=== PATIENT | male | born 1935 | race Caucasian/White ===

== ENCOUNTER 2017-06-05 06:53 | Emergency (ER) | payer MEDICARE, MEDICAID ==
[2017-06-05] MEDS ORDERED: Carbidopa/Levodopa 50-200 MG Tab.ER PO ONE (07:29)
--- NOTE | 2017-06-05 07:30 | EDM.PDOC ---
ED HPI GENERAL MEDICAL PROBLEM - General Stated Complaint: FALL Time Seen by Provider: 06/05/17 07:02 Source of Information: Reports: [facility] Records History Limitations: Reports: Physical Impairment - History of Present Illness INITIAL COMMENTS - FREE TEXT/NARRATIVE: History of present illness: [] Review of systems: As per history of present illness and below otherwise all systems reviewed and negative. Past medical history: As per history of present illness and as reviewed below otherwise noncontributory. Surgical history: As per history of present illness and as reviewed below otherwise noncontributory. Social history: No reported history of drug or alcohol abuse. Family history: As per history of present illness and as reviewed below otherwise noncontributory. Physical exam: General: Well developed, in NAD HEENT: Atraumatic, normocephalic, pupils reactive, negative for conjunctival pallor or scleral icterus, mucous membranes moist, throat clear, neck supple, nontender, trachea midline. Lungs: Clear to auscultation, breath sounds equal bilaterally, chest nontender. Heart: S1S2, regular, negative for clicks, rubs, or JVD. Abdomen: Soft, nondistended, nontender. Negative for masses or hepatosplenomegaly. Negative for costovertebral tenderness. Pelvis: Stable nontender. Genitourinary: Deferred. Rectal: Deferred. Extremities: Atraumatic, negative for cords or calf pain. Neurovascular unremarkable.Exam nonfocal. Diagnostics: []X-rays pelvis and femurs negative for fracture positive for osteoarthritis Therapeutics: []Tylenol and morning meds given Impression: []Fall with extremity contusion Plan: []Tylenol and/or Motrin for pain continue regular meds with PMD Definitive disposition and diagnosis as appropriate pending reevaluation and review of above. - Related Data Allergies Allergy/AdvReac Type Severity Reaction Status Date / Time amoxicillin trihydrate Allergy Other Verified 06/05/17 07:22 [From Augmentin] potassium clavulanate Allergy Other Verified 06/05/17 07:22 [From Augmentin] Home Meds: Home Meds Carbidopa/Levodopa [Carbidopa-Levo ER 50-200] 1 tab PO ASDIRECTED 07/18/15 [ History] Citalopram [Citalopram HBr] 20 mg PO BEDTIME 07/18/15 [History] Lisinopril 5 mg PO DAILY 07/18/15 [History] OXcarbazepine [Trileptal] 150 mg PO QAM 07/18/15 [History] traZODone 100 mg PO BEDTIME 07/18/15 [History] Acetaminophen [Tylenol] 650 mg PO TID 07/23/15 [History] Levothyroxine 25 mcg PO DAILY 07/23/15 [History] Multivitamin [Multivitamins] 1 tab PO DAILY 07/23/15 [History] OXcarbazepine [Trileptal] 300 mg PO BEDTIME 07/23/15 [History] Aspirin [Low Dose Aspirin EC] 81 mg PO DAILY 05/21/16 [History] Polyethylene Glycol 3350 [MiraLAX] 17 gm PO DAILY 05/21/16 [History] Famotidine [Pepcid] 40 mg PO DAILY 06/05/17 [History] Past Medical History HEENT History: Reports: Other (See Below) Other HEENT History: Early cataracts, blepharitis Cardiovascular History: Reports: High Cholesterol, Hypertension Respiratory History: Reports: None Gastrointestinal History: Reports: Hepatitis Genitourinary History: Reports: BPH, Retention, Urinary, Other (See Below) Other Genitourinary History: urinary obstruction Musculoskeletal History: Reports: Arthritis, Gout, Other (See Below) Other Musculoskeletal History: kyphosis w/minimal scoliosis Neurological History: Reports: Parkinson's Psychiatric History: Reports: Anxiety, Depression, Other (See Below) Other Psychiatric History: moderate intellectual disability Endocrine/Metabolic History: Reports: Diabetes, Type II Hematologic History: Reports: None Immunologic History: Reports: None Oncologic (Cancer) History: Reports: None Dermatologic History: Reports: None - Infectious Disease History Infectious Disease History: Reports: Hepatitis B - Past Surgical History HEENT Surgical History: Reports: Other (See Below) Social & Family History - Family History Family Medical History: Unobtainable - Tobacco Use Smoking Status *Q: Never Smoker Second Hand Smoke Exposure: No - Caffeine Use Caffeine Use: Reports: None - Recreational Drug Use Recreational Drug Use: No ED ROS GENERAL - Review of Systems Review Of Systems: See Below (See history of present illness) ED EXAM, GENERAL - Physical Exam Exam: See Below (See history of present illness) Course - Vital Signs Last Recorded V/S: Last Vital Signs Temp 97.3 F 06/05/17 07:11 Pulse 73 06/05/17 07:11 Resp 18 06/05/17 07:11 BP 119/50 L 06/05/17 07:11 Pulse Ox 97 06/05/17 07:11 - Orders/Labs/Meds Orders: Active Orders 24 hr Category Date Time Status Femur Min 1V Bi [CR] Stat Exams 06/05/17 Taken Pelvis 1V or 2V [CR] Stat Exams 06/05/17 Taken Meds: Medications Discontinued Medications Generic Name Dose Route Start Last Admin Trade Name Yehuda PRN Reason Stop Dose Admin Acetaminophen 650 mg 06/05/17 07:32 06/05/17 08:25 Tylenol PO 06/05/17 07:33 650 mg NOW ONE Administration Carbidopa/Levodopa 1 tab 06/05/17 07:29 06/05/17 08:25 Sinemet Cr 50-200 Mg PO 06/05/17 07:30 1 tab ONETIME ONE Administration Departure - Departure Time of Disposition: 09:08 Disposition: Home, Self-Care 01 Condition: Good, Fair Clinical Impression: Fall Qualifiers: Encounter type: initial encounter Qualified Code(s): W19.XXXA - Unspecified fall, initial encounter Contusion, lower limb, multiple sites Qualifiers: Encounter type: initial encounter Laterality: unspecified laterality Qualified Code(s): S80.10XA - Contusion of unspecified lower leg, initial encounter - Discharge Information Referrals: Jhonny Burroughs MD [Primary Care Provider] - Additional Instructions: The following information is given to patients seen in the emergency department who are being discharged to home. This information is to outline your options for follow-up care. We provide all patients seen in our emergency department with a follow-up referral. The need for follow-up, as well as the timing and circumstances, are variable depending upon the specifics of your emergency department visit. If you don't have a primary care physician on staff, we will provide you with a referral. We always advise you to contact your personal physician following an emergency department visit to inform them of the circumstance of the visit and for follow-up with them and/or the need for any referrals to a consulting specialist. The emergency department will also refer you to a specialist when appropriate. This referral assures that you have the opportunity for follow-up care with a specialist. All of these measure are taken in an effort to provide you with optimal care, which includes your follow-up. Under all circumstances we always encourage you to contact your private physician who remains a resource for coordinating your care. When calling for follow-up care, please make the office aware that this follow-up is from your recent emergency room visit. If for any reason you are refused follow-up, please contact the [facility] Emergency Department at and asked to speak to the emergency department charge nurse. Tylenol Motrin for pain continue regular meds up with PMD as needed [facility] [address] [place] [id number] - My Orders Last 24 Hours: My Active Orders 06/05/17 Femur Min 1V Bi [CR] Stat Pelvis 1V or 2V [CR] Stat - Assessment/Plan Last 24 Hours: My Active Orders 06/05/17 Femur Min 1V Bi [CR] Stat Pelvis 1V or 2V [CR] Stat
[2017-06-05] MEDS ORDERED: Acetaminophen 325 MG Tab PO ONE (07:32)
[2017-06-05] MEDS ORDERED: Sodium Chloride 0.9% 2.5 ML Syringe FLUSH PRN (08:09)
[2017-06-05] MEDS ORDERED: Sodium Chloride 0.9% 10 ML Syringe FLUSH PRN (08:09)
[2017-06-05] MEDS ORDERED: Ondansetron 4 MG/2 ML SDV IVPUSH ONE (08:11)
[2017-06-05] MEDS ORDERED: Morphine 2 MG/ML Syringe IVPUSH ONE (08:11)
[2017-06-05 09:31] VITALS: BP 112/46
--- NOTE | 2017-06-06 15:39 | CR ---
EXAM DATE: 06/05/17 PATIENT'S AGE: 81 Patient: NITZA HANNAH Facility: [place], [place] Site . Site : 1935 Study: XRay Extremity Bilateral femur [id number] 8:42:15 AM Ordering Physician: Wilder Perez Final Report: Indication: Fall and pain Technique: Bilateral femur 4 views Comparison: None Findings: Bones: Alignment is normal. No fractures or bone lesions. Joint spaces: Severe right hip joint osteoarthritis. Mild left hip joint osteoarthritis. Soft tissues: Unremarkable. Impression: No sign of acute injury. Dictated by Alvin Coleman MD @ 06/05/2017 8:57:56 AM Dictated by: Alvin Coleman MD @ 06/05/2017 08:58:31 (Electronic Signature) Report Signed by Proxy. MTDDontrell
--- NOTE | 2017-06-06 15:39 | CR ---
EXAM DATE: 06/05/17 PATIENT'S AGE: 81 Patient: NITZA HANNAH Facility: [place], [place] Site . Site : 1935 Study: XRay Pelvis [id number] 8:41:17 AM Ordering Physician: Wilder Perez Final Report: Indication: Fall and pain Technique: Pelvis 1 view Comparison: January 30, 2015. Findings: Bones: Alignment is normal. No fractures or bone lesions. Joint spaces: Severe right hip joint osteoarthritis. Mild left hip joint osteoarthritis. Soft tissues: Unremarkable. Impression: No sign of acute injury. Dictated by Alvin Coleman MD @ 06/05/2017 8:55:44 AM Dictated by: Alvin Coleman MD @ 06/05/2017 08:55:51 (Electronic Signature) Report Signed by Proxy. [facility]
== END 2017-06-05 09:31 | disposition home or self-care (01) ==
LOC: MW.ED 06:53
DX: S80.10XA Contusion of unspecified lower leg, initial encounter (principal); I10 Essential (primary) hypertension; E11.9 Type 2 diabetes mellitus without complications; Z88.1 Allergy status to other antibiotic agents; Z88.8 Allergy status to other drugs, medicaments and biological substances; Z79.899 Other long term (current) drug therapy; W19.XXXA Unspecified fall, initial encounter
CPT/HCPCS: 72170; 99283; A9270; 73551-50; 735515026

== ENCOUNTER 2017-10-29 16:36 | Inpatient (IN) | payer MEDICARE, MEDICAID ==
[2017-10-29] MEDS ORDERED: Sodium Chloride 0.9% 10 ML Syringe FLUSH PRN (16:48)
[2017-10-29] MEDS ORDERED: Sodium Chloride 0.9% 2.5 ML Syringe FLUSH PRN (16:48)
--- NOTE | 2017-10-29 16:54 | EDM.PDOC ---
<Denise John - Last Filed: 10/29/17 18:31> ED HPI GENERAL MEDICAL PROBLEM - General Stated Complaint: AMBULANCE Time Seen by Provider: 10/29/17 16:49 Source of Information: Reports: EMS Notes Reviewed, Old Records, RN Notes Reviewed History Limitations: Reports: Physical Impairment - History of Present Illness INITIAL COMMENTS - FREE TEXT/NARRATIVE: HISTORY AND PHYSICAL: []81-year-old male from [facility] who is brought by EMS due to increased agitation and fever. Report from [facility] states that his temperature was"107.0" and his heart rate was "255" they had given him 650 mg of Tylenol for this. History of Present Illness: On arrival to the emergency department his heart rate was 94. Temperature was 38.3. 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 Port from staff was that he was tachycardic and running a fever. Review of Systems: As per history of present illness and below otherwise all systems reviewed and negative. Past medical history: As per history of present illness and as reviewed below otherwise noncontributory. Surgical history: As per history of present illness and as reviewed below otherwise noncontributory. Social history: No reported history of drug or alcohol abuse. Family history: As per history of present illness and as reviewed below otherwise noncontributory. Physical exam: HEENT: Atraumatic, normocehpalic, pupils reactive, negative for conjunctival pallor or scleral icterus, mucous membranes moist, throat clear, neck supple, nontender, trachea midline. Lungs: Clear to auscultation, breath sounds equal bilaterally, chest non tender. Heart: S1S2, regular, negative for clicks, rubs, or JVD. Abdomen: Soft, nondistended, nontender. Negative for masses or hepatossplenmegaly. Negative for costovertebral tenderness. Pelvis: Stable nontender. Genitourinary: Deferred. Rectal: Deferred Extremities: Atraumatic, negative for cords or calf pain. Neurovascular unremarkable. Neuro: Awake, alert, oriented. Cranial nerves II through XII unremarkable. Cerebellum unremarkable. Motor and sensory unremarkable throughout. Exam nonfocal. Discussed this case with Dr. Allen who is in agreement to admit as inpatient on [facility]. Discussed this patient's condition with his POA. She verbalizes agreement that this is to be As DNR code level III Diagnostics: []CBC CMP blood cultures chest x-ray lactate u/a urine culture Therapeutics: []Saline lock Impression: []Urosepsis Plan: []Made as inpatient to [facility] Definitive disposition and diagnosis as appropriate pending reevaluation and review of above. Onset: Gradual Duration: Getting Worse Location: Reports: Generalized Severity: Mild Improves with: Reports: None Worsens with: Reports: None - Related Data Allergies Allergy/AdvReac Type Severity Reaction Status Date / Time amoxicillin trihydrate Allergy Other Verified 10/29/17 17:12 [From Augmentin] potassium clavulanate Allergy Other Verified 10/29/17 17:12 [From Augmentin] Home Meds: Home Meds Carbidopa/Levodopa [Carbidopa-Levo ER 50-200] 1 tab PO ASDIRECTED 07/18/15 [ History] Citalopram [Citalopram HBr] 10 mg PO BEDTIME 07/18/15 [History] Lisinopril 5 mg PO DAILY 07/18/15 [History] OXcarbazepine [Trileptal] 150 mg PO QAM 07/18/15 [History] traZODone 100 mg PO BEDTIME 07/18/15 [History] Acetaminophen [Tylenol] 650 mg PO TID 07/23/15 [History] Levothyroxine 25 mcg PO DAILY 07/23/15 [History] Multivitamin [Multivitamins] 1 tab PO DAILY 07/23/15 [History] OXcarbazepine [Trileptal] 300 mg PO BEDTIME 07/23/15 [History] Aspirin [Low Dose Aspirin EC] 81 mg PO DAILY 05/21/16 [History] Polyethylene Glycol 3350 [MiraLAX] 17 gm PO DAILY 05/21/16 [History] Famotidine [Pepcid] 40 mg PO DAILY 06/05/17 [History] Bisacodyl [Biscolax] 10 mg RECTAL ASDIRECTED 10/29/17 [History] Past Medical History HEENT History: Reports: Other (See Below) Other HEENT History: Early cataracts, blepharitis Cardiovascular History: Reports: High Cholesterol, Hypertension Respiratory History: Reports: None Gastrointestinal History: Reports: Hepatitis Genitourinary History: Reports: BPH, Retention, Urinary, Other (See Below) Other Genitourinary History: urinary obstruction Musculoskeletal History: Reports: Arthritis, Gout, Other (See Below) Other Musculoskeletal History: kyphosis w/minimal scoliosis Neurological History: Reports: Parkinson's Psychiatric History: Reports: Anxiety, Depression, Other (See Below) Other Psychiatric History: moderate intellectual disability Endocrine/Metabolic History: Reports: Diabetes, Type II Hematologic History: Reports: None Immunologic History: Reports: None Oncologic (Cancer) History: Reports: None Dermatologic History: Reports: None - Infectious Disease History Infectious Disease History: Reports: Hepatitis B Other Infectious Disease History: pt unable to verbalize - Past Surgical History HEENT Surgical History: Reports: Other (See Below) Social & Family History - Family History Family Medical History: Unobtainable - Tobacco Use Smoking Status *Q: Never Smoker Second Hand Smoke Exposure: No - Caffeine Use Caffeine Use: Reports: None - Recreational Drug Use Recreational Drug Use: No ED ROS GENERAL - Review of Systems Review Of Systems: ROS reveals no pertinent complaints other than HPI. ED EXAM, GENERAL - Physical Exam Exam: See Below (See dictation) Course - Vital Signs Last Recorded V/S: Last Vital Signs Temp 38.3 C H 10/29/17 17:06 Pulse 82 10/29/17 17:54 Resp 22 H 10/29/17 17:54 BP 145/80 H 10/29/17 17:54 Pulse Ox 95 10/29/17 17:54 - Orders/Labs/Meds Orders: Active Orders 24 hr Category Date Time Status EKG Documentation Completion [RC] STAT Care 10/29/17 16:48 Active Chest 1V Frontal [CR] Stat Exams 10/29/17 16:49 Taken CULTURE BLOOD [BC] Stat Lab 10/29/17 17:05 Received CULTURE BLOOD [BC] Stat Lab 10/29/17 17:44 Received CULTURE URINE [RM] Stat Lab 10/29/17 16:51 Received UA W/MICROSCOPIC [URIN] Stat Lab 10/29/17 16:51 Ordered Sodium Chloride 0.9% [Normal Saline] 1,000 ml Med 10/29/17 18:00 Active IV ASDIRECTED Sodium Chloride 0.9% [Normal Saline] 500 ml Med 10/29/17 17:00 Active IV STAT Sodium Chloride 0.9% [Saline Flush] Med 10/29/17 16:48 Active 10 ml FLUSH ASDIRECTED PRN Sodium Chloride 0.9% [Saline Flush] Med 10/29/17 16:48 Active 2.5 ml FLUSH ASDIRECTED PRN Blood Culture x2 Reflex Set [OM.PC] Stat Oth 10/29/17 17:25 Ordered Saline Lock Insert [OM.PC] Stat Ot 10/29/17 16:48 Ordered Medication Orders Sodium Chloride (Normal Saline) 500 mls @ 999 mls/hr IV STAT LOUIS Last Admin: 10/29/17 17:25 Dose: 999 mls/hr Sodium Chloride (Normal Saline) 1,000 mls @ 125 mls/hr IV ASDIRECTED LOUIS Last Admin: 10/29/17 18:25 Dose: 125 mls/hr Sodium Chloride (Saline Flush) 10 ml FLUSH ASDIRECTED PRN PRN Reason: Keep Vein Open Sodium Chloride (Saline Flush) 2.5 ml FLUSH ASDIRECTED PRN PRN Reason: Keep Vein Open Labs: Laboratory Tests 10/29/17 10/29/17 10/29/17 Range/Units 16:51 17:05 17:05 WBC 15.57 H (4.0-11.0) K/uL RBC 4.22 L (4.50-5.90) M/uL Hgb 12.5 L (13.0-17.0) g/dL Hct 37.1 L (38.0-50.0) % MCV 87.9 (80.0-98.0) fL MCH 29.6 (27.0-32.0) pg MCHC 33.7 (31.0-37.0) g/dL RDW Std Deviation 43.6 (28.0-62.0) fl RDW Coeff of Mara 14 (11.0-15.0) % Plt Count 215 (150-400) K/uL MPV 9.60 (7.40-12.00) fL Neut % (Auto) 96.2 H (48.0-80.0) % Lymph % (Auto) 2.0 L (16.0-40.0) % Park % (Auto) 1.5 (0.0-15.0) % Eos % (Auto) 0.2 (0.0-7.0) % Baso % (Auto) 0.1 (0.0-1.5) % Neut # (Auto) 15.0 H (1.4-5.7) K/uL Lymph # (Auto) 0.3 L (0.6-2.4) K/uL Park # (Auto) 0.2 (0.0-0.8) K/uL Eos # (Auto) 0.0 (0.0-0.7) K/uL Baso # (Auto) 0.0 (0.0-0.1) K/uL Nucleated RBC % 0.0 /100WBC Nucleated RBCs # 0 K/uL Lactate (0.20-2.00) mmol/L Sodium 136 (136-148) mmol/L Potassium 4.0 (3.5-5.1) mmol/L Chloride 103 (98-107) mmol/L Carbon Dioxide 23.1 (21.0-32.0) mmol/L BUN 27 H (7.0-18.0) mg/dL Creatinine 1.5 H (0.8-1.3) mg/dL Est Cr Clr Drug Dosing 29.32 mL/min Estimated GFR (MDRD) 44.8 ml/min Glucose 111 H (74-106) mg/dL Calcium 9.3 (8.5-10.1) mg/dL Total Bilirubin 0.3 (0.2-1.0) mg/dL AST 18 (15-37) IU/L ALT 13 L (14-63) IU/L Alkaline Phosphatase 103 (46-116) U/L Troponin I 0.082 H* (0.000-0.056) ng/mL Total Protein 7.0 (6.4-8.2) g/dL Albumin 3.4 (3.4-5.0) g/dL Globulin 3.6 H (2.0-3.5) g/dL Albumin/Globulin Ratio 0.9 L (1.3-2.8) Urine Color YELLOW Urine Appearance SLT CLOUDY Urine pH 5.5 (5.0-8.0) Ur Specific [place] 1.025 (1.001-1.035) Urine Protein 30 (NEGATIVE) mg/dL Urine Glucose (UA) NEGATIVE (NEGATIVE) mg/dL Urine Ketones TRACE H (NEGATIVE) mg/dL Urine Occult Blood TRACE-INTACT (NEGATIVE) Urine Nitrite POSITIVE H (NEGATIVE) Urine Bilirubin NEGATIVE (NEGATIVE) Urine Urobilinogen 0.2 (<2.0) EU/dL Ur Leukocyte Esterase MODERATE (NEGATIVE) Urine RBC 0-2 (0-2/HPF) Urine WBC 12-15 (0-5/HPF) Ur Epithelial Cells OCCASIONAL (NONE-FEW) Amorphous Sediment LIGHT (NEGATIVE) Urine Bacteria 2+ H (NEGATIVE) Urine Mucus LIGHT (NONE-MOD) 10/29/17 Range/Units 17:44 WBC (4.0-11.0) K/uL RBC (4.50-5.90) M/uL Hgb (13.0-17.0) g/dL Hct (38.0-50.0) % MCV (80.0-98.0) fL MCH (27.0-32.0) pg MCHC (31.0-37.0) g/dL RDW Std Deviation (28.0-62.0) fl RDW Coeff of Mara (11.0-15.0) % Plt Count (150-400) K/uL MPV (7.40-12.00) fL Neut % (Auto) (48.0-80.0) % Lymph % (Auto) (16.0-40.0) % Park % (Auto) (0.0-15.0) % Eos % (Auto) (0.0-7.0) % Baso % (Auto) (0.0-1.5) % Neut # (Auto) (1.4-5.7) K/uL Lymph # (Auto) (0.6-2.4) K/uL Park # (Auto) (0.0-0.8) K/uL Eos # (Auto) (0.0-0.7) K/uL Baso # (Auto) (0.0-0.1) K/uL Nucleated RBC % /100WBC Nucleated RBCs # K/uL Lactate 2.0 (0.20-2.00) mmol/L Sodium (136-148) mmol/L Potassium (3.5-5.1) mmol/L Chloride (98-107) mmol/L Carbon Dioxide (21.0-32.0) mmol/L BUN (7.0-18.0) mg/dL Creatinine (0.8-1.3) mg/dL Est Cr Clr Drug Dosing mL/min Estimated GFR (MDRD) ml/min Glucose (74-106) mg/dL Calcium (8.5-10.1) mg/dL Total Bilirubin (0.2-1.0) mg/dL AST (15-37) IU/L ALT (14-63) IU/L Alkaline Phosphatase (46-116) U/L Troponin I (0.000-0.056) ng/mL Total Protein (6.4-8.2) g/dL Albumin (3.4-5.0) g/dL Globulin (2.0-3.5) g/dL Albumin/Globulin Ratio (1.3-2.8) Urine Color Urine Appearance Urine pH (5.0-8.0) Ur Specific [place] (1.001-1.035) Urine Protein (NEGATIVE) mg/dL Urine Glucose (UA) (NEGATIVE) mg/dL Urine Ketones (NEGATIVE) mg/dL Urine Occult Blood (NEGATIVE) Urine Nitrite (NEGATIVE) Urine Bilirubin (NEGATIVE) Urine Urobilinogen (<2.0) EU/dL Ur Leukocyte Esterase (NEGATIVE) Urine RBC (0-2/HPF) Urine WBC (0-5/HPF) Ur Epithelial Cells (NONE-FEW) Amorphous Sediment (NEGATIVE) Urine Bacteria (NEGATIVE) Urine Mucus (NONE-MOD) Meds: Medications Generic Name Dose Route Start Last Admin Trade Name Freq PRN Reason Stop Dose Admin Sodium Chloride 500 mls @ 999 mls/hr 10/29/17 17:00 10/29/17 17:25 Normal Saline IV 999 mls/hr STAT LOUIS Administration Sodium Chloride 1,000 mls @ 125 mls/hr 10/29/17 18:00 10/29/17 18:25 Normal Saline IV 125 mls/hr ASDIRECTED LOUIS Administration Sodium Chloride 10 ml 10/29/17 16:48 Saline Flush FLUSH ASDIRECTED PRN Keep Vein Open Sodium Chloride 2.5 ml 10/29/17 16:48 Saline Flush FLUSH ASDIRECTED PRN Keep Vein Open Discontinued Medications Generic Name Dose Route Start Last Admin Trade Name Freq PRN Reason Stop Dose Admin Ceftriaxone Sodium/Dextrose 1 50 mls @ 100 mls/hr 10/29/17 17:55 gm/ Premix IV 10/29/17 18:24 ONETIME ONE Ceftriaxone Sodium 1 gm/ 50 mls @ 100 mls/hr 10/29/17 18:01 10/29/17 18:25 Sodium Chloride IV 10/29/17 18:30 100 mls/hr ONETIME ONE Administration Departure - Departure Time of Disposition: 18:32 Disposition: Admitted As Inpatient 65 Condition: Good Clinical Impression: UTI (urinary tract infection), bacterial, Recurrent dehydration - Discharge Information <Yola Steele - Last Filed: 10/29/17 18:55> ED HPI GENERAL MEDICAL PROBLEM - History of Present Illness INITIAL COMMENTS - FREE TEXT/NARRATIVE: Please add to therapeutics IV fluids and Rocephin
[2017-10-29] MEDS ORDERED: Sodium Chloride 0.9% 500 ML IV SCH (17:00)
[2017-10-29] MEDS ORDERED: cefTRIAXone 1 GM in Premix Bag 1 BAG IV ONE (17:55)
[2017-10-29] MEDS ORDERED: cefTRIAXone 1 GM in Sodium Chloride 0.9% 50 ML IV ONE (18:01)
[2017-10-29] MEDS: Sodium Chloride 0.9% 1,000 ML IV SCH (18:25)
[2017-10-29] MEDS ORDERED: Albuterol/Ipratropium 3.0-0.5 MG/3 ML Neb Soln NEB PRN (19:24)
[2017-10-29] MEDS ORDERED: Acetaminophen 325 MG Tab PO PRN (19:24)
[2017-10-29] MEDS ORDERED: Ondansetron 4 MG Tab.DIS PO PRN (19:24)
--- NOTE | 2017-10-29 19:42 | PCM.HP ---
H&P History of Present Illness - General Date of Service: 10/29/17 Admit Problem/Dx: Admission Diagnosis/Problem Admission Diagnosis/Problem Urosepsis Source of Information: Patient, Family History Limitations: Reports: Physical Impairment - History of Present Illness Initial Comments - Free Text/Narative: 81-year-old male with a medical history of hypertension, hypothyroidism, stage IV chronic kidney disease, type 2 diabetes and Parkinson's disease that is being admitted with a urinary tract infection. Patient is limited in his mobility secondary to Parkinson's disease but is able to ambulate with assistance. He does have a chronically indwelling Miller catheter that has been in over the last couple of years. Over that time. He has had 3-4 UTIs requiring admission. Prior cultures grew out Escherichia coli sensitive to cephalosporins. He is a resident of [facility] and it was noted by staff there that he had increased agitation and had developed fever over the last few days. He was brought into the ER and his urinalysis was positive for nitrites and showed +2 bacteria and the presence of white blood cells. His white count was elevated at 16,000. His lactate was normal. Kidney function is impaired but better than previous admissions. Lactate was normal. Chest x-ray was unremarkable. Patient was given 1 g of Rocephin and IV fluid bolus and then maintained on normal saline at 125 mL/hour. He also had a fever of 100.9F. In speaking with the patient's daughter who is at bedside with him, he is feeling much improved since presenting to the ER. He is a DNR/DNI. - Related Data Allergies/Adverse Reactions: Allergies Allergy/AdvReac Type Severity Reaction Status Date / Time amoxicillin trihydrate Allergy Other Verified 10/29/17 17:12 [From Augmentin] potassium clavulanate Allergy Other Verified 10/29/17 17:12 [From Augmentin] Home Medications: Home Meds Carbidopa/Levodopa [Carbidopa-Levo ER 50-200] 1 tab PO ASDIRECTED 07/18/15 [ History] Citalopram [Citalopram HBr] 10 mg PO BEDTIME 07/18/15 [History] Lisinopril 5 mg PO DAILY 07/18/15 [History] OXcarbazepine [Trileptal] 150 mg PO QAM 07/18/15 [History] traZODone 100 mg PO BEDTIME 07/18/15 [History] Acetaminophen [Tylenol] 650 mg PO TID 07/23/15 [History] Levothyroxine 25 mcg PO DAILY 07/23/15 [History] Multivitamin [Multivitamins] 1 tab PO DAILY 07/23/15 [History] OXcarbazepine [Trileptal] 300 mg PO BEDTIME 07/23/15 [History] Aspirin [Low Dose Aspirin EC] 81 mg PO DAILY 05/21/16 [History] Polyethylene Glycol 3350 [MiraLAX] 17 gm PO DAILY 05/21/16 [History] Famotidine [Pepcid] 40 mg PO DAILY 06/05/17 [History] Bisacodyl [Biscolax] 10 mg RECTAL ASDIRECTED 10/29/17 [History] Past Medical History HEENT History: Reports: Other (See Below) Other HEENT History: Early cataracts, blepharitis Cardiovascular History: Reports: High Cholesterol, Hypertension Respiratory History: Reports: None Gastrointestinal History: Reports: Hepatitis Genitourinary History: Reports: BPH, Retention, Urinary, Other (See Below) Other Genitourinary History: urinary obstruction Musculoskeletal History: Reports: Arthritis, Gout, Other (See Below) Other Musculoskeletal History: kyphosis w/minimal scoliosis Neurological History: Reports: Parkinson's Psychiatric History: Reports: Anxiety, Depression, Other (See Below) Other Psychiatric History: moderate intellectual disability Endocrine/Metabolic History: Reports: Diabetes, Type II Hematologic History: Reports: None Immunologic History: Reports: None Oncologic (Cancer) History: Reports: None Dermatologic History: Reports: None - Infectious Disease History Infectious Disease History: Reports: Hepatitis B Other Infectious Disease History: pt unable to verbalize - Past Surgical History HEENT Surgical History: Reports: Other (See Below) Social & Family History - Family History Family Medical History: Unobtainable - Tobacco Use Smoking Status *Q: Never Smoker Second Hand Smoke Exposure: No - Caffeine Use Caffeine Use: Reports: None - Recreational Drug Use Recreational Drug Use: No H&P Review of Systems - Review of Systems: Review Of Systems: See Below General: Reports: Fever HEENT: Reports: No Symptoms Pulmonary: Reports: No Symptoms Cardiovascular: Reports: No Symptoms Gastrointestinal: Reports: No Symptoms Genitourinary: Reports: Other (Chronic indwelling Miller catheter.) Musculoskeletal: Reports: No Symptoms Skin: Reports: No Symptoms Psychiatric: Reports: Agitation Neurological: Reports: Other (Parkinson's disease) Hematologic/Lymphatic: Reports: No Symptoms Immunologic: Reports: No Symptoms Exam - Exam Exam: See Below - Vital Signs Vital Signs: Last Vital Signs Temp 100.9 F H 10/29/17 17:06 Pulse 82 10/29/17 17:54 Resp 22 H 10/29/17 17:54 BP 145/80 H 10/29/17 17:54 Pulse Ox 95 10/29/17 17:54 Weight: 146 lb 9.6 oz - Exam General: Alert, Cooperative HEENT: Conjunctiva Clear, Hearing Intact Neck: Supple, Trachea Midline, 2 Lungs: Clear to Auscultation, Normal Respiratory Effort Cardiovascular: Regular Rate, Regular Rhythm GI/Abdominal Exam: Normal Bowel Sounds, Soft, Non-Tender, No Organomegaly, No Distention, No Abnormal Bruit, No Mass, Pelvis Stable (Male) Exam: Other (Chronic indwelling Miller catheter.) Back Exam: No: CVA Tenderness (L), CVA Tenderness (R) Extremities: Normal Inspection, Non-Tender, No Pedal Edema, Normal Capillary Refill Peripheral Pulses: 2+: Radial (L), Radial (R), Posterior Tibial (L), Posterior Tibial (R) Skin: Warm, Dry, Intact Neuro Extensive - Mental Status: Alert, Normal Mood/Affect Psychiatric: Alert, Normal Affect, Normal Mood - Patient Data Lab Results Last 24 hrs: Laboratory Results - last 24 hr 10/29/17 10/29/17 10/29/17 Range/Units 16:51 17:05 17:05 WBC 15.57 H (4.0-11.0) K/uL RBC 4.22 L (4.50-5.90) M/uL Hgb 12.5 L (13.0-17.0) g/dL Hct 37.1 L (38.0-50.0) % MCV 87.9 (80.0-98.0) fL MCH 29.6 (27.0-32.0) pg MCHC 33.7 (31.0-37.0) g/dL RDW Std Deviation 43.6 (28.0-62.0) fl RDW Coeff of Mara 14 (11.0-15.0) % Plt Count 215 (150-400) K/uL MPV 9.60 (7.40-12.00) fL Neut % (Auto) 96.2 H (48.0-80.0) % Lymph % (Auto) 2.0 L (16.0-40.0) % Creek % (Auto) 1.5 (0.0-15.0) % Eos % (Auto) 0.2 (0.0-7.0) % Baso % (Auto) 0.1 (0.0-1.5) % Neut # (Auto) 15.0 H (1.4-5.7) K/uL Lymph # (Auto) 0.3 L (0.6-2.4) K/uL Creek # (Auto) 0.2 (0.0-0.8) K/uL Eos # (Auto) 0.0 (0.0-0.7) K/uL Baso # (Auto) 0.0 (0.0-0.1) K/uL Nucleated RBC % 0.0 /100WBC Nucleated RBCs # 0 K/uL Lactate (0.20-2.00) mmol/L Sodium 136 (136-148) mmol/L Potassium 4.0 (3.5-5.1) mmol/L Chloride 103 (98-107) mmol/L Carbon Dioxide 23.1 (21.0-32.0) mmol/L BUN 27 H (7.0-18.0) mg/dL Creatinine 1.5 H (0.8-1.3) mg/dL Est Cr Clr Drug Dosing 29.32 mL/min Estimated GFR (MDRD) 44.8 ml/min Glucose 111 H (74-106) mg/dL Calcium 9.3 (8.5-10.1) mg/dL Total Bilirubin 0.3 (0.2-1.0) mg/dL AST 18 (15-37) IU/L ALT 13 L (14-63) IU/L Alkaline Phosphatase 103 (46-116) U/L Troponin I 0.082 H* (0.000-0.056) ng/mL Total Protein 7.0 (6.4-8.2) g/dL Albumin 3.4 (3.4-5.0) g/dL Globulin 3.6 H (2.0-3.5) g/dL Albumin/Globulin Ratio 0.9 L (1.3-2.8) Urine Color YELLOW Urine Appearance SLT CLOUDY Urine pH 5.5 (5.0-8.0) Ur Specific [place] 1.025 (1.001-1.035) Urine Protein 30 (NEGATIVE) mg/dL Urine Glucose (UA) NEGATIVE (NEGATIVE) mg/dL Urine Ketones TRACE H (NEGATIVE) mg/dL Urine Occult Blood TRACE-INTACT (NEGATIVE) Urine Nitrite POSITIVE H (NEGATIVE) Urine Bilirubin NEGATIVE (NEGATIVE) Urine Urobilinogen 0.2 (<2.0) EU/dL Ur Leukocyte Esterase MODERATE (NEGATIVE) Urine RBC 0-2 (0-2/HPF) Urine WBC 12-15 (0-5/HPF) Ur Epithelial Cells OCCASIONAL (NONE-FEW) Amorphous Sediment LIGHT (NEGATIVE) Urine Bacteria 2+ H (NEGATIVE) Urine Mucus LIGHT (NONE-MOD) 10/29/17 Range/Units 17:44 WBC (4.0-11.0) K/uL RBC (4.50-5.90) M/uL Hgb (13.0-17.0) g/dL Hct (38.0-50.0) % MCV (80.0-98.0) fL MCH (27.0-32.0) pg MCHC (31.0-37.0) g/dL RDW Std Deviation (28.0-62.0) fl RDW Coeff of Mara (11.0-15.0) % Plt Count (150-400) K/uL MPV (7.40-12.00) fL Neut % (Auto) (48.0-80.0) % Lymph % (Auto) (16.0-40.0) % Creek % (Auto) (0.0-15.0) % Eos % (Auto) (0.0-7.0) % Baso % (Auto) (0.0-1.5) % Neut # (Auto) (1.4-5.7) K/uL Lymph # (Auto) (0.6-2.4) K/uL Creek # (Auto) (0.0-0.8) K/uL Eos # (Auto) (0.0-0.7) K/uL Baso # (Auto) (0.0-0.1) K/uL Nucleated RBC % /100WBC Nucleated RBCs # K/uL Lactate 2.0 (0.20-2.00) mmol/L Sodium (136-148) mmol/L Potassium (3.5-5.1) mmol/L Chloride (98-107) mmol/L Carbon Dioxide (21.0-32.0) mmol/L BUN (7.0-18.0) mg/dL Creatinine (0.8-1.3) mg/dL Est Cr Clr Drug Dosing mL/min Estimated GFR (MDRD) ml/min Glucose (74-106) mg/dL Calcium (8.5-10.1) mg/dL Total Bilirubin (0.2-1.0) mg/dL AST (15-37) IU/L ALT (14-63) IU/L Alkaline Phosphatase (46-116) U/L Troponin I (0.000-0.056) ng/mL Total Protein (6.4-8.2) g/dL Albumin (3.4-5.0) g/dL Globulin (2.0-3.5) g/dL Albumin/Globulin Ratio (1.3-2.8) Urine Color Urine Appearance Urine pH (5.0-8.0) Ur Specific [place] (1.001-1.035) Urine Protein (NEGATIVE) mg/dL Urine Glucose (UA) (NEGATIVE) mg/dL Urine Ketones (NEGATIVE) mg/dL Urine Occult Blood (NEGATIVE) Urine Nitrite (NEGATIVE) Urine Bilirubin (NEGATIVE) Urine Urobilinogen (<2.0) EU/dL Ur Leukocyte Esterase (NEGATIVE) Urine RBC (0-2/HPF) Urine WBC (0-5/HPF) Ur Epithelial Cells (NONE-FEW) Amorphous Sediment (NEGATIVE) Urine Bacteria (NEGATIVE) Urine Mucus (NONE-MOD) Result Diagrams: 10/29/17 17:05 10/29/17 17:05 - Problem List (1) Elevated troponin SNOMED Code(s): 377106243, 126545409, 161576813 ICD Code: R74.8 - ABNORMAL LEVELS OF OTHER SERUM ENZYMES Status: Acute Current Visit: Yes (2) Chronic kidney disease SNOMED Code(s): 606959454 ICD Code: N18.9 - CHRONIC KIDNEY DISEASE, UNSPECIFIED Status: Acute Current Visit: Yes (3) UTI (urinary tract infection), bacterial SNOMED Code(s): 144066294 ICD Code: N39.0 - URINARY TRACT INFECTION, SITE NOT SPECIFIED; A49.9 - BACTERIAL INFECTION, UNSPECIFIED Status: Acute Current Visit: Yes Problem List Initiated/Reviewed/Updated: Yes Orders Last 24hrs: Active Orders 24 hr Category Date Time Status Patient Status [ADT] Stat ADT 10/29/17 18:22 Active Blood Glucose Check, Bedside [RC] TIDAC Care 10/29/17 19:24 Ordered Cardiac Monitoring [RC] CONTINUOUS Care 10/29/17 19:25 Ordered EKG Documentation Completion [RC] STAT Care 10/29/17 16:48 Active Height and Weight [RC] DAILY Care 10/29/17 19:24 Ordered Intake and Output [RC] QSHIFT Care 10/29/17 19:25 Ordered Notify Provider Vital Signs [RC] ASDIRECTED Care 10/29/17 19:25 Ordered Oxygen Therapy [RC] PRN Care 10/29/17 19:24 Ordered Pulse Oximetry [RC] CONTINUOUS Care 10/29/17 19:25 Ordered RT Aerosol Therapy [RC] ASDIRECTED Care 10/29/17 19:34 Ordered Up With Assistance [RC] ASDIRECTED Care 10/29/17 19:24 Ordered Urinary Catheter Assessment [RC] ASDIRECTED Care 10/29/17 19:24 Ordered VTE/DVT Education [RC] PER UNIT ROUTINE Care 10/29/17 19:24 Ordered Vital Signs [RC] Q4H Care 10/29/17 19:24 Ordered Pureed Diet [DIET] Diet 10/29/17 Breakfast Ordered Chest 1V Frontal [CR] Stat Exams 10/29/17 16:49 Taken BASIC METABOLIC PANEL,BMP [CHEM] AM Lab 10/30/17 05:11 Ordered BASIC METABOLIC PANEL,BMP [CHEM] AM Lab 10/31/17 05:11 Ordered BASIC METABOLIC PANEL,BMP [CHEM] AM Lab 11/01/17 05:11 Ordered CBC WITH AUTO DIFF [HEME] AM Lab 10/30/17 05:11 Ordered CBC WITH AUTO DIFF [HEME] AM Lab 10/31/17 05:11 Ordered CBC WITH AUTO DIFF [HEME] AM Lab 11/01/17 05:11 Ordered CULTURE BLOOD [BC] Stat Lab 10/29/17 17:05 Received CULTURE BLOOD [BC] Stat Lab 10/29/17 17:44 Received CULTURE URINE [RM] Stat Lab 10/29/17 16:51 Received MAGNESIUM [CHEM] Routine Lab 10/29/17 19:24 Ordered PHOSPHORUS [CHEM] Routine Lab 10/29/17 19:24 Ordered UA W/MICROSCOPIC [URIN] Stat Lab 10/29/17 16:51 Ordered Acetaminophen [Tylenol] Med 10/29/17 19:24 Ordered 650 mg PO Q4H PRN Albuterol/Ipratropium [DuoNeb 3.0-0.5 MG/3 ML] Med 10/29/17 19:24 Ordered 3 ml NEB Q4HRRT PRN Heparin Sodium Med 10/29/17 19:30 Ordered 5,000 units SUBCUT Q12H Ondansetron [Zofran ODT] Med 10/29/17 19:24 Ordered 4 mg PO Q4H PRN Sodium Chloride 0.9% [Normal Saline] 1,000 ml Med 10/29/17 18:00 Active IV ASDIRECTED Sodium Chloride 0.9% [Normal Saline] 500 ml Med 10/29/17 17:00 Active IV STAT Sodium Chloride 0.9% [Saline Flush] Med 10/29/17 16:48 Active 10 ml FLUSH ASDIRECTED PRN Sodium Chloride 0.9% [Saline Flush] Med 10/29/17 16:48 Active 2.5 ml FLUSH ASDIRECTED PRN cefTRIAXone [Rocephin in Dextrose,Iso-Osm 1 GM/50 ML] 1 Med 10/30/17 08:00 Ordered gm Premix Bag 1 bag IV Q24H Blood Culture x2 Reflex Set [OM.PC] Stat Oth 10/29/17 17:25 Ordered Saline Lock Insert [OM.PC] Stat Oth 10/29/17 16:48 Ordered Sequential Compression Device [OM.PC] Per Unit Routine Oth 10/29/17 19:25 Ordered Resuscitation Status Routine Resus Stat 10/29/17 19:24 Ordered Medication Orders Sodium Chloride (Normal Saline) 500 mls @ 999 mls/hr IV STAT [facility] Last Admin: 10/29/17 17:25 Dose: 999 mls/hr Sodium Chloride (Normal Saline) 1,000 mls @ 125 mls/hr IV ASDIRECTED [facility] Last Admin: 10/29/17 18:25 Dose: 125 mls/hr Sodium Chloride (Saline Flush) 10 ml FLUSH ASDIRECTED PRN PRN Reason: Keep Vein Open Sodium Chloride (Saline Flush) 2.5 ml FLUSH ASDIRECTED PRN PRN Reason: Keep Vein Open Assessment/Plan Comment:: 81-year-old male that is being admitted with a UTI. #1. UTI: -Urinalysis is positive for nitrites and shows +2 bacteria with the presence of white blood cells. Urine cultures are pending. Prior cultures grew out Escherichia coli that were sensitive to cephalosporins. -Patient will continue with daily Rocephin 1 g IV. Received an initial dose of Rocephin in the ER. -Continue normal saline at 125 mL per hour. -CBC and BMP pending in the morning. #2. Elevated troponin: -Troponin was 0.082. He has had prior elevated troponins of 0.3 in 2016. -Trend troponins until they are trending down. -Patient will be placed on telemetry. DVT prophylaxis: SCDs and heparin. Disposition: 2 to 4 days pending improvement.
[2017-10-29] MEDS ORDERED: Carbidopa/Levodopa 50-200 MG Tab.ER PO SCH (20:00)
[2017-10-29] MEDS ORDERED: cefTRIAXone 1,000 MG in Dextrose 5% in Water 50 ML IV SCH ×2 (20:00)
[2017-10-29] MEDS ORDERED: Bisacodyl 10 MG Supp RECTAL SCH (20:00)
[2017-10-29] MEDS: Acetaminophen 325 MG Tab PO SCH (21:49)
[2017-10-29] MEDS: traZODone 50 MG Tab PO SCH (21:50)
[2017-10-29] MEDS: Citalopram 20 MG Tab PO SCH (21:50)
[2017-10-29] MEDS: OXcarbazepine 300 MG Tab PO SCH (22:00)
[2017-10-29] MEDS: Heparin Sodium 5,000 Units/ML Vial SUBCUT SCH (22:09)
[2017-10-29] MEDS ORDERED: Aspirin 325 MG Tab PO ONE (23:49)
[2017-10-29] MEDS: Carbidopa/Levodopa 50-200 MG Tab.ER PO SCH (23:51)
[2017-10-30] MEDS: Carbidopa/Levodopa 50-200 MG Tab.ER PO SCH ×4 (00:22→18:21)
[2017-10-30] MEDS: Sodium Chloride 0.9% 1,000 ML IV SCH ×2 (06:36→20:08)
[2017-10-30] MEDS: Levothyroxine 25 MCG Tab PO SCH (07:30)
[2017-10-30] MEDS: Heparin Sodium 5,000 Units/ML Vial SUBCUT SCH ×2 (07:30→18:29)
[2017-10-30] MEDS: Acetaminophen 325 MG Tab PO SCH ×3 (07:30→21:27)
[2017-10-30] MEDS ORDERED: cefTRIAXone 1 GM in Premix Bag 1 BAG IV SCH (08:00)
[2017-10-30] MEDS: Polyethylene Glycol 3350 Powder 17 GM Packet PO SCH (09:12)
[2017-10-30] MEDS: Famotidine 20 MG Tab PO SCH (09:17)
[2017-10-30] MEDS: Multivitamins with Iron/Calcium/Folic Acid/Minerals Tab PO SCH (09:18)
[2017-10-30] MEDS: Lisinopril 5 MG Tab PO SCH (09:18)
[2017-10-30] MEDS: Aspirin 81 MG Tab.EC PO SCH (09:18)
[2017-10-30] MEDS: OXcarbazepine 300 MG Tab PO SCH ×2 (09:19→21:26)
--- NOTE | 2017-10-30 14:48 | PCM.PN ---
- Review of Systems Systems Review Comment:: more alert today - Patient Data Vitals - Most Recent: Last Vital Signs Temp 36.6 C 10/30/17 11:46 Pulse 61 10/30/17 11:46 Resp 18 10/30/17 11:46 BP 99/60 10/30/17 11:46 Pulse Ox 97 10/30/17 11:46 Weight - Most Recent: 66.497 kg I&O - Last 24 Hours: Intake & Output 10/29/17 10/30/17 10/30/17 22:59 06:59 14:59 Intake Total 200 Output Total 375 Balance -175 Lab Results Last 24 Hours: Laboratory Results - last 24 hr 10/29/17 10/29/17 10/29/17 Range/Units 16:51 17:05 17:05 WBC 15.57 H (4.0-11.0) K/uL RBC 4.22 L (4.50-5.90) M/uL Hgb 12.5 L (13.0-17.0) g/dL Hct 37.1 L (38.0-50.0) % MCV 87.9 (80.0-98.0) fL MCH 29.6 (27.0-32.0) pg MCHC 33.7 (31.0-37.0) g/dL RDW Std Deviation 43.6 (28.0-62.0) fl RDW Coeff of Mara 14 (11.0-15.0) % Plt Count 215 (150-400) K/uL MPV 9.60 (7.40-12.00) fL Neut % (Auto) 96.2 H (48.0-80.0) % Lymph % (Auto) 2.0 L (16.0-40.0) % Reynolds % (Auto) 1.5 (0.0-15.0) % Eos % (Auto) 0.2 (0.0-7.0) % Baso % (Auto) 0.1 (0.0-1.5) % Neut # (Auto) 15.0 H (1.4-5.7) K/uL Lymph # (Auto) 0.3 L (0.6-2.4) K/uL Reynolds # (Auto) 0.2 (0.0-0.8) K/uL Eos # (Auto) 0.0 (0.0-0.7) K/uL Baso # (Auto) 0.0 (0.0-0.1) K/uL Nucleated RBC % 0.0 /100WBC Nucleated RBCs # 0 K/uL Lactate (0.20-2.00) mmol/L Sodium 136 (136-148) mmol/L Potassium 4.0 (3.5-5.1) mmol/L Chloride 103 (98-107) mmol/L Carbon Dioxide 23.1 (21.0-32.0) mmol/L BUN 27 H (7.0-18.0) mg/dL Creatinine 1.5 H (0.8-1.3) mg/dL Est Cr Clr Drug Dosing 29.32 mL/min Estimated GFR (MDRD) 44.8 ml/min Glucose 111 H (74-106) mg/dL Calcium 9.3 (8.5-10.1) mg/dL Phosphorus (2.6-4.7) mg/dL Magnesium (1.5-2.0) mg/dL Total Bilirubin 0.3 (0.2-1.0) mg/dL AST 18 (15-37) IU/L ALT 13 L (14-63) IU/L Alkaline Phosphatase 103 (46-116) U/L Troponin I 0.082 H* (0.000-0.056) ng/mL Total Protein 7.0 (6.4-8.2) g/dL Albumin 3.4 (3.4-5.0) g/dL Globulin 3.6 H (2.0-3.5) g/dL Albumin/Globulin Ratio 0.9 L (1.3-2.8) Urine Color YELLOW Urine Appearance SLT CLOUDY Urine pH 5.5 (5.0-8.0) Ur Specific [place] 1.025 (1.001-1.035) Urine Protein 30 (NEGATIVE) mg/dL Urine Glucose (UA) NEGATIVE (NEGATIVE) mg/dL Urine Ketones TRACE H (NEGATIVE) mg/dL Urine Occult Blood TRACE-INTACT (NEGATIVE) Urine Nitrite POSITIVE H (NEGATIVE) Urine Bilirubin NEGATIVE (NEGATIVE) Urine Urobilinogen 0.2 (<2.0) EU/dL Ur Leukocyte Esterase MODERATE (NEGATIVE) Urine RBC 0-2 (0-2/HPF) Urine WBC 12-15 (0-5/HPF) Ur Epithelial Cells OCCASIONAL (NONE-FEW) Amorphous Sediment LIGHT (NEGATIVE) Urine Bacteria 2+ H (NEGATIVE) Urine Mucus LIGHT (NONE-MOD) 10/29/17 10/29/17 10/29/17 Range/Units 17:05 17:44 23:10 WBC (4.0-11.0) K/uL RBC (4.50-5.90) M/uL Hgb (13.0-17.0) g/dL Hct (38.0-50.0) % MCV (80.0-98.0) fL MCH (27.0-32.0) pg MCHC (31.0-37.0) g/dL RDW Std Deviation (28.0-62.0) fl RDW Coeff of Mara (11.0-15.0) % Plt Count (150-400) K/uL MPV (7.40-12.00) fL Neut % (Auto) (48.0-80.0) % Lymph % (Auto) (16.0-40.0) % [place] % (Auto) (0.0-15.0) % Eos % (Auto) (0.0-7.0) % Baso % (Auto) (0.0-1.5) % Neut # (Auto) (1.4-5.7) K/uL Lymph # (Auto) (0.6-2.4) K/uL [place] # (Auto) (0.0-0.8) K/uL Eos # (Auto) (0.0-0.7) K/uL Baso # (Auto) (0.0-0.1) K/uL Nucleated RBC % /100WBC Nucleated RBCs # K/uL Lactate 2.0 (0.20-2.00) mmol/L Sodium (136-148) mmol/L Potassium (3.5-5.1) mmol/L Chloride (98-107) mmol/L Carbon Dioxide (21.0-32.0) mmol/L BUN (7.0-18.0) mg/dL Creatinine (0.8-1.3) mg/dL Est Cr Clr Drug Dosing mL/min Estimated GFR (MDRD) ml/min Glucose (74-106) mg/dL Calcium (8.5-10.1) mg/dL Phosphorus 1.9 L (2.6-4.7) mg/dL Magnesium 1.7 (1.5-2.0) mg/dL Total Bilirubin (0.2-1.0) mg/dL AST (15-37) IU/L ALT (14-63) IU/L Alkaline Phosphatase (46-116) U/L Troponin I 0.214 H* (0.000-0.056) ng/mL Total Protein (6.4-8.2) g/dL Albumin (3.4-5.0) g/dL Globulin (2.0-3.5) g/dL Albumin/Globulin Ratio (1.3-2.8) Urine Color Urine Appearance Urine pH (5.0-8.0) Ur Specific [place] (1.001-1.035) Urine Protein (NEGATIVE) mg/dL Urine Glucose (UA) (NEGATIVE) mg/dL Urine Ketones (NEGATIVE) mg/dL Urine Occult Blood (NEGATIVE) Urine Nitrite (NEGATIVE) Urine Bilirubin (NEGATIVE) Urine Urobilinogen (<2.0) EU/dL Ur Leukocyte Esterase (NEGATIVE) Urine RBC (0-2/HPF) Urine WBC (0-5/HPF) Ur Epithelial Cells (NONE-FEW) Amorphous Sediment (NEGATIVE) Urine Bacteria (NEGATIVE) Urine Mucus (NONE-MOD) 10/30/17 10/30/17 10/30/17 Range/Units 05:12 05:12 05:12 WBC 17.18 H (4.0-11.0) K/uL RBC 3.59 L (4.50-5.90) M/uL Hgb 10.6 L (13.0-17.0) g/dL Hct 31.8 L (38.0-50.0) % MCV 88.6 (80.0-98.0) fL MCH 29.5 (27.0-32.0) pg MCHC 33.3 (31.0-37.0) g/dL RDW Std Deviation 44.3 (28.0-62.0) fl RDW Coeff of Mara 14 (11.0-15.0) % Plt Count 219 (150-400) K/uL MPV 10.00 (7.40-12.00) fL Neut % (Auto) 83.7 H (48.0-80.0) % Lymph % (Auto) 6.7 L (16.0-40.0) % [place] % (Auto) 9.2 (0.0-15.0) % Eos % (Auto) 0.2 (0.0-7.0) % Baso % (Auto) 0.2 (0.0-1.5) % Neut # (Auto) 14.4 H (1.4-5.7) K/uL Lymph # (Auto) 1.2 (0.6-2.4) K/uL [place] # (Auto) 1.6 H (0.0-0.8) K/uL Eos # (Auto) 0.0 (0.0-0.7) K/uL Baso # (Auto) 0.0 (0.0-0.1) K/uL Nucleated RBC % 0.0 /100WBC Nucleated RBCs # 0 K/uL Lactate (0.20-2.00) mmol/L Sodium 139 (136-148) mmol/L Potassium 3.8 (3.5-5.1) mmol/L Chloride 107 (98-107) mmol/L Carbon Dioxide 25.0 (21.0-32.0) mmol/L BUN 24 H (7.0-18.0) mg/dL Creatinine 1.3 (0.8-1.3) mg/dL Est Cr Clr Drug Dosing 33.83 mL/min Estimated GFR (MDRD) 52.9 ml/min Glucose 99 (74-106) mg/dL Calcium 8.6 (8.5-10.1) mg/dL Phosphorus (2.6-4.7) mg/dL Magnesium (1.5-2.0) mg/dL Total Bilirubin (0.2-1.0) mg/dL AST (15-37) IU/L ALT (14-63) IU/L Alkaline Phosphatase (46-116) U/L Troponin I 0.119 H* (0.000-0.056) ng/mL Total Protein (6.4-8.2) g/dL Albumin (3.4-5.0) g/dL Globulin (2.0-3.5) g/dL Albumin/Globulin Ratio (1.3-2.8) Urine Color Urine Appearance Urine pH (5.0-8.0) Ur Specific [place] (1.001-1.035) Urine Protein (NEGATIVE) mg/dL Urine Glucose (UA) (NEGATIVE) mg/dL Urine Ketones (NEGATIVE) mg/dL Urine Occult Blood (NEGATIVE) Urine Nitrite (NEGATIVE) Urine Bilirubin (NEGATIVE) Urine Urobilinogen (<2.0) EU/dL Ur Leukocyte Esterase (NEGATIVE) Urine RBC (0-2/HPF) Urine WBC (0-5/HPF) Ur Epithelial Cells (NONE-FEW) Amorphous Sediment (NEGATIVE) Urine Bacteria (NEGATIVE) Urine Mucus (NONE-MOD) Med Orders - Current: Current Medications Acetaminophen (Tylenol) 650 mg PO Q4H PRN PRN Reason: Pain (Mild 1-3)/fever Acetaminophen (Tylenol) 650 mg PO TID [facility] Last Admin: 10/30/17 14:14 Dose: 650 mg Albuterol/Ipratropium (Duoneb 3.0-0.5 Mg/3 Ml) 3 ml NEB Q4HRRT PRN PRN Reason: Shortness Of Breath/wheezing Aspirin (Halfprin) 81 mg PO DAILY [facility] Last Admin: 10/30/17 09:18 Dose: 81 mg Bisacodyl (Dulcolax) 10 mg RECTAL ASDIRECTED [facility] Carbidopa/Levodopa (Sinemet Cr 50-200 Mg) 1 tab PO QID [facility] Last Admin: 10/30/17 12:12 Dose: 1 tab Citalopram Hydrobromide (Celexa) 10 mg PO BEDTIME [facility] Last Admin: 10/29/17 21:50 Dose: 10 mg Famotidine (Pepcid) 40 mg PO DAILY [facility] Last Admin: 10/30/17 09:17 Dose: 40 mg Heparin Sodium (Porcine) (Heparin Sodium) 5,000 units SUBCUT Q12H [facility] Last Admin: 10/30/17 07:30 Dose: 5,000 units Sodium Chloride (Normal Saline) 500 mls @ 999 mls/hr IV STAT [facility] Last Admin: 10/29/17 17:25 Dose: 999 mls/hr Sodium Chloride (Normal Saline) 1,000 mls @ 125 mls/hr IV ASDIRECTED [facility] Last Admin: 10/30/17 06:36 Dose: 125 mls/hr Ceftriaxone Sodium 1,000 mg/ (Sodium Chloride) 50 mls @ 200 mls/hr IV Q24H [facility] Levothyroxine Sodium (Levothyroxine) 25 mcg PO DAILY@0700 [facility] Last Admin: 10/30/17 07:30 Dose: 25 mcg Lisinopril (Prinivil) 5 mg PO DAILY [facility] Last Admin: 10/30/17 09:18 Dose: 5 mg Multivitamins/Minerals (Thera M Plus) 1 tab PO DAILY [facility] Last Admin: 10/30/17 09:18 Dose: 1 tab Ondansetron HCl (Zofran Odt) 4 mg PO Q4H PRN PRN Reason: nausea, able to take PO Oxcarbazepine (Trileptal) 150 mg PO QAM [facility] Last Admin: 10/30/17 09:19 Dose: 150 mg Oxcarbazepine (Trileptal) 300 mg PO BEDTIME [facility] Last Admin: 10/29/17 22:00 Dose: 300 mg Polyethylene Glycol (Miralax) 17 gm PO DAILY [facility] Last Admin: 10/30/17 09:12 Dose: 17 gm Sodium Chloride (Saline Flush) 10 ml FLUSH ASDIRECTED PRN PRN Reason: Keep Vein Open Sodium Chloride (Saline Flush) 2.5 ml FLUSH ASDIRECTED PRN PRN Reason: Keep Vein Open Trazodone HCl (Trazodone) 100 mg PO BEDTIME [facility] Last Admin: 10/29/17 21:50 Dose: 100 mg Discontinued Medications Aspirin (Aspirin) 325 mg PO ONETIME ONE Stop: 10/29/17 23:50 Last Admin: 10/30/17 00:21 Dose: 325 mg Carbidopa/Levodopa (Sinemet Cr 50-200 Mg) 1 tab PO ASDIRECTED [facility] Ceftriaxone Sodium/Dextrose 1 (gm/ Premix) 50 mls @ 100 mls/hr IV ONETIME ONE Stop: 10/29/17 18:24 Last Admin: 10/30/17 12:52 Dose: Not Given Ceftriaxone Sodium 1 gm/ (Sodium Chloride) 50 mls @ 100 mls/hr IV ONETIME ONE Stop: 10/29/17 18:30 Last Admin: 10/29/17 18:25 Dose: 100 mls/hr Ceftriaxone Sodium 1,000 mg/ (Dextrose/Water) 50 mls @ 200 mls/hr IV Q24H [facility] - Exam General: Cooperative Lungs: Clear to Auscultation, Normal Respiratory Effort Cardiovascular: Regular Rate, Regular Rhythm GI/Abdominal Exam: Soft, Non-Tender Back Exam: No: CVA Tenderness (L), CVA Tenderness (R) Extremities: Non-Tender, No Pedal Edema Skin: Warm, Dry, Intact Neurological: No New Focal Deficit - Problem List Review Problem List Initiated/Reviewed/Updated: Yes - My Orders Last 24 Hours: My Active Orders 10/30/17 09:24 General Labor Discontinue [Cardiac Monitoring Discontinue] [RC] Click to Edit 10/30/17 19:00 CBC WITH AUTO DIFF [HEME] Routine - Plan Plan:: 81-year-old male that is being admitted with a UTI. #1. UTI: -continue Rocephin, patient appears to be improving despite increase in leukocytosis, will recheck WBC tonight.
[2017-10-30] MEDS: cefTRIAXone 1,000 MG in Sodium Chloride 0.9% 50 ML IV SCH (18:26)
[2017-10-30] MEDS: Citalopram 20 MG Tab PO SCH (21:24)
[2017-10-30] MEDS: traZODone 50 MG Tab PO SCH (21:26)
[2017-10-31] MEDS: Carbidopa/Levodopa 50-200 MG Tab.ER PO SCH ×5 (00:09→23:03)
[2017-10-31] MEDS: Sodium Chloride 0.9% 1,000 ML IV SCH (03:53)
[2017-10-31] MEDS: Levothyroxine 25 MCG Tab PO SCH (06:14)
[2017-10-31] MEDS: Acetaminophen 325 MG Tab PO SCH ×3 (06:15→22:58)
[2017-10-31] MEDS: Heparin Sodium 5,000 Units/ML Vial SUBCUT SCH ×3 (06:20→19:00)
[2017-10-31] MEDS: Multivitamins with Iron/Calcium/Folic Acid/Minerals Tab PO SCH (08:44)
[2017-10-31] MEDS: Famotidine 20 MG Tab PO SCH (08:44)
[2017-10-31] MEDS: Aspirin 81 MG Tab.EC PO SCH (08:44)
[2017-10-31] MEDS: Lisinopril 5 MG Tab PO SCH (08:44)
[2017-10-31] MEDS: Polyethylene Glycol 3350 Powder 17 GM Packet PO SCH (08:45)
[2017-10-31] MEDS: OXcarbazepine 300 MG Tab PO SCH ×2 (08:45→20:47)
--- NOTE | 2017-10-31 09:28 | PCM.PN ---
- General Info Date of Service: 10/31/17 Admission Dx/Problem (Free Text): Admission Diagnosis/Problem Admission Diagnosis/Problem Urosepsis Subjective Update: Patient is sitting in a bedside chair. He has no acute concerns morning. Nursing notes that he ate breakfast without any problems. Continues on IV antibiotics for his UTI. Functional Status: Reports: Pain Controlled, Tolerating Diet, Ambulating, Urinating - Review of Systems General: Reports: Weakness HEENT: Reports: No Symptoms Pulmonary: Reports: No Symptoms Cardiovascular: Reports: No Symptoms Gastrointestinal: Reports: No Symptoms Genitourinary: Reports: No Symptoms Musculoskeletal: Reports: No Symptoms Skin: Reports: No Symptoms Neurological: Reports: No Symptoms Psychiatric: Reports: No Symptoms - Patient Data Vitals - Most Recent: Last Vital Signs Temp 98.3 F 10/31/17 08:00 Pulse 61 10/31/17 08:00 Resp 18 10/31/17 08:00 BP 155/69 H 10/31/17 08:44 Pulse Ox 96 10/31/17 08:00 Weight - Most Recent: 146 lb 9.6 oz I&O - Last 24 Hours: Intake & Output 10/30/17 10/31/17 10/31/17 22:59 06:59 14:59 Intake Total 400 1771 Output Total 300 400 Balance 100 1371 Lab Results Last 24 Hours: Laboratory Results - last 24 hr 10/30/17 10/30/17 10/31/17 Range/Units 06:42 19:28 05:32 WBC 11.23 H 7.78 (4.0-11.0) K/uL RBC 3.55 L 3.41 L (4.50-5.90) M/uL Hgb 10.6 L 10.1 L (13.0-17.0) g/dL Hct 31.3 L 30.3 L (38.0-50.0) % MCV 88.2 88.9 (80.0-98.0) fL MCH 29.9 29.6 (27.0-32.0) pg MCHC 33.9 33.3 (31.0-37.0) g/dL RDW Std Deviation 44.8 45.1 (28.0-62.0) fl RDW Coeff of Mara 14 14 (11.0-15.0) % Plt Count 194 189 (150-400) K/uL MPV 9.50 9.90 (7.40-12.00) fL Neut % (Auto) 82.8 H 73.1 (48.0-80.0) % Lymph % (Auto) 6.7 L 14.0 L (16.0-40.0) % [place] % (Auto) 9.3 10.8 (0.0-15.0) % Eos % (Auto) 0.9 1.7 (0.0-7.0) % Baso % (Auto) 0.3 0.4 (0.0-1.5) % Neut # (Auto) 9.3 H 5.7 (1.4-5.7) K/uL Lymph # (Auto) 0.8 1.1 (0.6-2.4) K/uL [place] # (Auto) 1.0 H 0.8 (0.0-0.8) K/uL Eos # (Auto) 0.1 0.1 (0.0-0.7) K/uL Baso # (Auto) 0.0 0.0 (0.0-0.1) K/uL Nucleated RBC % 0.0 0.0 /100WBC Nucleated RBCs # 0 0 K/uL Sodium (136-148) mmol/L Potassium (3.5-5.1) mmol/L Chloride (98-107) mmol/L Carbon Dioxide (21.0-32.0) mmol/L BUN (7.0-18.0) mg/dL Creatinine (0.8-1.3) mg/dL Est Cr Clr Drug Dosing mL/min Estimated GFR (MDRD) ml/min Glucose (74-106) mg/dL POC Glucose 90 (60-110) mg/dL Calcium (8.5-10.1) mg/dL 10/31/17 10/31/17 Range/Units 05:32 06:38 WBC (4.0-11.0) K/uL RBC (4.50-5.90) M/uL Hgb (13.0-17.0) g/dL Hct (38.0-50.0) % MCV (80.0-98.0) fL MCH (27.0-32.0) pg MCHC (31.0-37.0) g/dL RDW Std Deviation (28.0-62.0) fl RDW Coeff of Mara (11.0-15.0) % Plt Count (150-400) K/uL MPV (7.40-12.00) fL Neut % (Auto) (48.0-80.0) % Lymph % (Auto) (16.0-40.0) % [place] % (Auto) (0.0-15.0) % Eos % (Auto) (0.0-7.0) % Baso % (Auto) (0.0-1.5) % Neut # (Auto) (1.4-5.7) K/uL Lymph # (Auto) (0.6-2.4) K/uL [place] # (Auto) (0.0-0.8) K/uL Eos # (Auto) (0.0-0.7) K/uL Baso # (Auto) (0.0-0.1) K/uL Nucleated RBC % /100WBC Nucleated RBCs # K/uL Sodium 141 (136-148) mmol/L Potassium 3.6 (3.5-5.1) mmol/L Chloride 109 H (98-107) mmol/L Carbon Dioxide 23.5 (21.0-32.0) mmol/L BUN 19 H (7.0-18.0) mg/dL Creatinine 1.3 (0.8-1.3) mg/dL Est Cr Clr Drug Dosing 33.83 mL/min Estimated GFR (MDRD) 52.9 ml/min Glucose 99 (74-106) mg/dL POC Glucose 92 (60-110) mg/dL Calcium 8.4 L (8.5-10.1) mg/dL Kamari Results Last 24 Hours: Microbiology 10/29/17 17:44 Aerobic Blood Culture - Preliminary Blood - Venous - Lab Draw NO GROWTH AFTER 1 DAY Anaerobic Blood Culture - Preliminary NO GROWTH AFTER 1 DAY 10/29/17 17:05 Aerobic Blood Culture - Preliminary Blood - Venous NO GROWTH AFTER 1 DAY Anaerobic Blood Culture - Preliminary NO GROWTH AFTER 1 DAY Med Orders - Current: Current Medications Acetaminophen (Tylenol) 650 mg PO Q4H PRN PRN Reason: Pain (Mild 1-3)/fever Acetaminophen (Tylenol) 650 mg PO TID [facility] Last Admin: 10/31/17 06:15 Dose: 650 mg Albuterol/Ipratropium (Duoneb 3.0-0.5 Mg/3 Ml) 3 ml NEB Q4HRRT PRN PRN Reason: Shortness Of Breath/wheezing Aspirin (Halfprin) 81 mg PO DAILY [facility] Last Admin: 10/31/17 08:44 Dose: 81 mg Bisacodyl (Dulcolax) 10 mg RECTAL ASDIRECTED [facility] Carbidopa/Levodopa (Sinemet Cr 50-200 Mg) 1 tab PO QID [facility] Last Admin: 10/31/17 06:14 Dose: 1 tab Citalopram Hydrobromide (Celexa) 10 mg PO BEDTIME [facility] Last Admin: 10/30/17 21:24 Dose: 10 mg Famotidine (Pepcid) 40 mg PO DAILY [facility] Last Admin: 10/31/17 08:44 Dose: 40 mg Heparin Sodium (Porcine) (Heparin Sodium) 5,000 units SUBCUT Q12H [facility] Last Admin: 10/31/17 06:29 Dose: Not Given Sodium Chloride (Normal Saline) 500 mls @ 999 mls/hr IV STAT [facility] Last Admin: 10/29/17 17:25 Dose: 999 mls/hr Sodium Chloride (Normal Saline) 1,000 mls @ 125 mls/hr IV ASDIRECTED [facility] Last Admin: 10/31/17 03:53 Dose: 125 mls/hr Ceftriaxone Sodium 1,000 mg/ (Sodium Chloride) 50 mls @ 200 mls/hr IV Q24H [facility] Last Admin: 10/30/17 18:26 Dose: 200 mls/hr Levothyroxine Sodium (Levothyroxine) 25 mcg PO DAILY@0700 [facility] Last Admin: 10/31/17 06:14 Dose: 25 mcg Lisinopril (Prinivil) 5 mg PO DAILY [facility] Last Admin: 10/31/17 08:44 Dose: 5 mg Multivitamins/Minerals (Thera M Plus) 1 tab PO DAILY [facility] Last Admin: 10/31/17 08:44 Dose: 1 tab Ondansetron HCl (Zofran Odt) 4 mg PO Q4H PRN PRN Reason: nausea, able to take PO Oxcarbazepine (Trileptal) 150 mg PO QAM [facility] Last Admin: 10/31/17 08:45 Dose: 150 mg Oxcarbazepine (Trileptal) 300 mg PO BEDTIME [facility] Last Admin: 10/30/17 21:26 Dose: 300 mg Polyethylene Glycol (Miralax) 17 gm PO DAILY [facility] Last Admin: 10/31/17 08:45 Dose: 17 gm Sodium Chloride (Saline Flush) 10 ml FLUSH ASDIRECTED PRN PRN Reason: Keep Vein Open Sodium Chloride (Saline Flush) 2.5 ml FLUSH ASDIRECTED PRN PRN Reason: Keep Vein Open Trazodone HCl (Trazodone) 100 mg PO BEDTIME [facility] Last Admin: 10/30/17 21:26 Dose: 100 mg Discontinued Medications Aspirin (Aspirin) 325 mg PO ONETIME ONE Stop: 10/29/17 23:50 Last Admin: 10/30/17 00:21 Dose: 325 mg Carbidopa/Levodopa (Sinemet Cr 50-200 Mg) 1 tab PO ASDIRECTED [facility] Ceftriaxone Sodium/Dextrose 1 (gm/ Premix) 50 mls @ 100 mls/hr IV ONETIME ONE Stop: 10/29/17 18:24 Last Admin: 10/30/17 12:52 Dose: Not Given Ceftriaxone Sodium 1 gm/ (Sodium Chloride) 50 mls @ 100 mls/hr IV ONETIME ONE Stop: 10/29/17 18:30 Last Admin: 10/29/17 18:25 Dose: 100 mls/hr Ceftriaxone Sodium 1,000 mg/ (Dextrose/Water) 50 mls @ 200 mls/hr IV Q24H [facility] - Exam Quality Assessment: Urine Catheter, DVT Prophylaxis General: Alert, Cooperative, No Acute Distress Lungs: Clear to Auscultation, Normal Respiratory Effort Cardiovascular: Regular Rate, Regular Rhythm GI/Abdominal Exam: Normal Bowel Sounds, Soft, Non-Tender, No Organomegaly, No Distention, No Abnormal Bruit, No Mass, Pelvis Stable Extremities: Normal Inspection, Normal Range of Motion, Non-Tender, No Pedal Edema, Normal Capillary Refill Peripheral Pulses: 2+: Radial (L), Radial (R), Posterior Tibial (L), Posterior Tibial (R) Skin: Warm, Dry, Intact Neurological: No New Focal Deficit Psy/Mental Status: Alert, Normal Affect, Normal Mood - Problem List & Annotations (1) Elevated troponin SNOMED Code(s): 537408853, 876936627, 336937215 Code(s): R74.8 - ABNORMAL LEVELS OF OTHER SERUM ENZYMES Status: Acute Current Visit: Yes (2) Chronic kidney disease SNOMED Code(s): 390776472 Code(s): N18.9 - CHRONIC KIDNEY DISEASE, UNSPECIFIED Status: Acute Current Visit: Yes (3) UTI (urinary tract infection), bacterial SNOMED Code(s): 648509826 Code(s): N39.0 - URINARY TRACT INFECTION, SITE NOT SPECIFIED; A49.9 - BACTERIAL INFECTION, UNSPECIFIED Status: Acute Current Visit: Yes - Problem List Review Problem List Initiated/Reviewed/Updated: Yes - My Orders Last 24 Hours: My Active Orders 10/30/17 09:00 Aspirin [Halfprin] 81 mg PO DAILY Famotidine [Pepcid] 40 mg PO DAILY Lisinopril [Prinivil] 5 mg PO DAILY Multivitamins w-Iron/Ca/FA/Min [Thera M Plus] 1 tab PO DAILY OXcarbazepine [Trileptal] 150 mg PO QAM Polyethylene Glycol 3350 [MiraLAX] 17 gm PO DAILY 10/30/17 18:00 cefTRIAXone [Rocephin] 1,000 mg Sodium Chloride 0.9% [Normal Saline] 50 ml IV Q24H 11/01/17 05:11 BASIC METABOLIC PANEL,BMP [CHEM] AM CBC WITH AUTO DIFF [HEME] AM - Plan Plan:: 81-year-old male that is being admitted with a UTI. #1. UTI: -Urinalysis is positive for nitrites and shows +2 bacteria with the presence of white blood cells. Urine cultures are pending. Prior cultures grew out Escherichia coli that were sensitive to cephalosporins. -Continue with IV Rocephin. -d/c IVF -White count is now normal. Initially was 16,000. #2. Elevated troponin: -Troponins are now trending down. Patient does not complain of any chest pain. -Telemetry discontinued. DVT prophylaxis: SCDs and heparin. Disposition: Likely tomorrow back to [facility].
--- NOTE | 2017-10-31 14:19 | CR ---
EXAM DATE: 10/29/17 PATIENT'S AGE: 81 Patient: NITZA HANNAH Facility: [place], [place] Site . Site : [id number] Study: XRay Chest [id number]/28/2018 6:17:49 PM Ordering Physician: Doctor Gentile Final Report: INDICATION: pain/sob FINDINGS: A single portable chest x-ray shows a normal cardiac silhouette. Mildly atherosclerotic aorta. The lungs show no focal pulmonary opacities. Sharp pleural margins. No pneumothorax. Hiatal hernia. IMPRESSION: No evidence of acute pulmonary abnormalities. Dictated by Gerardo Garner MD @ 10/29/2017 6:54:23 PM Dictated by: Gerardo Garner MD @ 10/29/2017 18:54:38 (Electronic Signature) Report Signed by Proxy. [facility] CENTERDontrell
[2017-10-31] MEDS: cefTRIAXone 1,000 MG in Sodium Chloride 0.9% 50 ML IV SCH (17:54)
[2017-10-31] MEDS: Citalopram 20 MG Tab PO SCH (20:46)
[2017-10-31] MEDS: traZODone 50 MG Tab PO SCH (20:47)
[2017-11-01] MEDS: Heparin Sodium 5,000 Units/ML Vial SUBCUT SCH (06:40)
[2017-11-01] MEDS: Carbidopa/Levodopa 50-200 MG Tab.ER PO SCH ×2 (06:40→12:29)
[2017-11-01] MEDS: Acetaminophen 325 MG Tab PO SCH ×2 (06:40→13:40)
[2017-11-01] MEDS: Levothyroxine 25 MCG Tab PO SCH (06:40)
[2017-11-01 10:24] VITALS: BP 159/77
[2017-11-01] MEDS: Famotidine 20 MG Tab PO SCH (10:29)
[2017-11-01] MEDS: Lisinopril 5 MG Tab PO SCH (10:30)
[2017-11-01] MEDS: Multivitamins with Iron/Calcium/Folic Acid/Minerals Tab PO SCH (10:30)
[2017-11-01] MEDS: Aspirin 81 MG Tab.EC PO SCH (10:30)
[2017-11-01] MEDS: Polyethylene Glycol 3350 Powder 17 GM Packet PO SCH (10:31)
[2017-11-01] MEDS: OXcarbazepine 300 MG Tab PO SCH (10:31)
--- NOTE | 2017-11-01 11:56 | PCM.DCSUM1 ---
Discharge Summary - Hospital Course Free Text/Narrative:: Admission diagnosis: #1. Urinary tract infection #2. Elevated troponin Discharge diagnosis: #1. Urinary tract infection, improved #2. Elevated troponin, improved 81-year-old male with a chronic indwelling Miller catheter that was admitted with a urinary tract infection. Urine cultures grew Escherichia coli, Klebsiella pneumonia and Enterococcus faecalis. All of these were sensitive to Levaquin. During admission the patient was on IV Rocephin. His previous urine cultures were reviewed and grew Escherichia coli and were sensitive to Rocephin. His white blood cell count improved from 16,000 down to within normal limits. Blood cultures were negative 2. His initial troponin was elevated and this was trended until it started to decrease. Patient did not have any chest pain. He was placed on telemetry initially which showed no abnormalities and then taken off telemetry once his troponin started to trend down. Vital signs are stable during admission. At the time of discharge, the patient did not have any acute concerns and was doing much better. - Discharge Data Discharge Date: 11/01/17 Discharge Disposition: DC/Tfer to [facility] Condition: Fair - Discharge Diagnosis/Problem(s) (1) Elevated troponin SNOMED Code(s): 638569894, 608110713, 465492572 ICD Code: R74.8 - ABNORMAL LEVELS OF OTHER SERUM ENZYMES Status: Acute Current Visit: Yes (2) Chronic kidney disease SNOMED Code(s): 142700387 ICD Code: N18.9 - CHRONIC KIDNEY DISEASE, UNSPECIFIED Status: Acute Current Visit: Yes (3) UTI (urinary tract infection), bacterial SNOMED Code(s): 525179042 ICD Code: N39.0 - URINARY TRACT INFECTION, SITE NOT SPECIFIED; A49.9 - BACTERIAL INFECTION, UNSPECIFIED Status: Acute Current Visit: Yes - Patient Instructions Diet: Usual Diet as Tolerated Activity: As Tolerated Driving: Do Not Drive Showering/Bathing: November Shower Notify Provider of: Fever, Increased Pain, Nausea and/or Vomiting - Discharge Plan Prescriptions/Med Rec: Levofloxacin [Levaquin] 750 mg PO Q48H #5 tab Home Medications: Home Meds Carbidopa/Levodopa [Carbidopa-Levo ER 50-200] 1 tab PO ASDIRECTED 07/18/15 [ History] Citalopram [Citalopram HBr] 10 mg PO BEDTIME 07/18/15 [History] Lisinopril 5 mg PO DAILY 07/18/15 [History] OXcarbazepine [Trileptal] 150 mg PO QAM 07/18/15 [History] traZODone 100 mg PO BEDTIME 07/18/15 [History] Acetaminophen [Tylenol] 650 mg PO TID 07/23/15 [History] Levothyroxine 25 mcg PO DAILY 07/23/15 [History] Multivitamin [Multivitamins] 1 tab PO DAILY 07/23/15 [History] OXcarbazepine [Trileptal] 300 mg PO BEDTIME 07/23/15 [History] Aspirin [Low Dose Aspirin EC] 81 mg PO DAILY 05/21/16 [History] Polyethylene Glycol 3350 [MiraLAX] 17 gm PO DAILY 05/21/16 [History] Famotidine [Pepcid] 40 mg PO DAILY 06/05/17 [History] Bisacodyl [Biscolax] 10 mg RECTAL ASDIRECTED 10/29/17 [History] Levofloxacin [Levaquin] 750 mg PO Q48H #5 tab 11/01/17 [Rx] Patient Handouts: Levofloxacin tablets, Urosepsis Referrals: Jhonny Burroughs MD [Physician] - 11/03/17 (During [facility] rounds. ) - Discharge Summary/Plan Comment DC Time >30 min.: No Discharge Summary/Plan Comment: Admission diagnosis: #1. Urinary tract infection #2. Elevated troponin Discharge diagnosis: #1. Urinary tract infection, improved #2. Elevated troponin, improved 81-year-old male with a chronic indwelling Miller catheter that was admitted with a urinary tract infection. Urine cultures grew Escherichia coli, Klebsiella pneumonia and Enterococcus faecalis. All of these were sensitive to Levaquin. During admission the patient was on IV Rocephin. His previous urine cultures were reviewed and grew Escherichia coli and were sensitive to Rocephin. His white blood cell count improved from 16,000 down to within normal limits. Blood cultures were negative 2. His initial troponin was elevated and this was trended until it started to decrease. Patient did not have any chest pain. He was placed on telemetry initially which showed no abnormalities and then taken off telemetry once his troponin started to trend down. Vital signs are stable during admission. At the time of discharge, the patient did not have any acute concerns and was doing much better. Discharge plan: -Patient will be discharged back to [facility]. -Prescription given for Levaquin 750 mg every 48 hours, 5 tabs, 0 refills. This renally dosed. -Home medications have been restarted. - Patient Data Vitals - Most Recent: Last Vital Signs Temp 97.5 F 11/01/17 08:00 Pulse 51 L 11/01/17 08:00 Resp 20 11/01/17 08:00 BP 159/77 H 11/01/17 10:30 Pulse Ox 94 L 11/01/17 08:00 Weight - Most Recent: 143 lb 4.807 oz I&O - Last 24 hours: Intake & Output 10/31/17 11/01/17 11/01/17 22:59 06:59 14:59 Intake Total 450 200 Output Total 550 400 Balance -100 -200 Lab Results - Last 24 hrs: Laboratory Results - last 24 hr 10/31/17 10/31/17 11/01/17 Range/Units 19:25 23:03 05:50 WBC 6.57 (4.0-11.0) K/uL RBC 3.56 L (4.50-5.90) M/uL Hgb 10.5 L (13.0-17.0) g/dL Hct 31.9 L (38.0-50.0) % MCV 89.6 (80.0-98.0) fL MCH 29.5 (27.0-32.0) pg MCHC 32.9 (31.0-37.0) g/dL RDW Std Deviation 45.7 (28.0-62.0) fl RDW Coeff of Mara 14 (11.0-15.0) % Plt Count 210 (150-400) K/uL MPV 10.00 (7.40-12.00) fL Neut % (Auto) 58.8 (48.0-80.0) % Lymph % (Auto) 23.0 (16.0-40.0) % [place] % (Auto) 14.5 (0.0-15.0) % Eos % (Auto) 3.2 (0.0-7.0) % Baso % (Auto) 0.5 (0.0-1.5) % Neut # (Auto) 3.9 (1.4-5.7) K/uL Lymph # (Auto) 1.5 (0.6-2.4) K/uL [place] # (Auto) 1.0 H (0.0-0.8) K/uL Eos # (Auto) 0.2 (0.0-0.7) K/uL Baso # (Auto) 0.0 (0.0-0.1) K/uL Nucleated RBC % 0.0 /100WBC Nucleated RBCs # 0 K/uL Sodium (136-148) mmol/L Potassium (3.5-5.1) mmol/L Chloride (98-107) mmol/L Carbon Dioxide (21.0-32.0) mmol/L BUN (7.0-18.0) mg/dL Creatinine (0.8-1.3) mg/dL Est Cr Clr Drug Dosing mL/min Estimated GFR (MDRD) ml/min Glucose (74-106) mg/dL POC Glucose 361 H 99 (60-110) mg/dL Calcium (8.5-10.1) mg/dL 11/01/17 11/01/17 Range/Units 05:50 06:17 WBC (4.0-11.0) K/uL RBC (4.50-5.90) M/uL Hgb (13.0-17.0) g/dL Hct (38.0-50.0) % MCV (80.0-98.0) fL MCH (27.0-32.0) pg MCHC (31.0-37.0) g/dL RDW Std Deviation (28.0-62.0) fl RDW Coeff of Mara (11.0-15.0) % Plt Count (150-400) K/uL MPV (7.40-12.00) fL Neut % (Auto) (48.0-80.0) % Lymph % (Auto) (16.0-40.0) % [place] % (Auto) (0.0-15.0) % Eos % (Auto) (0.0-7.0) % Baso % (Auto) (0.0-1.5) % Neut # (Auto) (1.4-5.7) K/uL Lymph # (Auto) (0.6-2.4) K/uL [place] # (Auto) (0.0-0.8) K/uL Eos # (Auto) (0.0-0.7) K/uL Baso # (Auto) (0.0-0.1) K/uL Nucleated RBC % /100WBC Nucleated RBCs # K/uL Sodium 141 (136-148) mmol/L Potassium 3.9 (3.5-5.1) mmol/L Chloride 108 H (98-107) mmol/L Carbon Dioxide 23.7 (21.0-32.0) mmol/L BUN 15 (7.0-18.0) mg/dL Creatinine 1.2 (0.8-1.3) mg/dL Est Cr Clr Drug Dosing 36.36 mL/min Estimated GFR (MDRD) 58.0 ml/min Glucose 92 (74-106) mg/dL POC Glucose 81 (60-110) mg/dL Calcium 8.5 (8.5-10.1) mg/dL KENISHA Results - Last 24 hrs: Microbiology 10/29/17 16:51 Urine Culture - Final Urine, Clean Catch Escherichia Coli Klebsiella Pneumoniae Enterococcus Faecalis 10/29/17 17:44 Aerobic Blood Culture - Preliminary Blood - Venous - Lab Draw NO GROWTH AFTER 2 DAYS Anaerobic Blood Culture - Preliminary NO GROWTH AFTER 2 DAYS 10/29/17 17:05 Aerobic Blood Culture - Preliminary Blood - Venous NO GROWTH AFTER 2 DAYS Anaerobic Blood Culture - Preliminary NO GROWTH AFTER 2 DAYS Med Orders - Current: Current Medications Acetaminophen (Tylenol) 650 mg PO Q4H PRN PRN Reason: Pain (Mild 1-3)/fever Acetaminophen (Tylenol) 650 mg PO TID [facility] Last Admin: 11/01/17 06:40 Dose: 650 mg Albuterol/Ipratropium (Duoneb 3.0-0.5 Mg/3 Ml) 3 ml NEB Q4HRRT PRN PRN Reason: Shortness Of Breath/wheezing Aspirin (Halfprin) 81 mg PO DAILY [facility] Last Admin: 11/01/17 10:30 Dose: 81 mg Bisacodyl (Dulcolax) 10 mg RECTAL ASDIRECTED [facility] Carbidopa/Levodopa (Sinemet Cr 50-200 Mg) 1 tab PO QID [facility] Last Admin: 11/01/17 06:40 Dose: 1 tab Citalopram Hydrobromide (Celexa) 10 mg PO BEDTIME [facility] Last Admin: 10/31/17 20:46 Dose: 10 mg Famotidine (Pepcid) 40 mg PO DAILY [facility] Last Admin: 11/01/17 10:29 Dose: 40 mg Heparin Sodium (Porcine) (Heparin Sodium) 5,000 units SUBCUT Q12H [facility] Last Admin: 11/01/17 06:40 Dose: 5,000 units Ceftriaxone Sodium 1,000 mg/ (Sodium Chloride) 50 mls @ 200 mls/hr IV Q24H [facility] Last Admin: 10/31/17 17:54 Dose: 200 mls/hr Levothyroxine Sodium (Levothyroxine) 25 mcg PO DAILY@0700 [facility] Last Admin: 11/01/17 06:40 Dose: 25 mcg Lisinopril (Prinivil) 5 mg PO DAILY [facility] Last Admin: 11/01/17 10:30 Dose: 5 mg Multivitamins/Minerals (Thera M Plus) 1 tab PO DAILY [facility] Last Admin: 11/01/17 10:30 Dose: 1 tab Ondansetron HCl (Zofran Odt) 4 mg PO Q4H PRN PRN Reason: nausea, able to take PO Oxcarbazepine (Trileptal) 150 mg PO QAM [facility] Last Admin: 11/01/17 10:31 Dose: 150 mg Oxcarbazepine (Trileptal) 300 mg PO BEDTIME [facility] Last Admin: 10/31/17 20:47 Dose: 300 mg Polyethylene Glycol (Miralax) 17 gm PO DAILY [facility] Last Admin: 11/01/17 10:31 Dose: 17 gm Sodium Chloride (Saline Flush) 10 ml FLUSH ASDIRECTED PRN PRN Reason: Keep Vein Open Sodium Chloride (Saline Flush) 2.5 ml FLUSH ASDIRECTED PRN PRN Reason: Keep Vein Open Trazodone HCl (Trazodone) 100 mg PO BEDTIME [facility] Last Admin: 10/31/17 20:47 Dose: 100 mg Discontinued Medications Aspirin (Aspirin) 325 mg PO ONETIME ONE Stop: 10/29/17 23:50 Last Admin: 10/30/17 00:21 Dose: 325 mg Carbidopa/Levodopa (Sinemet Cr 50-200 Mg) 1 tab PO ASDIRECTED [facility] Sodium Chloride (Normal Saline) 500 mls @ 999 mls/hr IV STAT [facility] Last Admin: 10/29/17 17:25 Dose: 999 mls/hr Ceftriaxone Sodium/Dextrose 1 (gm/ Premix) 50 mls @ 100 mls/hr IV ONETIME ONE Stop: 10/29/17 18:24 Last Admin: 10/30/17 12:52 Dose: Not Given Sodium Chloride (Normal Saline) 1,000 mls @ 125 mls/hr IV ASDIRECTED [facility] Last Admin: 10/31/17 03:53 Dose: 125 mls/hr Ceftriaxone Sodium 1 gm/ (Sodium Chloride) 50 mls @ 100 mls/hr IV ONETIME ONE Stop: 10/29/17 18:30 Last Admin: 10/29/17 18:25 Dose: 100 mls/hr Ceftriaxone Sodium 1,000 mg/ (Dextrose/Water) 50 mls @ 200 mls/hr IV Q24H [facility]
== END 2017-11-01 14:00 | DRG 690 ==
LOC: MW.ED 16:36 → MW.MS 18:22
PROVIDERS: ADMIT Internal Medicine; ATTEND Internal Medicine
DX: N39.0 Urinary tract infection, site not specified (principal); B96.89 Other specified bacterial agents as the cause of diseases classified elsewhere; E86.0 Dehydration; N18.4 Chronic kidney disease, stage 4 (severe); B96.20 Unspecified Escherichia coli [E. coli] as the cause of diseases classified elsewhere; B96.1 Klebsiella pneumoniae [K. pneumoniae] as the cause of diseases classified elsewhere; B95.2 Enterococcus as the cause of diseases classified elsewhere; R74.8 Abnormal levels of other serum enzymes; I12.9 Hypertensive chronic kidney disease with stage 1 through stage 4 chronic kidney disease, or unspecified chronic kidney disease; F71 Moderate intellectual disabilities; R62.7 Adult failure to thrive; R13.12 Dysphagia, oropharyngeal phase; E11.22 Type 2 diabetes mellitus with diabetic chronic kidney disease; H01.004 Unspecified blepharitis left upper eyelid; Z66 Do not resuscitate; E03.9 Hypothyroidism, unspecified; G20 Parkinson's disease; F41.8 Other specified anxiety disorders; Z88.8 Allergy status to other drugs, medicaments and biological substances; Z79.899 Other long term (current) drug therapy; E78.00 Pure hypercholesterolemia, unspecified
CPT/HCPCS: 36415; 71045; 80053; 81001; 83605; 83735; 84100; 84484; 85025; 87040 ×2; 87086; 87088 ×3; 87186 ×3; 93005; 96361; 99285; J7040; 80048; 82962; 96365; A9270-GY; J0696; J1644; J7050

== ENCOUNTER 2017-11-13 07:52 | Observation (INO) | payer MEDICARE, MEDICAID ==
[2017-11-13] MEDS ORDERED: Sodium Chloride 0.9% 2.5 ML Syringe FLUSH PRN (08:07)
[2017-11-13] MEDS ORDERED: Morphine 4 MG/ML Syringe IVPUSH ONE (08:07)
[2017-11-13] MEDS ORDERED: Sodium Chloride 0.9% 10 ML Syringe FLUSH PRN (08:07)
[2017-11-13] MEDS ORDERED: Ondansetron 4 MG/2 ML SDV IVPUSH ONE (08:07)
[2017-11-13] MEDS ORDERED: LORazepam 2 MG/ML SDV IVPUSH ONE (08:07)
[2017-11-13] MEDS ORDERED: Ondansetron 4 MG/2 ML SDV ONE (08:08)
[2017-11-13] MEDS ORDERED: Morphine 4 MG/ML Syringe ONE ×2 (08:08→09:10)
[2017-11-13] MEDS ORDERED: LORazepam 2 MG/ML SDV ONE ×2 (08:09→09:55)
[2017-11-13] MEDS ORDERED: Carbidopa/Levodopa 50-200 MG Tab.ER PO ONE (08:35)
[2017-11-13] MEDS ORDERED: OXcarbazepine 300 MG Tab PO ONE (08:36)
--- NOTE | 2017-11-13 08:41 | EDM.PDOC ---
ED HPI GENERAL MEDICAL PROBLEM - General Stated Complaint: BLEEDING WITH CLOTS IN SALEEM CATHETER Time Seen by Provider: 11/13/17 08:04 Source of Information: Reports: Patient History Limitations: Reports: Altered Mental Status - History of Present Illness INITIAL COMMENTS - FREE TEXT/NARRATIVE: History of present illness: []Patient has a history of dementia and multiple contractures that arrives here from [place] after the staff noted bleeding around his Saleem catheter. The staff removed the catheter and tried to replace it, but were unable. Review of systems: As per history of present illness and below otherwise all systems reviewed and negative. Past medical history: As per history of present illness and as reviewed below otherwise noncontributory. Surgical history: As per history of present illness and as reviewed below otherwise noncontributory. Social history: No reported history of drug or alcohol abuse. Family history: As per history of present illness and as reviewed below otherwise noncontributory. Physical exam: General: Well developed, well nourished in NAD HEENT: Atraumatic, normocephalic, pupils reactive, negative for conjunctival pallor or scleral icterus, mucous membranes moist, throat clear, neck supple, nontender, trachea midline. Lungs: Clear to auscultation, breath sounds equal bilaterally, chest nontender. Heart: S1S2, regular, negative for clicks, rubs, or JVD. Abdomen: Soft, nondistended, nontender. Negative for masses or hepatosplenomegaly. Negative for costovertebral tenderness. Pelvis: Stable nontender. Genitourinary: Circumcised male with large amount of blood around his penis and scrotum, penis anatomy is abnormal in that the under side is completely open to the base of his scrotum. Rectal: Deferred. Extremities: Atraumatic, negative for cords or calf pain. Neurovascular unremarkable. Neuro: Awake, confused, tremors mostly of the right upper extremity, positive contractures of his legs partially flexed hips Diagnostics: []CBC white count 12,000, H&H 13/41, normal differential Therapeutics: []Attempted to place a 16-gauge Saleem with return of dark blood., At this point Dr. Goode was consulted and came to the ER and attempted Saleem catheter placement at the bedside with the same results. Scan showed approximately 300 mL in the bladder and post Saleem placement was unchanged. The catheter was removed at the request of Dr. Goode and patient will be admitted for observation he may take patient to operating room for placement later today if he does not urinate spontaneously. Impression: []Hematuria, difficult Saleem placement secondary to abnormal anatomy. Plan: []Admit for observation Definitive disposition and diagnosis as appropriate pending reevaluation and review of above. - Related Data Allergies Allergy/AdvReac Type Severity Reaction Status Date / Time amoxicillin trihydrate Allergy Other Verified 11/13/17 08:20 [From Augmentin] potassium clavulanate Allergy Other Verified 11/13/17 08:20 [From Augmentin] Home Meds: Home Meds Carbidopa/Levodopa [Carbidopa-Levo ER 50-200] 1 tab PO ASDIRECTED 07/18/15 [ History] Citalopram [Citalopram HBr] 10 mg PO BEDTIME 07/18/15 [History] Lisinopril 5 mg PO DAILY 07/18/15 [History] OXcarbazepine [Trileptal] 150 mg PO QAM 07/18/15 [History] traZODone 100 mg PO BEDTIME 07/18/15 [History] Acetaminophen [Tylenol] 650 mg PO TID 07/23/15 [History] Levothyroxine 25 mcg PO DAILY 07/23/15 [History] Multivitamin [Multivitamins] 1 tab PO DAILY 07/23/15 [History] OXcarbazepine [Trileptal] 300 mg PO BEDTIME 07/23/15 [History] Aspirin [Low Dose Aspirin EC] 81 mg PO DAILY 05/21/16 [History] Polyethylene Glycol 3350 [MiraLAX] 17 gm PO DAILY 05/21/16 [History] Famotidine [Pepcid] 40 mg PO DAILY 06/05/17 [History] Bisacodyl [Biscolax] 10 mg RECTAL ASDIRECTED 10/29/17 [History] Calcium Polycarbophil 3 tab PO DAILY 11/13/17 [History] Polyethylene Glycol 3350 [MiraLAX] 17 gm PO BEDTIME 11/13/17 [History] Past Medical History HEENT History: Reports: Other (See Below) Other HEENT History: Early cataracts, blepharitis Cardiovascular History: Reports: High Cholesterol, Hypertension Respiratory History: Reports: None Gastrointestinal History: Reports: Hepatitis Genitourinary History: Reports: BPH, Retention, Urinary, Other (See Below) Other Genitourinary History: urinary obstruction Musculoskeletal History: Reports: Arthritis, Gout, Other (See Below) Other Musculoskeletal History: kyphosis w/minimal scoliosis Neurological History: Reports: Parkinson's Psychiatric History: Reports: Anxiety, Depression, Other (See Below) Other Psychiatric History: moderate intellectual disability Endocrine/Metabolic History: Reports: Diabetes, Type II Hematologic History: Reports: None Immunologic History: Reports: None Oncologic (Cancer) History: Reports: None Dermatologic History: Reports: None - Infectious Disease History Infectious Disease History: Reports: Hepatitis B Other Infectious Disease History: pt unable to verbalize - Past Surgical History HEENT Surgical History: Reports: Other (See Below) Social & Family History - Family History Family Medical History: Unobtainable - Caffeine Use Caffeine Use: Reports: None ED ROS GENERAL - Review of Systems Review Of Systems: See Below (See history of present illness) ED EXAM, RENAL/ - Physical Exam Exam: See Below (See history of present illness) Course - Vital Signs Last Recorded V/S: Last Vital Signs Temp 96.8 F 11/13/17 08:00 Pulse 92 11/13/17 08:00 Resp 18 11/13/17 08:00 BP 137/84 11/13/17 08:00 Pulse Ox 95 11/13/17 08:00 - Orders/Labs/Meds Orders: Active Orders 24 hr Category Date Time Status Patient Status [ADT] Stat ADT 11/13/17 09:59 Ordered LORazepam [Ativan] Med 11/13/17 10:01 Once 1 mg IM ONETIME ONE Sodium Chloride 0.9% [Saline Flush] Med 11/13/17 08:07 Active 10 ml FLUSH ASDIRECTED PRN Sodium Chloride 0.9% [Saline Flush] Med 11/13/17 08:07 Active 2.5 ml FLUSH ASDIRECTED PRN Saline Lock Insert [OM.PC] Stat Oth 11/13/17 08:06 Ordered Medication Orders Sodium Chloride (Saline Flush) 10 ml FLUSH ASDIRECTED PRN PRN Reason: Keep Vein Open Sodium Chloride (Saline Flush) 2.5 ml FLUSH ASDIRECTED PRN PRN Reason: Keep Vein Open Labs: Laboratory Tests 11/13/17 Range/Units 09:00 WBC 12.64 H (4.0-11.0) K/uL RBC 4.62 (4.50-5.90) M/uL Hgb 13.7 (13.0-17.0) g/dL Hct 41.2 (38.0-50.0) % MCV 89.2 (80.0-98.0) fL MCH 29.7 (27.0-32.0) pg MCHC 33.3 (31.0-37.0) g/dL RDW Std Deviation 45.5 (28.0-62.0) fl RDW Coeff of Mara 14 (11.0-15.0) % Plt Count 340 (150-400) K/uL MPV 10.30 (7.40-12.00) fL Neut % (Auto) 62.4 (48.0-80.0) % Lymph % (Auto) 23.9 (16.0-40.0) % [place] % (Auto) 10.1 (0.0-15.0) % Eos % (Auto) 3.1 (0.0-7.0) % Baso % (Auto) 0.5 (0.0-1.5) % Neut # (Auto) 7.9 H (1.4-5.7) K/uL Lymph # (Auto) 3.0 H (0.6-2.4) K/uL [place] # (Auto) 1.3 H (0.0-0.8) K/uL Eos # (Auto) 0.4 (0.0-0.7) K/uL Baso # (Auto) 0.1 (0.0-0.1) K/uL Nucleated RBC % 0.0 /100WBC Nucleated RBCs # 0 K/uL Meds: Medications Generic Name Dose Route Start Last Admin Trade Name Freq PRN Reason Stop Dose Admin Sodium Chloride 10 ml 11/13/17 08:07 Saline Flush FLUSH ASDIRECTED PRN Keep Vein Open Sodium Chloride 2.5 ml 11/13/17 08:07 Saline Flush FLUSH ASDIRECTED PRN Keep Vein Open Discontinued Medications Generic Name Dose Route Start Last Admin Trade Name Freq PRN Reason Stop Dose Admin Carbidopa/Levodopa 1 tab 11/13/17 08:35 11/13/17 08:46 Sinemet Cr 50-200 Mg PO 11/13/17 08:36 1 tab ONETIME ONE Administration Lorazepam 0.5 mg 11/13/17 08:07 11/13/17 08:20 Ativan IVPUSH 11/13/17 08:08 0.5 mg ONETIME ONE Administration Lorazepam Confirm 11/13/17 08:09 11/13/17 08:41 Ativan Administered 11/13/17 08:10 Not Given Dose 2 mg .ROUTE .STK-MED ONE Lorazepam Confirm 11/13/17 09:55 Ativan Administered 11/13/17 09:56 Dose 2 mg .ROUTE .STK-MED ONE Morphine Sulfate 2 mg 11/13/17 08:07 11/13/17 08:21 Morphine IVPUSH 11/13/17 08:08 2 mg ONETIME ONE Administration Morphine Sulfate Confirm 11/13/17 08:08 11/13/17 08:41 Morphine Administered 11/13/17 08:09 Not Given Dose 4 mg .ROUTE .STK-MED ONE Morphine Sulfate 2 mg 11/13/17 09:11 11/13/17 09:14 Morphine IM 11/13/17 09:12 2 mg ONETIME ONE Administration Morphine Sulfate Confirm 11/13/17 09:10 Morphine Administered 11/13/17 09:11 Dose 4 mg .ROUTE .STK-MED ONE Ondansetron HCl 4 mg 11/13/17 08:07 11/13/17 08:19 Zofran IVPUSH 11/13/17 08:08 4 mg ONETIME ONE Administration Ondansetron HCl Confirm 11/13/17 08:08 11/13/17 08:42 Zofran Administered 11/13/17 08:09 Not Given Dose 4 mg .ROUTE .STK-MED ONE Oxcarbazepine 150 mg 11/13/17 08:36 11/13/17 08:46 Trileptal PO 11/13/17 08:37 150 mg ONETIME ONE Administration Departure - Departure Time of Disposition: 10:06 Disposition: Refer to Observation Condition: Fair Clinical Impression: Hematuria, Encounter for Saleem catheter replacement - Discharge Information Referrals: Jhonny Burroughs MD [Primary Care Provider] - - My Orders Last 24 Hours: My Active Orders 11/13/17 08:06 Saline Lock Insert [OM.PC] Stat 11/13/17 08:07 Sodium Chloride 0.9% [Saline Flush] 10 ml FLUSH ASDIRECTED PRN Sodium Chloride 0.9% [Saline Flush] 2.5 ml FLUSH ASDIRECTED PRN 11/13/17 09:59 Patient Status [ADT] Stat 11/13/17 10:01 LORazepam [Ativan] 1 mg IM ONETIME ONE - Assessment/Plan Last 24 Hours: My Active Orders 11/13/17 08:06 Saline Lock Insert [OM.PC] Stat 11/13/17 08:07 Sodium Chloride 0.9% [Saline Flush] 10 ml FLUSH ASDIRECTED PRN Sodium Chloride 0.9% [Saline Flush] 2.5 ml FLUSH ASDIRECTED PRN 11/13/17 09:59 Patient Status [ADT] Stat 11/13/17 10:01 LORazepam [Ativan] 1 mg IM ONETIME ONE
[2017-11-13] MEDS ORDERED: Morphine 4 MG/ML Syringe IM ONE (09:11)
[2017-11-13] MEDS ORDERED: LORazepam 2 MG/ML SDV IM ONE (10:01)
[2017-11-13] MEDS ORDERED: Bisacodyl 10 MG Supp RECTAL SCH (11:00)
[2017-11-13] MEDS: Ciprofloxacin in D5W 400 MG in Premix Bag 1 BAG IV SCH ×4 (12:21→22:05)
[2017-11-13] MEDS: Carbidopa/Levodopa 50-200 MG Tab.ER PO SCH ×3 (12:45→20:37)
[2017-11-13] MEDS: Acetaminophen 325 MG Tab PO SCH ×2 (14:17→21:07)
[2017-11-13] MEDS: Citalopram 20 MG Tab PO SCH (20:22)
[2017-11-13] MEDS: traZODone 50 MG Tab PO SCH (20:22)
[2017-11-13] MEDS: OXcarbazepine 300 MG Tab PO SCH (20:23)
[2017-11-13] MEDS: Polyethylene Glycol 3350 Powder 17 GM Packet PO SCH (20:29)
[2017-11-14] MEDS: Acetaminophen 325 MG Tab PO SCH ×3 (06:32→21:58)
[2017-11-14] MEDS: Levothyroxine 25 MCG Tab PO SCH (06:32)
[2017-11-14] MEDS: Lactated Ringers 1,000 ML IV SCH ×2 (07:10→23:08)
[2017-11-14] MEDS: Famotidine 20 MG Tab PO SCH (10:04)
[2017-11-14] MEDS: OXcarbazepine 300 MG Tab PO SCH ×2 (10:05→21:58)
[2017-11-14] MEDS: Lisinopril 5 MG Tab PO SCH (10:10)
[2017-11-14] MEDS: Calcium Polycarbophil 625 MG Tab PO SCH (10:34)
[2017-11-14] MEDS: Carbidopa/Levodopa 50-200 MG Tab.ER PO SCH ×4 (10:34→21:57)
[2017-11-14] MEDS: Polyethylene Glycol 3350 Powder 17 GM Packet PO SCH ×2 (10:34→21:58)
[2017-11-14] MEDS: Ciprofloxacin in D5W 400 MG in Premix Bag 1 BAG IV SCH ×4 (12:00→23:12)
[2017-11-14] MEDS ORDERED: Iopamidol 408 MG/ML 50 ML SDV ONE (14:18)
--- NOTE | 2017-11-14 14:43 | PCM.SN ---
- Free Text/Narrative Note: Anesthesia Note: Dr. Goode called earlier this AM requesting sedation for cysto and catheter replacement. However, upon receipt of request for surgery "local only" is listed - will consult with Dr. Goode upon arrival. Pt was assessed by Dr. Kaplan who placed a note on the chart as pt is [facility].
--- NOTE | 2017-11-14 15:28 | PCM.PREANE ---
Preanesthetic Assessment - Procedure Proposed Procedure: Cysto with catheter replacement - Anesthesia/Transfusion/Family Hx Anesthesia History: Unknown Transfusion History: Unknown Intubation History: Unknown - Review of Systems General: Weakness, Fatigue, Malaise Pulmonary: No Symptoms Cardiovascular: No Symptoms Gastrointestinal: No Symptoms Neurological: Confusion, Pre-Existing Deficit, Tremors, Trouble Speaking, Difficulty Walking, Weakness, Other (Parkinsons with flexion contractures) Other: Reports: Diabetes - Physical Assessment NPO Status Date: 11/14/17 NPO Status Time: 16:00 (no meals since 1100, but does get a small amt of applesauce with meds) O2 Sat by Pulse Oximetry: 94 Respiratory Rate: 20 Blood Pressure: 164/84 Vital Signs: Last Vital Signs Temp 96.5 F 11/14/17 12:00 Pulse 83 11/14/17 12:00 Resp 20 11/14/17 12:00 BP 147/64 H 11/14/17 12:00 Pulse Ox 94 L 11/14/17 12:00 Height: 5 ft 4 in Weight: 136 lb 14.4 oz ASA Class: 4E Mental Status: Alert & Oriented x3 Dentition: Reports: Edentulous, Missing Tooth/Teeth Thyro-Mental Finger Breadths: 3 Mouth Opening Finger Breadths: 3 ROM/Head Extension: Limited/Partial Lungs: Clear to Auscultation, Normal Respiratory Effort Cardiovascular: Regular Rate, Regular Rhythm Other: EKG showed SR with R BBB - Lab Values: Laboratory Last Values WBC 12.64 K/uL (4.0-11.0) H 11/13/17 09:00 RBC 4.62 M/uL (4.50-5.90) 11/13/17 09:00 Hgb 13.7 g/dL (13.0-17.0) 11/13/17 09:00 Hct 41.2 % (38.0-50.0) 11/13/17 09:00 MCV 89.2 fL (80.0-98.0) 11/13/17 09:00 MCH 29.7 pg (27.0-32.0) 11/13/17 09:00 MCHC 33.3 g/dL (31.0-37.0) 11/13/17 09:00 RDW Std Deviation 45.5 fl (28.0-62.0) 11/13/17 09:00 RDW Coeff of Mara 14 % (11.0-15.0) 11/13/17 09:00 Plt Count 340 K/uL (150-400) 11/13/17 09:00 MPV 10.30 fL (7.40-12.00) 11/13/17 09:00 Neut % (Auto) 62.4 % (48.0-80.0) 11/13/17 09:00 Lymph % (Auto) 23.9 % (16.0-40.0) 11/13/17 09:00 [place] % (Auto) 10.1 % (0.0-15.0) 11/13/17 09:00 Eos % (Auto) 3.1 % (0.0-7.0) 11/13/17 09:00 Baso % (Auto) 0.5 % (0.0-1.5) 11/13/17 09:00 Neut # (Auto) 7.9 K/uL (1.4-5.7) H 11/13/17 09:00 Lymph # (Auto) 3.0 K/uL (0.6-2.4) H 11/13/17 09:00 [place] # (Auto) 1.3 K/uL (0.0-0.8) H 11/13/17 09:00 Eos # (Auto) 0.4 K/uL (0.0-0.7) 11/13/17 09:00 Baso # (Auto) 0.1 K/uL (0.0-0.1) 11/13/17 09:00 Nucleated RBC % 0.0 /100WBC 11/13/17 09:00 Nucleated RBCs # 0 K/uL 11/13/17 09:00 Sodium 140 mmol/L (136-148) 11/14/17 11:20 Potassium 4.6 mmol/L (3.5-5.1) 11/14/17 11:20 Chloride 105 mmol/L (98-107) 11/14/17 11:20 Carbon Dioxide 25.2 mmol/L (21.0-32.0) 11/14/17 11:20 BUN 29 mg/dL (7.0-18.0) H 11/14/17 11:20 Creatinine 2.0 mg/dL (0.8-1.3) H 11/14/17 11:20 Est Cr Clr Drug Dosing 23.84 mL/min 11/14/17 11:20 Estimated GFR (MDRD) 32.1 ml/min 11/14/17 11:20 Glucose 118 mg/dL (74-106) H 11/14/17 11:20 POC Glucose 118 mg/dL (60-110) H 11/13/17 11:39 Calcium 9.2 mg/dL (8.5-10.1) 11/14/17 11:20 - Allergies Allergies/Adverse Reactions: Allergies Allergy/AdvReac Type Severity Reaction Status Date / Time amoxicillin trihydrate Allergy Other Verified 11/13/17 08:20 [From Augmentin] potassium clavulanate Allergy Other Verified 11/13/17 08:20 [From Augmentin] - Blood Blood Available: No Product(s) Available: None - Anesthesia Plan Free Text/Narrative:: Plan for minimal sedation MAC, but prepared for GA. - Acknowledgements Anesthesia Type Planned: MAC Pt an Appropriate Candidate for the Planned Anesthesia: Yes Alternatives and Risks of Anesthesia Discussed w Pt/Guardian: Yes Pt/Guardian Understands and Agrees with Anesthesia Plan: Yes Additional Comments: Dr. Kaplan talked with POA and received consent. PreAnesthesia Questionnaire HEENT History: Reports: Other (See Below) Other HEENT History: Early cataracts, blepharitis Cardiovascular History: Reports: High Cholesterol, Hypertension Respiratory History: Reports: None Gastrointestinal History: Reports: Hepatitis Genitourinary History: Reports: BPH, Retention, Urinary, Other (See Below) Other Genitourinary History: urinary obstruction Musculoskeletal History: Reports: Arthritis, Gout, Other (See Below) Other Musculoskeletal History: kyphosis w/minimal scoliosis Neurological History: Reports: Parkinson's Psychiatric History: Reports: Anxiety, Depression, Other (See Below) Other Psychiatric History: moderate intellectual disability Endocrine/Metabolic History: Reports: Diabetes, Type II Hematologic History: Reports: None Immunologic History: Reports: None Oncologic (Cancer) History: Reports: None Dermatologic History: Reports: None - Infectious Disease History Infectious Disease History: Reports: Hepatitis B Other Infectious Disease History: pt unable to verbalize - Past Surgical History Head Surgeries/Procedures: Reports: None HEENT Surgical History: Reports: Other (See Below) - SUBSTANCE USE Smoking Status *Q: Unknown Ever Smoked Second Hand Smoke Exposure: No Recreational Drug Use History: No - HOME MEDS Home Medications: Home Meds Carbidopa/Levodopa [Carbidopa-Levo ER 50-200] 1 tab PO QID@08,12,16,20 07/18/15 [History] Citalopram [Citalopram HBr] 10 mg PO BEDTIME 07/18/15 [History] Lisinopril 5 mg PO DAILY 07/18/15 [History] OXcarbazepine [Trileptal] 150 mg PO QAM 07/18/15 [History] traZODone 100 mg PO BEDTIME 07/18/15 [History] Acetaminophen [Tylenol] 650 mg PO TID 07/23/15 [History] Levothyroxine 25 mcg PO DAILY 07/23/15 [History] Multivitamin [Multivitamins] 1 tab PO DAILY 07/23/15 [History] OXcarbazepine [Trileptal] 300 mg PO BEDTIME 07/23/15 [History] Aspirin [Low Dose Aspirin EC] 81 mg PO DAILY 05/21/16 [History] Polyethylene Glycol 3350 [MiraLAX] 17 gm PO DAILY 05/21/16 [History] Famotidine [Pepcid] 40 mg PO DAILY 06/05/17 [History] Bisacodyl [Biscolax] 10 mg RECTAL ASDIRECTED 10/29/17 [History] Calcium Polycarbophil 3 tab PO DAILY 11/13/17 [History] Polyethylene Glycol 3350 [MiraLAX] 17 gm PO BEDTIME 11/13/17 [History] - CURRENT (IN HOUSE) MEDS Current Meds: Current Medications Acetaminophen (Tylenol) 650 mg PO TID [facility] Last Admin: 11/14/17 14:06 Dose: 650 mg Bisacodyl (Dulcolax) 10 mg RECTAL ASDIRECTED [facility] Calcium Polycarbophil (Fibercon) 1,250 mg PO DAILY [facility] Last Admin: 11/14/17 10:34 Dose: 1,250 mg Carbidopa/Levodopa (Sinemet Cr 50-200 Mg) 1 tab PO 0800,1200,1600,2000 [facility] Last Admin: 11/14/17 14:06 Dose: 1 tab Citalopram Hydrobromide (Celexa) 10 mg PO BEDTIME [facility] Last Admin: 11/13/17 20:22 Dose: 10 mg Famotidine (Pepcid) 40 mg PO DAILY [facility] Last Admin: 11/14/17 10:04 Dose: 40 mg Ciprofloxacin/Dextrose 400 mg/ (Premix) 200 mls @ 200 mls/hr IV Q12H [facility] Last Admin: 11/14/17 12:00 Dose: 200 mls/hr Lactated Ringer's (Ringers, Lactated) 1,000 mls @ 100 mls/hr IV ASDIRECTED [facility] Last Admin: 11/14/17 07:10 Dose: 100 mls/hr Levothyroxine Sodium (Levothyroxine) 25 mcg PO ACBREAKFAST [facility] Last Admin: 11/14/17 06:32 Dose: 25 mcg Lisinopril (Prinivil) 5 mg PO DAILY [facility] Last Admin: 11/14/17 10:10 Dose: 5 mg Oxcarbazepine (Trileptal) 150 mg PO QAM [facility] Last Admin: 11/14/17 10:05 Dose: 150 mg Oxcarbazepine (Trileptal) 300 mg PO BEDTIME [facility] Last Admin: 11/13/17 20:23 Dose: 300 mg Polyethylene Glycol (Miralax) 17 gm PO BEDTIME [facility] Last Admin: 11/13/17 20:29 Dose: 17 gm Polyethylene Glycol (Miralax) 17 gm PO DAILY [facility] Last Admin: 11/14/17 10:34 Dose: 17 gm Sodium Chloride (Saline Flush) 10 ml FLUSH ASDIRECTED PRN PRN Reason: Keep Vein Open Sodium Chloride (Saline Flush) 2.5 ml FLUSH ASDIRECTED PRN PRN Reason: Keep Vein Open Trazodone HCl (Trazodone) 100 mg PO BEDTIME [facility] Last Admin: 11/13/17 20:22 Dose: 100 mg Discontinued Medications Carbidopa/Levodopa (Sinemet Cr 50-200 Mg) 1 tab PO ONETIME ONE Stop: 11/13/17 08:36 Last Admin: 11/13/17 08:46 Dose: 1 tab Iopamidol (Isovue-200 (41%)) Confirm Administered Dose 50 ml .ROUTE .STK-MED ONE Stop: 11/14/17 14:19 Lorazepam (Ativan) 0.5 mg IVPUSH ONETIME ONE Stop: 11/13/17 08:08 Last Admin: 11/13/17 08:20 Dose: 0.5 mg Lorazepam (Ativan) Confirm Administered Dose 2 mg .ROUTE .STK-MED ONE Stop: 11/13/17 08:10 Last Admin: 11/13/17 08:41 Dose: Not Given Lorazepam (Ativan) Confirm Administered Dose 2 mg .ROUTE .STK-MED ONE Stop: 11/13/17 09:56 Last Admin: 11/13/17 10:03 Dose: Not Given Lorazepam (Ativan) 1 mg IM ONETIME ONE Stop: 11/13/17 10:02 Last Admin: 11/13/17 10:03 Dose: 1 mg Morphine Sulfate (Morphine) 2 mg IVPUSH ONETIME ONE Stop: 11/13/17 08:08 Last Admin: 11/13/17 08:21 Dose: 2 mg Morphine Sulfate (Morphine) Confirm Administered Dose 4 mg .ROUTE .STK-MED ONE Stop: 11/13/17 08:09 Last Admin: 11/13/17 08:41 Dose: Not Given Morphine Sulfate (Morphine) 2 mg IM ONETIME ONE Stop: 11/13/17 09:12 Last Admin: 11/13/17 09:14 Dose: 2 mg Morphine Sulfate (Morphine) Confirm Administered Dose 4 mg .ROUTE .STK-MED ONE Stop: 11/13/17 09:11 Last Admin: 11/13/17 10:02 Dose: Not Given Ondansetron HCl (Zofran) 4 mg IVPUSH ONETIME ONE Stop: 11/13/17 08:08 Last Admin: 11/13/17 08:19 Dose: 4 mg Ondansetron HCl (Zofran) Confirm Administered Dose 4 mg .ROUTE .STK-MED ONE Stop: 11/13/17 08:09 Last Admin: 11/13/17 08:42 Dose: Not Given Oxcarbazepine (Trileptal) 150 mg PO ONETIME ONE Stop: 11/13/17 08:37 Last Admin: 11/13/17 08:46 Dose: 150 mg
[2017-11-14] MEDS ORDERED: Lidocaine 2% 5 ML SDV ONE (16:01)
[2017-11-14] MEDS ORDERED: fentaNYL 100 MCG/2 ML SDV ONE (16:01)
[2017-11-14] MEDS ORDERED: Propofol 200 MG/20 ML SDV ONE ×2 (16:01→18:01)
[2017-11-14] MEDS ORDERED: Phenylephrine/Normal Saline 100 MCG/ML 10 ML Syringe ONE (18:02)
[2017-11-14] MEDS ORDERED: ePHEDrine 50 MG/ML SDV ONE (18:11)
--- NOTE | 2017-11-14 18:40 | PCM.POSTAN ---
POST ANESTHESIA ASSESSMENT - MENTAL STATUS Mental Status: Alert, Oriented, Other (same mentation as prior to surgery - answers yes/no questions appropriately) - VITAL SIGNS Pulse Rate: 76 SaO2: 95 Resp Rate: 17 Blood Pressure: 139/55 - RESPIRATORY Respiratory Status: Respiratory Rate WNL, Airway Patent, O2 Saturation Stable ( on RA) - CARDIOVASCULAR CV Status: Pulse Rate WNL, Blood Pressure Stable - GASTROINTESTINAL GI Status: No Symptoms - PAIN Pain Score: 0 (denies any pain) - POST OP HYDRATION Hydration Status: Adequate & Stable - OBSERVATIONS Free Text/Narrative:: Pt stable with no apparent anesthesia complications. Resting, but arouses to voice and denies any pain at this time.
--- NOTE | 2017-11-14 18:41 | OR ---
SURGEON: Yusef Goode M.D. DATE OF PROCEDURE: He is 81-year-old, long-term resident. He was brought to the emergency room because the long-term staff were unable to put a catheter in after they removed his catheter. The same thing happened in the emergency room. Nobody was able to put a catheter in. I tried and ran into a bloody urethra I suspect urethral false passage. He was admitted to the hospital for observation, given IV antibiotics and he is brought to the operating room today for cystoscopy under sedation and catheter placement. PROCEDURE IN DETAIL: The patient was given adequate sedation. He was in the supine position. It was not possible to put him up in stirrups because of his contractures. The cystoscope was introduced and could reach barely to the neck of the bladder. Again, because of lack of flexibility, so at that point, I was able to identify false passage in the bulbous urethra and I advanced an 18-Malay coude-tip catheter into the bladder without difficulty. The patient tolerated the procedure well and was moved back to the recovery room in stable condition. THAD / YAN /[id number]
[2017-11-14] MEDS: Citalopram 20 MG Tab PO SCH (21:40)
[2017-11-14] MEDS: traZODone 50 MG Tab PO SCH (21:58)
--- NOTE | 2017-11-15 06:08 | PCM48HPAN ---
Post Anesthesia Note - EVALUATION WITHIN 48HRS OF ANESTHETIC Vital Signs in Normal Range: Yes Patient Participated in Evaluation: Yes Respiratory Function Stable: Yes Airway Patent: Yes Cardiovascular Function Stable: Yes Hydration Status Stable: Yes Pain Control Satisfactory: Yes Nausea and Vomiting Control Satisfactory: Yes Pulse Rate: 76 Resp Rate: 18 Blood Pressure: 139/55 - COMMENTS/OBSERVATIONS Free Text/Narrative:: Pt sleeping in no apparent distress - left undisturbed. No apparent anesthesia complications.
[2017-11-15] MEDS: Acetaminophen 325 MG Tab PO SCH (07:06)
[2017-11-15] MEDS: Levothyroxine 25 MCG Tab PO SCH (07:06)
[2017-11-15 08:57] VITALS: BP 127/61
[2017-11-15] MEDS: Famotidine 20 MG Tab PO SCH (09:13)
[2017-11-15] MEDS: Calcium Polycarbophil 625 MG Tab PO SCH (09:13)
[2017-11-15] MEDS: Lisinopril 5 MG Tab PO SCH (09:14)
[2017-11-15] MEDS: Polyethylene Glycol 3350 Powder 17 GM Packet PO SCH (09:14)
[2017-11-15] MEDS: OXcarbazepine 300 MG Tab PO SCH (09:14)
[2017-11-15] MEDS: Carbidopa/Levodopa 50-200 MG Tab.ER PO SCH (09:17)
--- NOTE | 2017-11-30 09:05 | DISCH ---
DATE OF DISCHARGE: 11/15/2017 PRIMARY CARE PHYSICIAN: Jhonny Burroughs M.D. Mr. Mc is a long-term resident who was brought to the emergency room on 11/15/2017. At the time apparently, the nurses at the long-term had taken his Miller catheter out and tried to put another one in, but that resulted in blood coming out, and they were not able to put the catheter in, so he was in the ER. I saw him in the ER. He does not communicate. He has advanced Parkinson disease. I tried to put a catheter in. I was unable to put a catheter in his bladder, so he was admitted to the hospital, and next morning, he was taken to the operating room, where I was able to look through and find a urethral false passage that was bypassed by using coude-tip catheter. He has what in effect is a significant hypospadias because the urethra is actually below the penoscrotal junction because of the constant pressure from chronic Miller catheter and that was the primary reason for the initial difficulty encountered by the nurses. He was sent back to the long-term in stable condition. THAD HEREDIA /[id number]
== END 2017-11-15 10:00 ==
LOC: MW.ED 07:52 → MW.MS 10:10
PROVIDERS: ADMIT Urology; ATTEND Urology
DX: T83.85XA Stenosis due to genitourinary prosthetic devices, implants and grafts, initial encounter (principal); E78.00 Pure hypercholesterolemia, unspecified; N40.1 Benign prostatic hyperplasia with lower urinary tract symptoms; R33.8 Other retention of urine; M19.90 Unspecified osteoarthritis, unspecified site; M10.9 Gout, unspecified; G20 Parkinson's disease; I12.9 Hypertensive chronic kidney disease with stage 1 through stage 4 chronic kidney disease, or unspecified chronic kidney disease; N18.9 Chronic kidney disease, unspecified; E11.22 Type 2 diabetes mellitus with diabetic chronic kidney disease; F02.80 Dementia in other diseases classified elsewhere, unspecified severity, without behavioral disturbance, psychotic disturbance, mood disturbance, and anxiety; F41.9 Anxiety disorder, unspecified; F32.9 Major depressive disorder, single episode, unspecified; K21.9 Gastro-esophageal reflux disease without esophagitis; Z66 Do not resuscitate; Z88.1 Allergy status to other antibiotic agents; Z88.8 Allergy status to other drugs, medicaments and biological substances; Z79.899 Other long term (current) drug therapy; Z79.82 Long term (current) use of aspirin
CPT/HCPCS: 36415; 52000; 80048; 82962; 85025; 93005; 96361; 96365; 96366; 96372; 96374; 96375; 96376; 99285; A9270; G0378; J0744; J2060; J2270; J2405; J3010; J7120; 00910; 99283; J2704; Q9966

== ENCOUNTER 2018-01-14 06:38 | Emergency (ER) | payer MEDICARE, MEDICAID ==
[2018-01-14] MEDS ORDERED: Sodium Chloride 0.9% 10 ML Syringe FLUSH PRN (07:05)
[2018-01-14] MEDS ORDERED: Sodium Chloride 0.9% 2.5 ML Syringe FLUSH PRN (07:05)
[2018-01-14 07:57] LABS: CHLORIDE,CL 105 mmol/L (98-107); SODIUM,NA 138 mmol/L (136-148)
--- NOTE | 2018-01-14 08:21 | EDM.PDOC ---
ED HPI GENERAL MEDICAL PROBLEM - General Chief Complaint: Lower Extremity Injury/Pain Stated Complaint: FELL Time Seen by Provider: 01/14/18 06:40 Source of Information: Reports: Other History Limitations: Reports: No Limitations, Physical Impairment - History of Present Illness INITIAL COMMENTS - FREE TEXT/NARRATIVE: History of present illness: [Patient was brought in from [facility] after a fall yesterday and inability to ambulate today. He will not bear weight on his right leg. Caregivers bedside states that he is acting normally but moans in pain when the right lower extremity is moved. Review of systems: As per history of present illness and below otherwise all systems reviewed and negative. Past medical history: As per history of present illness and as reviewed below otherwise noncontributory. Surgical history: As per history of present illness and as reviewed below otherwise noncontributory. Social history: No reported history of drug or alcohol abuse. Family history: As per history of present illness and as reviewed below otherwise noncontributory. Physical exam: General: Well developed, well nourished in NAD HEENT: Atraumatic, normocephalic, pupils reactive, negative for conjunctival pallor or scleral icterus, mucous membranes moist, throat clear, neck supple, nontender, trachea midline. Lungs: Clear to auscultation, breath sounds equal bilaterally, chest nontender. Heart: S1S2, regular, negative for clicks, rubs, or JVD. Abdomen: Soft, nondistended, nontender. Negative for masses or hepatosplenomegaly. Negative for costovertebral tenderness. Pelvis: Stable nontender. Genitourinary: Deferred. Rectal: Deferred. Extremities: Contractures, tender over the right hip pulses palpable, negative for cords or calf pain. Neurovascular unremarkable. Neuro: Awake, alert. Exam nonfocal. Diagnostics: []CBC and chemistries are done showing mild dehydration otherwise normal, x- rays and CT of his pelvis and hip show a nondisplaced femoral neck fracture and into the intertrochanter and nondisplaced fracture of the right greater trochanter Therapeutics: []Morphine Impression: []Nondisplaced femoral neck fracture on the right and right greater trochanteric fracture Plan: []Pain medicines F[place] as directed, no weightbearing, follow-up with orthopedics of this month. Definitive disposition and diagnosis as appropriate pending reevaluation and review of above. - Related Data Allergies Allergy/AdvReac Type Severity Reaction Status Date / Time amoxicillin trihydrate Allergy Other Verified 11/13/17 08:20 [From Augmentin] potassium clavulanate Allergy Other Verified 01/14/18 07:13 [From Augmentin] Home Meds: Home Meds Carbidopa/Levodopa [Carbidopa-Levo ER 50-200] 50 - 200 mg PO QID 07/18/15 [ History] Citalopram [Citalopram HBr] 20 mg PO BEDTIME 07/18/15 [History] Lisinopril 5 mg PO DAILY 07/18/15 [History] OXcarbazepine [Trileptal] 150 mg PO QAM 07/18/15 [History] traZODone 100 mg PO BEDTIME 07/18/15 [History] Acetaminophen [Tylenol] 650 mg PO TID PRN 07/23/15 [History] Levothyroxine 25 mcg PO DAILY 07/23/15 [History] Multivitamin [Multivitamins] 1 tab PO DAILY 07/23/15 [History] OXcarbazepine [Trileptal] 300 mg PO BEDTIME 07/23/15 [History] Aspirin [Low Dose Aspirin EC] 81 mg PO DAILY 05/21/16 [History] Polyethylene Glycol 3350 [MiraLAX] 17 gm PO BID 05/21/16 [History] Famotidine [Pepcid] 40 mg PO DAILY 06/05/17 [History] Bisacodyl [Biscolax] 10 mg RECTAL ASDIRECTED PRN 10/29/17 [History] Calcium Polycarbophil 1,875 mg PO DAILY 11/13/17 [History] Past Medical History HEENT History: Reports: Other (See Below) Other HEENT History: Early cataracts, blepharitis Cardiovascular History: Reports: Hypertension Respiratory History: Reports: None Gastrointestinal History: Reports: GERD, Other (See Below) Other Gastrointestinal History: constipation, esophagitis, diagphragmatic hernia w/o obstruction or ganfrene Genitourinary History: Reports: BPH, Retention, Urinary, Other (See Below) Other Genitourinary History: obstructive and reflux uropathy, chronic kidney dse stage 4 with retained urinary catheter Musculoskeletal History: Reports: Arthritis, Gout, Other (See Below) Other Musculoskeletal History: kyphosis w/minimal scoliosis, adult failure to thrive, lack of coordination, muscle weakness Neurological History: Reports: Parkinson's, Other (See Below) Other Neuro History: moderate intellectual disabilities Psychiatric History: Reports: Anxiety, Depression, Other (See Below) Other Psychiatric History: moderate intellectual disability Endocrine/Metabolic History: Reports: Diabetes, Type II, Hypothyroidism Hematologic History: Reports: None Immunologic History: Reports: None Oncologic (Cancer) History: Reports: None Dermatologic History: Reports: None - Infectious Disease History Infectious Disease History: Reports: Hepatitis B Other Infectious Disease History: pt unable to verbalize - Past Surgical History Head Surgeries/Procedures: Reports: None HEENT Surgical History: Reports: None, Other (See Below) Cardiovascular Surgical History: Reports: None GI Surgical History: Reports: None Male Surgical History: Reports: None Musculoskeletal Surgical History: Reports: None Social & Family History - Family History Family Medical History: Noncontributory - Tobacco Use Smoking Status *Q: Unknown Ever Smoked Second Hand Smoke Exposure: No - Caffeine Use Caffeine Use: Reports: None - Recreational Drug Use Recreational Drug Use: No Review of Systems - Review of Systems Review Of Systems: See Below (See history of present illness) ED EXAM, GENERAL - Physical Exam Exam: See Below (See history of present illness) Course - Vital Signs Last Recorded V/S: Last Vital Signs Temp 97.6 F 01/14/18 09:40 Pulse 74 01/14/18 11:00 Resp 15 01/14/18 11:00 BP 132/78 01/14/18 11:00 Pulse Ox 97 01/14/18 11:00 - Orders/Labs/Meds Orders: Active Orders 24 hr Category Date Time Status EKG 12 Lead [EKG Documentation Completion] [RC] STAT Care 01/14/18 07:12 Active Hip Min 2V or 3V Lt [CR] Stat Exams 01/14/18 07:06 Taken Hip Min 2V or 3V Rt [CR] Stat Exams 01/14/18 07:06 Taken Pelvis 1V or 2V [CR] Stat Exams 01/14/18 07:05 Taken Pelvis wo Cont [CT] Stat Exams 01/14/18 07:55 Taken Sodium Chloride 0.9% [Saline Flush] Med 01/14/18 07:05 Active 10 ml FLUSH ASDIRECTED PRN Sodium Chloride 0.9% [Saline Flush] Med 01/14/18 07:05 Active 2.5 ml FLUSH ASDIRECTED PRN Saline Lock Insert [OM.PC] Stat Oth 01/14/18 07:05 Ordered Medication Orders Sodium Chloride (Saline Flush) 10 ml FLUSH ASDIRECTED PRN PRN Reason: Keep Vein Open Last Admin: 01/14/18 10:12 Dose: 10 ml Sodium Chloride (Saline Flush) 2.5 ml FLUSH ASDIRECTED PRN PRN Reason: Keep Vein Open Last Admin: 01/14/18 10:12 Dose: 2.5 ml Labs: Laboratory Tests 01/14/18 01/14/18 Range/Units 07:30 07:30 WBC 10.82 (4.0-11.0) K/uL RBC 4.06 L (4.50-5.90) M/uL Hgb 11.7 L (13.0-17.0) g/dL Hct 34.9 L (38.0-50.0) % MCV 86.0 (80.0-98.0) fL MCH 28.8 (27.0-32.0) pg MCHC 33.5 (31.0-37.0) g/dL RDW Std Deviation 44.2 (28.0-62.0) fl RDW Coeff of Mara 14 (11.0-15.0) % Plt Count 271 (150-400) K/uL MPV 9.40 (7.40-12.00) fL Neut % (Auto) 71.2 (48.0-80.0) % Lymph % (Auto) 14.8 L (16.0-40.0) % Roosevelt % (Auto) 13.1 (0.0-15.0) % Eos % (Auto) 0.6 (0.0-7.0) % Baso % (Auto) 0.3 (0.0-1.5) % Neut # (Auto) 7.7 H (1.4-5.7) K/uL Lymph # (Auto) 1.6 (0.6-2.4) K/uL Roosevelt # (Auto) 1.4 H (0.0-0.8) K/uL Eos # (Auto) 0.1 (0.0-0.7) K/uL Baso # (Auto) 0.0 (0.0-0.1) K/uL Nucleated RBC % 0.0 /100WBC Nucleated RBCs # 0 K/uL Sodium 138 (136-148) mmol/L Potassium 4.4 (3.5-5.1) mmol/L Chloride 105 (98-107) mmol/L Carbon Dioxide 26.6 (21.0-32.0) mmol/L BUN 24 H (7.0-18.0) mg/dL Creatinine 1.4 H (0.8-1.3) mg/dL Est Cr Clr Drug Dosing TNP Estimated GFR (MDRD) 48.4 ml/min Glucose 110 H (74-106) mg/dL Calcium 9.1 (8.5-10.1) mg/dL Total Bilirubin 0.4 (0.2-1.0) mg/dL AST 15 (15-37) IU/L ALT 14 (14-63) IU/L Alkaline Phosphatase 110 (46-116) U/L Total Protein 7.2 (6.4-8.2) g/dL Albumin 3.3 L (3.4-5.0) g/dL Globulin 3.9 H (2.0-3.5) g/dL Albumin/Globulin Ratio 0.9 L (1.3-2.8) Meds: Medications Generic Name Dose Route Start Last Admin Trade Name Freq PRN Reason Stop Dose Admin Sodium Chloride 10 ml 01/14/18 07:05 01/14/18 10:12 Saline Flush FLUSH 10 ml ASDIRECTED PRN Administration Keep Vein Open Sodium Chloride 2.5 ml 01/14/18 07:05 01/14/18 10:12 Saline Flush FLUSH 2.5 ml ASDIRECTED PRN Administration Keep Vein Open - Re-Assessments/Exams Free Text/Narrative Re-Assessment/Exam: Patient is a DNR/code 3 and spoke with power of waste oil pumper at the bedside of her options for transfer to [facility] to be evaluated by orthopedics or to keep him comfortable at [facility] over the weekend and see Dr. Au on Tuesday as we do not have or so coverage here this weekend. They chose to keep him here and not transfer at this time. 01/14/18 11:54 Departure - Departure Time of Disposition: 12:02 Disposition: DC/Tfer to Skilled Nursing Care 63 Condition: Fair Clinical Impression: Closed right hip fracture Qualifiers: Encounter type: initial encounter Qualified Code(s): S72.001A - Fracture of unspecified part of neck of right femur, initial encounter for closed fracture - Discharge Information Referrals: Jhonny Burroughs MD [Primary Care Provider] - Rosamaria Au MD [Physician] - 3 Days Forms: ED Department Discharge Additional Instructions: The following information is given to patients seen in the emergency department who are being discharged to home. This information is to outline your options for follow-up care. We provide all patients seen in our emergency department with a follow-up referral. The need for follow-up, as well as the timing and circumstances, are variable depending upon the specifics of your emergency department visit. If you don't have a primary care physician on staff, we will provide you with a referral. We always advise you to contact your personal physician following an emergency department visit to inform them of the circumstance of the visit and for follow-up with them and/or the need for any referrals to a consulting specialist. The emergency department will also refer you to a specialist when appropriate. This referral assures that you have the opportunity for follow-up care with a specialist. All of these measure are taken in an effort to provide you with optimal care, which includes your follow-up. Under all circumstances we always encourage you to contact your private physician who remains a resource for coordinating your care. When calling for follow-up care, please make the office aware that this follow-up is from your recent emergency room visit. If for any reason you are refused follow-up, please contact the [facility] Emergency Department at and asked to speak to the emergency department charge nurse. [facility] Specialty Care - Orthopedic Clinic Professional [address], [address] [place] [address] - My Orders Last 24 Hours: My Active Orders 01/14/18 07:05 Pelvis 1V or 2V [CR] Stat Sodium Chloride 0.9% [Saline Flush] 10 ml FLUSH ASDIRECTED PRN Sodium Chloride 0.9% [Saline Flush] 2.5 ml FLUSH ASDIRECTED PRN Saline Lock Insert [OM.PC] Stat 01/14/18 07:06 Hip Min 2V or 3V Lt [CR] Stat Hip Min 2V or 3V Rt [CR] Stat 01/14/18 07:12 EKG 12 Lead [EKG Documentation Completion] [RC] STAT 01/14/18 07:55 Pelvis wo Cont [CT] Stat - Assessment/Plan Last 24 Hours: My Active Orders 01/14/18 07:05 Pelvis 1V or 2V [CR] Stat Sodium Chloride 0.9% [Saline Flush] 10 ml FLUSH ASDIRECTED PRN Sodium Chloride 0.9% [Saline Flush] 2.5 ml FLUSH ASDIRECTED PRN Saline Lock Insert [OM.PC] Stat 01/14/18 07:06 Hip Min 2V or 3V Lt [CR] Stat Hip Min 2V or 3V Rt [CR] Stat 01/14/18 07:12 EKG 12 Lead [EKG Documentation Completion] [RC] STAT 01/14/18 07:55 Pelvis wo Cont [CT] Stat
[2018-01-14 11:25] VITALS: BP 132/78
[2018-01-14] MEDS ORDERED: Morphine 2 MG/ML Syringe IVPUSH ONE (11:53)
[2018-01-14] MEDS ORDERED: Morphine 2 MG/ML Syringe IM ONE (12:00)
--- NOTE | 2018-01-16 15:20 | CR ---
EXAM DATE: 01/14/18 PATIENT'S AGE: 82 Patient: NITZA HANNAH Facility: [place], [place] Site . Site : 1935 Study: XRay Pelvis [id number]/14/2018 8:14:33 AM Ordering Physician: Wilder Perez Final Report: INDICATION: Fell yesterday. FINDINGS: An AP view of the pelvis obtained. There are marked degenerative changes in the right hip with near complete loss of joint space and osteophytes. There is sclerosis in the acetabulum. There are mild degenerative in the left hip. There is no acute fracture seen or dislocation. There is a appearance of a faint lucency in the base of the right femoral neck/ greater trochanteric region and a possible slight break in the cortex in the greater trochanter. A nondisplaced fracture cannot be excluded. An AP portable view of the right hips obtained. There are marked degenerative changes in the right hip. There is a possible lucency in the base of the right femoral neck/greater trochanteric region and a possible slight break in the cortex in the greater trochanter. A nondisplaced fracture cannot be excluded. A CT scan of the right hip may be help to further evaluate this. An AP view of the left hip was obtained. There is no fracture seen or dislocation. There are mild degenerative changes. IMPRESSION: No acute bone abnormality. Degenerative changes in the hips bilaterally right greater than left. MTDD
--- NOTE | 2018-01-16 15:36 | CT ---
EXAM DATE: 01/14/18 PATIENT'S AGE: 82 Patient: NITZA HANNAH Facility: [place], [place] Site . Site : 1935 Study: CT Pelvis [id number]/14/2018 10:02:14 AM Ordering Physician: Wilder Perez Final Report: INDICATION: Right hip pain. TECHNIQUE: Multiple axial images were obtained through the pelvis and hips without contrast. Sagittal and coronal re-formatted images were obtained. COMPARISON: Plain film done earlier same day. FINDINGS: There is a nondisplaced fracture involving the base of the right femoral neck/ intertrochanteric region. There is also a nondisplaced fracture in the greater trochanter. There is no other fracture seen or dislocation. There marked degenerative changes in the right hip. There are mild degenerative changes in the left hip. There are degenerative changes in the visualized portion of the lumbar spine. There are atherosclerotic calcifications. IMPRESSION: Nondisplaced fracture base right femoral neck/intertrochanteric region. Nondisplaced fracture right greater trochanter. Dictated by Carlos Gibson MD @ 01/14/2018 10:56:32 AM Please note that all CT scans at this facility use dose modulation, iterative reconstruction, and/or weight-based dosing when appropriate to reduce radiation dose to as low as reasonably achievable. Dictated by: Carlos Gibson MD @ 01/14/2018 10:56:36 (Electronic Signature) Report Signed by Proxy. [facility] HOSPITALDontrell
== END 2018-01-14 12:23 ==
LOC: MW.ED 06:38
DX: S72.114A Nondisplaced fracture of greater trochanter of right femur, initial encounter for closed fracture (principal); S72.001A Fracture of unspecified part of neck of right femur, initial encounter for closed fracture; I10 Essential (primary) hypertension; K21.9 Gastro-esophageal reflux disease without esophagitis; E11.9 Type 2 diabetes mellitus without complications; E03.9 Hypothyroidism, unspecified; Z79.899 Other long term (current) drug therapy; Z79.82 Long term (current) use of aspirin; W19.XXXA Unspecified fall, initial encounter; Y92.129 Unspecified place in nursing home as the place of occurrence of the external cause
CPT/HCPCS: 36415; 72170; 72192; 73502; 80053; 85025; 93005; 96372; 99284; J2270

== ENCOUNTER 2018-01-17 08:36 | Inpatient (IN) | payer MEDICARE, MEDICAID ==
--- NOTE | 2018-01-17 12:30 | PCM.HP ---
H&P History of Present Illness - General Date of Service: 01/17/18 Admit Problem/Dx: R hip Fracture Source of Information: Intermediate Records, Old Records History Limitations: Reports: Physical Impairment (Advanced parkinson) - History of Present Illness Initial Comments - Free Text/Narative: This 82 year old male with pmh of HTN, BPH with chronic stoner placement, DM type 2, hx Hep B, Advanced Parkinson's disease, anxiety and depression presented to Orthopedic clinic for follow up regarding R hip fracture. He was brought to the ED on January 14 after [facility] a [facility] Staff noticed he was unable to bear weight on R leg and would moan out in pain when R leg was moved. Hip CT revealed non displaced R femoral neck fracture. He was discharged back to [facility] with pain management and follow up with Orthopedics. Dr Au, Orthopedics, saw patient today in clinic and felt he should be admitted for pain control. She will also be in contact with POA regarding surgical options available. During assessment and interview of patient, Lalo is lying in bed in the position, on his right side. He will not open his eyes for me. Denies any type of pain, including chest pain or hip pain. No shortness of breath. No other concerns. Will obtain baseline labwork at this time and await to hear from Dr Au. - Related Data Allergies/Adverse Reactions: Allergies Allergy/AdvReac Type Severity Reaction Status Date / Time amoxicillin trihydrate Allergy Other Verified 11/13/17 08:20 [From Augmentin] potassium clavulanate Allergy Other Verified 01/14/18 07:13 [From Augmentin] Home Medications: Home Meds Carbidopa/Levodopa [Carbidopa-Levo ER 50-200] 50 - 200 mg PO QID 07/18/15 [ History] Citalopram [Citalopram HBr] 20 mg PO BEDTIME 07/18/15 [History] Lisinopril 5 mg PO DAILY 07/18/15 [History] OXcarbazepine [Trileptal] 150 mg PO QAM 07/18/15 [History] traZODone 100 mg PO BEDTIME 07/18/15 [History] Acetaminophen [Tylenol] 650 mg PO TID PRN 07/23/15 [History] Levothyroxine 25 mcg PO DAILY 07/23/15 [History] Multivitamin [Multivitamins] 1 tab PO DAILY 07/23/15 [History] OXcarbazepine [Trileptal] 300 mg PO BEDTIME 07/23/15 [History] Aspirin [Low Dose Aspirin EC] 81 mg PO DAILY 05/21/16 [History] Polyethylene Glycol 3350 [MiraLAX] 17 gm PO BID 05/21/16 [History] Famotidine [Pepcid] 40 mg PO DAILY 06/05/17 [History] Bisacodyl [Biscolax] 10 mg RECTAL ASDIRECTED PRN 10/29/17 [History] Calcium Polycarbophil 1,875 mg PO DAILY 11/13/17 [History] Past Medical History HEENT History: Reports: Other (See Below) Other HEENT History: Early cataracts, blepharitis Cardiovascular History: Reports: High Cholesterol, Hypertension. Denies: Afib, Blood Clots/VTE/DVT, CAD Respiratory History: Reports: None Gastrointestinal History: Reports: Chronic Constipation, GERD, Other (See Below) Other Gastrointestinal History: esophagitis, diagphragmatic hernia Genitourinary History: Reports: BPH, Retention, Urinary, Other (See Below) Other Genitourinary History: obstructive and reflux uropathy, chronic kidney disease stage 4 with retained urinary catheter Musculoskeletal History: Reports: Arthritis, Gout, Other (See Below) Other Musculoskeletal History: kyphosis w/minimal scoliosis, adult failure to thrive, lack of coordination, muscle weakness Neurological History: Reports: Parkinson's, Other (See Below) Other Neuro History: moderate intellectual disabilities Psychiatric History: Reports: Anxiety, Depression, Other (See Below) Other Psychiatric History: moderate intellectual disability Endocrine/Metabolic History: Reports: Diabetes, Type II, Hypothyroidism Hematologic History: Reports: None Immunologic History: Reports: None Oncologic (Cancer) History: Reports: None Dermatologic History: Reports: None - Infectious Disease History Infectious Disease History: Reports: Hepatitis B Other Infectious Disease History: pt unable to verbalize - Past Surgical History Head Surgeries/Procedures: Reports: None HEENT Surgical History: Reports: None, Other (See Below) Cardiovascular Surgical History: Reports: None GI Surgical History: Reports: None Male Surgical History: Reports: None Musculoskeletal Surgical History: Reports: None Social & Family History - Family History Family Medical History: Noncontributory - Caffeine Use Caffeine Use: Reports: None - Living Situation & Occupation Living situation: Reports: Extended Care Facility Occupation: Disabled H&P Review of Systems - Review of Systems: Review Of Systems: See Below (Partially unable to obtain due to mental status of patient. Stopped answering questions mid interview.) Pulmonary: Reports: No Symptoms. Denies: Shortness of Breath, Wheezing, Cough, Sputum Cardiovascular: Reports: No Symptoms. Denies: Chest Pain, Palpitations, Edema Gastrointestinal: Reports: No Symptoms. Denies: Abdominal Pain Genitourinary: Denies: Dysuria, Frequency, Burning Skin: Reports: Bruising (L hip, will not allow me to look at R hip). Denies: Wound Neurological: Reports: No Symptoms Hematologic/Lymphatic: Reports: No Symptoms Immunologic: Reports: No Symptoms Exam - Exam Exam: See Below - Vital Signs Vital Signs: Last Vital Signs Temp 98.2 F 01/17/18 12:00 Pulse 54 L 01/17/18 12:00 Resp 16 01/17/18 12:00 BP 111/58 L 01/17/18 12:00 Pulse Ox 94 L 01/17/18 12:00 - Exam Quality Assessment: DVT Prophylaxis (SCDs). No: Supplemental Oxygen General: Alert, Oriented. No: Cooperative (stops answering questions mid interview) HEENT: Conjunctiva Clear, Mucosa Moist & [place] Neck: Supple, Trachea Midline Lungs: Clear to Auscultation, Normal Respiratory Effort Cardiovascular: Regular Rate, Regular Rhythm, Normal S1, Normal S2. No: Systolic Murmur GI/Abdominal Exam: Normal Bowel Sounds, Soft, Non-Tender (Male) Exam: Other (Ventral penile erosion due to terminal operations manager catheter ) Extremities: Non-Tender (over L hip.), No Pedal Edema, Normal Capillary Refill, Other (in position, will not allow me to move him to assess R hip. Small tremor noted, known to be baseline.) Skin: Ecchymosis (bruising over L hip and tenderness to palpation.) Neuro Extensive - Mental Status: Alert, Normal Mood/Affect Neuro Extensive - Motor, Sensory, Reflexes: Tremor (baseline.) Psychiatric: Alert, Normal Affect - Problem List (1) Closed right hip fracture SNOMED Code(s): 830049227 ICD Code: S72.001A - FRACTURE OF UNSP PART OF NECK OF RIGHT FEMUR, INIT Status: Acute Current Visit: No (2) Fall SNOMED Code(s): 0992068, 482235754 ICD Code: W19.XXXA - UNSPECIFIED FALL, INITIAL ENCOUNTER Status: Acute Current Visit: No Qualifiers: Encounter type: initial encounter Qualified Code(s): W19.XXXA - Unspecified fall, initial encounter (3) HTN (hypertension) SNOMED Code(s): 96011736 ICD Code: I10 - ESSENTIAL (PRIMARY) HYPERTENSION Status: Chronic Current Visit: Yes Qualifiers: Hypertension type: essential hypertension Qualified Code(s): I10 - Essential (primary) hypertension (4) Anxiety, generalized SNOMED Code(s): 46262982 ICD Code: F41.1 - GENERALIZED ANXIETY DISORDER Status: Chronic Current Visit: No (5) Chronic kidney disease SNOMED Code(s): 141117074 ICD Code: N18.9 - CHRONIC KIDNEY DISEASE, UNSPECIFIED Status: Chronic Current Visit: No Qualifiers: Chronic kidney disease stage: stage 4 (severe) Qualified Code(s): N18.4 - Chronic kidney disease, stage 4 (severe) (6) Parkinson disease SNOMED Code(s): 21450010 ICD Code: G20 - PARKINSON'S DISEASE Status: Chronic Current Visit: No Problem List Initiated/Reviewed/Updated: Yes Assessment/Plan Comment:: This 82 year old male admitted with R hip fracture for pain control and possible surgical intervention. 1. R hip fracture: Will order [place] and Morphine PRN. Tylenol PRN as well. Dr Au will speak with POA regarding surgical intervention. Will obtain basic labwork now. VS stable. If surgical intervention is request will complete further workup for surgery clearance. 2. HTN: Stable. Will monitor 3. BPH: Chronic Stoner intact, no signs of infection. Will monitor. 4. CKD: Obtain BMP, BUN CR stable on 01/14 BUN 24 and Cr 1.4 5. Parkinson's: Stable. Continue Carbidopa/Levodopa. VTE prophylaxis: SCDs for now pending surgical intervention. Dispo: 1-3 days pending improvement.
[2018-01-17] MEDS ORDERED: Sodium Chloride 0.9% 2.5 ML Syringe FLUSH PRN (12:37)
[2018-01-17] MEDS ORDERED: Acetaminophen 325 MG Tab PO PRN (12:37)
[2018-01-17] MEDS ORDERED: Morphine 2 MG/ML Syringe IVPUSH PRN (12:37)
[2018-01-17] MEDS ORDERED: Ondansetron 4 MG/2 ML SDV IVPUSH PRN (12:43)
[2018-01-17 13:52] LABS: CHLORIDE,CL 104 mmol/L (98-107); SODIUM,NA 139 mmol/L (136-148)
[2018-01-17] MEDS ORDERED: Bisacodyl 10 MG Supp RECTAL PRN (15:45)
[2018-01-17] MEDS: Acetaminophen/HYDROcodone 325-5 MG Tab PO PRN (16:10)
[2018-01-17] MEDS: Carbidopa/Levodopa 50-200 MG Tab.ER PO SCH ×3 (16:10→20:26)
--- NOTE | 2018-01-17 16:20 | CR ---
EXAMINATION: Portable chest radiograph. HISTORY: Hypertension. FINDINGS: The trachea is midline. The cardiomediastinal silhouette is within normal limits. No pulmonary infilt rates, effusions or pneumothorax. Scattered tiny pulmonary calcifications noted, likely chronic granu lomatous changes versus old viral infection. Osseous structures appear unremarkable. IMPRESSION: No acute cardiopulmonary process.
--- NOTE | 2018-01-17 17:32 | PCM.SN ---
- Free Text/Narrative Note: Patient was seen and examined in clinic earlier today. Please refer to my clinic note for complete exam along with recommendations. I did speak with his power of sewer builder and I'm recommending surgical treatment. Laboratory studies along with the admission H&P have been reviewed.
[2018-01-17] MEDS: Levofloxacin/Dextrose 5%-Water 500 MG in Premix Bag 1 BAG IV SCH (18:42)
[2018-01-17] MEDS: traZODone 50 MG Tab PO SCH (20:26)
[2018-01-17] MEDS: Citalopram 20 MG Tab PO SCH (20:27)
[2018-01-17] MEDS: OXcarbazepine 300 MG Tab PO SCH (20:27)
[2018-01-17] MEDS: Polyethylene Glycol 3350 Powder 17 GM Packet PO SCH (20:27)
[2018-01-17] MEDS: Lactated Ringers 1,000 ML IV SCH (21:05)
--- NOTE | 2018-01-18 07:18 | PCM.PN ---
- General Info Date of Service: 01/18/18 Admission Dx/Problem (Free Text): R hip Fracture Subjective Update: Lying in bed this morning. Denies pain. Reports hip pain is ok. No other concerns. Functional Status: Reports: Pain Controlled, Tolerating Diet, Ambulating - Review of Systems General: Reports: No Symptoms HEENT: Reports: No Symptoms. Denies: Headaches, Sore Throat Pulmonary: Reports: No Symptoms. Denies: Shortness of Breath Cardiovascular: Reports: No Symptoms. Denies: Chest Pain, Palpitations Gastrointestinal: Reports: No Symptoms. Denies: Abdominal Pain - Patient Data Vitals - Most Recent: Last Vital Signs Temp 98.6 F 01/18/18 04:00 Pulse 69 01/18/18 04:00 Resp 18 01/18/18 04:00 BP 152/72 H 01/18/18 04:00 Pulse Ox 96 01/18/18 04:00 I&O - Last 24 Hours: Intake & Output 01/17/18 01/18/18 01/18/18 22:59 06:59 14:59 Intake Total 623 Output Total 400 Balance 223 Lab Results Last 24 Hours: Laboratory Results - last 24 hr 01/17/18 01/17/18 01/17/18 Range/Units 13:08 13:08 13:08 WBC 10.43 (4.0-11.0) K/uL RBC 3.77 L (4.50-5.90) M/uL Hgb 11.1 L (13.0-17.0) g/dL Hct 32.9 L (38.0-50.0) % MCV 87.3 (80.0-98.0) fL MCH 29.4 (27.0-32.0) pg MCHC 33.7 (31.0-37.0) g/dL RDW Std Deviation 46.4 (28.0-62.0) fl RDW Coeff of Mara 15 (11.0-15.0) % Plt Count 270 (150-400) K/uL MPV 9.20 (7.40-12.00) fL Neut % (Auto) 73.0 (48.0-80.0) % Lymph % (Auto) 14.5 L (16.0-40.0) % [place] % (Auto) 9.0 (0.0-15.0) % Eos % (Auto) 3.2 (0.0-7.0) % Baso % (Auto) 0.3 (0.0-1.5) % Neut # (Auto) 7.6 H (1.4-5.7) K/uL Lymph # (Auto) 1.5 (0.6-2.4) K/uL [place] # (Auto) 0.9 H (0.0-0.8) K/uL Eos # (Auto) 0.3 (0.0-0.7) K/uL Baso # (Auto) 0.0 (0.0-0.1) K/uL Nucleated RBC % 0.0 /100WBC Nucleated RBCs # 0 K/uL INR 1.00 Sodium 139 (136-148) mmol/L Potassium 4.4 (3.5-5.1) mmol/L Chloride 104 (98-107) mmol/L Carbon Dioxide 26.8 (21.0-32.0) mmol/L BUN 31 H (7.0-18.0) mg/dL Creatinine 1.4 H (0.8-1.3) mg/dL Est Cr Clr Drug Dosing TNP Estimated GFR (MDRD) 48.4 ml/min Glucose 101 (74-106) mg/dL Calcium 8.7 (8.5-10.1) mg/dL Urine Color Urine Appearance Urine pH (5.0-8.0) Ur Specific [place] (1.001-1.035) Urine Protein (NEGATIVE) mg/dL Urine Glucose (UA) (NEGATIVE) mg/dL Urine Ketones (NEGATIVE) mg/dL Urine Occult Blood (NEGATIVE) Urine Nitrite (NEGATIVE) Urine Bilirubin (NEGATIVE) Urine Urobilinogen (<2.0) EU/dL Ur Leukocyte Esterase (NEGATIVE) Urine RBC (0-2/HPF) Urine WBC (0-5/HPF) Ur Epithelial Cells (NONE-FEW) Urine Bacteria (NEGATIVE) Blood Type Antibody Screen 01/17/18 01/17/18 Range/Units 16:50 17:57 WBC (4.0-11.0) K/uL RBC (4.50-5.90) M/uL Hgb (13.0-17.0) g/dL Hct (38.0-50.0) % MCV (80.0-98.0) fL MCH (27.0-32.0) pg MCHC (31.0-37.0) g/dL RDW Std Deviation (28.0-62.0) fl RDW Coeff of Mara (11.0-15.0) % Plt Count (150-400) K/uL MPV (7.40-12.00) fL Neut % (Auto) (48.0-80.0) % Lymph % (Auto) (16.0-40.0) % [place] % (Auto) (0.0-15.0) % Eos % (Auto) (0.0-7.0) % Baso % (Auto) (0.0-1.5) % Neut # (Auto) (1.4-5.7) K/uL Lymph # (Auto) (0.6-2.4) K/uL [place] # (Auto) (0.0-0.8) K/uL Eos # (Auto) (0.0-0.7) K/uL Baso # (Auto) (0.0-0.1) K/uL Nucleated RBC % /100WBC Nucleated RBCs # K/uL INR Sodium (136-148) mmol/L Potassium (3.5-5.1) mmol/L Chloride (98-107) mmol/L Carbon Dioxide (21.0-32.0) mmol/L BUN (7.0-18.0) mg/dL Creatinine (0.8-1.3) mg/dL Est Cr Clr Drug Dosing Estimated GFR (MDRD) ml/min Glucose (74-106) mg/dL Calcium (8.5-10.1) mg/dL Urine Color YELLOW Urine Appearance CLEAR Urine pH 6.0 (5.0-8.0) Ur Specific [place] 1.020 (1.001-1.035) Urine Protein 30 (NEGATIVE) mg/dL Urine Glucose (UA) NEGATIVE (NEGATIVE) mg/dL Urine Ketones TRACE H (NEGATIVE) mg/dL Urine Occult Blood LARGE H (NEGATIVE) Urine Nitrite POSITIVE H (NEGATIVE) Urine Bilirubin NEGATIVE (NEGATIVE) Urine Urobilinogen 1.0 (<2.0) EU/dL Ur Leukocyte Esterase SMALL (NEGATIVE) Urine RBC 10-15 (0-2/HPF) Urine WBC 25-30 (0-5/HPF) Ur Epithelial Cells FEW (NONE-FEW) Urine Bacteria 1+ H (NEGATIVE) Blood Type O NEGATIVE Antibody Screen NEGATIVE Med Orders - Current: Current Medications Acetaminophen (Tylenol) 650 mg PO Q4H PRN PRN Reason: Pain (mild 1-3) Hydrocodone Bitart/Acetaminophen ([place] 325-5 Mg) 1 tab PO Q4H PRN PRN Reason: Pain (moderate 4-6) Last Admin: 01/17/18 16:10 Dose: 1 tab Bisacodyl (Dulcolax) 10 mg RECTAL ASDIRECTED PRN PRN Reason: Constipation Calcium Polycarbophil (Fibercon) 1,875 mg PO DAILY [facility] Carbidopa/Levodopa (Sinemet Cr 50-200 Mg) 1 tab PO 0800,1200,1600,2000 [facility] Last Admin: 01/17/18 20:26 Dose: 1 tab Citalopram Hydrobromide (Celexa) 20 mg PO BEDTIME [facility] Last Admin: 01/17/18 20:27 Dose: 20 mg Famotidine (Pepcid) 40 mg PO QAM [facility] Clindamycin Phosphate 600 mg/ (Premix) 50 mls @ 100 mls/hr IV ONETIME ONE Stop: 01/18/18 11:29 Levofloxacin/Dextrose 500 mg/ (Premix) 100 mls @ 100 mls/hr IV Q24H [facility] Last Admin: 01/17/18 18:42 Dose: 100 mls/hr Lactated Ringer's (Ringers, Lactated) 1,000 mls @ 75 mls/hr IV ASDIRECTED [facility] Last Admin: 01/17/18 21:05 Dose: 75 mls/hr Levothyroxine Sodium (Levothyroxine) 25 mcg PO ACBREAKFAST [facility] Lisinopril (Prinivil) 5 mg PO DAILY [facility] Morphine Sulfate (Morphine) 2 mg IVPUSH Q4H PRN PRN Reason: Pain (severe 7-10) Stop: 01/18/18 12:43 Multivitamins/Minerals (Thera M Plus) 1 tab PO DAILY [facility] Ondansetron HCl (Zofran) 4 mg IVPUSH Q4H PRN PRN Reason: Nausea Oxcarbazepine (Trileptal) 150 mg PO QAM [facility] Oxcarbazepine (Trileptal) 300 mg PO BEDTIME [facility] Last Admin: 01/17/18 20:27 Dose: 300 mg Polyethylene Glycol (Miralax) 17 gm PO BID [facility] Last Admin: 01/17/18 20:27 Dose: 17 gm Sodium Chloride (Saline Flush) 2.5 ml FLUSH ASDIRECTED PRN PRN Reason: Keep Vein Open Trazodone HCl (Trazodone) 100 mg PO BEDTIME [facility] Last Admin: 01/17/18 20:26 Dose: 100 mg Discontinued Medications Carbidopa/Levodopa (Sinemet Cr 50-200 Mg) 1 tab PO QID [facility] Last Admin: 01/17/18 18:35 Dose: Not Given - Exam General: Alert, Cooperative, No Acute Distress. No: Oriented Neck: Supple Lungs: Clear to Auscultation, Normal Respiratory Effort Cardiovascular: Regular Rate, Regular Rhythm, No Murmurs. No: Irregular Rhythm GI/Abdominal Exam: Normal Bowel Sounds, Soft, Non-Tender Extremities: No Pedal Edema, Leg Pain (tenderness to palpation of R hip) Skin: Ecchymosis (L hip) Neurological: No New Focal Deficit Psy/Mental Status: Alert, Normal Affect, Normal Mood - Problem List & Annotations (1) Closed right hip fracture SNOMED Code(s): 044028605 Code(s): S72.001A - FRACTURE OF UNSP PART OF NECK OF RIGHT FEMUR, INIT Status: Acute Current Visit: No (2) Fall SNOMED Code(s): 7652276, 147011684 Code(s): W19.XXXA - UNSPECIFIED FALL, INITIAL ENCOUNTER Status: Acute Current Visit: No Qualifiers: Encounter type: initial encounter Qualified Code(s): W19.XXXA - Unspecified fall, initial encounter (3) HTN (hypertension) SNOMED Code(s): 74025131 Code(s): I10 - ESSENTIAL (PRIMARY) HYPERTENSION Status: Chronic Current Visit: Yes Qualifiers: Hypertension type: essential hypertension Qualified Code(s): I10 - Essential (primary) hypertension (4) Anxiety, generalized SNOMED Code(s): 65362842 Code(s): F41.1 - GENERALIZED ANXIETY DISORDER Status: Chronic Current Visit: No (5) Chronic kidney disease SNOMED Code(s): 705761368 Code(s): N18.9 - CHRONIC KIDNEY DISEASE, UNSPECIFIED Status: Chronic Current Visit: No Qualifiers: Chronic kidney disease stage: stage 4 (severe) Qualified Code(s): N18.4 - Chronic kidney disease, stage 4 (severe) (6) Parkinson disease SNOMED Code(s): 08996295 Code(s): G20 - PARKINSON'S DISEASE Status: Chronic Current Visit: No - Problem List Review Problem List Initiated/Reviewed/Updated: Yes - My Orders Last 24 Hours: My Active Orders 01/17/18 12:37 Patient Status [ADT] Routine VTE/DVT Education [RC] PER UNIT ROUTINE Vital Signs [RC] Q4H Acetaminophen [Tylenol] 650 mg PO Q4H PRN Morphine 2 mg IVPUSH Q4H PRN Sodium Chloride 0.9% [Saline Flush] 2.5 ml FLUSH ASDIRECTED PRN Saline Lock Insert [OM.PC] Routine Resuscitation Status Routine 01/17/18 12:41 Intake and Output [RC] QSHIFT Sequential Compression Device [OM.PC] Per Unit Routine 01/17/18 12:43 Bedrest [RC] ASDIRECTED Consult to Physician [CONS] Routine Acetaminophen/HYDROcodone [[place] 325-5 MG] 1 tab PO Q4H PRN Ondansetron [Zofran] 4 mg IVPUSH Q4H PRN 01/17/18 12:45 Notify Provider Consults [RC] ASDIRECTED 01/17/18 15:44 EKG Documentation Completion [RC] ROUTINE 01/17/18 15:45 Bisacodyl [Dulcolax] 10 mg RECTAL ASDIRECTED PRN 01/17/18 17:47 Telemetry Monitoring [Cardiac Monitoring] [RC] Q8H 01/17/18 20:00 Carbidopa/Levodopa [Sinemet Cr 50-200 mg] 1 tab PO 0800,1200,1600,2000 01/17/18 21:00 Citalopram [Celexa] 20 mg PO BEDTIME OXcarbazepine [Trileptal] 300 mg PO BEDTIME Polyethylene Glycol 3350 [MiraLAX] 17 gm PO BID traZODone 100 mg PO BEDTIME 01/18/18 07:01 BASIC METABOLIC PANEL,BMP [CHEM] Routine CBC WITH AUTO DIFF [HEME] Routine MG [MAGNESIUM] [CHEM] Routine 01/18/18 07:16 CULTURE URINE [RM] Routine 01/18/18 07:30 Levothyroxine 25 mcg PO ACBREAKFAST 01/18/18 09:00 Calcium Polycarbophil [Fibercon] 1,875 mg PO DAILY Famotidine [Pepcid] 40 mg PO QAM Lisinopril [Prinivil] 5 mg PO DAILY Multivitamins w-Iron/Ca/FA/Min [Thera M Plus] 1 tab PO DAILY OXcarbazepine [Trileptal] 150 mg PO QAM - Plan Plan:: This 82 year old male admitted with R hip fracture for pain control and possible surgical intervention. 1. R hip fracture: To [place] today. Will order [place] and Morphine PRN. Tylenol PRN as well. VS stable. Patient is an acceptable risk for surgery. EKG last evening revealed a lot of artifact, likely secondary to tremors. Telemetry was placed and has been reading SR no ST elevation rates in the 60s. Will continue to monitor on telemetry post-operatively. CXR negative. UA revealed UTI, Levaquin started. Miller replaced last evening. 2. HTN: Stable. Will monitor 3. BPH: Chronic Miller intact, no signs of infection. Will monitor. 4. CKD: Obtain BMP, BUN CR stable on 01/14 BUN 24 and Cr 1.4 5. Parkinson's: Stable. Continue Carbidopa/Levodopa. 6. UTI: Miller replaced last night, Continue Levaquin. UC pending. VTE prophylaxis: SCDs for now pending surgical intervention. Dispo: Will change to inpatient status this morning due to the need for surgical intervention to fix R hip fracture.
[2018-01-18 07:51] LABS: CHLORIDE,CL 102 mmol/L (98-107); SODIUM,NA 138 mmol/L (136-148)
[2018-01-18] MEDS ORDERED: Clindamycin Phosphate in D5W 600 MG in Premix Bag 1 BAG IV ONE ×4 (11:00→17:00)
--- NOTE | 2018-01-18 11:02 | PCM.PREANE ---
Preanesthetic Assessment - Procedure Proposed Procedure: hip fracture...gamma nail placement - Anesthesia/Transfusion/Family Hx Anesthesia History: Unknown Family History of Anesthesia Reaction: No Transfusion History: Unknown Intubation History: Unknown Additional History: recurrent urinary infections with indwelling Miller....replaced afew weeks ago in ER by urologist. - Review of Systems General: Other (no verbal response or sign of response to me...however, did verbalize a bit to his POA who was sitting at bedside.) Cardiovascular: Other (A Fib, CAD) Gastrointestinal: Other (reported diaphragmatic hernia) Neurological: Pre-Existing Deficit Other: Reports: Thyroid Problems (hypothyroid) - Physical Assessment NPO Status Date: 01/17/18 NPO Status Time: 23:55 O2 Sat by Pulse Oximetry: 96 Respiratory Rate: 18 Vital Signs: Last Vital Signs Temp 98.7 F 01/18/18 08:00 Pulse 71 01/18/18 08:00 Resp 18 01/18/18 08:00 BP 155/84 H 01/18/18 08:00 Pulse Ox 96 01/18/18 08:00 Weight: 127 lb 6.835 oz ASA Class: 3 Mental Status: Other (eyes open) Dentition: Reports: Dentures (out) Thyro-Mental Finger Breadths: 3 (no active participation) Mouth Opening Finger Breadths: 2 (no active participation) ROM/Head Extension: Other (appears fixed in snifffing position) Lungs: Clear to Auscultation, Normal Respiratory Effort Cardiovascular: Regular Rate, Regular Rhythm, No Murmurs - Lab Values: Laboratory Last Values WBC 10.10 K/uL (4.0-11.0) 01/18/18 07:15 RBC 4.07 M/uL (4.50-5.90) L 01/18/18 07:15 Hgb 11.7 g/dL (13.0-17.0) L 01/18/18 07:15 Hct 35.2 % (38.0-50.0) L 01/18/18 07:15 MCV 86.5 fL (80.0-98.0) 01/18/18 07:15 MCH 28.7 pg (27.0-32.0) 01/18/18 07:15 MCHC 33.2 g/dL (31.0-37.0) 01/18/18 07:15 RDW Std Deviation 44.6 fl (28.0-62.0) 01/18/18 07:15 RDW Coeff of Mara 14 % (11.0-15.0) 01/18/18 07:15 Plt Count 284 K/uL (150-400) 01/18/18 07:15 MPV 9.20 fL (7.40-12.00) 01/18/18 07:15 Neut % (Auto) 76.8 % (48.0-80.0) 01/18/18 07:15 Lymph % (Auto) 12.6 % (16.0-40.0) L 01/18/18 07:15 [place] % (Auto) 8.0 % (0.0-15.0) 01/18/18 07:15 Eos % (Auto) 2.2 % (0.0-7.0) 01/18/18 07:15 Baso % (Auto) 0.4 % (0.0-1.5) 01/18/18 07:15 Neut # (Auto) 7.8 K/uL (1.4-5.7) H 01/18/18 07:15 Lymph # (Auto) 1.3 K/uL (0.6-2.4) 01/18/18 07:15 [place] # (Auto) 0.8 K/uL (0.0-0.8) 01/18/18 07:15 Eos # (Auto) 0.2 K/uL (0.0-0.7) 01/18/18 07:15 Baso # (Auto) 0.0 K/uL (0.0-0.1) 01/18/18 07:15 Nucleated RBC % 0.0 /100WBC 01/18/18 07:15 Nucleated RBCs # 0 K/uL 01/18/18 07:15 INR 1.00 01/17/18 13:08 Sodium 138 mmol/L (136-148) 01/18/18 07:15 Potassium 4.4 mmol/L (3.5-5.1) 01/18/18 07:15 Chloride 102 mmol/L (98-107) 01/18/18 07:15 Carbon Dioxide 26.4 mmol/L (21.0-32.0) 01/18/18 07:15 BUN 26 mg/dL (7.0-18.0) H 01/18/18 07:15 Creatinine 1.2 mg/dL (0.8-1.3) 01/18/18 07:15 Est Cr Clr Drug Dosing TNP 01/18/18 07:15 Estimated GFR (MDRD) 57.8 ml/min 01/18/18 07:15 Glucose 102 mg/dL (74-106) 01/18/18 07:15 Calcium 8.8 mg/dL (8.5-10.1) 01/18/18 07:15 Magnesium 2.0 mg/dL (1.8-2.4) 01/18/18 07:15 Urine Color YELLOW 01/17/18 16:50 Urine Appearance CLEAR 01/17/18 16:50 Urine pH 6.0 (5.0-8.0) 01/17/18 16:50 Ur Specific [place] 1.020 (1.001-1.035) 01/17/18 16:50 Urine Protein 30 mg/dL (NEGATIVE) 01/17/18 16:50 Urine Glucose (UA) NEGATIVE mg/dL (NEGATIVE) 01/17/18 16:50 Urine Ketones TRACE mg/dL (NEGATIVE) H 01/17/18 16:50 Urine Occult Blood LARGE (NEGATIVE) H 01/17/18 16:50 Urine Nitrite POSITIVE (NEGATIVE) H 01/17/18 16:50 Urine Bilirubin NEGATIVE (NEGATIVE) 01/17/18 16:50 Urine Urobilinogen 1.0 EU/dL (<2.0) 01/17/18 16:50 Ur Leukocyte Esterase SMALL (NEGATIVE) 01/17/18 16:50 Urine RBC 10-15 (0-2/HPF) 01/17/18 16:50 Urine WBC 25-30 (0-5/HPF) 01/17/18 16:50 Ur Epithelial Cells FEW (NONE-FEW) 01/17/18 16:50 Urine Bacteria 1+ (NEGATIVE) H 01/17/18 16:50 Blood Type O NEGATIVE 01/17/18 17:57 Antibody Screen NEGATIVE 01/17/18 17:57 - Imaging/EKG Impressions: Impaired mentation and hx Parkinson's disease; body in contractured/ position - stated by surgeon that he had walked prior to his fall/fracture of his right hip bone. - Allergies Allergies/Adverse Reactions: Allergies Allergy/AdvReac Type Severity Reaction Status Date / Time amoxicillin trihydrate Allergy Other Verified 11/13/17 08:20 [From Augmentin] potassium clavulanate Allergy Other Verified 01/14/18 07:13 [From Augmentin] - Blood Blood Available: No Product(s) Available: None - Anesthesia Plan Pre-Op Medication Ordered: None - Acknowledgements Anesthesia Type Planned: General Anesthesia Pt an Appropriate Candidate for the Planned Anesthesia: Yes Alternatives and Risks of Anesthesia Discussed w Pt/Guardian: Yes Pt/Guardian Understands and Agrees with Anesthesia Plan: Yes Additional Comments: Risks of anesthetic discussed with career services officer. HARPREET had worked with patient at [facility] prior to his transfer to [facility]. PreAnesthesia Questionnaire HEENT History: Reports: Other (See Below) Other HEENT History: Early cataracts, blepharitis Cardiovascular History: Reports: High Cholesterol, Hypertension. Denies: Afib, Blood Clots/VTE/DVT, CAD Respiratory History: Reports: None Gastrointestinal History: Reports: Chronic Constipation, GERD, Other (See Below) Other Gastrointestinal History: esophagitis, diagphragmatic hernia Genitourinary History: Reports: BPH, Retention, Urinary, Other (See Below) Other Genitourinary History: obstructive and reflux uropathy, chronic kidney disease stage 4 with retained urinary catheter Musculoskeletal History: Reports: Arthritis, Gout, Other (See Below) Other Musculoskeletal History: kyphosis w/minimal scoliosis, adult failure to thrive, lack of coordination, muscle weakness Neurological History: Reports: Parkinson's, Other (See Below) Other Neuro History: moderate intellectual disabilities Psychiatric History: Reports: Anxiety, Depression, Other (See Below) Other Psychiatric History: moderate intellectual disability Endocrine/Metabolic History: Reports: Diabetes, Type II, Hypothyroidism Hematologic History: Reports: None Immunologic History: Reports: None Oncologic (Cancer) History: Reports: None Dermatologic History: Reports: None - Infectious Disease History Infectious Disease History: Reports: Hepatitis B Other Infectious Disease History: pt unable to verbalize - Past Surgical History Head Surgeries/Procedures: Reports: None HEENT Surgical History: Reports: None, Other (See Below) Cardiovascular Surgical History: Reports: None GI Surgical History: Reports: None Male Surgical History: Reports: None Musculoskeletal Surgical History: Reports: None - SUBSTANCE USE Smoking Status *Q: Unknown Ever Smoked Second Hand Smoke Exposure: No Recreational Drug Use History: No - HOME MEDS Home Medications: Home Meds Carbidopa/Levodopa [Carbidopa-Levo ER 50-200] 1 tab PO QID 07/18/15 [History] Citalopram [Citalopram HBr] 20 mg PO BEDTIME 07/18/15 [History] Lisinopril 5 mg PO DAILY 07/18/15 [History] OXcarbazepine [Trileptal] 150 mg PO QAM 07/18/15 [History] traZODone 100 mg PO BEDTIME 07/18/15 [History] Levothyroxine 25 mcg PO DAILY 07/23/15 [History] Multivitamin [Multivitamins] 1 tab PO DAILY 07/23/15 [History] OXcarbazepine [Trileptal] 300 mg PO BEDTIME 07/23/15 [History] Aspirin [Low Dose Aspirin EC] 81 mg PO DAILY 05/21/16 [History] Polyethylene Glycol 3350 [MiraLAX] 17 gm PO BID 05/21/16 [History] Famotidine [Pepcid] 40 mg PO QAM 06/05/17 [History] Bisacodyl [Biscolax] 10 mg RECTAL ASDIRECTED PRN 10/29/17 [History] Calcium Polycarbophil 1,875 mg PO DAILY 11/13/17 [History] Acetaminophen [Tylenol Arthritis] 650 mg PO TID 01/17/18 [History] Acetaminophen/HYDROcodone [[place] 325-5 MG] 1 tab PO Q6H PRN 01/17/18 [History] - CURRENT (IN HOUSE) MEDS Current Meds: Current Medications Acetaminophen (Tylenol) 650 mg PO Q4H PRN PRN Reason: Pain (mild 1-3) Hydrocodone Bitart/Acetaminophen ([place] 325-5 Mg) 1 tab PO Q4H PRN PRN Reason: Pain (moderate 4-6) Last Admin: 01/17/18 16:10 Dose: 1 tab Bisacodyl (Dulcolax) 10 mg RECTAL ASDIRECTED PRN PRN Reason: Constipation Calcium Polycarbophil (Fibercon) 1,875 mg PO DAILY [facility] Carbidopa/Levodopa (Sinemet Cr 50-200 Mg) 1 tab PO 0800,1200,1600,2000 [facility] Last Admin: 01/17/18 20:26 Dose: 1 tab Citalopram Hydrobromide (Celexa) 20 mg PO BEDTIME [facility] Last Admin: 01/17/18 20:27 Dose: 20 mg Famotidine (Pepcid) 40 mg PO QAM [facility] Clindamycin Phosphate 600 mg/ (Premix) 50 mls @ 100 mls/hr IV ONETIME ONE Stop: 01/18/18 11:29 Levofloxacin/Dextrose 500 mg/ (Premix) 100 mls @ 100 mls/hr IV Q24H [facility] Last Admin: 01/17/18 18:42 Dose: 100 mls/hr Lactated Ringer's (Ringers, Lactated) 1,000 mls @ 75 mls/hr IV ASDIRECTED [facility] Last Admin: 01/17/18 21:05 Dose: 75 mls/hr Levothyroxine Sodium (Levothyroxine) 25 mcg PO ACBREAKFAST [facility] Lisinopril (Prinivil) 5 mg PO DAILY [facility] Morphine Sulfate (Morphine) 2 mg IVPUSH Q4H PRN PRN Reason: Pain (severe 7-10) Stop: 01/18/18 12:43 Multivitamins/Minerals (Thera M Plus) 1 tab PO DAILY [facility] Ondansetron HCl (Zofran) 4 mg IVPUSH Q4H PRN PRN Reason: Nausea Oxcarbazepine (Trileptal) 150 mg PO QAM [facility] Oxcarbazepine (Trileptal) 300 mg PO BEDTIME [facility] Last Admin: 01/17/18 20:27 Dose: 300 mg Polyethylene Glycol (Miralax) 17 gm PO BID [facility] Last Admin: 01/17/18 20:27 Dose: 17 gm Sodium Chloride (Saline Flush) 2.5 ml FLUSH ASDIRECTED PRN PRN Reason: Keep Vein Open Trazodone HCl (Trazodone) 100 mg PO BEDTIME [facility] Last Admin: 01/17/18 20:26 Dose: 100 mg Discontinued Medications Carbidopa/Levodopa (Sinemet Cr 50-200 Mg) 1 tab PO QID [facility] Last Admin: 01/17/18 18:35 Dose: Not Given
[2018-01-18] MEDS: Lactated Ringers 1,000 ML IV SCH (11:27)
[2018-01-18] MEDS: Levothyroxine 25 MCG Tab PO SCH (14:15)
[2018-01-18] MEDS: Calcium Polycarbophil 625 MG Tab PO SCH (14:15)
[2018-01-18] MEDS: Carbidopa/Levodopa 50-200 MG Tab.ER PO SCH ×3 (14:15→20:26)
[2018-01-18] MEDS: Multivitamins with Iron/Calcium/Folic Acid/Minerals Tab PO SCH (14:16)
[2018-01-18] MEDS: Polyethylene Glycol 3350 Powder 17 GM Packet PO SCH ×2 (14:16→20:23)
[2018-01-18] MEDS: Famotidine 20 MG Tab PO SCH (14:17)
[2018-01-18] MEDS ORDERED: Etomidate 2 MG/ML 20 ML SDV IVPUSH ONE (15:11)
[2018-01-18] MEDS ORDERED: Lidocaine 2% 5 ML SDV ONE (15:11)
[2018-01-18] MEDS ORDERED: fentaNYL 250 MCG/5 ML SDV ONE (15:11)
[2018-01-18] MEDS ORDERED: ePHEDrine 50 MG/ML SDV ONE (15:11)
[2018-01-18] MEDS ORDERED: Succinylcholine 200 MG/10 ML MDV ONE (15:11)
[2018-01-18] MEDS ORDERED: Midazolam 1 MG/ML 2 ML SDV ONE (15:11)
[2018-01-18] MEDS ORDERED: Clindamycin Phosphate in D5W 50 ML ONE (16:58)
[2018-01-18] MEDS: Lisinopril 5 MG Tab PO SCH (17:41)
[2018-01-18] MEDS: OXcarbazepine 300 MG Tab PO SCH ×2 (17:42→20:23)
--- NOTE | 2018-01-18 18:36 | PCM.OPNOTE ---
- General Post-Op/Procedure Note Date of Surgery/Procedure: 01/18/18 Operative Procedure(s): CR R hip with insertion of CM nail Post-Op Diagnosis: R IT hip fracture Anesthesia Technique: General ET Tube Primary Surgeon: Rosamaria Au Offline Cutter: Dianne Deluna in mLs: 50 Condition: Good Free Text/Narrative:: #[id number] Intake & Output 01/18/18 01/18/18 01/18/18 06:59 14:59 22:59 Intake Total 623 Output Total 400 375 Balance 223 -375
--- NOTE | 2018-01-18 19:29 | PCM.POSTAN ---
POST ANESTHESIA ASSESSMENT - MENTAL STATUS Mental Status: Somnolent, Other (dementia as before surgery; not responsive to verbal; pain response - moaning) - RESPIRATORY Respiratory Status: Respiratory Rate WNL, Airway Patent, O2 Saturation Stable - CARDIOVASCULAR CV Status: Pulse Rate WNL, Blood Pressure Stable - GASTROINTESTINAL GI Status: No Symptoms - POST OP HYDRATION Hydration Status: Adequate & Stable
[2018-01-18] MEDS: Levofloxacin/Dextrose 5%-Water 500 MG in Premix Bag 1 BAG IV SCH (19:48)
[2018-01-18] MEDS: Acetaminophen/HYDROcodone 325-5 MG Tab PO PRN (19:52)
[2018-01-18] MEDS: Citalopram 20 MG Tab PO SCH (20:23)
[2018-01-18] MEDS: traZODone 50 MG Tab PO SCH (20:23)
[2018-01-18] MEDS ORDERED: Lisinopril/Hydrochlorothiazide 10-12.5 MG Tab PO ONE (20:40)
[2018-01-19] MEDS: Lactated Ringers 1,000 ML IV SCH ×2 (04:02→04:08)
[2018-01-19] MEDS: Acetaminophen/HYDROcodone 325-5 MG Tab PO PRN ×3 (05:33→16:04)
[2018-01-19 06:17] LABS: CHLORIDE,CL 103 mmol/L (98-107); SODIUM,NA 136 mmol/L (136-148)
[2018-01-19] MEDS: Levothyroxine 25 MCG Tab PO SCH (06:44)
--- NOTE | 2018-01-19 07:31 | PCM.PN ---
- General Info Date of Service: 01/19/18 Admission Dx/Problem (Free Text): R hip Fracture Subjective Update: Lalo sitting up in chair. Continues to be in contracture position, knees up to chest. Reports no pain, but needs the bathroom. Nursing reports he is saying he needs to urinate, Miller is draining. No chest pain or shortness of breath. Functional Status: Reports: Pain Controlled, Tolerating Diet. Denies: Ambulating - Review of Systems Systems Review Comment:: As per subjective, otherwise unable to obtain from patient due to dementia. - Patient Data Vitals - Most Recent: Last Vital Signs Temp 96.2 F 01/19/18 04:00 Pulse 79 01/19/18 04:00 Resp 20 01/19/18 04:00 BP 126/66 01/19/18 04:00 Pulse Ox 93 L 01/19/18 04:00 Weight - Most Recent: 57.8 kg I&O - Last 24 Hours: Intake & Output 01/18/18 01/19/18 01/19/18 22:59 06:59 14:59 Intake Total 800 718 Output Total 495 350 Balance 305 368 Lab Results Last 24 Hours: Laboratory Results - last 24 hr 01/18/18 01/18/18 01/19/18 Range/Units 07:15 07:15 05:10 WBC 10.10 11.47 H (4.0-11.0) K/uL RBC 4.07 L 3.62 L (4.50-5.90) M/uL Hgb 11.7 L 10.5 L (13.0-17.0) g/dL Hct 35.2 L 31.2 L (38.0-50.0) % MCV 86.5 86.2 (80.0-98.0) fL MCH 28.7 29.0 (27.0-32.0) pg MCHC 33.2 33.7 (31.0-37.0) g/dL RDW Std Deviation 44.6 43.8 (28.0-62.0) fl RDW Coeff of Mara 14 14 (11.0-15.0) % Plt Count 284 263 (150-400) K/uL MPV 9.20 9.40 (7.40-12.00) fL Neut % (Auto) 76.8 83.1 H (48.0-80.0) % Lymph % (Auto) 12.6 L 8.5 L (16.0-40.0) % Bel[place]ami % (Auto) 8.0 7.8 (0.0-15.0) % Eos % (Auto) 2.2 0.3 (0.0-7.0) % Baso % (Auto) 0.4 0.3 (0.0-1.5) % Neut # (Auto) 7.8 H 9.5 H (1.4-5.7) K/uL Lymph # (Auto) 1.3 1.0 (0.6-2.4) K/uL Beltrami # (Auto) 0.8 0.9 H (0.0-0.8) K/uL Eos # (Auto) 0.2 0.0 (0.0-0.7) K/uL Baso # (Auto) 0.0 0.0 (0.0-0.1) K/uL Nucleated RBC % 0.0 0.0 /100WBC Nucleated RBCs # 0 0 K/uL Sodium 138 (136-148) mmol/L Potassium 4.4 (3.5-5.1) mmol/L Chloride 102 (98-107) mmol/L Carbon Dioxide 26.4 (21.0-32.0) mmol/L BUN 26 H (7.0-18.0) mg/dL Creatinine 1.2 (0.8-1.3) mg/dL Est Cr Clr Drug Dosing TNP Estimated GFR (MDRD) 57.8 ml/min Glucose 102 (74-106) mg/dL Calcium 8.8 (8.5-10.1) mg/dL Magnesium 2.0 (1.8-2.4) mg/dL 01/19/18 Range/Units 05:10 WBC (4.0-11.0) K/uL RBC (4.50-5.90) M/uL Hgb (13.0-17.0) g/dL Hct (38.0-50.0) % MCV (80.0-98.0) fL MCH (27.0-32.0) pg MCHC (31.0-37.0) g/dL RDW Std Deviation (28.0-62.0) fl RDW Coeff of Mara (11.0-15.0) % Plt Count (150-400) K/uL MPV (7.40-12.00) fL Neut % (Auto) (48.0-80.0) % Lymph % (Auto) (16.0-40.0) % Bel[place]ami % (Auto) (0.0-15.0) % Eos % (Auto) (0.0-7.0) % Baso % (Auto) (0.0-1.5) % Neut # (Auto) (1.4-5.7) K/uL Lymph # (Auto) (0.6-2.4) K/uL Bel[place]ami # (Auto) (0.0-0.8) K/uL Eos # (Auto) (0.0-0.7) K/uL Baso # (Auto) (0.0-0.1) K/uL Nucleated RBC % /100WBC Nucleated RBCs # K/uL Sodium 136 (136-148) mmol/L Potassium 4.3 (3.5-5.1) mmol/L Chloride 103 (98-107) mmol/L Carbon Dioxide 23.1 (21.0-32.0) mmol/L BUN 21 H (7.0-18.0) mg/dL Creatinine 1.1 (0.8-1.3) mg/dL Est Cr Clr Drug Dosing 41.60 Estimated GFR (MDRD) > 60.0 ml/min Glucose 110 H (74-106) mg/dL Calcium 8.6 (8.5-10.1) mg/dL Magnesium (1.8-2.4) mg/dL Med Orders - Current: Current Medications Acetaminophen (Tylenol) 650 mg PO Q4H PRN PRN Reason: Pain (mild 1-3) Hydrocodone Bitart/Acetaminophen (Whiteface 325-5 Mg) 1 tab PO Q4H PRN PRN Reason: Pain (moderate 4-6) Last Admin: 01/19/18 05:33 Dose: 1 tab Bisacodyl (Dulcolax) 10 mg RECTAL ASDIRECTED PRN PRN Reason: Constipation Calcium Polycarbophil (Fibercon) 1,875 mg PO DAILY [facility] Last Admin: 01/18/18 14:15 Dose: Not Given Carbidopa/Levodopa (Sinemet Cr 50-200 Mg) 1 tab PO 0800,1200,1600,2000 [facility] Last Admin: 01/18/18 20:26 Dose: 1 tab Citalopram Hydrobromide (Celexa) 20 mg PO BEDTIME [facility] Last Admin: 01/18/18 20:23 Dose: 20 mg Famotidine (Pepcid) 40 mg PO QAM [facility] Last Admin: 01/18/18 14:17 Dose: Not Given Levofloxacin (Levaquin) 500 mg PO Q24H [facility] Levothyroxine Sodium (Levothyroxine) 25 mcg PO ACBREAKFAST [facility] Last Admin: 01/19/18 06:44 Dose: 25 mcg Lisinopril (Prinivil) 5 mg PO DAILY [facility] Last Admin: 01/18/18 17:41 Dose: Not Given Multivitamins/Minerals (Thera M Plus) 1 tab PO DAILY [facility] Last Admin: 01/18/18 14:16 Dose: Not Given Ondansetron HCl (Zofran) 4 mg IVPUSH Q4H PRN PRN Reason: Nausea Oxcarbazepine (Trileptal) 150 mg PO QAM [facility] Last Admin: 01/18/18 17:42 Dose: Not Given Oxcarbazepine (Trileptal) 300 mg PO BEDTIME [facility] Last Admin: 01/18/18 20:23 Dose: 300 mg Polyethylene Glycol (Miralax) 17 gm PO BID [facility] Last Admin: 01/18/18 20:23 Dose: 17 gm Sodium Chloride (Saline Flush) 2.5 ml FLUSH ASDIRECTED PRN PRN Reason: Keep Vein Open Trazodone HCl (Trazodone) 100 mg PO BEDTIME [facility] Last Admin: 01/18/18 20:23 Dose: 100 mg Discontinued Medications Carbidopa/Levodopa (Sinemet Cr 50-200 Mg) 1 tab PO QID [facility] Last Admin: 01/17/18 18:35 Dose: Not Given Ephedrine Sulfate (Ephedrine Sulfate) Confirm Administered Dose 50 mg .ROUTE .STK-MED ONE Stop: 01/18/18 15:12 Etomidate (Amidate) Confirm Administered Dose 40 mg IVPUSH .STK-MED ONE Stop: 01/18/18 15:12 Fentanyl (Sublimaze) Confirm Administered Dose 250 mcg .ROUTE .STK-MED ONE Stop: 01/18/18 15:12 Lisinopril/HCTZ (Lisinopril-Hctz 10-12.5 Mg) 1 tab PO ONETIME ONE Stop: 01/18/18 20:41 Last Admin: 01/18/18 21:06 Dose: 1 tab Clindamycin Phosphate 600 mg/ (Premix) 50 mls @ 100 mls/hr IV ONETIME ONE Stop: 01/18/18 11:29 Last Admin: 01/18/18 17:41 Dose: Not Given Levofloxacin/Dextrose 500 mg/ (Premix) 100 mls @ 100 mls/hr IV Q24H [facility] Last Infusion: 01/18/18 20:50 Dose: Infused Lactated Ringer's (Ringers, Lactated) 1,000 mls @ 75 mls/hr IV ASDIRECTED [facility] Last Admin: 01/19/18 04:08 Dose: 75 mls/hr Clindamycin Phosphate 600 mg/ (Premix) 50 mls @ 100 mls/hr IV ONETIME ONE Stop: 01/18/18 17:29 Last Admin: 01/18/18 18:25 Dose: Not Given Clindamycin Phosphate (Cleocin In D5w) Confirm Administered Dose 50 mls @ as directed .ROUTE .STK-MED ONE Stop: 01/18/18 16:59 Last Admin: 01/18/18 18:25 Dose: Not Given Lidocaine (Xylocaine-Mpf 2%) Confirm Administered Dose 5 ml .ROUTE .STK-MED ONE Stop: 01/18/18 15:12 Midazolam HCl (Versed 1 Mg/Ml) Confirm Administered Dose 2 mg .ROUTE .STK-MED ONE Stop: 01/18/18 15:12 Morphine Sulfate (Morphine) 2 mg IVPUSH Q4H PRN PRN Reason: Pain (severe 7-10) Stop: 01/18/18 12:43 Succinylcholine Chloride (Quelicin) Confirm Administered Dose 200 mg .ROUTE .STK -MED ONE Stop: 01/18/18 15:12 - Exam Quality Assessment: DVT Prophylaxis (SCDs). No: Supplemental Oxygen General: Alert, Cooperative, No Acute Distress. No: Oriented Neck: Supple Lungs: Clear to Auscultation, Normal Respiratory Effort Cardiovascular: Regular Rate, Regular Rhythm, No Murmurs GI/Abdominal Exam: Normal Bowel Sounds, Soft, Non-Tender Extremities: Normal Inspection, Non-Tender Wound/Incisions: Dressing Dry and Intact, No Drainage Neurological: No New Focal Deficit Psy/Mental Status: Alert, Normal Affect - Problem List & Annotations (1) Closed right hip fracture SNOMED Code(s): 306790570 Code(s): S72.001A - FRACTURE OF UNSP PART OF NECK OF RIGHT FEMUR, INIT Status: Acute Current Visit: No (2) Fall SNOMED Code(s): 7459527, 808452267 Code(s): W19.XXXA - UNSPECIFIED FALL, INITIAL ENCOUNTER Status: Acute Current Visit: No Qualifiers: Encounter type: initial encounter Qualified Code(s): W19.XXXA - Unspecified fall, initial encounter (3) HTN (hypertension) SNOMED Code(s): 27156260 Code(s): I10 - ESSENTIAL (PRIMARY) HYPERTENSION Status: Chronic Current Visit: Yes Qualifiers: Hypertension type: essential hypertension Qualified Code(s): I10 - Essential (primary) hypertension (4) Anxiety, generalized SNOMED Code(s): 66197664 Code(s): F41.1 - GENERALIZED ANXIETY DISORDER Status: Chronic Current Visit: No (5) Chronic kidney disease SNOMED Code(s): 360224610 Code(s): N18.9 - CHRONIC KIDNEY DISEASE, UNSPECIFIED Status: Chronic Current Visit: No Qualifiers: Chronic kidney disease stage: stage 4 (severe) Qualified Code(s): N18.4 - Chronic kidney disease, stage 4 (severe) (6) Parkinson disease SNOMED Code(s): 73145995 Code(s): G20 - PARKINSON'S DISEASE Status: Chronic Current Visit: No - Problem List Review Problem List Initiated/Reviewed/Updated: Yes - My Orders Last 24 Hours: My Active Orders 01/18/18 07:16 CULTURE URINE [RM] Routine 01/18/18 07:30 Levothyroxine 25 mcg PO ACBREAKFAST 01/18/18 08:36 Patient Status [ADT] Routine 01/18/18 09:00 Calcium Polycarbophil [Fibercon] 1,875 mg PO DAILY Famotidine [Pepcid] 40 mg PO QAM Lisinopril [Prinivil] 5 mg PO DAILY Multivitamins w-Iron/Ca/FA/Min [Thera M Plus] 1 tab PO DAILY OXcarbazepine [Trileptal] 150 mg PO QAM 01/19/18 19:00 levoFLOXacin [Levaquin] 500 mg PO Q24H 01/20/18 05:11 BMP [BASIC METABOLIC PANEL,BMP] [CHEM] AM CBC WITH AUTO DIFF [HEME] AM 01/21/18 05:11 BMP [BASIC METABOLIC PANEL,BMP] [CHEM] AM CBC WITH AUTO DIFF [HEME] AM - Plan Plan:: This 82 year old male admitted with R hip fracture for pain control and possible surgical intervention. 1. R hip fracture: OR last evening. Doing well this morning. Denies pain currently. VS stable. FULL code until this evening when 24 hours post- operative. 2. HTN: Stable. Was elevated post-operatively last evening. Give extra Lisinopril. Better controlled this morning. Will monitor. 3. BPH: Chronic Miller intact. 4. CKD: BUN CR stable on 01/14 BUN 24 and Cr 1.4 5. Parkinson's: Stable. Continue Carbidopa/Levodopa. 6. UTI: Miller replaced last night, Continue Levaquin, switch to PO since patient removed IV. UC pending. VTE prophylaxis: SCDs ASA daily. Dispo: Likely discharge tomorrow back to [place].
--- NOTE | 2018-01-19 08:33 | OR ---
SURGEON: Rosamaria Au MD DATE OF PROCEDURE: 01/18/2018 PREOPERATIVE DIAGNOSIS: Right basicervical/intertrochanteric hip fracture. POSTOPERATIVE DIAGNOSIS: Right basicervical/intertrochanteric hip fracture. PROCEDURE: Closed reduction of right hip with insertion of cephalomedullary nail. [employer]: Dianne ALBARRAN. ANESTHESIA: General. ESTIMATED BLOOD LOSS: 50 mL. TOURNIQUET TIME: 0 minutes. COMPLICATIONS: None. DVT PROPHYLAXIS: PAS boot to the nonoperative leg. IMPLANTS USED: Massimo short 125-degree gamma nail with 95-mm lag screw and 40-mm 5.0 mm distal interlocking screw. BRIEF HISTORY: Isabella is an 82-year-old male, who sustained a fall in the snf. He refused to bear weight and complained of pain in his right hip. He was initially evaluated in the emergency room on January 14, 2018. He was discharged home from the emergency room and instructed to follow up in Orthopedic clinic. He was seen in Orthopedic clinic yesterday. He was having quite a bit of pain in his hip. His x-rays and CT scan were reviewed. I recommended surgical treatment. He was admitted to the Hospitalist service. He was seen preoperatively by the hospitalist as well as Cardiology and was cleared for surgical treatment. The risks and goals of the procedure were discussed with the patient and [id number] preoperatively. [id number] did sign the consent to proceed. DESCRIPTION OF PROCEDURE: The patient was properly identified and brought to the operating room. He was transferred from the OR cart and placed on the operating table in supine position. General anesthesia was administered. After adequate anesthesia was obtained, the right lower extremity was placed into a traction boot and the leg was held extended. A well-padded perineal post was placed between his legs. The left lower extremity was placed in a well leg fine. He has extensive degenerative changes at the left hip and I was only able to flex the hip to 90 degrees. No rotation or abduction could be done due to the arthritis. The right lower extremity was then prepped in standard fashion using ChloraPrep solution. It was then sterilely draped. A time-out was performed to ensure correct site and procedure. Preoperative antibiotics were given. The surgical site had been marked preoperatively. An incision was made just proximal and posterior to the greater trochanter. Subcutaneous tissues were incised. A guide pin was placed at the tip of the greater trochanter. C-arm imaging confirmed good placement of the guidewire. This was malleted into the proximal femur. An opening reamer was then over drilled. The guide pin and reamer were removed. The short gamma nail was then inserted. It was malleted into correct position. The guide for the lag screw was then inserted into the insertion device. A lateral incision was made and the trocar was introduced down to the level of the bone. A threaded guidewire was then placed into a central position in both AP and lateral planes. This was over drilled with a triple reamer. The guide pin did measure 95 mm and a 95-mm screw was placed without difficulty. Its position was again checked in the AP and lateral planes and found to be acceptable. The trocars were then placed for the distal interlocking screws. A small incision was made and the subcutaneous tissues were dissected to bring the trocar down to the level of the bone. This was then drilled and a 40 mm 5.0 mm screw was placed. Final position of the fracture and hardware was checked using the C-arm image intensifier. Acceptable reduction was confirmed. The wounds were then copiously irrigated with saline solution. The subcutaneous tissues were closed with 2-0 Vicryl. The skin was closed with katja. Aquacel dressing was placed over the wounds. He was awakened from his anesthetic and transferred back to the operating room cart. He was brought to recovery room in stable condition. All needle and sponge counts were correct. For his postoperative course, he will be seen by Physical Therapy with weightbearing as tolerated to the right lower extremity. We will not plan on placing him on any DVT prophylaxis as he does have a history of severe dementia, and his risks of complications from anticoagulation outweighed the risks of blood clot. MICKEY / YAN /[id number]
[2018-01-19] MEDS: Polyethylene Glycol 3350 Powder 17 GM Packet PO SCH ×2 (08:52→20:55)
[2018-01-19] MEDS: Famotidine 20 MG Tab PO SCH (08:52)
[2018-01-19] MEDS: OXcarbazepine 300 MG Tab PO SCH ×2 (08:52→20:55)
[2018-01-19] MEDS: Calcium Polycarbophil 625 MG Tab PO SCH (08:52)
[2018-01-19] MEDS: Multivitamins with Iron/Calcium/Folic Acid/Minerals Tab PO SCH (08:52)
[2018-01-19] MEDS: Lisinopril 5 MG Tab PO SCH (08:53)
[2018-01-19] MEDS: Carbidopa/Levodopa 50-200 MG Tab.ER PO SCH ×4 (08:55→20:54)
--- NOTE | 2018-01-19 09:48 | CR ---
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 Otherwise there is degenerative changes noted within the right hip.
[2018-01-19] MEDS: Aspirin 325 MG Tab PO SCH (10:09)
--- NOTE | 2018-01-19 16:42 | PCM48HPAN ---
Post Anesthesia Note - EVALUATION WITHIN 48HRS OF ANESTHETIC Vital Signs in Normal Range: Yes Patient Participated in Evaluation: Yes Respiratory Function Stable: Yes Airway Patent: Yes Cardiovascular Function Stable: Yes Hydration Status Stable: Yes Pain Control Satisfactory: Yes Nausea and Vomiting Control Satisfactory: Yes Mental Status Recovered: Yes (Altered, but normal for this patient) Resp Rate: 20 Blood Pressure: 113/58
[2018-01-19] MEDS ORDERED: Levofloxacin 500 MG Tab PO SCH (19:00)
[2018-01-19] MEDS: Citalopram 20 MG Tab PO SCH (20:55)
[2018-01-19] MEDS: traZODone 50 MG Tab PO SCH (20:55)
[2018-01-20] MEDS: Levothyroxine 25 MCG Tab PO SCH (06:31)
--- NOTE | 2018-01-20 08:16 | PCM.SURGPN ---
- General Info Date of Service: 01/19/18 Date of Surgery/Procedure: 01/19/18 POD#: 1 Functional Status: Reports: Pain Controlled, Tolerating Diet. Denies: Ambulating, Urinating - Review of Systems General: Reports: No Symptoms Pulmonary: Reports: No Symptoms Cardiovascular: Reports: No Symptoms Gastrointestinal: Reports: No Symptoms Systems Review Comment:: late entry - pt seen and examined on 01/20/18 at 0745 pt resting comfortably in chair when asked if his pain is controlled, he states "I don't have much pain" does not verbalize any other concerns - Patient Data Vitals - Most Recent: Last Vital Signs Temp 97.6 F 01/20/18 04:00 Pulse 63 01/20/18 04:00 Resp 18 01/20/18 04:00 BP 138/54 L 01/20/18 04:00 Pulse Ox 95 01/20/18 04:00 Weight - Most Recent: 57.8 kg I&O - Last 24 Hours: Intake & Output 01/19/18 01/20/18 01/20/18 22:59 06:59 14:59 Intake Total 100 150 Output Total 350 450 Balance -250 -300 Lab Results Last 24 Hrs: Laboratory Results - last 24 hr 01/20/18 01/20/18 Range/Units 04:45 04:45 WBC 11.61 H (4.0-11.0) K/uL RBC 3.44 L (4.50-5.90) M/uL Hgb 9.8 L (13.0-17.0) g/dL Hct 29.3 L (38.0-50.0) % MCV 85.2 (80.0-98.0) fL MCH 28.5 (27.0-32.0) pg MCHC 33.4 (31.0-37.0) g/dL RDW Std Deviation 43.6 (28.0-62.0) fl RDW Coeff of Mara 14 (11.0-15.0) % Plt Count 290 (150-400) K/uL MPV 9.60 (7.40-12.00) fL Neut % (Auto) 77.3 (48.0-80.0) % Lymph % (Auto) 10.7 L (16.0-40.0) % [place] % (Auto) 10.2 (0.0-15.0) % Eos % (Auto) 1.6 (0.0-7.0) % Baso % (Auto) 0.2 (0.0-1.5) % Neut # (Auto) 9.0 H (1.4-5.7) K/uL Lymph # (Auto) 1.2 (0.6-2.4) K/uL [place] # (Auto) 1.2 H (0.0-0.8) K/uL Eos # (Auto) 0.2 (0.0-0.7) K/uL Baso # (Auto) 0.0 (0.0-0.1) K/uL Nucleated RBC % 0.0 /100WBC Nucleated RBCs # 0 K/uL Sodium 136 (136-148) mmol/L Potassium 3.9 (3.5-5.1) mmol/L Chloride 102 (98-107) mmol/L Carbon Dioxide 24.0 (21.0-32.0) mmol/L BUN 22 H (7.0-18.0) mg/dL Creatinine 1.2 (0.8-1.3) mg/dL Est Cr Clr Drug Dosing 38.13 mL/min Estimated GFR (MDRD) 57.8 ml/min Glucose 107 H (74-106) mg/dL Calcium 8.6 (8.5-10.1) mg/dL Med Orders - Current: Current Medications Acetaminophen (Tylenol) 650 mg PO Q4H PRN PRN Reason: Pain (mild 1-3) Hydrocodone Bitart/Acetaminophen ([place] 325-5 Mg) 1 tab PO Q4H PRN PRN Reason: Pain (moderate 4-6) Last Admin: 01/19/18 16:04 Dose: 1 tab Aspirin (Aspirin) 325 mg PO DAILY [facility] Last Admin: 01/19/18 10:09 Dose: 325 mg Bisacodyl (Dulcolax) 10 mg RECTAL ASDIRECTED PRN PRN Reason: Constipation Calcium Polycarbophil (Fibercon) 1,875 mg PO DAILY [facility] Last Admin: 01/19/18 08:52 Dose: 1,875 mg Carbidopa/Levodopa (Sinemet Cr 50-200 Mg) 1 tab PO 0800,1200,1600,2000 [facility] Last Admin: 01/19/18 20:54 Dose: 1 tab Citalopram Hydrobromide (Celexa) 20 mg PO BEDTIME [facility] Last Admin: 01/19/18 20:55 Dose: 20 mg Famotidine (Pepcid) 40 mg PO QAM [facility] Last Admin: 01/19/18 08:52 Dose: 40 mg Levofloxacin (Levaquin) 500 mg PO Q24H [facility] Last Admin: 01/19/18 18:28 Dose: 500 mg Levothyroxine Sodium (Levothyroxine) 25 mcg PO ACBREAKFAST [facility] Last Admin: 01/20/18 06:31 Dose: 25 mcg Lisinopril (Prinivil) 5 mg PO DAILY [facility] Last Admin: 01/19/18 08:53 Dose: 5 mg Multivitamins/Minerals (Thera M Plus) 1 tab PO DAILY [facility] Last Admin: 01/19/18 08:52 Dose: 1 tab Ondansetron HCl (Zofran) 4 mg IVPUSH Q4H PRN PRN Reason: Nausea Oxcarbazepine (Trileptal) 150 mg PO QAM [facility] Last Admin: 01/19/18 08:52 Dose: 150 mg Oxcarbazepine (Trileptal) 300 mg PO BEDTIME [facility] Last Admin: 01/19/18 20:55 Dose: 300 mg Polyethylene Glycol (Miralax) 17 gm PO BID [facility] Last Admin: 01/19/18 20:55 Dose: 17 gm Sodium Chloride (Saline Flush) 2.5 ml FLUSH ASDIRECTED PRN PRN Reason: Keep Vein Open Trazodone HCl (Trazodone) 100 mg PO BEDTIME [facility] Last Admin: 01/19/18 20:55 Dose: 100 mg Discontinued Medications Carbidopa/Levodopa (Sinemet Cr 50-200 Mg) 1 tab PO QID [facility] Last Admin: 01/17/18 18:35 Dose: Not Given Ephedrine Sulfate (Ephedrine Sulfate) Confirm Administered Dose 50 mg .ROUTE .STK-MED ONE Stop: 01/18/18 15:12 Etomidate (Amidate) Confirm Administered Dose 40 mg IVPUSH .STK-MED ONE Stop: 01/18/18 15:12 Fentanyl (Sublimaze) Confirm Administered Dose 250 mcg .ROUTE .STK-MED ONE Stop: 01/18/18 15:12 Lisinopril/HCTZ (Lisinopril-Hctz 10-12.5 Mg) 1 tab PO ONETIME ONE Stop: 01/18/18 20:41 Last Admin: 01/18/18 21:06 Dose: 1 tab Clindamycin Phosphate 600 mg/ (Premix) 50 mls @ 100 mls/hr IV ONETIME ONE Stop: 01/18/18 11:29 Last Admin: 01/18/18 17:41 Dose: Not Given Levofloxacin/Dextrose 500 mg/ (Premix) 100 mls @ 100 mls/hr IV Q24H [facility] Last Infusion: 01/18/18 20:50 Dose: Infused Lactated Ringer's (Ringers, Lactated) 1,000 mls @ 75 mls/hr IV ASDIRECTED [facility] Last Admin: 01/19/18 04:08 Dose: 75 mls/hr Clindamycin Phosphate 600 mg/ (Premix) 50 mls @ 100 mls/hr IV ONETIME ONE Stop: 01/18/18 17:29 Last Admin: 01/18/18 18:25 Dose: Not Given Clindamycin Phosphate (Cleocin In D5w) Confirm Administered Dose 50 mls @ as directed .ROUTE .STK-MED ONE Stop: 01/18/18 16:59 Last Admin: 01/18/18 18:25 Dose: Not Given Lidocaine (Xylocaine-Mpf 2%) Confirm Administered Dose 5 ml .ROUTE .STK-MED ONE Stop: 01/18/18 15:12 Midazolam HCl (Versed 1 Mg/Ml) Confirm Administered Dose 2 mg .ROUTE .STK-MED ONE Stop: 01/18/18 15:12 Morphine Sulfate (Morphine) 2 mg IVPUSH Q4H PRN PRN Reason: Pain (severe 7-10) Stop: 01/18/18 12:43 Succinylcholine Chloride (Quelicin) Confirm Administered Dose 200 mg .ROUTE .STK -MED ONE Stop: 01/18/18 15:12 - Exam Wound/Incisions: Dressing Dry and Intact General: Alert, Oriented Cardiovascular: Regular Rate, Regular Rhythm Extremities: Other (exam RLE minimal drainage to aquacel dressings. no erythema. minimally TTP. Flexion contractures noted. pt/dp pulse 2+. sensation intact distally. ) Physical Findings Comment:: vss, afeb hgb 10.5 - Problem List Review Problem List Initiated/Reviewed/Updated: Yes - My Orders Last 24 Hours: Active Orders 24 hr Category Date Time Status BMP [BASIC METABOLIC PANEL,BMP] [CHEM] AM Lab 01/21/18 05:11 Ordered CBC WITH AUTO DIFF [HEME] AM Lab 01/21/18 05:11 Ordered Aspirin Med 01/19/18 10:00 Active 325 mg PO DAILY levoFLOXacin [Levaquin] Med 01/19/18 19:00 Active 500 mg PO Q24H Medication Orders Acetaminophen (Tylenol) 650 mg PO Q4H PRN PRN Reason: Pain (mild 1-3) Hydrocodone Bitart/Acetaminophen ([place] 325-5 Mg) 1 tab PO Q4H PRN PRN Reason: Pain (moderate 4-6) Last Admin: 01/19/18 16:04 Dose: 1 tab Admin: 01/19/18 11:46 Dose: 1 tab Admin: 01/19/18 05:33 Dose: 1 tab Admin: 01/18/18 19:52 Dose: 1 tab Admin: 01/17/18 16:10 Dose: 1 tab Aspirin (Aspirin) 325 mg PO DAILY [facility] Last Admin: 01/19/18 10:09 Dose: 325 mg Bisacodyl (Dulcolax) 10 mg RECTAL ASDIRECTED PRN PRN Reason: Constipation Calcium Polycarbophil (Fibercon) 1,875 mg PO DAILY [facility] Last Admin: 01/19/18 08:52 Dose: 1,875 mg Admin: 01/18/18 14:15 Dose: Carbidopa/Levodopa (Sinemet Cr 50-200 Mg) 1 tab PO 0800,1200,1600,2000 [facility] Last Admin: 01/19/18 20:54 Dose: 1 tab Admin: 01/19/18 16:00 Dose: 1 tab Admin: 01/19/18 11:10 Dose: 1 tab Admin: 01/19/18 08:55 Dose: 1 tab Admin: 01/18/18 20:26 Dose: 1 tab Admin: 01/18/18 17:41 Dose: Admin: 01/18/18 14:15 Dose: Admin: 01/18/18 14:15 Dose: Admin: 01/17/18 20:26 Dose: 1 tab Citalopram Hydrobromide (Celexa) 20 mg PO BEDTIME [facility] Last Admin: 01/19/18 20:55 Dose: 20 mg Admin: 01/18/18 20:23 Dose: 20 mg Admin: 01/17/18 20:27 Dose: 20 mg Famotidine (Pepcid) 40 mg PO QAM [facility] Last Admin: 01/19/18 08:52 Dose: 40 mg Admin: 01/18/18 14:17 Dose: Levofloxacin (Levaquin) 500 mg PO Q24H [facility] Last Admin: 01/19/18 18:28 Dose: 500 mg Levothyroxine Sodium (Levothyroxine) 25 mcg PO ACBREAKFAST [facility] Last Admin: 01/20/18 06:31 Dose: 25 mcg Admin: 01/19/18 06:44 Dose: 25 mcg Admin: 01/18/18 14:15 Dose: Lisinopril (Prinivil) 5 mg PO DAILY [facility] Last Admin: 01/19/18 08:53 Dose: 5 mg Admin: 01/18/18 17:41 Dose: Multivitamins/Minerals (Thera M Plus) 1 tab PO DAILY [facility] Last Admin: 01/19/18 08:52 Dose: 1 tab Admin: 01/18/18 14:16 Dose: Ondansetron HCl (Zofran) 4 mg IVPUSH Q4H PRN PRN Reason: Nausea Oxcarbazepine (Trileptal) 150 mg PO QAM [facility] Last Admin: 01/19/18 08:52 Dose: 150 mg Admin: 01/18/18 17:42 Dose: Oxcarbazepine (Trileptal) 300 mg PO BEDTIME [facility] Last Admin: 01/19/18 20:55 Dose: 300 mg Admin: 01/18/18 20:23 Dose: 300 mg Admin: 01/17/18 20:27 Dose: 300 mg Polyethylene Glycol (Miralax) 17 gm PO BID [facility] Last Admin: 01/19/18 20:55 Dose: 17 gm Admin: 01/19/18 08:52 Dose: 17 gm Admin: 01/18/18 20:23 Dose: 17 gm Admin: 01/18/18 14:16 Dose: Admin: 01/17/18 20:27 Dose: 17 gm Sodium Chloride (Saline Flush) 2.5 ml FLUSH ASDIRECTED PRN PRN Reason: Keep Vein Open Trazodone HCl (Trazodone) 100 mg PO BEDTIME [facility] Last Admin: 01/19/18 20:55 Dose: 100 mg Admin: 01/18/18 20:23 Dose: 100 mg Admin: 01/17/18 20:26 Dose: 100 mg - Assessment Assessment (Free Text/Narrative):: POD#1 CR with CM nail insertion R hip acute posthemorrhagic anemia - Plan Plan (Free Text/Narrative):: pt may WBAT LLE but historically is nonambulatory no DVT prophylaxis d/t his DNR continue pain management may transfer back to SNF when medically appropriate
[2018-01-20 08:19] VITALS: BP 129/52
--- NOTE | 2018-01-20 08:19 | PCM.SURGPN ---
<Dianne Deluna R - Last Filed: 01/20/18 08:16> - General Info Date of Service: 01/20/18 Date of Surgery/Procedure: 01/18/18 POD#: 2 Functional Status: Reports: Pain Controlled - Review of Systems General: Reports: No Symptoms Pulmonary: Reports: No Symptoms Cardiovascular: Reports: No Symptoms Gastrointestinal: Reports: No Symptoms Systems Review Comment:: pt resting comfortably in chair when asked if his pain is controlled, he says yes does not verbalize any other concerns when asked - Patient Data Vitals - Most Recent: Last Vital Signs Temp 97.6 F 01/20/18 04:00 Pulse 63 01/20/18 04:00 Resp 18 01/20/18 04:00 BP 138/54 L 01/20/18 04:00 Pulse Ox 95 01/20/18 04:00 Weight - Most Recent: 57.8 kg I&O - Last 24 Hours: Intake & Output 01/19/18 01/20/18 01/20/18 22:59 06:59 14:59 Intake Total 100 150 Output Total 350 450 Balance -250 -300 Lab Results Last 24 Hrs: Laboratory Results - last 24 hr 01/20/18 01/20/18 Range/Units 04:45 04:45 WBC 11.61 H (4.0-11.0) K/uL RBC 3.44 L (4.50-5.90) M/uL Hgb 9.8 L (13.0-17.0) g/dL Hct 29.3 L (38.0-50.0) % MCV 85.2 (80.0-98.0) fL MCH 28.5 (27.0-32.0) pg MCHC 33.4 (31.0-37.0) g/dL RDW Std Deviation 43.6 (28.0-62.0) fl RDW Coeff of Mara 14 (11.0-15.0) % Plt Count 290 (150-400) K/uL MPV 9.60 (7.40-12.00) fL Neut % (Auto) 77.3 (48.0-80.0) % Lymph % (Auto) 10.7 L (16.0-40.0) % [place] % (Auto) 10.2 (0.0-15.0) % Eos % (Auto) 1.6 (0.0-7.0) % Baso % (Auto) 0.2 (0.0-1.5) % Neut # (Auto) 9.0 H (1.4-5.7) K/uL Lymph # (Auto) 1.2 (0.6-2.4) K/uL [place] # (Auto) 1.2 H (0.0-0.8) K/uL Eos # (Auto) 0.2 (0.0-0.7) K/uL Baso # (Auto) 0.0 (0.0-0.1) K/uL Nucleated RBC % 0.0 /100WBC Nucleated RBCs # 0 K/uL Sodium 136 (136-148) mmol/L Potassium 3.9 (3.5-5.1) mmol/L Chloride 102 (98-107) mmol/L Carbon Dioxide 24.0 (21.0-32.0) mmol/L BUN 22 H (7.0-18.0) mg/dL Creatinine 1.2 (0.8-1.3) mg/dL Est Cr Clr Drug Dosing 38.13 mL/min Estimated GFR (MDRD) 57.8 ml/min Glucose 107 H (74-106) mg/dL Calcium 8.6 (8.5-10.1) mg/dL Med Orders - Current: Current Medications Acetaminophen (Tylenol) 650 mg PO Q4H PRN PRN Reason: Pain (mild 1-3) Hydrocodone Bitart/Acetaminophen ([place] 325-5 Mg) 1 tab PO Q4H PRN PRN Reason: Pain (moderate 4-6) Last Admin: 01/19/18 16:04 Dose: 1 tab Aspirin (Aspirin) 325 mg PO DAILY [facility] Last Admin: 01/19/18 10:09 Dose: 325 mg Bisacodyl (Dulcolax) 10 mg RECTAL ASDIRECTED PRN PRN Reason: Constipation Calcium Polycarbophil (Fibercon) 1,875 mg PO DAILY [facility] Last Admin: 01/19/18 08:52 Dose: 1,875 mg Carbidopa/Levodopa (Sinemet Cr 50-200 Mg) 1 tab PO 0800,1200,1600,2000 [facility] Last Admin: 01/19/18 20:54 Dose: 1 tab Citalopram Hydrobromide (Celexa) 20 mg PO BEDTIME [facility] Last Admin: 01/19/18 20:55 Dose: 20 mg Famotidine (Pepcid) 40 mg PO QAM [facility] Last Admin: 01/19/18 08:52 Dose: 40 mg Levofloxacin (Levaquin) 500 mg PO Q24H [facility] Last Admin: 01/19/18 18:28 Dose: 500 mg Levothyroxine Sodium (Levothyroxine) 25 mcg PO ACBREAKFAST [facility] Last Admin: 01/20/18 06:31 Dose: 25 mcg Lisinopril (Prinivil) 5 mg PO DAILY [facility] Last Admin: 01/19/18 08:53 Dose: 5 mg Multivitamins/Minerals (Thera M Plus) 1 tab PO DAILY [facility] Last Admin: 01/19/18 08:52 Dose: 1 tab Ondansetron HCl (Zofran) 4 mg IVPUSH Q4H PRN PRN Reason: Nausea Oxcarbazepine (Trileptal) 150 mg PO QAM [facility] Last Admin: 01/19/18 08:52 Dose: 150 mg Oxcarbazepine (Trileptal) 300 mg PO BEDTIME [facility] Last Admin: 01/19/18 20:55 Dose: 300 mg Polyethylene Glycol (Miralax) 17 gm PO BID [facility] Last Admin: 01/19/18 20:55 Dose: 17 gm Sodium Chloride (Saline Flush) 2.5 ml FLUSH ASDIRECTED PRN PRN Reason: Keep Vein Open Trazodone HCl (Trazodone) 100 mg PO BEDTIME [facility] Last Admin: 01/19/18 20:55 Dose: 100 mg Discontinued Medications Carbidopa/Levodopa (Sinemet Cr 50-200 Mg) 1 tab PO QID [facility] Last Admin: 01/17/18 18:35 Dose: Not Given Ephedrine Sulfate (Ephedrine Sulfate) Confirm Administered Dose 50 mg .ROUTE .STK-MED ONE Stop: 01/18/18 15:12 Etomidate (Amidate) Confirm Administered Dose 40 mg IVPUSH .STK-MED ONE Stop: 01/18/18 15:12 Fentanyl (Sublimaze) Confirm Administered Dose 250 mcg .ROUTE .STK-MED ONE Stop: 01/18/18 15:12 Lisinopril/HCTZ (Lisinopril-Hctz 10-12.5 Mg) 1 tab PO ONETIME ONE Stop: 01/18/18 20:41 Last Admin: 01/18/18 21:06 Dose: 1 tab Clindamycin Phosphate 600 mg/ (Premix) 50 mls @ 100 mls/hr IV ONETIME ONE Stop: 01/18/18 11:29 Last Admin: 01/18/18 17:41 Dose: Not Given Levofloxacin/Dextrose 500 mg/ (Premix) 100 mls @ 100 mls/hr IV Q24H [facility] Last Infusion: 01/18/18 20:50 Dose: Infused Lactated Ringer's (Ringers, Lactated) 1,000 mls @ 75 mls/hr IV ASDIRECTED [facility] Last Admin: 01/19/18 04:08 Dose: 75 mls/hr Clindamycin Phosphate 600 mg/ (Premix) 50 mls @ 100 mls/hr IV ONETIME ONE Stop: 01/18/18 17:29 Last Admin: 01/18/18 18:25 Dose: Not Given Clindamycin Phosphate (Cleocin In D5w) Confirm Administered Dose 50 mls @ as directed .ROUTE .STK-MED ONE Stop: 01/18/18 16:59 Last Admin: 01/18/18 18:25 Dose: Not Given Lidocaine (Xylocaine-Mpf 2%) Confirm Administered Dose 5 ml .ROUTE .STK-MED ONE Stop: 01/18/18 15:12 Midazolam HCl (Versed 1 Mg/Ml) Confirm Administered Dose 2 mg .ROUTE .STK-MED ONE Stop: 01/18/18 15:12 Morphine Sulfate (Morphine) 2 mg IVPUSH Q4H PRN PRN Reason: Pain (severe 7-10) Stop: 01/18/18 12:43 Succinylcholine Chloride (Quelicin) Confirm Administered Dose 200 mg .ROUTE .STK -MED ONE Stop: 01/18/18 15:12 - Exam Wound/Incisions: Dressing Dry and Intact General: Alert, Oriented Cardiovascular: Regular Rate, Regular Rhythm Extremities: Other (exam RLE min-mod drainage to aquacel dressings, minimally TTP R hip, thigh/calf soft. flexion contractures to BLE. pt/dp pulse 2+. sensation intact distally) Physical Findings Comment:: vss, afeb hgb 9.8 - Problem List Review Problem List Initiated/Reviewed/Updated: Yes - My Orders Last 24 Hours: Active Orders 24 hr Category Date Time Status BMP [BASIC METABOLIC PANEL,BMP] [CHEM] AM Lab 01/21/18 05:11 Ordered CBC WITH AUTO DIFF [HEME] AM Lab 01/21/18 05:11 Ordered Aspirin Med 01/19/18 10:00 Active 325 mg PO DAILY levoFLOXacin [Levaquin] Med 01/19/18 19:00 Active 500 mg PO Q24H Medication Orders Acetaminophen (Tylenol) 650 mg PO Q4H PRN PRN Reason: Pain (mild 1-3) Hydrocodone Bitart/Acetaminophen ([place] 325-5 Mg) 1 tab PO Q4H PRN PRN Reason: Pain (moderate 4-6) Last Admin: 01/19/18 16:04 Dose: 1 tab Admin: 01/19/18 11:46 Dose: 1 tab Admin: 01/19/18 05:33 Dose: 1 tab Admin: 01/18/18 19:52 Dose: 1 tab Admin: 01/17/18 16:10 Dose: 1 tab Aspirin (Aspirin) 325 mg PO DAILY [facility] Last Admin: 01/19/18 10:09 Dose: 325 mg Bisacodyl (Dulcolax) 10 mg RECTAL ASDIRECTED PRN PRN Reason: Constipation Calcium Polycarbophil (Fibercon) 1,875 mg PO DAILY [facility] Last Admin: 01/19/18 08:52 Dose: 1,875 mg Admin: 01/18/18 14:15 Dose: Carbidopa/Levodopa (Sinemet Cr 50-200 Mg) 1 tab PO 0800,1200,1600,2000 [facility] Last Admin: 01/19/18 20:54 Dose: 1 tab Admin: 01/19/18 16:00 Dose: 1 tab Admin: 01/19/18 11:10 Dose: 1 tab Admin: 01/19/18 08:55 Dose: 1 tab Admin: 01/18/18 20:26 Dose: 1 tab Admin: 01/18/18 17:41 Dose: Admin: 01/18/18 14:15 Dose: Admin: 01/18/18 14:15 Dose: Admin: 01/17/18 20:26 Dose: 1 tab Citalopram Hydrobromide (Celexa) 20 mg PO BEDTIME [facility] Last Admin: 01/19/18 20:55 Dose: 20 mg Admin: 01/18/18 20:23 Dose: 20 mg Admin: 01/17/18 20:27 Dose: 20 mg Famotidine (Pepcid) 40 mg PO QAM [facility] Last Admin: 01/19/18 08:52 Dose: 40 mg Admin: 01/18/18 14:17 Dose: Levofloxacin (Levaquin) 500 mg PO Q24H [facility] Last Admin: 01/19/18 18:28 Dose: 500 mg Levothyroxine Sodium (Levothyroxine) 25 mcg PO ACBREAKFAST [facility] Last Admin: 01/20/18 06:31 Dose: 25 mcg Admin: 01/19/18 06:44 Dose: 25 mcg Admin: 01/18/18 14:15 Dose: Lisinopril (Prinivil) 5 mg PO DAILY [facility] Last Admin: 01/19/18 08:53 Dose: 5 mg Admin: 01/18/18 17:41 Dose: Multivitamins/Minerals (Thera M Plus) 1 tab PO DAILY [facility] Last Admin: 01/19/18 08:52 Dose: 1 tab Admin: 01/18/18 14:16 Dose: Ondansetron HCl (Zofran) 4 mg IVPUSH Q4H PRN PRN Reason: Nausea Oxcarbazepine (Trileptal) 150 mg PO QAM [facility] Last Admin: 01/19/18 08:52 Dose: 150 mg Admin: 01/18/18 17:42 Dose: Oxcarbazepine (Trileptal) 300 mg PO BEDTIME [facility] Last Admin: 01/19/18 20:55 Dose: 300 mg Admin: 01/18/18 20:23 Dose: 300 mg Admin: 01/17/18 20:27 Dose: 300 mg Polyethylene Glycol (Miralax) 17 gm PO BID [facility] Last Admin: 01/19/18 20:55 Dose: 17 gm Admin: 01/19/18 08:52 Dose: 17 gm Admin: 01/18/18 20:23 Dose: 17 gm Admin: 01/18/18 14:16 Dose: Admin: 01/17/18 20:27 Dose: 17 gm Sodium Chloride (Saline Flush) 2.5 ml FLUSH ASDIRECTED PRN PRN Reason: Keep Vein Open Trazodone HCl (Trazodone) 100 mg PO BEDTIME [facility] Last Admin: 01/19/18 20:55 Dose: 100 mg Admin: 01/18/18 20:23 Dose: 100 mg Admin: 01/17/18 20:26 Dose: 100 mg - Assessment Assessment (Free Text/Narrative):: POD#1 R hip CM nail acute posthemorrhagic anemia - Plan Plan (Free Text/Narrative):: continue pain management no DVT prophylaxis transfer to SNF today if medically appropriate follow-up in two weeks for xr and staple removal d/ch rx written <Rosamaria Au R - Last Filed: 01/20/18 08:40> - Patient Data Vitals - Most Recent: Last Vital Signs Temp 98.8 F 01/20/18 08:00 Pulse 74 01/20/18 08:00 Resp 18 01/20/18 08:00 BP 129/52 L 01/20/18 08:00 Pulse Ox 94 L 01/20/18 08:00 I&O - Last 24 Hours: Intake & Output 01/19/18 01/20/18 01/20/18 22:59 06:59 14:59 Intake Total 100 150 Output Total 350 450 Balance -250 -300 Lab Results Last 24 Hrs: Laboratory Results - last 24 hr 01/20/18 01/20/18 Range/Units 04:45 04:45 WBC 11.61 H (4.0-11.0) K/uL RBC 3.44 L (4.50-5.90) M/uL Hgb 9.8 L (13.0-17.0) g/dL Hct 29.3 L (38.0-50.0) % MCV 85.2 (80.0-98.0) fL MCH 28.5 (27.0-32.0) pg MCHC 33.4 (31.0-37.0) g/dL RDW Std Deviation 43.6 (28.0-62.0) fl RDW Coeff of Mara 14 (11.0-15.0) % Plt Count 290 (150-400) K/uL MPV 9.60 (7.40-12.00) fL Neut % (Auto) 77.3 (48.0-80.0) % Lymph % (Auto) 10.7 L (16.0-40.0) % [place] % (Auto) 10.2 (0.0-15.0) % Eos % (Auto) 1.6 (0.0-7.0) % Baso % (Auto) 0.2 (0.0-1.5) % Neut # (Auto) 9.0 H (1.4-5.7) K/uL Lymph # (Auto) 1.2 (0.6-2.4) K/uL [place] # (Auto) 1.2 H (0.0-0.8) K/uL Eos # (Auto) 0.2 (0.0-0.7) K/uL Baso # (Auto) 0.0 (0.0-0.1) K/uL Nucleated RBC % 0.0 /100WBC Nucleated RBCs # 0 K/uL Sodium 136 (136-148) mmol/L Potassium 3.9 (3.5-5.1) mmol/L Chloride 102 (98-107) mmol/L Carbon Dioxide 24.0 (21.0-32.0) mmol/L BUN 22 H (7.0-18.0) mg/dL Creatinine 1.2 (0.8-1.3) mg/dL Est Cr Clr Drug Dosing 38.13 mL/min Estimated GFR (MDRD) 57.8 ml/min Glucose 107 H (74-106) mg/dL Calcium 8.6 (8.5-10.1) mg/dL Med Orders - Current: Current Medications Acetaminophen (Tylenol) 650 mg PO Q4H PRN PRN Reason: Pain (mild 1-3) Hydrocodone Bitart/Acetaminophen ([place] 325-5 Mg) 1 tab PO Q4H PRN PRN Reason: Pain (moderate 4-6) Last Admin: 01/19/18 16:04 Dose: 1 tab Aspirin (Aspirin) 325 mg PO DAILY [facility] Last Admin: 01/19/18 10:09 Dose: 325 mg Bisacodyl (Dulcolax) 10 mg RECTAL ASDIRECTED PRN PRN Reason: Constipation Calcium Polycarbophil (Fibercon) 1,875 mg PO DAILY [facility] Last Admin: 01/19/18 08:52 Dose: 1,875 mg Carbidopa/Levodopa (Sinemet Cr 50-200 Mg) 1 tab PO 0800,1200,1600,2000 [facility] Last Admin: 01/19/18 20:54 Dose: 1 tab Citalopram Hydrobromide (Celexa) 20 mg PO BEDTIME [facility] Last Admin: 01/19/18 20:55 Dose: 20 mg Famotidine (Pepcid) 40 mg PO QAM [facility] Last Admin: 01/19/18 08:52 Dose: 40 mg Levofloxacin (Levaquin) 500 mg PO Q24H [facility] Last Admin: 01/19/18 18:28 Dose: 500 mg Levothyroxine Sodium (Levothyroxine) 25 mcg PO ACBREAKFAST [facility] Last Admin: 01/20/18 06:31 Dose: 25 mcg Lisinopril (Prinivil) 5 mg PO DAILY [facility] Last Admin: 01/19/18 08:53 Dose: 5 mg Multivitamins/Minerals (Thera M Plus) 1 tab PO DAILY [facility] Last Admin: 01/19/18 08:52 Dose: 1 tab Ondansetron HCl (Zofran) 4 mg IVPUSH Q4H PRN PRN Reason: Nausea Oxcarbazepine (Trileptal) 150 mg PO QAM [facility] Last Admin: 01/19/18 08:52 Dose: 150 mg Oxcarbazepine (Trileptal) 300 mg PO BEDTIME [facility] Last Admin: 01/19/18 20:55 Dose: 300 mg Polyethylene Glycol (Miralax) 17 gm PO BID [facility] Last Admin: 01/19/18 20:55 Dose: 17 gm Sodium Chloride (Saline Flush) 2.5 ml FLUSH ASDIRECTED PRN PRN Reason: Keep Vein Open Trazodone HCl (Trazodone) 100 mg PO BEDTIME [facility] Last Admin: 01/19/18 20:55 Dose: 100 mg Discontinued Medications Carbidopa/Levodopa (Sinemet Cr 50-200 Mg) 1 tab PO QID [facility] Last Admin: 01/17/18 18:35 Dose: Not Given Ephedrine Sulfate (Ephedrine Sulfate) Confirm Administered Dose 50 mg .ROUTE .STK-MED ONE Stop: 01/18/18 15:12 Etomidate (Amidate) Confirm Administered Dose 40 mg IVPUSH .STK-MED ONE Stop: 01/18/18 15:12 Fentanyl (Sublimaze) Confirm Administered Dose 250 mcg .ROUTE .STK-MED ONE Stop: 01/18/18 15:12 Lisinopril/HCTZ (Lisinopril-Hctz 10-12.5 Mg) 1 tab PO ONETIME ONE Stop: 01/18/18 20:41 Last Admin: 01/18/18 21:06 Dose: 1 tab Clindamycin Phosphate 600 mg/ (Premix) 50 mls @ 100 mls/hr IV ONETIME ONE Stop: 01/18/18 11:29 Last Admin: 01/18/18 17:41 Dose: Not Given Levofloxacin/Dextrose 500 mg/ (Premix) 100 mls @ 100 mls/hr IV Q24H [facility] Last Infusion: 01/18/18 20:50 Dose: Infused Lactated Ringer's (Ringers, Lactated) 1,000 mls @ 75 mls/hr IV ASDIRECTED [facility] Last Admin: 01/19/18 04:08 Dose: 75 mls/hr Clindamycin Phosphate 600 mg/ (Premix) 50 mls @ 100 mls/hr IV ONETIME ONE Stop: 01/18/18 17:29 Last Admin: 01/18/18 18:25 Dose: Not Given Clindamycin Phosphate (Cleocin In D5w) Confirm Administered Dose 50 mls @ as directed .ROUTE .STK-MED ONE Stop: 01/18/18 16:59 Last Admin: 01/18/18 18:25 Dose: Not Given Lidocaine (Xylocaine-Mpf 2%) Confirm Administered Dose 5 ml .ROUTE .STK-MED ONE Stop: 01/18/18 15:12 Midazolam HCl (Versed 1 Mg/Ml) Confirm Administered Dose 2 mg .ROUTE .STK-MED ONE Stop: 01/18/18 15:12 Morphine Sulfate (Morphine) 2 mg IVPUSH Q4H PRN PRN Reason: Pain (severe 7-10) Stop: 01/18/18 12:43 Succinylcholine Chloride (Quelicin) Confirm Administered Dose 200 mg .ROUTE .STK -MED ONE Stop: 01/18/18 15:12 - My Orders Last 24 Hours: Active Orders 24 hr Category Date Time Status BMP [BASIC METABOLIC PANEL,BMP] [CHEM] AM Lab 01/21/18 05:11 Ordered CBC WITH AUTO DIFF [HEME] AM Lab 01/21/18 05:11 Ordered Aspirin Med 01/19/18 10:00 Active 325 mg PO DAILY levoFLOXacin [Levaquin] Med 01/19/18 19:00 Active 500 mg PO Q24H Medication Orders Acetaminophen (Tylenol) 650 mg PO Q4H PRN PRN Reason: Pain (mild 1-3) Hydrocodone Bitart/Acetaminophen ([place] 325-5 Mg) 1 tab PO Q4H PRN PRN Reason: Pain (moderate 4-6) Last Admin: 01/19/18 16:04 Dose: 1 tab Admin: 01/19/18 11:46 Dose: 1 tab Admin: 01/19/18 05:33 Dose: 1 tab Admin: 01/18/18 19:52 Dose: 1 tab Admin: 01/17/18 16:10 Dose: 1 tab Aspirin (Aspirin) 325 mg PO DAILY [facility] Last Admin: 01/19/18 10:09 Dose: 325 mg Bisacodyl (Dulcolax) 10 mg RECTAL ASDIRECTED PRN PRN Reason: Constipation Calcium Polycarbophil (Fibercon) 1,875 mg PO DAILY [facility] Last Admin: 01/19/18 08:52 Dose: 1,875 mg Admin: 01/18/18 14:15 Dose: Carbidopa/Levodopa (Sinemet Cr 50-200 Mg) 1 tab PO 0800,1200,1600,2000 [facility] Last Admin: 01/19/18 20:54 Dose: 1 tab Admin: 01/19/18 16:00 Dose: 1 tab Admin: 01/19/18 11:10 Dose: 1 tab Admin: 01/19/18 08:55 Dose: 1 tab Admin: 01/18/18 20:26 Dose: 1 tab Admin: 01/18/18 17:41 Dose: Admin: 01/18/18 14:15 Dose: Admin: 01/18/18 14:15 Dose: Admin: 01/17/18 20:26 Dose: 1 tab Citalopram Hydrobromide (Celexa) 20 mg PO BEDTIME [facility] Last Admin: 01/19/18 20:55 Dose: 20 mg Admin: 01/18/18 20:23 Dose: 20 mg Admin: 01/17/18 20:27 Dose: 20 mg Famotidine (Pepcid) 40 mg PO QAM [facility] Last Admin: 01/19/18 08:52 Dose: 40 mg Admin: 01/18/18 14:17 Dose: Levofloxacin (Levaquin) 500 mg PO Q24H [facility] Last Admin: 01/19/18 18:28 Dose: 500 mg Levothyroxine Sodium (Levothyroxine) 25 mcg PO ACBREAKFAST [facility] Last Admin: 01/20/18 06:31 Dose: 25 mcg Admin: 01/19/18 06:44 Dose: 25 mcg Admin: 01/18/18 14:15 Dose: Lisinopril (Prinivil) 5 mg PO DAILY [facility] Last Admin: 01/19/18 08:53 Dose: 5 mg Admin: 01/18/18 17:41 Dose: Multivitamins/Minerals (Thera M Plus) 1 tab PO DAILY [facility] Last Admin: 01/19/18 08:52 Dose: 1 tab Admin: 01/18/18 14:16 Dose: Ondansetron HCl (Zofran) 4 mg IVPUSH Q4H PRN PRN Reason: Nausea Oxcarbazepine (Trileptal) 150 mg PO QAM [facility] Last Admin: 01/19/18 08:52 Dose: 150 mg Admin: 01/18/18 17:42 Dose: Oxcarbazepine (Trileptal) 300 mg PO BEDTIME [facility] Last Admin: 01/19/18 20:55 Dose: 300 mg Admin: 01/18/18 20:23 Dose: 300 mg Admin: 01/17/18 20:27 Dose: 300 mg Polyethylene Glycol (Miralax) 17 gm PO BID [facility] Last Admin: 01/19/18 20:55 Dose: 17 gm Admin: 01/19/18 08:52 Dose: 17 gm Admin: 01/18/18 20:23 Dose: 17 gm Admin: 01/18/18 14:16 Dose: Admin: 01/17/18 20:27 Dose: 17 gm Sodium Chloride (Saline Flush) 2.5 ml FLUSH ASDIRECTED PRN PRN Reason: Keep Vein Open Trazodone HCl (Trazodone) 100 mg PO BEDTIME [facility] Last Admin: 01/19/18 20:55 Dose: 100 mg Admin: 01/18/18 20:23 Dose: 100 mg Admin: 01/17/18 20:26 Dose: 100 mg - Plan Plan (Free Text/Narrative):: 0830 Patient seen and examined. Agree with above note. Patient in chair. Appears comfortable, but unable to respond to questions due to dementia. VSS, afeb Dressing dry/intact. NVI. POD #2 1. mobilize as able--WBAT RLE 2. no dvt prophylaxis due to dementia 3. ok for discharge from ortho standpoint 4. f/u as arranged rrk
--- NOTE | 2018-01-20 08:51 | PCM.DCSUM1 ---
Discharge Summary - Hospital Course Brief History: This 82 year old male with pmh of HTN, BPH with chronic stoner placement, DM type 2, hx Hep B, Advanced Parkinson's disease, anxiety and depression presented to Orthopedic clinic for follow up regarding R hip fracture. He was brought to the ED on January 14 after sustaining a fall January 13 at the [facility] living. Staff noticed he was unable to bear weight on R leg and would moan out in pain when R leg was moved. Hip CT revealed non displaced R femoral neck fracture. He was discharged back to [facility] with pain management and follow up with Orthopedics. Dr Au, Orthopedics, saw patient today in clinic and felt he should be admitted for pain control. She will also be in contact with POA regarding surgical options available. During assessment and interview of patient, Lalo is lying in bed in the position, on his right side. He will not open his eyes for me. Denies any type of pain, including chest pain or hip pain. No shortness of breath. No other concerns. Will obtain baseline labwork at this time and await to hear from Dr Au. Diagnosis: Stroke: No - Discharge Data Discharge Date: 01/20/18 Discharge Disposition: DC/Tfer to SNF 03 Condition: Good - Discharge Diagnosis/Problem(s) (1) Closed right hip fracture SNOMED Code(s): 548046809 ICD Code: S72.001A - FRACTURE OF UNSP PART OF NECK OF RIGHT FEMUR, INIT Status: Acute Current Visit: No (2) Fall SNOMED Code(s): 8034024, 209046388 ICD Code: W19.XXXA - UNSPECIFIED FALL, INITIAL ENCOUNTER Status: Acute Current Visit: No Qualifiers: Encounter type: initial encounter Qualified Code(s): W19.XXXA - Unspecified fall, initial encounter (3) HTN (hypertension) SNOMED Code(s): 67888285 ICD Code: I10 - ESSENTIAL (PRIMARY) HYPERTENSION Status: Chronic Current Visit: Yes Qualifiers: Hypertension type: essential hypertension Qualified Code(s): I10 - Essential (primary) hypertension (4) Anxiety, generalized SNOMED Code(s): 85300084 ICD Code: F41.1 - GENERALIZED ANXIETY DISORDER Status: Chronic Current Visit: No (5) Chronic kidney disease SNOMED Code(s): 680669819 ICD Code: N18.9 - CHRONIC KIDNEY DISEASE, UNSPECIFIED Status: Chronic Current Visit: No Qualifiers: Chronic kidney disease stage: stage 4 (severe) Qualified Code(s): N18.4 - Chronic kidney disease, stage 4 (severe) (6) Parkinson disease SNOMED Code(s): 04767030 ICD Code: G20 - PARKINSON'S DISEASE Status: Chronic Current Visit: No - Patient Summary/Data Operative Procedure(s) Performed: CR R hip with insertion of CM nail Consults: Consultations 01/17/18 12:43 Consult to Physician [CONS] Routine - Patient Instructions Diet: Pureed Activity: Apply Ice, Elevate Extremity, Full Weight Bearing, No Strenuous Activities Activity, Other: WBAT RLE Driving: Do Not Drive Showering/Bathing: May Shower Showering/Bathing, Other: okay to shower over aquacel dressing Wound/Incision Care: Keep Operative Site/Wound Site Clean and Dry, Do NOT Change Dressing Notify Provider of: Fever, Increased Pain, Swelling and Redness, Drainage, Nausea and/or Vomiting Other/Special Instructions: Ice to right hip as needed. Stoner cares - Discharge Plan *PRESCRIPTION DRUG MONITORING PROGRAM REVIEWED*: Not Applicable *COPY OF PRESCRIPTION DRUG MONITORING REPORT IN PATIENT BEHZAD: Not Applicable Prescriptions/Med Rec: Aspirin 325 mg PO DAILY #90 tablet Sulfamethoxazole/Trimethoprim [Bactrim Ds Tablet] 1 each PO BID #14 tablet Home Medications: Home Meds Carbidopa/Levodopa [Carbidopa-Levo ER 50-200] 1 tab PO QID 07/18/15 [History] Citalopram [Citalopram HBr] 20 mg PO BEDTIME 07/18/15 [History] Lisinopril 5 mg PO DAILY 07/18/15 [History] OXcarbazepine [Trileptal] 150 mg PO QAM 07/18/15 [History] traZODone 100 mg PO BEDTIME 07/18/15 [History] Levothyroxine 25 mcg PO DAILY 07/23/15 [History] Multivitamin [Multivitamins] 1 tab PO DAILY 07/23/15 [History] OXcarbazepine [Trileptal] 300 mg PO BEDTIME 07/23/15 [History] Polyethylene Glycol 3350 [MiraLAX] 17 gm PO BID 05/21/16 [History] Famotidine [Pepcid] 40 mg PO QAM 06/05/17 [History] Bisacodyl [Biscolax] 10 mg RECTAL ASDIRECTED PRN 10/29/17 [History] Calcium Polycarbophil 1,875 mg PO DAILY 11/13/17 [History] Acetaminophen [Tylenol Arthritis] 650 mg PO TID 01/17/18 [History] Aspirin 325 mg PO DAILY #90 tablet 01/20/18 [Rx] Sulfamethoxazole/Trimethoprim [Bactrim Ds Tablet] 1 each PO BID #14 tablet 01/20 [Rx] Referrals: Jhonny Burroughs MD [Primary Care Provider] - Dianne Deluna PA [Physician [facility]] - 01/31/18 11:00 am - Discharge Summary/Plan Comment DC Time >30 min.: No Discharge Summary/Plan Comment: Discharge Diagnoses: R hip fracture s/p CM nail placement Fall HTN CKD Parkinson's Dementia Lalo was admitted seoncdary to recent fall at [facility] which resulted in R hip fracture. Dr Au consulted and took Lalo to the OR and palce CM Nail. Lalo has done well post-operative. Labwork WNL as well as VS. He was treated for UTI, stoner was changed out. Today UC returned with kelbsiella pneumoniae, E faecalis and MRSA. He had been treated with Levaquin, but with cultures, discussed with Dr Belcher and switched him to Bactrim DS for 7 days. He will return to [facility] today continue all home medications. pain meds per Orthopedics. ASA daily. He is to return to clinic with Dr Burroughs in 1 week and return to ED or clinic if concerns should arise. Return to Ortho as scheduled. PT/OT/ST to evaluate and treat at [facility]. - General Info Date of Service: 01/20/18 Admission Dx/Problem (Free Text: R hip Fracture Subjective Update: Denies pain, otherwise does not provide ROS. Functional Status: Reports: Pain Controlled - Patient Data Vitals - Most Recent: Last Vital Signs Temp 98.8 F 01/20/18 08:00 Pulse 74 01/20/18 08:00 Resp 18 01/20/18 08:00 BP 129/52 L 01/20/18 08:00 Pulse Ox 94 L 01/20/18 08:00 Weight - Most Recent: 57.8 kg I&O - Last 24 hours: Intake & Output 01/19/18 01/20/18 01/20/18 22:59 06:59 14:59 Intake Total 100 150 Output Total 350 450 Balance -250 -300 Lab Results - Last 24 hrs: Laboratory Results - last 24 hr 01/20/18 01/20/18 Range/Units 04:45 04:45 WBC 11.61 H (4.0-11.0) K/uL RBC 3.44 L (4.50-5.90) M/uL Hgb 9.8 L (13.0-17.0) g/dL Hct 29.3 L (38.0-50.0) % MCV 85.2 (80.0-98.0) fL MCH 28.5 (27.0-32.0) pg MCHC 33.4 (31.0-37.0) g/dL RDW Std Deviation 43.6 (28.0-62.0) fl RDW Coeff of Mara 14 (11.0-15.0) % Plt Count 290 (150-400) K/uL MPV 9.60 (7.40-12.00) fL Neut % (Auto) 77.3 (48.0-80.0) % Lymph % (Auto) 10.7 L (16.0-40.0) % [place] % (Auto) 10.2 (0.0-15.0) % Eos % (Auto) 1.6 (0.0-7.0) % Baso % (Auto) 0.2 (0.0-1.5) % Neut # (Auto) 9.0 H (1.4-5.7) K/uL Lymph # (Auto) 1.2 (0.6-2.4) K/uL [place] # (Auto) 1.2 H (0.0-0.8) K/uL Eos # (Auto) 0.2 (0.0-0.7) K/uL Baso # (Auto) 0.0 (0.0-0.1) K/uL Nucleated RBC % 0.0 /100WBC Nucleated RBCs # 0 K/uL Sodium 136 (136-148) mmol/L Potassium 3.9 (3.5-5.1) mmol/L Chloride 102 (98-107) mmol/L Carbon Dioxide 24.0 (21.0-32.0) mmol/L BUN 22 H (7.0-18.0) mg/dL Creatinine 1.2 (0.8-1.3) mg/dL Est Cr Clr Drug Dosing 38.13 mL/min Estimated GFR (MDRD) 57.8 ml/min Glucose 107 H (74-106) mg/dL Calcium 8.6 (8.5-10.1) mg/dL Med Orders - Current: Current Medications Acetaminophen (Tylenol) 650 mg PO Q4H PRN PRN Reason: Pain (mild 1-3) Hydrocodone Bitart/Acetaminophen (Wells 325-5 Mg) 1 tab PO Q4H PRN PRN Reason: Pain (moderate 4-6) Last Admin: 01/19/18 16:04 Dose: 1 tab Aspirin (Aspirin) 325 mg PO DAILY [facility] Last Admin: 01/19/18 10:09 Dose: 325 mg Bisacodyl (Dulcolax) 10 mg RECTAL ASDIRECTED PRN PRN Reason: Constipation Calcium Polycarbophil (Fibercon) 1,875 mg PO DAILY [facility] Last Admin: 01/19/18 08:52 Dose: 1,875 mg Carbidopa/Levodopa (Sinemet Cr 50-200 Mg) 1 tab PO 0800,1200,1600,2000 [facility] Last Admin: 01/19/18 20:54 Dose: 1 tab Citalopram Hydrobromide (Celexa) 20 mg PO BEDTIME [facility] Last Admin: 01/19/18 20:55 Dose: 20 mg Famotidine (Pepcid) 40 mg PO QAM [facility] Last Admin: 01/19/18 08:52 Dose: 40 mg Levofloxacin (Levaquin) 500 mg PO Q24H [facility] Last Admin: 01/19/18 18:28 Dose: 500 mg Levothyroxine Sodium (Levothyroxine) 25 mcg PO ACBREAKFAST [facility] Last Admin: 01/20/18 06:31 Dose: 25 mcg Lisinopril (Prinivil) 5 mg PO DAILY [facility] Last Admin: 01/19/18 08:53 Dose: 5 mg Multivitamins/Minerals (Thera M Plus) 1 tab PO DAILY [facility] Last Admin: 01/19/18 08:52 Dose: 1 tab Ondansetron HCl (Zofran) 4 mg IVPUSH Q4H PRN PRN Reason: Nausea Oxcarbazepine (Trileptal) 150 mg PO QAM [facility] Last Admin: 01/19/18 08:52 Dose: 150 mg Oxcarbazepine (Trileptal) 300 mg PO BEDTIME [facility] Last Admin: 01/19/18 20:55 Dose: 300 mg Polyethylene Glycol (Miralax) 17 gm PO BID [facility] Last Admin: 01/19/18 20:55 Dose: 17 gm Sodium Chloride (Saline Flush) 2.5 ml FLUSH ASDIRECTED PRN PRN Reason: Keep Vein Open Trazodone HCl (Trazodone) 100 mg PO BEDTIME [facility] Last Admin: 01/19/18 20:55 Dose: 100 mg Discontinued Medications Carbidopa/Levodopa (Sinemet Cr 50-200 Mg) 1 tab PO QID [facility] Last Admin: 01/17/18 18:35 Dose: Not Given Ephedrine Sulfate (Ephedrine Sulfate) Confirm Administered Dose 50 mg .ROUTE .STK-MED ONE Stop: 01/18/18 15:12 Etomidate (Amidate) Confirm Administered Dose 40 mg IVPUSH .STK-MED ONE Stop: 01/18/18 15:12 Fentanyl (Sublimaze) Confirm Administered Dose 250 mcg .ROUTE .STK-MED ONE Stop: 01/18/18 15:12 Lisinopril/HCTZ (Lisinopril-Hctz 10-12.5 Mg) 1 tab PO ONETIME ONE Stop: 01/18/18 20:41 Last Admin: 01/18/18 21:06 Dose: 1 tab Clindamycin Phosphate 600 mg/ (Premix) 50 mls @ 100 mls/hr IV ONETIME ONE Stop: 01/18/18 11:29 Last Admin: 01/18/18 17:41 Dose: Not Given Levofloxacin/Dextrose 500 mg/ (Premix) 100 mls @ 100 mls/hr IV Q24H [facility] Last Infusion: 01/18/18 20:50 Dose: Infused Lactated Ringer's (Ringers, Lactated) 1,000 mls @ 75 mls/hr IV ASDIRECTED [facility] Last Admin: 01/19/18 04:08 Dose: 75 mls/hr Clindamycin Phosphate 600 mg/ (Premix) 50 mls @ 100 mls/hr IV ONETIME ONE Stop: 01/18/18 17:29 Last Admin: 01/18/18 18:25 Dose: Not Given Clindamycin Phosphate (Cleocin In D5w) Confirm Administered Dose 50 mls @ as directed .ROUTE .STK-MED ONE Stop: 01/18/18 16:59 Last Admin: 01/18/18 18:25 Dose: Not Given Lidocaine (Xylocaine-Mpf 2%) Confirm Administered Dose 5 ml .ROUTE .STK-MED ONE Stop: 01/18/18 15:12 Midazolam HCl (Versed 1 Mg/Ml) Confirm Administered Dose 2 mg .ROUTE .STK-MED ONE Stop: 01/18/18 15:12 Morphine Sulfate (Morphine) 2 mg IVPUSH Q4H PRN PRN Reason: Pain (severe 7-10) Stop: 01/18/18 12:43 Succinylcholine Chloride (Quelicin) Confirm Administered Dose 200 mg .ROUTE .STK -MED ONE Stop: 01/18/18 15:12 - Exam Quality Assessment: Reports: Urine Catheter (chronic). Denies: Supplemental Oxygen General: Reports: Alert, Cooperative, No Acute Distress. Denies: Oriented Lungs: Reports: Clear to Auscultation, Normal Respiratory Effort Cardiovascular: Reports: Regular Rate, Regular Rhythm GI/Abdominal Exam: Normal Bowel Sounds, Soft, Non-Tender (Male) Exam: Other (ventral penile erosion from chronic stoner placement.) Skin: Reports: Warm, Dry, Ecchymosis (bruising to L hip as well as upper extremities from lab draws and IV pokes. ) Wound/Incisions: Reports: Dressing Dry and Intact (R hip), No Drainage. Denies : Erythema Neurological: Reports: No New Focal Deficit Psy/Mental Status: Reports: Alert, Normal Affect
[2018-01-20] MEDS: Aspirin 325 MG Tab PO SCH (09:26)
[2018-01-20] MEDS: Multivitamins with Iron/Calcium/Folic Acid/Minerals Tab PO SCH (09:26)
[2018-01-20] MEDS: Calcium Polycarbophil 625 MG Tab PO SCH (09:26)
[2018-01-20] MEDS: Lisinopril 5 MG Tab PO SCH (09:26)
[2018-01-20] MEDS: Famotidine 20 MG Tab PO SCH (09:26)
[2018-01-20] MEDS: Carbidopa/Levodopa 50-200 MG Tab.ER PO SCH ×2 (09:26→11:32)
[2018-01-20] MEDS: Polyethylene Glycol 3350 Powder 17 GM Packet PO SCH (09:27)
[2018-01-20] MEDS: OXcarbazepine 300 MG Tab PO SCH (09:27)
[2018-01-20] MEDS ORDERED: Sulfamethoxazole/Trimethoprim 800-160 MG Tab PO ONE (11:14)
== END 2018-01-20 11:50 | DRG 481 ==
LOC: MW.MS 08:36 → OBSVTOIN 01-18 08:36 → MW.MS 01-18 08:36 → EEVIPCON 01-18 08:36
PROVIDERS: ADMIT Internal Medicine; ATTEND Internal Medicine
PROC: 0QS606Z Reposition Right Upper Femur with Intramedullary Internal Fixation Device, Open Approach (ICD-10-PCS; principal; 2018-01-18)
DX: S72.141A Displaced intertrochanteric fracture of right femur, initial encounter for closed fracture (principal); B19.10 Unspecified viral hepatitis B without hepatic coma; N18.4 Chronic kidney disease, stage 4 (severe); N39.0 Urinary tract infection, site not specified; W18.30XA Fall on same level, unspecified, initial encounter; Y92.129 Unspecified place in nursing home as the place of occurrence of the external cause; F03.90 Unspecified dementia, unspecified severity, without behavioral disturbance, psychotic disturbance, mood disturbance, and anxiety; N40.0 Benign prostatic hyperplasia without lower urinary tract symptoms; G20 Parkinson's disease; F32.9 Major depressive disorder, single episode, unspecified; E78.00 Pure hypercholesterolemia, unspecified; E03.9 Hypothyroidism, unspecified; K21.9 Gastro-esophageal reflux disease without esophagitis; F71 Moderate intellectual disabilities; I12.9 Hypertensive chronic kidney disease with stage 1 through stage 4 chronic kidney disease, or unspecified chronic kidney disease; K59.09 Other constipation; E11.22 Type 2 diabetes mellitus with diabetic chronic kidney disease; M16.11 Unilateral primary osteoarthritis, right hip; F41.1 Generalized anxiety disorder; Z79.82 Long term (current) use of aspirin; Z79.899 Other long term (current) drug therapy; B96.1 Klebsiella pneumoniae [K. pneumoniae] as the cause of diseases classified elsewhere; B95.2 Enterococcus as the cause of diseases classified elsewhere; B95.62 Methicillin resistant Staphylococcus aureus infection as the cause of diseases classified elsewhere
CPT/HCPCS: 36415; 51702; 71045; 71045-26; 76000; 76000-26; 80048; 81001; 83735; 85025; 85610; 86850; 86900; 86901; 87077; 87086; 87088; 87186; 93005; A9270-GY; J0330; J1956; J2250; J3010; J3490; J7120

== ENCOUNTER 2020-12-23 16:42 | Inpatient (IN) | payer MEDICARE, MEDICAID ==
[2020-12-23] MEDS ORDERED: Sodium Chloride 0.9% 1,000 ML IV ONE ×2 (17:00→18:49)
[2020-12-23] MEDS ORDERED: Meropenem 1 GM in Sodium Chloride 0.9% 100 ML IV ONE (17:07)
--- NOTE | 2020-12-23 17:08 | PCM.EKG ---
#1 Interpretation EKG Date: 12/23/20 Time: 16:40 Rhythm: NSR Rate (Beats/Min): 86 [place]: Normal QRS: RBBB ST-T: Normal
[2020-12-23] MEDS ORDERED: Meropenem Premix 1 GM in Premix Bag 1 BAG IV ONE (17:17)
[2020-12-23 17:54] LABS: BLOOD UREA NITROGEN,BUN 148 mg/dL (7.0-18.0); CARBON DIOXIDE,CO2 18.5 mmol/L (21.0-32.0); CHLORIDE,CL 118 mmol/L (98-107); GLUCOSE RANDOM 106 mg/dL (74-106); LIPASE 204 U/L (73-393); POTASSIUM,K 4.4 mmol/L (3.5-5.1); SODIUM,NA 156 mmol/L (136-148)
--- NOTE | 2020-12-23 18:11 | EDM.PDOC ---
ED HPI GENERAL MEDICAL PROBLEM - General Chief Complaint: Fever Stated Complaint: ems Time Seen by Provider: 12/23/20 16:46 Source of Information: Reports: Residential Records History Limitations: Reports: Other (Nearly non verbal at baseline) - History of Present Illness INITIAL COMMENTS - FREE TEXT/NARRATIVE: HISTORY AND PHYSICAL: History of present illness: HPI is limited due to non verbal communication at baseline Patient is an 85-year-old male with history of Parkinson's disease with failure to thrive, mental disability, and non communicative at baseline, who presents to the emergency department from [facility] via EMS for concern of an elevated white count, dark urine with concern of infection. Patient does have a chronic indwelling catheter due to enlarged prostate issues and frequent urinary tract infections. Staff at [facility] reports that the patient has been eating less x 3 days. Staff at [facility] also reported that the patient lost consciousness today and seems more tired than usual. Patient is nonverbal and nonambulatory at baseline per report from nurse at [facility] and contracted body habitus due to Parkinsons disease. Patient arrived to the emergency department with an IV established by the staff at [facility] and a 250 mL bag hung in the IV which was almost complete. Patient has a history of mental disability as noted by his power of united states attorney Justine Urban who was at bedside and unable to speak for himself. She notes patient has lost weight but otherwise at his usual capacity. Nursing staff denies fever, shortness of breath, or cough. Denies vomiting, diarrhea, constipation. Has not noted any blood in urine or stool. Review of systems: As per history of present illness and below otherwise all systems reviewed and negative. Past medical history: As per history of present illness and as reviewed below otherwise noncontributory. Surgical history: As per history of present illness and as reviewed below otherwise noncon tributory. Social history: See social history for further information Family history: As per history of present illness and as reviewed below otherwise noncontributory. Physical exam: General: Patient is awake with eyes open, but is nonverbal/non communicative (baseline per nursing staff and POA at bedside Justine Urban). Patient laying in curled on the left side on exam table. Patient's blood /51, patient is tachypneic at 24 breaths/min, otherwise vitals are stable reviewed by me. Rectal temperature is 100.2. HEENT: Atraumatic, normocephalic, pupils equal and reactive bilaterally, negative for conjunctival pallor or scleral icterus, mucous membranes dry, TMs normal bilaterally, throat clear, neck supple, nontender, trachea midline. No drooling or trismus noted. No meningeal signs. No hot potato voice noted. Lungs: Clear to auscultation, breath sounds equal bilaterally, chest nontender. Heart: S1S2, regular rate and rhythm without overt murmur Abdomen: Thin, Soft, nondistended, nontender. Negative for masses or hepatosplenomegaly. Negative for costovertebral tenderness. Pelvis: Stable nontender. Genitourinary: exam performed by PA student Sami Santiago observed and supervised directly by me. Patient has urinary catheter in place is noted to have hypospadias. Foul odor noted of urine which is cloudy in color and mucus consistency. (catheter changed today by nursing staff) Rectal: Deferred. Skin: Intact, warm, dry. No lesions or rashes noted. Extremities: Contracted extremities (baseline per nursing staff/POA at bedside) Otherwise, atraumatic, negative for cords or calf pain. Neurovascular unremarkable. Neuro: Patient's eyes are open but does not respond to questioning, this is baseline per the nurse at [facility] who provided report. Patient is rigid and extremities are contracted and in flexed positions. (all baseline per nursing staff at [facility] and POA) Notes: Patient is an 85-year-old male with a history of Parkinson's, chronic indwelling catheter due to urinary retention secondary to enlarged prostate, and failure to thrive, who presents to the emergency department from [facility] via EMS with an elevated white count, dark urine. Upon arrival to the ED, patient is noted to have softer blood pressures at 106/51 and is noted to be tachypneic at 24 breaths/min, but otherwise is vitally stable. Rectal temperature is 100.2. Patient is nonverbal and is lying on the bed with his extremities contracted and flexed positions which I am told by both his POA Justine Urban and nursing staff per report at [facility] is baseline for patient. There is an IV line established and 250 mL of NS were started by the staff at [facility], the bag is noted to be mostly empty by the time the patient arrived in the emergency department. There is a urinary catheter in place, and the patient is noted to have hypospadias. There are no signs of skin breakdown or ulcers. Will obtain CBC, CMP, VBG, blood cultures x2, UA, chest x-ray, EKG, abdominal pelvic CT without contrast, head CT without contrast due to syncope concern by nursing staff at [facility]. Will initiate Meropenem/Vancomycin and 20-30mg/kg bolus NS for SEPSIS concern. Miller catheter changed by nursing staff. See Dr. Jimenez's dictation for specific EKG interpretation. Otherwise, normal rate and rhythm with right bundle branch block but otherwise no signs of ST elevation or ischemia. Patient's CBC notable for WBC of 39.09 and lactate WNL, Hgb 12.1, HCT 36.2, neutrophil percent 85, lymphocyte percent 3, absolute segs neuts 33.2, monocytes count 2.7. Patient's VBG pH WNL. Patient CMP notable for sodium elevated 156 (2.2L free water deficit currently receiving NS), chloride 118, carbon dioxide 18.5, BUN elevated 148, creatinine elevated 5.8 with concern for VIMAL, AST mildly elevated 60, ALT 10, alkaline phosphatase elevated 233. Blood cultures pending. Trop negative. Lipase WNL. Urinalysis does show greater than 300 protein, positive leukocyte Estrace with 10-20 red blood cells, 30-40 white blood cells, 4+ bacteria. Impression acute cystitis. Head CT shows no evidence of acute infarction, intracranial hemorrhage, or mass- effect seen. Coarse irregular calcifications are present along the posterior left lobe and small focus of calcification is seen along the posterior right lobe. Correlate with ophthalmic exam may be helpful. Abdominal pelvic CT shows chronic bladder outlet obstruction appearance with prostatomegaly and bilateral mild hydronephrosis. Cystitis or a sending infection for source of sepsis. Urinalysis correlation recommended. Large hiatal hernia with entire stomach in the thoracic cavity, extending above the [id number]. Some organoaxial volvulus is present but no obstruction. Cholelithiasis. I did speak to patient's medical power of united states attorney, Justine Urban, who states that patient is a DNR/DNI. She states that she would not want patient to be transferred under any circumstance and believes that patient would not want this for himself. She is in agreement with receiving IV fluids and IV antibiotics but does not want patient to receive any "above and beyond" treatment. I did call and speak to the hospitalist on-call, Dr. Browning, and thoroughly discussed patient's case. Will admit to inpatient on telemetry. Patient discharged to floor under the care of Dr. Gale in stable condition. Diagnostics: CBC, CMP, VBG, blood cultures x2, UA, chest x-ray, EKG, abdominal pelvic CT without contrast, head CT without contrast Therapeutics: Normal saline, Meropenem, Vancomycin Impression: SEPSIS secondary to urinary tract infection Acute kidney injury Hypernatremia Dehydration Plan: Admit to inpatient to Dr. Gale on telemetry Definitive disposition and diagnosis as appropriate pending reevaluation and review of above. - Related Data Allergies Allergy/AdvReac Type Severity Reaction Status Date / Time amoxicillin trihydrate Allergy Other Verified 12/23/20 16:46 [From Augmentin] potassium clavulanate Allergy Other Verified 12/23/20 16:46 [From Augmentin] Home Meds: Home Meds Carbidopa/Levodopa [Carbidopa-Levo ER 50-200] 1 tab PO QID 07/18/15 [History] OXcarbazepine [Trileptal] 150 mg PO QAM 07/18/15 [History] Levothyroxine 25 mcg PO ACBREAKFAST 07/23/15 [History] Multivitamin [Multivitamins] 1 tab PO DAILY 07/23/15 [History] OXcarbazepine [Trileptal] 300 mg PO BEDTIME 07/23/15 [History] Bisacodyl [Biscolax] 10 mg RECTAL Q24H PRN 10/29/17 [History] Acetaminophen [Tylenol Arthritis] 650 mg PO TID 01/17/18 [History] Carbamide Peroxide [Debrox 6.5% Otic Soln] 3 drop OT BID PRN 12/23/20 [History] Magnesium Hydroxide [Milk of Magnesia] 30 ml PO DAILY PRN 12/23/20 [History] Methyl Salicylate/Menthol [Icy Hot 10-30% Cream] 1 applic TOP Q8H PRN 12/23/20 [History] Omeprazole 20 mg PO ACBREAKFAST 12/23/20 [History] Sodium Chloride 0.9% [Normal Saline] 42 ml IV ASDIRECTED PRN 12/23/20 [History] calcium polycarbophiL [Fiber Tabs] 3 tab PO BEDTIME 12/23/20 [History] polyethylene glycoL 3350 [MiraLAX] 17 gm PO BID 12/23/20 [History] traZODone 25 mg PO BEDTIME 12/23/20 [History] Past Medical History HEENT History: Reports: Other (See Below) Other HEENT History: Early cataracts, blepharitis Cardiovascular History: Reports: High Cholesterol, Hypertension Respiratory History: Reports: None Gastrointestinal History: Reports: Chronic Constipation, GERD, Other (See Below) Other Gastrointestinal History: esophagitis, diagphragmatic hernia Genitourinary History: Reports: BPH, Retention, Urinary, Other (See Below) Other Genitourinary History: obstructive and reflux uropathy, chronic kidney disease stage 4 with retained urinary catheter Musculoskeletal History: Reports: Arthritis, Gout, Other (See Below) Other Musculoskeletal History: kyphosis w/minimal scoliosis, adult failure to thrive, lack of coordination, muscle weakness Neurological History: Reports: Parkinson's, Other (See Below) Other Neuro History: moderate intellectual disabilities Psychiatric History: Reports: Anxiety, Depression, Other (See Below) Other Psychiatric History: moderate intellectual disability Endocrine/Metabolic History: Reports: Diabetes, Type II, Hypothyroidism Hematologic History: Reports: None Immunologic History: Reports: None Oncologic (Cancer) History: Reports: None Dermatologic History: Reports: None - Infectious Disease History Infectious Disease History: Reports: Hepatitis B Other Infectious Disease History: pt unable to verbalize - Past Surgical History Head Surgeries/Procedures: Reports: None HEENT Surgical History: Reports: None, Other (See Below) Other HEENT Surgeries/Procedures: benign lesion removed from right side of nose Cardiovascular Surgical History: Reports: None Respiratory Surgical History: Reports: None GI Surgical History: Reports: None Male Surgical History: Reports: None Endocrine Surgical History: Reports: None Neurological Surgical History: Reports: Scoliosis Musculoskeletal Surgical History: Reports: None Dermatological Surgical History: Reports: None Social & Family History - Family History Family Medical History: No Pertinent Family History - Tobacco Use Tobacco Use Status *Q: Unknown Ever Used Tobacco - Caffeine Use Caffeine Use: Reports: None - Living Situation & Occupation Living situation: Reports: Extended Care Facility Occupation: Disabled ED ROS GENERAL - Review of Systems Review Of Systems: Comprehensive ROS is negative, except as noted in HPI. ED EXAM, GENERAL - Physical Exam Exam: See Below (see dictation) Course - Vital Signs Last Recorded V/S: Last Vital Signs Temp 99.0 F 12/23/20 16:46 Pulse 76 12/23/20 19:56 Resp 19 12/23/20 19:56 BP 115/64 12/23/20 19:56 Pulse Ox 99 12/23/20 19:56 - Orders/Labs/Meds Orders: Active Orders 24 hr Category Date Time Status Admission Status [Patient Status] [ADT] Stat ADT 12/23/20 20:26 Active Ambulate [RC] ASDIRECTED Care 12/23/20 21:26 Active Cardiac Monitoring [RC] . DIRECTED Care 12/23/20 17:01 Active EKG Documentation Completion [RC] STAT Care 12/23/20 17:01 Active Oxygen Therapy [RC] PRN Care 12/23/20 21:26 Active Pulse Oximetry [RC] PRN Care 12/23/20 21:28 Active RT Aerosol Therapy [RC] ASDIRECTED Care 12/23/20 21:32 Active VTE/DVT Education [RC] PER UNIT ROUTINE Care 12/23/20 21:26 Active Vital Signs [RC] Q4H Care 12/23/20 21:26 Active BMP [BASIC METABOLIC PANEL,BMP] [CHEM] Stat Lab 12/23/20 21:42 Received CREATININE,URINE RAND [URCHEM] Stat Lab 12/23/20 21:46 Ordered CULTURE BLOOD [BC] Stat Lab 12/23/20 16:53 Received CULTURE BLOOD [BC] Stat Lab 12/23/20 17:15 Results CULTURE URINE [MREF] Stat Lab 12/23/20 19:00 Received SODIUM,URINE RANDOM [URCHEM] Stat Lab 12/23/20 21:46 Ordered Albuterol/Ipratropium [DuoNeb 3.0-0.5 MG/3 ML] Med 12/23/20 21:26 Active 3 ml NEB Q4HRRT PRN Heparin Sodium Med 12/23/20 21:30 Active 5,000 units SUBCUT Q8H Lactated Ringers [Ringers, Lactated] 1,000 ml Med 12/23/20 21:30 Active IV ASDIRECTED Meropenem Premix [Meropenem in NS 1 GM/50 ML] 50 ml Med 12/24/20 02:00 Active IV Q8H Ondansetron [Zofran] Med 12/23/20 21:26 Active 4 mg IVPUSH Q4H PRN Pharmacy to Dose - Vancomycin Med 12/23/20 22:00 Ordered 1 dose .XX ASDIRECTED Sodium Chloride 0.9% [Normal Saline] 1,000 ml Med 12/23/20 18:49 Active IV STAT Blood Culture x2 Reflex Set [OM.PC] Stat Oth 12/23/20 17:02 Ordered Resuscitation Status Routine Resus Stat 12/23/20 21:26 Ordered Medication Orders Albuterol/Ipratropium (Albuterol/Ipratropium 3.0-0.5 Mg/3 Ml Neb Soln) 3 ml NEB Q4HRRT PRN PRN Reason: Shortness Of Breath/wheezing Heparin Sodium (Porcine) (Heparin Sodium 5,000 Units/Ml Vial) 5,000 units SUBCUT Q8H [facility] Sodium Chloride (Normal Saline) 1,000 mls @ 90 mls/hr IV STAT ONE Stop: 12/24/20 05:55 Last Admin: 12/23/20 19:37 Dose: 90 mls/hr Documented by: SEAGMIC Lactated Ringer's (Ringers, Lactated) 1,000 mls @ 125 mls/hr IV ASDIRECTED [facility] Meropenem/Sodium Chloride (Meropenem In Ns 1 Gm/50 Ml) 50 mls @ 100 mls/hr IV Q8H [facility] Ondansetron HCl (Ondansetron 4 Mg/2 Ml Sdv) 4 mg IVPUSH Q4H PRN PRN Reason: Nausea/Vomiting Vancomycin HCl (Pharmacy To Dose - Vancomycin) 1 dose .XX ASDIRECTED [facility] Labs: Laboratory Tests 12/23/20 12/23/20 12/23/20 Range/Units 16:53 16:53 16:53 WBC 39.09 H (4.0-11.0) K/uL RBC 4.36 L (4.50-5.90) M/uL Hgb 12.1 L (13.0-17.0) g/dL Hct 36.2 L (38.0-50.0) % MCV 83.0 (80.0-98.0) fL MCH 27.8 (27.0-32.0) pg MCHC 33.4 (31.0-37.0) g/dL RDW Std Deviation 49.8 (28.0-62.0) fl RDW Coeff of Mara 17 H (11.0-15.0) % Plt Count 181 (150-400) K/uL MPV 11.90 (7.40-12.00) fL Add Manual Diff YES Neutrophils % (Manual) 85 H (48.0-80.0) % Band Neutrophils % 5 % Lymphocytes % (Manual) 3 L (16.0-40.0) % Monocytes % (Manual) 7 (0.0-15.0) % Nucleated RBC % 0.0 /100WBC Absolute Seg Neuts 33.2 H (1.4-5.7) Band Neutrophils # 2.0 Lymphocytes # (Manual) 1.2 (0.6-2.4) Monocytes # (Manual) 2.7 H (0.0-0.8) Nucleated RBCs # 0 K/uL VBG pH (7.31-7.41) VBG pCO2 (41-51) mmHG VBG pO2 mmHG VBG HCO3 (23-28) mEq/L VBG Total CO2 (24-29) mmol/L VBG Base Excess (-2.0-3.0) Sodium 156 H (136-148) mmol/L Potassium 4.4 (3.5-5.1) mmol/L Chloride 118 H (98-107) mmol/L Carbon Dioxide 18.5 L (21.0-32.0) mmol/L BUN 148 H (7.0-18.0) mg/dL Creatinine 5.8 H (0.8-1.3) mg/dL Est Cr Clr Drug Dosing TNP Estimated GFR (MDRD) 9.3 ml/min Glucose 106 (74-106) mg/dL Lactic Acid 1.7 (0.4-2.0) mmol/L Calcium 8.6 (8.5-10.1) mg/dL Total Bilirubin 0.4 (0.2-1.0) mg/dL AST 60 H (15-37) IU/L ALT 10 L (14-63) IU/L Alkaline Phosphatase 233 H (46-116) U/L Troponin I < 0.050 (0.000-0.056) ng/mL Total Protein 7.5 (6.4-8.2) g/dL Albumin 2.5 L (3.4-5.0) g/dL Globulin 5.0 H (2.6-4.0) g/dL Albumin/Globulin Ratio 0.5 L (0.9-1.6) Lipase 204 (73-393) U/L Urine Color Urine Appearance Urine pH (5.0-8.0) Ur Specific Dagmar (1.001-1.035) Urine Protein (NEGATIVE) mg/dL Urine Glucose (UA) (NEGATIVE) mg/dL Urine Ketones (NEGATIVE) mg/dL Urine Occult Blood (NEGATIVE) Urine Nitrite (NEGATIVE) Urine Bilirubin (NEGATIVE) Urine Ictotest Urine Urobilinogen (<2.0) EU/dL Ur Leukocyte Esterase (NEGATIVE) Urine RBC (0-2/HPF) Urine WBC (0-5/HPF) Ur Epithelial Cells (NONE-FEW) Urine Bacteria (NEGATIVE) Urinalysis Comment 12/23/20 12/23/20 Range/Units 17:27 19:00 WBC (4.0-11.0) K/uL RBC (4.50-5.90) M/uL Hgb (13.0-17.0) g/dL Hct (38.0-50.0) % MCV (80.0-98.0) fL MCH (27.0-32.0) pg MCHC (31.0-37.0) g/dL RDW Std Deviation (28.0-62.0) fl RDW Coeff of Mara (11.0-15.0) % Plt Count (150-400) K/uL MPV (7.40-12.00) fL Add Manual Diff Neutrophils % (Manual) (48.0-80.0) % Band Neutrophils % % Lymphocytes % (Manual) (16.0-40.0) % Monocytes % (Manual) (0.0-15.0) % Nucleated RBC % /100WBC Absolute Seg Neuts (1.4-5.7) Band Neutrophils # Lymphocytes # (Manual) (0.6-2.4) Monocytes # (Manual) (0.0-0.8) Nucleated RBCs # K/uL VBG pH 7.34 (7.31-7.41) VBG pCO2 34 L (41-51) mmHG VBG pO2 31 mmHG VBG HCO3 18 L (23-28) mEq/L VBG Total CO2 17 L (24-29) mmol/L VBG Base Excess -6.6 L (-2.0-3.0) Sodium (136-148) mmol/L Potassium (3.5-5.1) mmol/L Chloride (98-107) mmol/L Carbon Dioxide (21.0-32.0) mmol/L BUN (7.0-18.0) mg/dL Creatinine (0.8-1.3) mg/dL Est Cr Clr Drug Dosing Estimated GFR (MDRD) ml/min Glucose (74-106) mg/dL Lactic Acid (0.4-2.0) mmol/L Calcium (8.5-10.1) mg/dL Total Bilirubin (0.2-1.0) mg/dL AST (15-37) IU/L ALT (14-63) IU/L Alkaline Phosphatase (46-116) U/L Troponin I (0.000-0.056) ng/mL Total Protein (6.4-8.2) g/dL Albumin (3.4-5.0) g/dL Globulin (2.6-4.0) g/dL Albumin/Globulin Ratio (0.9-1.6) Lipase (73-393) U/L Urine Color OTHER Urine Appearance CLOUDY Urine pH 8.5 H (5.0-8.0) Ur Specific Dagmar 1.010 (1.001-1.035) Urine Protein >=300 H (NEGATIVE) mg/dL Urine Glucose (UA) NEGATIVE (NEGATIVE) mg/dL Urine Ketones NEGATIVE (NEGATIVE) mg/dL Urine Occult Blood MODERATE H (NEGATIVE) Urine Nitrite NEGATIVE (NEGATIVE) Urine Bilirubin SMALL H (NEGATIVE) Urine Ictotest NEGATIVE Urine Urobilinogen 0.2 (<2.0) EU/dL Ur Leukocyte Esterase MODERATE H (NEGATIVE) Urine RBC 10-20 (0-2/HPF) Urine WBC 30-40 (0-5/HPF) Ur Epithelial Cells FEW (NONE-FEW) Urine Bacteria 4+ H (NEGATIVE) Urinalysis Comment Meds: Medications Generic Name Dose Route Start Last Admin Trade Name Freq PRN Reason Stop Dose Admin Albuterol/Ipratropium 3 ml 12/23/20 21:26 Albuterol/Ipratropium 3.0-0.5 Mg/3 Ml Neb Soln NEB Q4HRRT PRN Shortness Of Breath/wheezing Heparin Sodium (Porcine) 5,000 units 12/23/20 21:30 Heparin Sodium 5,000 Units/Ml Vial SUBCUT Q8H [facility] Sodium Chloride 1,000 mls @ 90 mls/hr 12/23/20 18:49 12/23/20 19:37 Normal Saline IV 12/24/20 05:55 90 mls/hr STAT ONE Administration Lactated Ringer's 1,000 mls @ 125 mls/hr 12/23/20 21:30 Ringers, Lactated IV ASDIRECTED [facility] Meropenem/Sodium Chloride 50 mls @ 100 mls/hr 12/24/20 02:00 Meropenem In Ns 1 Gm/50 Ml IV Q8H [facility] Ondansetron HCl 4 mg 12/23/20 21:26 Ondansetron 4 Mg/2 Ml Sdv IVPUSH Q4H PRN Nausea/Vomiting Vancomycin HCl 1 dose 12/23/20 22:00 Pharmacy To Dose - Vancomycin .XX ASDIRECTED [facility] Discontinued Medications Generic Name Dose Route Start Last Admin Trade Name Freq PRN Reason Stop Dose Admin Sodium Chloride 1,000 mls @ 800 mls/hr 12/23/20 17:00 12/23/20 17:26 Normal Saline IV 12/23/20 18:14 800 mls/hr BOLUS ONE Administration Meropenem/Sodium Chloride 1 gm 50 mls @ 100 mls/hr 12/23/20 17:17 12/23/20 17:26 / Premix IV 12/23/20 17:36 100 mls/hr ONETIME ONE Administration Vancomycin HCl 1 gm/ Sodium 250 mls @ 166 mls/hr 12/23/20 19:27 12/23/20 19:45 Chloride IV 12/23/20 20:57 166 mls/hr ONETIME ONE Administration Departure - Departure Time of Disposition: 20:22 Disposition: Admitted As Inpatient 65 Clinical Impression: Acute kidney injury, Hypernatremia, Dehydration Sepsis Qualifiers: Sepsis type: sepsis due to unspecified organism Sepsis acute organ dysfunction status: unspecified Qualified Code(s): A41.9 - Sepsis, unspecified organism Urinary tract infection Qualifiers: Urinary tract infection type: acute cystitis Hematuria presence: with hematuria Qualified Code(s): N30.01 - Acute cystitis with hematuria - Discharge Information Referrals: PCP,None [Primary Care Provider] - Forms: ED Department Discharge Sepsis Event Note (ED) - Evaluation Sepsis Screening Result: Possible Sepsis Risk - Focused Exam Vital Signs: Vital Signs Temp Pulse Resp BP Pulse Ox 12/23/20 19:56 76 19 115/64 99 12/23/20 18:44 142/68 H 12/23/20 18:24 146/87 H 12/23/20 18:04 73 140/65 91 L 12/23/20 17:44 129/72 12/23/20 17:24 135/60 12/23/20 16:46 99.0 F 84 24 H 106/51 L 97 - My Orders Last 24 Hours: My Active Orders 12/23/20 16:53 CULTURE BLOOD [BC] Stat 12/23/20 17:01 Cardiac Monitoring [RC] . DIRECTED EKG Documentation Completion [RC] STAT 12/23/20 17:02 Blood Culture x2 Reflex Set [OM.PC] Stat 12/23/20 17:15 CULTURE BLOOD [BC] Stat 12/23/20 18:49 Sodium Chloride 0.9% [Normal Saline] 1,000 ml IV STAT 12/23/20 19:00 CULTURE URINE [MREF] Stat 12/23/20 20:26 Admission Status [Patient Status] [ADT] Stat - Assessment/Plan Last 24 Hours: My Active Orders 12/23/20 16:53 CULTURE BLOOD [BC] Stat 12/23/20 17:01 Cardiac Monitoring [RC] . DIRECTED EKG Documentation Completion [RC] STAT 12/23/20 17:02 Blood Culture x2 Reflex Set [OM.PC] Stat 12/23/20 17:15 CULTURE BLOOD [BC] Stat 12/23/20 18:49 Sodium Chloride 0.9% [Normal Saline] 1,000 ml IV STAT 12/23/20 19:00 CULTURE URINE [MREF] Stat 12/23/20 20:26 Admission Status [Patient Status] [ADT] Stat
--- NOTE | 2020-12-23 18:31 | CR ---
INDICATION: Fever, leukocytosis, non verbal at baseline TECHNIQUE: Chest radiograph 1 view COMPARISON: 01/17/2018 FINDINGS: Mediastinum: There is a stable convex density in the left retrocardiac lung base which may represent a gastric hernia. The heart silhouette is normal in size and morphology. Lung: Multiple calcified granulomas are present in the midlung zones bilaterally without interval change. No sign of pleural effusion seen. No pneumothorax is identified. Bone and Soft tissue: Unremarkable for age. IMPRESSION: 1. There is a stable convex density in the left retrocardiac lung base which may represent a gastric hernia. Dictated by Jose Ramirez MD @ 12/23/2020 6:30:58 PM Dictated by: Jose Ramirez MD @ 12/23/2020 18:31:05 (Electronically Signed)
--- NOTE | 2020-12-23 19:57 | CT ---
INDICATION: Altered mental status TECHNIQUE: CT Head without i.v. contrast. Coronal and sagittal reformats were obtained. COMPARISON: 08/11/2015 FINDINGS: Moderate degradation of image quality noted due to patient motion artifacts. CSF space: Unremarkable for age. Brain: No evidence of mass, acute infarction or hemorrhage is seen. No mass-effect or midline shift is seen. Mild diffuse cortical atrophy is noted. The brain parenchyma is otherwise normal in appearance with preservation of the pires-white matter junction. Calvarium: Chronic opacification of the left frontal sinus is noted. The mastoid air cells are clear. Coarse irregular calcifications are present along the posterior left lobe and a small focus of calcification is seen along the posterior right lobe. The calvarium is unremarkable in appearance with no fractures identified. IMPRESSIONS: 1. No evidence of acute infarction, intracranial hemorrhage, or mass-effect seen. 2. Coarse irregular calcifications are present along the posterior left lobe and a small focus of calcification is seen along the posterior right lobe. Correlation with ophthalmologic examination may be helpful. Dictated by Jose Ramirez MD @ 12/23/2020 7:54:22 PM Please note that all CT scans at this facility use dose modulation, iterative reconstruction, and/or weight-based dosing when appropriate to reduce radiation dose to as low as reasonably achievable. Dictated by: Jose Ramirez MD @ 12/23/2020 19:54:53 (Electronically Signed)
--- NOTE | 2020-12-23 19:59 | CT ---
INDICATION: Assess for source of sepsis. COMPARISON: [address] TECHNIQUE: Noncontrast images. FINDINGS: No significant findings in the visualized lung parenchyma. A few calcified granulomas incidentally noted in the dependent bilateral lower lobes. Large hiatus hernia extends above the field of view. All of the stomach is in the chest and there is some component of organoaxial volvulus without obstruction. Normal liver attenuation. Dependent gallstone. Spleen size is normal. A 2 cm cyst posterior upper pole left kidney. Smaller partially hemorrhagic cyst below this. Bilateral hydronephrosis and mild hydroureter. Thick-walled urinary bladder partially decompressed with Miller catheter. Right posterior superior broad diverticulum. No radiopaque filling defects. Prostatomegaly. Fatty atrophy of the pancreas without inflammation or mass. No pathologic retroperitoneal or mesenteric adenopathy. Dextrorotoscoliosis is mild. Atherosclerosis of the aorta is moderate. Numerous noninflamed diverticula of the sigmoid and to a lesser degree left colon. No small bowel dilatation. No free air or organized fluid in the peritoneal or retroperitoneum. No peritoneal free air. Presumed high-riding testicle in the right inguinal canal. Right hip fixation hardware with chronic sequela healed fracture changes. Moderately severe osteoarthritis in both hips more prominent on the right. No acute bone finding. IMPRESSION: 1. Chronic bladder outlet obstruction appearance with prostatomegaly and bilateral mild hydronephrosis. Query cystitis or ascending infection for source of sepsis. Urinalysis correlation recommended. 2. Large hiatus hernia with the entire stomach in the thoracic cavity, extending above the field of view. Some organoaxial volvulus is present but no obstruction. 3. Cholelithiasis. Please note that all CT scans at this facility use dose modulation, iterative reconstruction, and/or weight-based dosing when appropriate to reduce radiation dose to as low as reasonably achievable. Dictated by Stephane Blandon MD @ 12/23/2020 7:56:[address] Stephane Blandon @ Dec 23 2020 7:56PM
[2020-12-23] MEDS ORDERED: Ondansetron 4 MG/2 ML SDV IVPUSH PRN (21:26)
[2020-12-23] MEDS ORDERED: Albuterol/Ipratropium 3.0-0.5 MG/3 ML Neb Soln NEB PRN (21:26)
[2020-12-23] MEDS ORDERED: Lactated Ringers 1,000 ML IV SCH (21:30)
[2020-12-23] MEDS ORDERED: Lactated Ringers 1,000 ML IV ONE (21:52)
--- NOTE | 2020-12-23 21:52 | PCM.HP.2 ---
H&P History of Present Illness - General Date of Service: 12/23/20 Admit Problem/Dx: Admission Diagnosis/Problem Admission Diagnosis/Problem Sepsis - History of Present Illness Initial Comments - Free Text/Narative: Patient is a 85-year-old male with past medical history of advanced Parkinson's disease, failure to thrive, need/noncommunicative at baseline who presents to the emergency room from [facility] via EMS due to concern of leukocytosis and foul-smelling dark urine. Patient has chronic indwelling catheter due to enlarged prostate and has history of frequent urinary tract infections. Per nursing at bedside patient had not been eating and drinking as much the last 3 days. Today there is a reported loss of consciousness as well as patient seemed to be more tired and lethargic than usual. Patient is nonverbal nonambulatory at baseline due to which the history taken has been limited and most of the history has been taken from ER and previous notes. Patient's power of timber harvester operator is at bedside while in the ER and ER provider was able to talk with him in detail about goals of care. Upon further work-up Patient's CBC notable for WBC of 39.09 and lactate WNL, Hgb 12.1, HCT 36.2, neutrophil percent 85, Patient CMP notable for sodium elevated 156, chloride 118, carbon dioxide 18.5, BUN elevated 148, creatinine elevated 5.8 with concern for VIMAL, AST mildly elevated 60, ALT 10, alkaline phosphatase elevated 233. Blood cultures pending. Trop negative. Lipase WNL. Urinalysis does show greater than 300 protein, positive leukocyte Estrace with 10-20 red blood cells, 30-40 white blood cells, 4+ bacteria. Impression acute cystitis. Head CT shows no evidence of acute infarction, intracranial hemorrhage, or mass- effect seen. Coarse irregular calcifications are present along the posterior left lobe and small focus of calcification is seen along the posterior right lobe. Correlate with ophthalmic exam may be helpful. Abdominal pelvic CT shows chronic bladder outlet obstruction appearance with prostatomegaly and bilateral mild hydronephrosis. Cystitis or a sending infection for source of sepsis. Urinalysis correlation recommended. Large hiatal hernia with entire stomach in the thoracic cavity, extending above the [id number]. Some organoaxial volvulus is present but no obstruction. Cholelithiasis. Patient received aggressive IV hydration in the ER. ER provider spoke to patient's medical power of timber harvester operator, Justine Urban, who states that patient is a DNR/DNI. She states that she would not want patient to be transferred under any circumstance and believes that patient would not want this for himself. She is in agreement with receiving IV fluids and IV antib iotics but does not want patient to receive any "above and beyond" treatment. Patient was admitted for further management - Related Data Allergies/Adverse Reactions: Allergies Allergy/AdvReac Type Severity Reaction Status Date / Time amoxicillin trihydrate Allergy Other Verified 12/23/20 16:46 [From Augmentin] potassium clavulanate Allergy Other Verified 12/23/20 16:46 [From Augmentin] Home Medications: Home Meds Carbidopa/Levodopa [Carbidopa-Levo ER 50-200] 1 tab PO QID 07/18/15 [History] OXcarbazepine [Trileptal] 150 mg PO QAM 07/18/15 [History] Levothyroxine 25 mcg PO ACBREAKFAST 07/23/15 [History] Multivitamin [Multivitamins] 1 tab PO DAILY 07/23/15 [History] OXcarbazepine [Trileptal] 300 mg PO BEDTIME 07/23/15 [History] Bisacodyl [Biscolax] 10 mg RECTAL Q24H PRN 10/29/17 [History] Acetaminophen [Tylenol Arthritis] 650 mg PO TID 01/17/18 [History] Carbamide Peroxide [Debrox 6.5% Otic Soln] 3 drop OT BID PRN 12/23/20 [History] Magnesium Hydroxide [Milk of Magnesia] 30 ml PO DAILY PRN 12/23/20 [History] Methyl Salicylate/Menthol [Icy Hot 10-30% Cream] 1 applic TOP Q8H PRN 12/23/20 [History] Omeprazole 20 mg PO ACBREAKFAST 12/23/20 [History] Sodium Chloride 0.9% [Normal Saline] 42 ml IV ASDIRECTED PRN 12/23/20 [History] calcium polycarbophiL [Fiber Tabs] 3 tab PO BEDTIME 12/23/20 [History] polyethylene glycoL 3350 [MiraLAX] 17 gm PO BID 12/23/20 [History] traZODone 25 mg PO BEDTIME 12/23/20 [History] Past Medical History HEENT History: Reports: Other (See Below) Other HEENT History: Early cataracts, blepharitis Cardiovascular History: Reports: High Cholesterol, Hypertension Respiratory History: Reports: None Gastrointestinal History: Reports: Chronic Constipation, GERD, Other (See Below) Other Gastrointestinal History: esophagitis, diagphragmatic hernia Genitourinary History: Reports: BPH, Retention, Urinary, Other (See Below) Other Genitourinary History: obstructive and reflux uropathy, chronic kidney disease stage 4 with retained urinary catheter Musculoskeletal History: Reports: Arthritis, Gout, Other (See Below) Other Musculoskeletal History: kyphosis w/minimal scoliosis, adult failure to thrive, lack of coordination, muscle weakness Neurological History: Reports: Parkinson's, Other (See Below) Other Neuro History: moderate intellectual disabilities Psychiatric History: Reports: Anxiety, Depression, Other (See Below) Other Psychiatric History: moderate intellectual disability Endocrine/Metabolic History: Reports: Diabetes, Type II, Hypothyroidism Hematologic History: Reports: None Immunologic History: Reports: None Oncologic (Cancer) History: Reports: None Dermatologic History: Reports: None - Infectious Disease History Infectious Disease History: Reports: Hepatitis B Other Infectious Disease History: pt unable to verbalize - Past Surgical History Head Surgeries/Procedures: Reports: None HEENT Surgical History: Reports: None, Other (See Below) Other HEENT Surgeries/Procedures: benign lesion removed from right side of nose Cardiovascular Surgical History: Reports: None Respiratory Surgical History: Reports: None GI Surgical History: Reports: None Male Surgical History: Reports: None Endocrine Surgical History: Reports: None Neurological Surgical History: Reports: Scoliosis Musculoskeletal Surgical History: Reports: None Dermatological Surgical History: Reports: None Social & Family History - Family History Family Medical History: No Pertinent Family History - Tobacco Use Tobacco Use Status *Q: Unknown Ever Used Tobacco - Caffeine Use Caffeine Use: Reports: None - Living Situation & Occupation Living situation: Reports: Extended Care Facility Occupation: Disabled H&P Review of Systems - Review of Systems: Review Of Systems: Unable To Obtain Reason Not Obtained: Noncommunicative at baseline due to advanced dementia Exam - Exam Exam: See Below - Vital Signs Vital Signs: Last Vital Signs Temp 37.2 C 12/23/20 16:46 Pulse 76 12/23/20 19:56 Resp 19 12/23/20 19:56 BP 115/64 12/23/20 19:56 Pulse Ox 99 06/22/21 19:56 Weight: 38.555 kg - Exam General: Mild Distress. No: Alert, Oriented Neck: Supple Lungs: Clear to Auscultation, Normal Respiratory Effort, Decreased Breath Sounds Cardiovascular: Regular Rate, Regular Rhythm GI/Abdominal Exam: Normal Bowel Sounds, Soft Peripheral Pulses: 3+: Dorsalis Pedis (L), Dorsalis Pedis (R) Skin: Dry - Patient Data Lab Results Last 24 hrs: Laboratory Results - last 24 hr 12/23/20 12/23/20 12/23/20 Range/Units 16:53 16:53 16:53 WBC 39.09 H (4.0-11.0) K/uL RBC 4.36 L (4.50-5.90) M/uL Hgb 12.1 L (13.0-17.0) g/dL Hct 36.2 L (38.0-50.0) % MCV 83.0 (80.0-98.0) fL MCH 27.8 (27.0-32.0) pg MCHC 33.4 (31.0-37.0) g/dL RDW Std Deviation 49.8 (28.0-62.0) fl RDW Coeff of Mara 17 H (11.0-15.0) % Plt Count 181 (150-400) K/uL MPV 11.90 (7.40-12.00) fL Add Manual Diff YES Neutrophils % (Manual) 85 H (48.0-80.0) % Band Neutrophils % 5 % Lymphocytes % (Manual) 3 L (16.0-40.0) % Monocytes % (Manual) 7 (0.0-15.0) % Nucleated RBC % 0.0 /100WBC Absolute Seg Neuts 33.2 H (1.4-5.7) Band Neutrophils # 2.0 Lymphocytes # (Manual) 1.2 (0.6-2.4) Monocytes # (Manual) 2.7 H (0.0-0.8) Nucleated RBCs # 0 K/uL VBG pH (7.31-7.41) VBG pCO2 (41-51) mmHG VBG pO2 mmHG VBG HCO3 (23-28) mEq/L VBG Total CO2 (24-29) mmol/L VBG Base Excess (-2.0-3.0) Sodium 156 H (136-148) mmol/L Potassium 4.4 (3.5-5.1) mmol/L Chloride 118 H (98-107) mmol/L Carbon Dioxide 18.5 L (21.0-32.0) mmol/L BUN 148 H (7.0-18.0) mg/dL Creatinine 5.8 H (0.8-1.3) mg/dL Est Cr Clr Drug Dosing TNP Estimated GFR (MDRD) 9.3 ml/min Glucose 106 (74-106) mg/dL Lactic Acid 1.7 (0.4-2.0) mmol/L Calcium 8.6 (8.5-10.1) mg/dL Total Bilirubin 0.4 (0.2-1.0) mg/dL AST 60 H (15-37) IU/L ALT 10 L (14-63) IU/L Alkaline Phosphatase 233 H (46-116) U/L Troponin I < 0.050 (0.000-0.056) ng/mL Total Protein 7.5 (6.4-8.2) g/dL Albumin 2.5 L (3.4-5.0) g/dL Globulin 5.0 H (2.6-4.0) g/dL Albumin/Globulin Ratio 0.5 L (0.9-1.6) Lipase 204 (73-393) U/L Urine Color Urine Appearance Urine pH (5.0-8.0) Ur Specific Walden (1.001-1.035) Urine Protein (NEGATIVE) mg/dL Urine Glucose (UA) (NEGATIVE) mg/dL Urine Ketones (NEGATIVE) mg/dL Urine Occult Blood (NEGATIVE) Urine Nitrite (NEGATIVE) Urine Bilirubin (NEGATIVE) Urine Ictotest Urine Urobilinogen (<2.0) EU/dL Ur Leukocyte Esterase (NEGATIVE) Urine RBC (0-2/HPF) Urine WBC (0-5/HPF) Ur Epithelial Cells (NONE-FEW) Urine Bacteria (NEGATIVE) Urinalysis Comment 12/23/20 12/23/20 Range/Units 17:27 19:00 WBC (4.0-11.0) K/uL RBC (4.50-5.90) M/uL Hgb (13.0-17.0) g/dL Hct (38.0-50.0) % MCV (80.0-98.0) fL MCH (27.0-32.0) pg MCHC (31.0-37.0) g/dL RDW Std Deviation (28.0-62.0) fl RDW Coeff of Mara (11.0-15.0) % Plt Count (150-400) K/uL MPV (7.40-12.00) fL Add Manual Diff Neutrophils % (Manual) (48.0-80.0) % Band Neutrophils % % Lymphocytes % (Manual) (16.0-40.0) % Monocytes % (Manual) (0.0-15.0) % Nucleated RBC % /100WBC Absolute Seg Neuts (1.4-5.7) Band Neutrophils # Lymphocytes # (Manual) (0.6-2.4) Monocytes # (Manual) (0.0-0.8) Nucleated RBCs # K/uL VBG pH 7.34 (7.31-7.41) VBG pCO2 34 L (41-51) mmHG VBG pO2 31 mmHG VBG HCO3 18 L (23-28) mEq/L VBG Total CO2 17 L (24-29) mmol/L VBG Base Excess -6.6 L (-2.0-3.0) Sodium (136-148) mmol/L Potassium (3.5-5.1) mmol/L Chloride (98-107) mmol/L Carbon Dioxide (21.0-32.0) mmol/L BUN (7.0-18.0) mg/dL Creatinine (0.8-1.3) mg/dL Est Cr Clr Drug Dosing Estimated GFR (MDRD) ml/min Glucose (74-106) mg/dL Lactic Acid (0.4-2.0) mmol/L Calcium (8.5-10.1) mg/dL Total Bilirubin (0.2-1.0) mg/dL AST (15-37) IU/L ALT (14-63) IU/L Alkaline Phosphatase (46-116) U/L Troponin I (0.000-0.056) ng/mL Total Protein (6.4-8.2) g/dL Albumin (3.4-5.0) g/dL Globulin (2.6-4.0) g/dL Albumin/Globulin Ratio (0.9-1.6) Lipase (73-393) U/L Urine Color OTHER Urine Appearance CLOUDY Urine pH 8.5 H (5.0-8.0) Ur Specific Walden 1.010 (1.001-1.035) Urine Protein >=300 H (NEGATIVE) mg/dL Urine Glucose (UA) NEGATIVE (NEGATIVE) mg/dL Urine Ketones NEGATIVE (NEGATIVE) mg/dL Urine Occult Blood MODERATE H (NEGATIVE) Urine Nitrite NEGATIVE (NEGATIVE) Urine Bilirubin SMALL H (NEGATIVE) Urine Ictotest NEGATIVE Urine Urobilinogen 0.2 (<2.0) EU/dL Ur Leukocyte Esterase MODERATE H (NEGATIVE) Urine RBC 10-20 (0-2/HPF) Urine WBC 30-40 (0-5/HPF) Ur Epithelial Cells FEW (NONE-FEW) Urine Bacteria 4+ H (NEGATIVE) Urinalysis Comment Result Diagrams: 12/23/20 16:53 12/23/20 21:42 Kamari Results Last 24 hrs: Microbiology 12/23/20 17:15 Anaerobic Blood Culture - Final Blood - Venous - Lab Draw Sepsis Event Note - Evaluation Sepsis Screening Result: Possible Sepsis Risk - Focused Exam Vital Signs: Vital Signs Temp Pulse Resp BP Pulse Ox 12/23/20 19:56 76 19 115/64 99 12/23/20 18:44 142/68 H 12/23/20 18:24 146/87 H 12/23/20 18:04 73 140/65 91 L 12/23/20 17:44 129/72 12/23/20 17:24 135/60 12/23/20 16:46 37.2 C 84 24 H 106/51 L 97 - Problem List (1) Acute kidney injury SNOMED Code(s): 11007230, 41392057 ICD Code: N17.9 - ACUTE KIDNEY FAILURE, UNSPECIFIED Status: Acute Current Visit: Yes (2) Dehydration SNOMED Code(s): 99897955 ICD Code: E86.0 - DEHYDRATION Status: Acute Current Visit: Yes (3) Hypernatremia SNOMED Code(s): 156680595 ICD Code: E87.0 - HYPEROSMOLALITY AND HYPERNATREMIA Status: Acute Current Visit: Yes (4) Sepsis SNOMED Code(s): 60137333 ICD Code: A41.9 - SEPSIS, UNSPECIFIED ORGANISM Status: Acute Current Visit: Yes Qualifiers: Sepsis type: sepsis due to unspecified organism Sepsis acute organ dysfunction status: unspecified Qualified Code(s): A41.9 - Sepsis, unspecified organism (5) UTI (urinary tract infection) SNOMED Code(s): 36914119 ICD Code: N39.0 - URINARY TRACT INFECTION, SITE NOT SPECIFIED Status: Acute Current Visit: Yes Qualifiers: Urinary tract infection type: acute cystitis Hematuria presence: with hematuria Qualified Code(s): N30.01 - Acute cystitis with hematuria (6) ARF (acute renal failure) SNOMED Code(s): 02924130 ICD Code: N17.9 - ACUTE KIDNEY FAILURE, UNSPECIFIED Status: Acute Current Visit: No Qualifiers: Acute renal failure type: unspecified Qualified Code(s): N17.9 - Acute kidney failure, unspecified (7) Bladder outlet obstruction SNOMED Code(s): 254008607 ICD Code: N32.0 - BLADDER-NECK OBSTRUCTION Status: Acute Current Visit: No (8) Chronic kidney disease SNOMED Code(s): 678174718 ICD Code: N18.9 - CHRONIC KIDNEY DISEASE, UNSPECIFIED Status: Chronic Current Visit: No Qualifiers: Chronic kidney disease stage: stage 4 (severe) Qualified Code(s): N18.4 - Chronic kidney disease, stage 4 (severe) (9) HTN (hypertension) SNOMED Code(s): 33490594 ICD Code: I10 - ESSENTIAL (PRIMARY) HYPERTENSION Status: Chronic Current Visit: No Qualifiers: Hypertension type: essential hypertension Qualified Code(s): I10 - Essential (primary) hypertension (10) Parkinson disease SNOMED Code(s): 72509512 ICD Code: G20 - PARKINSON'S DISEASE Status: Chronic Current Visit: No Problem List Initiated/Reviewed/Updated: Yes Orders Last 24hrs: Active Orders 24 hr Category Date Time Status Admission Status [Patient Status] [ADT] Stat ADT 12/23/20 20:26 Active Ambulate [RC] ASDIRECTED Care 12/23/20 21:26 Active Cardiac Monitoring [RC] . DIRECTED Care 12/23/20 17:01 Active EKG Documentation Completion [RC] STAT Care 12/23/20 17:01 Active Oxygen Therapy [RC] PRN Care 12/23/20 21:26 Active Pulse Oximetry [RC] PRN Care 12/23/20 21:28 Active RT Aerosol Therapy [RC] ASDIRECTED Care 12/23/20 21:32 Active VTE/DVT Education [RC] PER UNIT ROUTINE Care 12/23/20 21:26 Active Vital Signs [RC] Q4H Care 12/23/20 21:26 Active BMP [BASIC METABOLIC PANEL,BMP] [CHEM] Stat Lab 12/23/20 21:25 Ordered CBC WITH AUTO DIFF [HEME] AM Lab 12/24/20 05:11 Ordered CMP [COMPREHENSIVE METABOLIC PN,CMP] [CHEM] AM Lab 12/24/20 05:11 Ordered CREATININE,URINE RAND [URCHEM] Stat Lab 12/23/20 21:46 Ordered CULTURE BLOOD [BC] Stat Lab 12/23/20 16:53 Received CULTURE BLOOD [BC] Stat Lab 12/23/20 17:15 Results CULTURE URINE [MREF] Stat Lab 12/23/20 19:00 Received MAGNESIUM [CHEM] AM Lab 12/24/20 05:11 Ordered PHOSPHORUS [CHEM] AM Lab 12/24/20 05:11 Ordered SODIUM,URINE RANDOM [URCHEM] Stat Lab 12/23/20 21:46 Ordered Albuterol/Ipratropium [DuoNeb 3.0-0.5 MG/3 ML] Med 12/23/20 21:26 Active 3 ml NEB Q4HRRT PRN Heparin Sodium Med 12/23/20 21:30 Active 5,000 units SUBCUT Q8H Lactated Ringers [Ringers, Lactated] 1,000 ml Med 12/23/20 21:30 Active IV ASDIRECTED Meropenem 1 GM Premix Q8H @ 100 MLS/HR (50ml) Med 12/24/20 02:00 Ordered Meropenem Premix [Meropenem in NS 1 GM/50 ML] 50 ml IV Q8H Ondansetron [Zofran] Med 12/23/20 21:26 Active 4 mg IVPUSH Q4H PRN Pharmacy to Dose - Vancomycin Med 12/23/20 22:00 Ordered 1 dose .XX ASDIRECTED Sodium Chloride 0.9% [Normal Saline] 1,000 ml Med 12/23/20 18:49 Active IV STAT Blood Culture x2 Reflex Set [OM.PC] Stat Oth 12/23/20 17:02 Ordered Resuscitation Status Routine Resus Stat 12/23/20 21:26 Ordered Medication Orders Albuterol/Ipratropium (Albuterol/Ipratropium 3.0-0.5 Mg/3 Ml Neb Soln) 3 ml NEB Q4HRRT PRN PRN Reason: Shortness Of Breath/wheezing Heparin Sodium (Porcine) (Heparin Sodium 5,000 Units/Ml Vial) 5,000 units SUBCUT Q8H [facility] Sodium Chloride (Normal Saline) 1,000 mls @ 90 mls/hr IV STAT ONE Stop: 12/24/20 05:55 Last Admin: 12/23/20 19:37 Dose: 90 mls/hr Documented by: SEABENJAMIN Lactated Ringer's (Ringers, Lactated) 1,000 mls @ 125 mls/hr IV ASDIRECTED [facility] Meropenem/Sodium Chloride (Meropenem In Ns 1 Gm/50 Ml) 50 mls @ 100 mls/hr IV Q8H [facility] Ondansetron HCl (Ondansetron 4 Mg/2 Ml Sdv) 4 mg IVPUSH Q4H PRN PRN Reason: Nausea/Vomiting Vancomycin HCl (Pharmacy To Dose - Vancomycin) 1 dose .XX ASDIRECTED [facility] Assessment/Plan Comment:: 85-year-old male admitted for acute renal failure likely secondary to chronic obstructive uropathy Patient is also in sepsis due to leukocytosis and tachypnea, received aggressive IV fluid hydration in the ER Miller has been changed in the ER per ER provider Continue aggressive IV fluid hydration patient most likely has acute tubular necrosis Patient's power of timber harvester operator has refused transfer to higher level of care dialysis if indicated, the most they would like to do is give patient IV antibiotics for UTI and IV fluids for hydration and nothing more than that. Recheck BMP in 4 hours Start IV meropenem and IV vancomycin for UTI possibly multidrug-resistant UTI Follow-up on urine culture Continue Miller care If patient's clinical condition deteriorates then POA will be informed and patient will most likely transition to comfort care measures
[2020-12-23 21:59] LABS: BLOOD UREA NITROGEN,BUN 146 mg/dL (7.0-18.0); CARBON DIOXIDE,CO2 16.7 mmol/L (21.0-32.0); CHLORIDE,CL 120 mmol/L (98-107); GLUCOSE RANDOM 113 mg/dL (74-106); POTASSIUM,K 4.2 mmol/L (3.5-5.1); SODIUM,NA 156 mmol/L (136-148)
[2020-12-23] MEDS: Heparin Sodium 5,000 Units/ML Vial SUBCUT SCH (22:51)
[2020-12-24] MEDS ORDERED: Dextrose 5% in Water 1,000 ML IV ONE (00:44)
[2020-12-24] MEDS ORDERED: Dextrose 5% in Water 1,000 ML IV SCH (00:45)
[2020-12-24] MEDS: Meropenem Premix 50 ML IV SCH ×2 (02:39→10:12)
[2020-12-24] MEDS: Heparin Sodium 5,000 Units/ML Vial SUBCUT SCH ×3 (05:50→20:46)
[2020-12-24 06:46] LABS: CARBON DIOXIDE,CO2 18.9 mmol/L (21.0-32.0); POTASSIUM,K 3.7 mmol/L (3.5-5.1)
[2020-12-24] MEDS: Dextrose 5% in Water 1,000 ML IV SCH ×2 (11:32→20:46)
--- NOTE | 2020-12-24 13:39 | PCM.PN ---
- General Info Date of Service: 12/24/20 Admission Dx/Problem (Free Text): Admission Diagnosis/Problem Admission Diagnosis/Problem Sepsis Subjective Update: Patient seen and examined at bedside, patient is nonverbal, resting comfortably, does not seem to tolerate his telemetry on per nursing makes him more agitated. Patient has some ST depression on the telemetry along with right bundle branch block, the right bundle branch block was seen on admission. Patient has no apparent chest pain no shortness of breath but as mentioned earlier he is nonverbal. Functional Status: Reports: Urinating. Denies: Tolerating Diet, Ambulating - Review of Systems Systems Review Comment:: Unable to obtain as patient is nonverbal at baseline - Patient Data Vitals - Most Recent: Last Vital Signs Temp 36.7 C 12/24/20 12:28 Pulse 64 12/24/20 12:28 Resp 16 12/24/20 12:28 BP 161/74 H 12/24/20 12:28 Pulse Ox 98 12/24/20 12:28 Weight - Most Recent: 26.807 kg I&O - Last 24 Hours: Intake & Output 12/23/20 12/24/20 12/24/20 22:59 06:59 14:59 Intake Total 0 Output Total 850 Balance -850 Lab Results Last 24 Hours: Laboratory Results - last 24 hr 12/23/20 12/23/20 12/23/20 Range/Units 16:53 16:53 16:53 WBC 39.09 H (4.0-11.0) K/uL RBC 4.36 L (4.50-5.90) M/uL Hgb 12.1 L (13.0-17.0) g/dL Hct 36.2 L (38.0-50.0) % MCV 83.0 (80.0-98.0) fL MCH 27.8 (27.0-32.0) pg MCHC 33.4 (31.0-37.0) g/dL RDW Std Deviation 49.8 (28.0-62.0) fl RDW Coeff of Mara 17 H (11.0-15.0) % Plt Count 181 (150-400) K/uL MPV 11.90 (7.40-12.00) fL Add Manual Diff YES Neutrophils % (Manual) 85 H (48.0-80.0) % Band Neutrophils % 5 % Lymphocytes % (Manual) 3 L (16.0-40.0) % Monocytes % (Manual) 7 (0.0-15.0) % Nucleated RBC % 0.0 /100WBC Absolute Seg Neuts 33.2 H (1.4-5.7) Band Neutrophils # 2.0 Lymphocytes # (Manual) 1.2 (0.6-2.4) Monocytes # (Manual) 2.7 H (0.0-0.8) Nucleated RBCs # 0 K/uL VBG pH (7.31-7.41) VBG pCO2 (41-51) mmHG VBG pO2 mmHG VBG HCO3 (23-28) mEq/L VBG Total CO2 (24-29) mmol/L VBG Base Excess (-2.0-3.0) Sodium 156 H (136-148) mmol/L Potassium 4.4 (3.5-5.1) mmol/L Chloride 118 H (98-107) mmol/L Carbon Dioxide 18.5 L (21.0-32.0) mmol/L BUN 148 H (7.0-18.0) mg/dL Creatinine 5.8 H (0.8-1.3) mg/dL Est Cr Clr Drug Dosing TNP Estimated GFR (MDRD) 9.3 ml/min Glucose 106 (74-106) mg/dL Lactic Acid 1.7 (0.4-2.0) mmol/L Calcium 8.6 (8.5-10.1) mg/dL Phosphorus (2.6-4.7) mg/dL Magnesium (1.8-2.4) mg/dL Total Bilirubin 0.4 (0.2-1.0) mg/dL AST 60 H (15-37) IU/L ALT 10 L (14-63) IU/L Alkaline Phosphatase 233 H (46-116) U/L Troponin I < 0.050 (0.000-0.056) ng/mL Total Protein 7.5 (6.4-8.2) g/dL Albumin 2.5 L (3.4-5.0) g/dL Globulin 5.0 H (2.6-4.0) g/dL Albumin/Globulin Ratio 0.5 L (0.9-1.6) Lipase 204 (73-393) U/L Urine Color Urine Appearance Urine pH (5.0-8.0) Ur Specific [place] (1.001-1.035) Urine Protein (NEGATIVE) mg/dL Urine Glucose (UA) (NEGATIVE) mg/dL Urine Ketones (NEGATIVE) mg/dL Urine Occult Blood (NEGATIVE) Urine Nitrite (NEGATIVE) Urine Bilirubin (NEGATIVE) Urine Ictotest Urine Urobilinogen (<2.0) EU/dL Ur Leukocyte Esterase (NEGATIVE) Urine RBC (0-2/HPF) Urine WBC (0-5/HPF) Ur Epithelial Cells (NONE-FEW) Urine Bacteria (NEGATIVE) Urinalysis Comment Ur Random Creatinine mg/dL Ur Random Sodium (40.0-220.0) mmol/L 12/23/20 12/23/20 12/23/20 Range/Units 17:27 19:00 21:42 WBC (4.0-11.0) K/uL RBC (4.50-5.90) M/uL Hgb (13.0-17.0) g/dL Hct (38.0-50.0) % MCV (80.0-98.0) fL MCH (27.0-32.0) pg MCHC (31.0-37.0) g/dL RDW Std Deviation (28.0-62.0) fl RDW Coeff of Mara (11.0-15.0) % Plt Count (150-400) K/uL MPV (7.40-12.00) fL Add Manual Diff Neutrophils % (Manual) (48.0-80.0) % Band Neutrophils % % Lymphocytes % (Manual) (16.0-40.0) % Monocytes % (Manual) (0.0-15.0) % Nucleated RBC % /100WBC Absolute Seg Neuts (1.4-5.7) Band Neutrophils # Lymphocytes # (Manual) (0.6-2.4) Monocytes # (Manual) (0.0-0.8) Nucleated RBCs # K/uL VBG pH 7.34 (7.31-7.41) VBG pCO2 34 L (41-51) mmHG VBG pO2 31 mmHG VBG HCO3 18 L (23-28) mEq/L VBG Total CO2 17 L (24-29) mmol/L VBG Base Excess -6.6 L (-2.0-3.0) Sodium 156 H (136-148) mmol/L Potassium 4.2 (3.5-5.1) mmol/L Chloride 120 H (98-107) mmol/L Carbon Dioxide 16.7 L (21.0-32.0) mmol/L BUN 146 H (7.0-18.0) mg/dL Creatinine 5.3 H (0.8-1.3) mg/dL Est Cr Clr Drug Dosing TNP Estimated GFR (MDRD) 10.3 ml/min Glucose 113 H (74-106) mg/dL Lactic Acid (0.4-2.0) mmol/L Calcium 8.2 L (8.5-10.1) mg/dL Phosphorus (2.6-4.7) mg/dL Magnesium (1.8-2.4) mg/dL Total Bilirubin (0.2-1.0) mg/dL AST (15-37) IU/L ALT (14-63) IU/L Alkaline Phosphatase (46-116) U/L Troponin I (0.000-0.056) ng/mL Total Protein (6.4-8.2) g/dL Albumin (3.4-5.0) g/dL Globulin (2.6-4.0) g/dL Albumin/Globulin Ratio (0.9-1.6) Lipase (73-393) U/L Urine Color OTHER Urine Appearance CLOUDY Urine pH 8.5 H (5.0-8.0) Ur Specific [place] 1.010 (1.001-1.035) Urine Protein >=300 H (NEGATIVE) mg/dL Urine Glucose (UA) NEGATIVE (NEGATIVE) mg/dL Urine Ketones NEGATIVE (NEGATIVE) mg/dL Urine Occult Blood MODERATE H (NEGATIVE) Urine Nitrite NEGATIVE (NEGATIVE) Urine Bilirubin SMALL H (NEGATIVE) Urine Ictotest NEGATIVE Urine Urobilinogen 0.2 (<2.0) EU/dL Ur Leukocyte Esterase MODERATE H (NEGATIVE) Urine RBC 10-20 (0-2/HPF) Urine WBC 30-40 (0-5/HPF) Ur Epithelial Cells FEW (NONE-FEW) Urine Bacteria 4+ H (NEGATIVE) Urinalysis Comment Ur Random Creatinine mg/dL Ur Random Sodium (40.0-220.0) mmol/L 12/23/20 12/24/20 12/24/20 Range/Units 21:55 06:17 06:17 WBC 34.67 H (4.0-11.0) K/uL RBC 4.19 L (4.50-5.90) M/uL Hgb 11.6 L (13.0-17.0) g/dL Hct 34.1 L (38.0-50.0) % MCV 81.4 (80.0-98.0) fL MCH 27.7 (27.0-32.0) pg MCHC 34.0 (31.0-37.0) g/dL RDW Std Deviation 48.8 (28.0-62.0) fl RDW Coeff of Mara 16 H (11.0-15.0) % Plt Count 142 L (150-400) K/uL MPV 11.50 (7.40-12.00) fL Add Manual Diff YES Neutrophils % (Manual) 87 H (48.0-80.0) % Band Neutrophils % 5 % Lymphocytes % (Manual) 3 L (16.0-40.0) % Monocytes % (Manual) 5 (0.0-15.0) % Nucleated RBC % 0.0 /100WBC Absolute Seg Neuts 30.2 H (1.4-5.7) Band Neutrophils # 1.7 Lymphocytes # (Manual) 1.0 (0.6-2.4) Monocytes # (Manual) 1.7 H (0.0-0.8) Nucleated RBCs # 0 K/uL VBG pH (7.31-7.41) VBG pCO2 (41-51) mmHG VBG pO2 mmHG VBG HCO3 (23-28) mEq/L VBG Total CO2 (24-29) mmol/L VBG Base Excess (-2.0-3.0) Sodium 155 H (136-148) mmol/L Potassium 3.7 (3.5-5.1) mmol/L Chloride 119 H (98-107) mmol/L Carbon Dioxide 18.9 L (21.0-32.0) mmol/L BUN 138 H (7.0-18.0) mg/dL Creatinine 4.5 H (0.8-1.3) mg/dL Est Cr Clr Drug Dosing 4.47 Estimated GFR (MDRD) 12.5 ml/min Glucose 117 H (74-106) mg/dL Lactic Acid (0.4-2.0) mmol/L Calcium 8.3 L (8.5-10.1) mg/dL Phosphorus 4.9 H (2.6-4.7) mg/dL Magnesium 2.7 H (1.8-2.4) mg/dL Total Bilirubin 0.4 (0.2-1.0) mg/dL AST 43 H (15-37) IU/L ALT 11 L (14-63) IU/L Alkaline Phosphatase 182 H (46-116) U/L Troponin I (0.000-0.056) ng/mL Total Protein 6.5 (6.4-8.2) g/dL Albumin 2.0 L (3.4-5.0) g/dL Globulin 4.5 H (2.6-4.0) g/dL Albumin/Globulin Ratio 0.4 L (0.9-1.6) Lipase (73-393) U/L Urine Color Urine Appearance Urine pH (5.0-8.0) Ur Specific [place] (1.001-1.035) Urine Protein (NEGATIVE) mg/dL Urine Glucose (UA) (NEGATIVE) mg/dL Urine Ketones (NEGATIVE) mg/dL Urine Occult Blood (NEGATIVE) Urine Nitrite (NEGATIVE) Urine Bilirubin (NEGATIVE) Urine Ictotest Urine Urobilinogen (<2.0) EU/dL Ur Leukocyte Esterase (NEGATIVE) Urine RBC (0-2/HPF) Urine WBC (0-5/HPF) Ur Epithelial Cells (NONE-FEW) Urine Bacteria (NEGATIVE) Urinalysis Comment Ur Random Creatinine 56.8 mg/dL Ur Random Sodium 57.0 (40.0-220.0) mmol/L Kamari Results Last 24 Hours: Microbiology 12/23/20 16:53 Aerobic Blood Culture - Preliminary Blood - Venous Anaerobic Blood Culture - Preliminary 12/23/20 17:15 Aerobic Blood Culture - Preliminary Blood - Venous - Lab Draw Anaerobic Blood Culture - Final Med Orders - Current: Current Medications Albuterol/Ipratropium (Albuterol/Ipratropium 3.0-0.5 Mg/3 Ml Neb Soln) 3 ml NEB Q4HRRT PRN PRN Reason: Shortness Of Breath/wheezing Heparin Sodium (Porcine) (Heparin Sodium 5,000 Units/Ml Vial) 5,000 units SUBCUT Q8H [facility] Last Admin: 06/23/21 12:53 Dose: 5,000 units Documented by: Vancomycin HCl 1 gm/ Sodium (Chloride) 250 mls @ 166.667 mls/hr IV Q48H [facility] Dextrose/Water (Dextrose 5% In Water) 1,000 mls @ 125 mls/hr IV Q8H [facility] Last Admin: 12/24/20 11:32 Dose: 125 mls/hr Documented by: Meropenem/Sodium Chloride (Meropenem In Ns 1 Gm/50 Ml) 50 mls @ 100 mls/hr IV Q24H [facility] Ondansetron HCl (Ondansetron 4 Mg/2 Ml Sdv) 4 mg IVPUSH Q4H PRN PRN Reason: Nausea/Vomiting Vancomycin HCl (Pharmacy To Dose - Vancomycin) 1 dose .XX ASDIRECTED [facility] Discontinued Medications Sodium Chloride (Normal Saline) 1,000 mls @ 800 mls/hr IV BOLUS ONE Stop: 12/23/20 18:14 Last Admin: 12/23/20 17:26 Dose: 800 mls/hr Documented by: Meropenem/Sodium Chloride 1 gm (/ Premix) 50 mls @ 100 mls/hr IV ONETIME ONE Stop: 12/23/20 17:36 Last Admin: 12/23/20 17:26 Dose: 100 mls/hr Documented by: Sodium Chloride (Normal Saline) 1,000 mls @ 90 mls/hr IV STAT ONE Stop: 12/24/20 05:55 Last Admin: 12/23/20 19:37 Dose: 90 mls/hr Documented by: Vancomycin HCl 1 gm/ Sodium (Chloride) 250 mls @ 166 mls/hr IV ONETIME ONE Stop: 12/23/20 20:57 Last Admin: 12/23/20 19:45 Dose: 166 mls/hr Documented by: Lactated Ringer's (Ringers, Lactated) 1,000 mls @ 125 mls/hr IV ASDIRECTED [facility] Last Infusion: 12/24/20 02:39 Dose: 0 mls/hr Documented by: Meropenem/Sodium Chloride (Meropenem In Ns 1 Gm/50 Ml) 50 mls @ 100 mls/hr IV Q8H [facility] Last Admin: 12/24/20 10:12 Dose: 100 mls/hr Documented by: Lactated Ringer's (Ringers, Lactated) 1,000 mls @ 999 mls/hr IV .BOLUS ONE Stop: 12/23/20 22:52 Last Admin: 12/23/20 22:50 Dose: 999 mls/hr Documented by: Dextrose/Water (Dextrose 5% In Water) 1,000 mls @ 125 mls/hr IV ASDIRECTED [facility] Dextrose/Water (Dextrose 5% In Water) 1,000 mls @ 125 mls/hr IV ONETIME ONE Stop: 12/24/20 08:42 Last Admin: 12/24/20 02:39 Dose: 125 mls/hr Documented by: - Exam Urinary Catheter Total Time: 0Days 0Hours - Patient Data Lab Results Last 24 hrs: Laboratory Results - last 24 hr 12/23/20 12/23/20 12/23/20 Range/Units 16:53 16:53 16:53 WBC 39.09 H (4.0-11.0) K/uL RBC 4.36 L (4.50-5.90) M/uL Hgb 12.1 L (13.0-17.0) g/dL Hct 36.2 L (38.0-50.0) % MCV 83.0 (80.0-98.0) fL MCH 27.8 (27.0-32.0) pg MCHC 33.4 (31.0-37.0) g/dL RDW Std Deviation 49.8 (28.0-62.0) fl RDW Coeff of Mara 17 H (11.0-15.0) % Plt Count 181 (150-400) K/uL MPV 11.90 (7.40-12.00) fL Add Manual Diff YES Neutrophils % (Manual) 85 H (48.0-80.0) % Band Neutrophils % 5 % Lymphocytes % (Manual) 3 L (16.0-40.0) % Monocytes % (Manual) 7 (0.0-15.0) % Nucleated RBC % 0.0 /100WBC Absolute Seg Neuts 33.2 H (1.4-5.7) Band Neutrophils # 2.0 Lymphocytes # (Manual) 1.2 (0.6-2.4) Monocytes # (Manual) 2.7 H (0.0-0.8) Nucleated RBCs # 0 K/uL VBG pH (7.31-7.41) VBG pCO2 (41-51) mmHG VBG pO2 mmHG VBG HCO3 (23-28) mEq/L VBG Total CO2 (24-29) mmol/L VBG Base Excess (-2.0-3.0) Sodium 156 H (136-148) mmol/L Potassium 4.4 (3.5-5.1) mmol/L Chloride 118 H (98-107) mmol/L Carbon Dioxide 18.5 L (21.0-32.0) mmol/L BUN 148 H (7.0-18.0) mg/dL Creatinine 5.8 H (0.8-1.3) mg/dL Est Cr Clr Drug Dosing TNP Estimated GFR (MDRD) 9.3 ml/min Glucose 106 (74-106) mg/dL Lactic Acid 1.7 (0.4-2.0) mmol/L Calcium 8.6 (8.5-10.1) mg/dL Phosphorus (2.6-4.7) mg/dL Magnesium (1.8-2.4) mg/dL Total Bilirubin 0.4 (0.2-1.0) mg/dL AST 60 H (15-37) IU/L ALT 10 L (14-63) IU/L Alkaline Phosphatase 233 H (46-116) U/L Troponin I < 0.050 (0.000-0.056) ng/mL Total Protein 7.5 (6.4-8.2) g/dL Albumin 2.5 L (3.4-5.0) g/dL Globulin 5.0 H (2.6-4.0) g/dL Albumin/Globulin Ratio 0.5 L (0.9-1.6) Lipase 204 (73-393) U/L Urine Color Urine Appearance Urine pH (5.0-8.0) Ur Specific [place] (1.001-1.035) Urine Protein (NEGATIVE) mg/dL Urine Glucose (UA) (NEGATIVE) mg/dL Urine Ketones (NEGATIVE) mg/dL Urine Occult Blood (NEGATIVE) Urine Nitrite (NEGATIVE) Urine Bilirubin (NEGATIVE) Urine Ictotest Urine Urobilinogen (<2.0) EU/dL Ur Leukocyte Esterase (NEGATIVE) Urine RBC (0-2/HPF) Urine WBC (0-5/HPF) Ur Epithelial Cells (NONE-FEW) Urine Bacteria (NEGATIVE) Urinalysis Comment Ur Random Creatinine mg/dL Ur Random Sodium (40.0-220.0) mmol/L 12/23/20 12/23/20 12/23/20 Range/Units 17:27 19:00 21:42 WBC (4.0-11.0) K/uL RBC (4.50-5.90) M/uL Hgb (13.0-17.0) g/dL Hct (38.0-50.0) % MCV (80.0-98.0) fL MCH (27.0-32.0) pg MCHC (31.0-37.0) g/dL RDW Std Deviation (28.0-62.0) fl RDW Coeff of Mara (11.0-15.0) % Plt Count (150-400) K/uL MPV (7.40-12.00) fL Add Manual Diff Neutrophils % (Manual) (48.0-80.0) % Band Neutrophils % % Lymphocytes % (Manual) (16.0-40.0) % Monocytes % (Manual) (0.0-15.0) % Nucleated RBC % /100WBC Absolute Seg Neuts (1.4-5.7) Band Neutrophils # Lymphocytes # (Manual) (0.6-2.4) Monocytes # (Manual) (0.0-0.8) Nucleated RBCs # K/uL VBG pH 7.34 (7.31-7.41) VBG pCO2 34 L (41-51) mmHG VBG pO2 31 mmHG VBG HCO3 18 L (23-28) mEq/L VBG Total CO2 17 L (24-29) mmol/L VBG Base Excess -6.6 L (-2.0-3.0) Sodium 156 H (136-148) mmol/L Potassium 4.2 (3.5-5.1) mmol/L Chloride 120 H (98-107) mmol/L Carbon Dioxide 16.7 L (21.0-32.0) mmol/L BUN 146 H (7.0-18.0) mg/dL Creatinine 5.3 H (0.8-1.3) mg/dL Est Cr Clr Drug Dosing TNP Estimated GFR (MDRD) 10.3 ml/min Glucose 113 H (74-106) mg/dL Lactic Acid (0.4-2.0) mmol/L Calcium 8.2 L (8.5-10.1) mg/dL Phosphorus (2.6-4.7) mg/dL Magnesium (1.8-2.4) mg/dL Total Bilirubin (0.2-1.0) mg/dL AST (15-37) IU/L ALT (14-63) IU/L Alkaline Phosphatase (46-116) U/L Troponin I (0.000-0.056) ng/mL Total Protein (6.4-8.2) g/dL Albumin (3.4-5.0) g/dL Globulin (2.6-4.0) g/dL Albumin/Globulin Ratio (0.9-1.6) Lipase (73-393) U/L Urine Color OTHER Urine Appearance CLOUDY Urine pH 8.5 H (5.0-8.0) Ur Specific [place] 1.010 (1.001-1.035) Urine Protein >=300 H (NEGATIVE) mg/dL Urine Glucose (UA) NEGATIVE (NEGATIVE) mg/dL Urine Ketones NEGATIVE (NEGATIVE) mg/dL Urine Occult Blood MODERATE H (NEGATIVE) Urine Nitrite NEGATIVE (NEGATIVE) Urine Bilirubin SMALL H (NEGATIVE) Urine Ictotest NEGATIVE Urine Urobilinogen 0.2 (<2.0) EU/dL Ur Leukocyte Esterase MODERATE H (NEGATIVE) Urine RBC 10-20 (0-2/HPF) Urine WBC 30-40 (0-5/HPF) Ur Epithelial Cells FEW (NONE-FEW) Urine Bacteria 4+ H (NEGATIVE) Urinalysis Comment Ur Random Creatinine mg/dL Ur Random Sodium (40.0-220.0) mmol/L 12/23/20 12/24/20 12/24/20 Range/Units 21:55 06:17 06:17 WBC 34.67 H (4.0-11.0) K/uL RBC 4.19 L (4.50-5.90) M/uL Hgb 11.6 L (13.0-17.0) g/dL Hct 34.1 L (38.0-50.0) % MCV 81.4 (80.0-98.0) fL MCH 27.7 (27.0-32.0) pg MCHC 34.0 (31.0-37.0) g/dL RDW Std Deviation 48.8 (28.0-62.0) fl RDW Coeff of Mara 16 H (11.0-15.0) % Plt Count 142 L (150-400) K/uL MPV 11.50 (7.40-12.00) fL Add Manual Diff YES Neutrophils % (Manual) 87 H (48.0-80.0) % Band Neutrophils % 5 % Lymphocytes % (Manual) 3 L (16.0-40.0) % Monocytes % (Manual) 5 (0.0-15.0) % Nucleated RBC % 0.0 /100WBC Absolute Seg Neuts 30.2 H (1.4-5.7) Band Neutrophils # 1.7 Lymphocytes # (Manual) 1.0 (0.6-2.4) Monocytes # (Manual) 1.7 H (0.0-0.8) Nucleated RBCs # 0 K/uL VBG pH (7.31-7.41) VBG pCO2 (41-51) mmHG VBG pO2 mmHG VBG HCO3 (23-28) mEq/L VBG Total CO2 (24-29) mmol/L VBG Base Excess (-2.0-3.0) Sodium 155 H (136-148) mmol/L Potassium 3.7 (3.5-5.1) mmol/L Chloride 119 H (98-107) mmol/L Carbon Dioxide 18.9 L (21.0-32.0) mmol/L BUN 138 H (7.0-18.0) mg/dL Creatinine 4.5 H (0.8-1.3) mg/dL Est Cr Clr Drug Dosing 4.47 Estimated GFR (MDRD) 12.5 ml/min Glucose 117 H (74-106) mg/dL Lactic Acid (0.4-2.0) mmol/L Calcium 8.3 L (8.5-10.1) mg/dL Phosphorus 4.9 H (2.6-4.7) mg/dL Magnesium 2.7 H (1.8-2.4) mg/dL Total Bilirubin 0.4 (0.2-1.0) mg/dL AST 43 H (15-37) IU/L ALT 11 L (14-63) IU/L Alkaline Phosphatase 182 H (46-116) U/L Troponin I (0.000-0.056) ng/mL Total Protein 6.5 (6.4-8.2) g/dL Albumin 2.0 L (3.4-5.0) g/dL Globulin 4.5 H (2.6-4.0) g/dL Albumin/Globulin Ratio 0.4 L (0.9-1.6) Lipase (73-393) U/L Urine Color Urine Appearance Urine pH (5.0-8.0) Ur Specific [place] (1.001-1.035) Urine Protein (NEGATIVE) mg/dL Urine Glucose (UA) (NEGATIVE) mg/dL Urine Ketones (NEGATIVE) mg/dL Urine Occult Blood (NEGATIVE) Urine Nitrite (NEGATIVE) Urine Bilirubin (NEGATIVE) Urine Ictotest Urine Urobilinogen (<2.0) EU/dL Ur Leukocyte Esterase (NEGATIVE) Urine RBC (0-2/HPF) Urine WBC (0-5/HPF) Ur Epithelial Cells (NONE-FEW) Urine Bacteria (NEGATIVE) Urinalysis Comment Ur Random Creatinine 56.8 mg/dL Ur Random Sodium 57.0 (40.0-220.0) mmol/L Result Diagrams: 12/24/20 06:17 12/24/20 06:17 Kamari Results Last 24 hrs: Microbiology 12/23/20 16:53 Aerobic Blood Culture - Preliminary Blood - Venous Anaerobic Blood Culture - Preliminary 12/23/20 17:15 Aerobic Blood Culture - Preliminary Blood - Venous - Lab Draw Anaerobic Blood Culture - Final Sepsis Event Note - Evaluation Sepsis Screening Result: No Definite Risk - Focused Exam Vital Signs: Vital Signs Temp Pulse Resp BP Pulse Ox 12/24/20 12:28 36.7 C 64 16 161/74 H 98 12/24/20 11:38 37.0 C 69 18 175/81 H 100 12/24/20 08:37 36.8 C 71 16 175/82 H 95 12/24/20 07:10 36.8 C 62 16 163/70 H 100 12/24/20 06:30 36.6 C 68 16 153/74 H 98 - Problem List & Annotations (1) Acute kidney injury SNOMED Code(s): 07855293, 83756619 Code(s): N17.9 - ACUTE KIDNEY FAILURE, UNSPECIFIED Status: Acute Current Visit: Yes (2) Dehydration SNOMED Code(s): 84798391 Code(s): E86.0 - DEHYDRATION Status: Acute Current Visit: Yes (3) Hypernatremia SNOMED Code(s): 541863568 Code(s): E87.0 - HYPEROSMOLALITY AND HYPERNATREMIA Status: Acute Current Visit: Yes (4) Sepsis SNOMED Code(s): 45494804 Code(s): A41.9 - SEPSIS, UNSPECIFIED ORGANISM Status: Acute Current Visit: Yes Qualifiers: Sepsis type: sepsis due to unspecified organism Sepsis acute organ dysfunction status: unspecified Qualified Code(s): A41.9 - Sepsis, unspecified organism (5) UTI (urinary tract infection) SNOMED Code(s): 18191784 Code(s): N39.0 - URINARY TRACT INFECTION, SITE NOT SPECIFIED Status: Acute Current Visit: Yes Qualifiers: Urinary tract infection type: acute cystitis Hematuria presence: with hematuria Qualified Code(s): N30.01 - Acute cystitis with hematuria (6) ARF (acute renal failure) SNOMED Code(s): 13156639 Code(s): N17.9 - ACUTE KIDNEY FAILURE, UNSPECIFIED Status: Acute Current Visit: No Qualifiers: Acute renal failure type: unspecified Qualified Code(s): N17.9 - Acute kidney failure, unspecified (7) Bladder outlet obstruction SNOMED Code(s): 805188164 Code(s): N32.0 - BLADDER-NECK OBSTRUCTION Status: Acute Current Visit: No (8) Chronic kidney disease SNOMED Code(s): 748788004 Code(s): N18.9 - CHRONIC KIDNEY DISEASE, UNSPECIFIED Status: Chronic Current Visit: No Qualifiers: Chronic kidney disease stage: stage 4 (severe) Qualified Code(s): N18.4 - Chronic kidney disease, stage 4 (severe) (9) HTN (hypertension) SNOMED Code(s): 03863757 Code(s): I10 - ESSENTIAL (PRIMARY) HYPERTENSION Status: Chronic Current Visit: No Qualifiers: Hypertension type: essential hypertension Qualified Code(s): I10 - Essential (primary) hypertension (10) Parkinson disease SNOMED Code(s): 37267487 Code(s): G20 - PARKINSON'S DISEASE Status: Chronic Current Visit: No - Problem List Review Problem List Initiated/Reviewed/Updated: Yes - My Orders Last 24 Hours: My Active Orders 12/23/20 21:26 Ambulate [RC] ASDIRECTED Oxygen Therapy [RC] PRN VTE/DVT Education [RC] PER UNIT ROUTINE Vital Signs [RC] Q4H Albuterol/Ipratropium [DuoNeb 3.0-0.5 MG/3 ML] 3 ml NEB Q4HRRT PRN Ondansetron [Zofran] 4 mg IVPUSH Q4H PRN Resuscitation Status Routine 12/23/20 21:28 Pulse Oximetry [RC] PRN 12/23/20 21:30 Heparin Sodium 5,000 units SUBCUT Q8H 12/23/20 21:32 RT Aerosol Therapy [RC] ASDIRECTED 12/23/20 22:00 Pharmacy to Dose - Vancomycin 1 dose .XX ASDIRECTED 12/23/20 22:23 Telemetry Monitoring [Cardiac Monitoring] [RC] Q8H 12/24/20 05:26 Blood Culture x2 Reflex Set [OM.PC] Stat 12/24/20 06:07 CULTURE BLOOD [BC] Stat 12/24/20 06:17 CULTURE BLOOD [BC] Stat 12/24/20 06:42 Consult to Case Management/Financial Planning Consultant [CONS] Routine 12/24/20 13:33 TROPONIN I [CHEM] Routine 12/25/20 22:00 Vancomycin [Vancocin] 1 gm Sodium Chloride 0.9% [Normal Saline (AdvBag)] 250 ml IV Q48H - Plan Plan:: 85-year-old male admitted for acute renal failure likely secondary to chronic obstructive uropathy Kidney function is slowly improving with aggressive IV hydration Miller has been changed in the ER per ER provider Continue aggressive IV fluid hydration patient most likely has acute tubular necrosis, will switch fluids to D5 water given hypernatremia Patient's power of assistant district attorney has refused transfer to higher level of care if indicated, the most they would like to do is give patient IV antibiotics for UTI and IV fluids for hydration and nothing more than that. Recheck BMP in evening Leukocytosis has mildly improved, will continue IV meropenem and IV vancomycin for UTI possibly multidrug-resistant UTI Blood cultures noted, will obtain repeat blood cultures Follow-up on urine culture Continue Miller care ST segment depression noted on telemetry, will obtain a troponin patient has no evident chest pain, Given discussion with patient's POA will not aggressively pursue this telemetry change as the POA does not want any aggressive intervention that would require patient to be transferred. If patient's clinical condition deteriorates then POA will be informed and patient will most likely transition to comfort care measures
[2020-12-24 16:49] LABS: CARBON DIOXIDE,CO2 23.6 mmol/L (21.0-32.0); POTASSIUM,K 3.7 mmol/L (3.5-5.1)
[2020-12-25] MEDS: Heparin Sodium 5,000 Units/ML Vial SUBCUT SCH ×3 (04:38→21:05)
[2020-12-25] MEDS: Dextrose 5% in Water 1,000 ML IV SCH ×3 (05:34→23:49)
[2020-12-25 06:42] LABS: CARBON DIOXIDE,CO2 20.1 mmol/L (21.0-32.0); POTASSIUM,K 3.8 mmol/L (3.5-5.1)
--- NOTE | 2020-12-25 08:08 | PCM.PN ---
- General Info Date of Service: 12/25/20 Admission Dx/Problem (Free Text): Admission Diagnosis/Problem Admission Diagnosis/Problem Sepsis Subjective Update: Lalo doing better this morning. Patient Justine MULLINS, in room with patient. She reports mental status is closer to baseline. Patient continues to be nonverbal with staff. But HARPREET reports that he is motion as he wants water frequently. - Patient Data Vitals - Most Recent: Last Vital Signs Temp 98.6 F 12/25/20 07:00 Pulse 70 12/25/20 07:00 Resp 20 12/25/20 07:00 BP 141/69 H 12/25/20 07:00 Pulse Ox 98 12/25/20 07:00 Weight - Most Recent: 26.807 kg I&O - Last 24 Hours: Intake & Output 12/24/20 12/25/20 12/25/20 22:59 06:59 14:59 Intake Total 3037 1296 Output Total 950 850 Balance 2087 446 Lab Results Last 24 Hours: Laboratory Results - last 24 hr 12/24/20 12/24/20 12/25/20 Range/Units 06:17 16:15 06:00 WBC 14.59 H (4.0-11.0) K/uL RBC 4.74 (4.50-5.90) M/uL Hgb 12.9 L (13.0-17.0) g/dL Hct 38.6 (38.0-50.0) % MCV 81.4 (80.0-98.0) fL MCH 27.2 (27.0-32.0) pg MCHC 33.4 (31.0-37.0) g/dL RDW Std Deviation 48.9 (28.0-62.0) fl RDW Coeff of Mara 16 H (11.0-15.0) % Plt Count 113 L (150-400) K/uL MPV 12.00 (7.40-12.00) fL Neut % (Auto) 85.6 H (48.0-80.0) % Lymph % (Auto) 5.8 L (16.0-40.0) % [place] % (Auto) 8.0 (0.0-15.0) % Eos % (Auto) 0.5 (0.0-7.0) % Baso % (Auto) 0.1 (0.0-1.5) % Neut # (Auto) 12.5 H (1.4-5.7) K/uL Lymph # (Auto) 0.9 (0.6-2.4) K/uL [place] # (Auto) 1.2 H (0.0-0.8) K/uL Eos # (Auto) 0.1 (0.0-0.7) K/uL Baso # (Auto) 0.0 (0.0-0.1) K/uL Nucleated RBC % 0.0 /100WBC Nucleated RBCs # 0 K/uL Sodium 154 H (136-148) mmol/L Potassium 3.7 (3.5-5.1) mmol/L Chloride 117 H (98-107) mmol/L Carbon Dioxide 23.6 (21.0-32.0) mmol/L BUN 128 H (7.0-18.0) mg/dL Creatinine 4.0 H (0.8-1.3) mg/dL Est Cr Clr Drug Dosing 5.03 mL/min Estimated GFR (MDRD) 14.3 ml/min Glucose 126 H (74-106) mg/dL Calcium 8.5 (8.5-10.1) mg/dL Phosphorus (2.6-4.7) mg/dL Magnesium (1.8-2.4) mg/dL Total Bilirubin (0.2-1.0) mg/dL AST (15-37) IU/L ALT (14-63) IU/L Alkaline Phosphatase (46-116) U/L Troponin I < 0.050 (0.000-0.056) ng/mL Total Protein (6.4-8.2) g/dL Albumin (3.4-5.0) g/dL Globulin (2.6-4.0) g/dL Albumin/Globulin Ratio (0.9-1.6) 12/25/20 Range/Units 06:00 WBC (4.0-11.0) K/uL RBC (4.50-5.90) M/uL Hgb (13.0-17.0) g/dL Hct (38.0-50.0) % MCV (80.0-98.0) fL MCH (27.0-32.0) pg MCHC (31.0-37.0) g/dL RDW Std Deviation (28.0-62.0) fl RDW Coeff of Mara (11.0-15.0) % Plt Count (150-400) K/uL MPV (7.40-12.00) fL Neut % (Auto) (48.0-80.0) % Lymph % (Auto) (16.0-40.0) % [place] % (Auto) (0.0-15.0) % Eos % (Auto) (0.0-7.0) % Baso % (Auto) (0.0-1.5) % Neut # (Auto) (1.4-5.7) K/uL Lymph # (Auto) (0.6-2.4) K/uL [place] # (Auto) (0.0-0.8) K/uL Eos # (Auto) (0.0-0.7) K/uL Baso # (Auto) (0.0-0.1) K/uL Nucleated RBC % /100WBC Nucleated RBCs # K/uL Sodium 152 H (136-148) mmol/L Potassium 3.8 (3.5-5.1) mmol/L Chloride 117 H (98-107) mmol/L Carbon Dioxide 20.1 L (21.0-32.0) mmol/L BUN 122 H (7.0-18.0) mg/dL Creatinine 3.1 H (0.8-1.3) mg/dL Est Cr Clr Drug Dosing 6.49 mL/min Estimated GFR (MDRD) 19.2 ml/min Glucose 104 (74-106) mg/dL Calcium 7.9 L (8.5-10.1) mg/dL Phosphorus 3.2 (2.6-4.7) mg/dL Magnesium 2.4 (1.8-2.4) mg/dL Total Bilirubin 0.5 (0.2-1.0) mg/dL AST 48 H (15-37) IU/L ALT 21 (14-63) IU/L Alkaline Phosphatase 154 H (46-116) U/L Troponin I (0.000-0.056) ng/mL Total Protein 5.7 L (6.4-8.2) g/dL Albumin 2.0 L (3.4-5.0) g/dL Globulin 3.7 (2.6-4.0) g/dL Albumin/Globulin Ratio 0.5 L (0.9-1.6) Kamari Results Last 24 Hours: Microbiology 12/24/20 06:17 Aerobic Blood Culture - Preliminary Blood - Venous - Lab Draw NO GROWTH AFTER 1 DAY Anaerobic Blood Culture - Preliminary NO GROWTH AFTER 1 DAY 12/24/20 06:07 Aerobic Blood Culture - Preliminary Blood - Venous NO GROWTH AFTER 1 DAY Anaerobic Blood Culture - Preliminary NO GROWTH AFTER 1 DAY 12/23/20 16:53 Aerobic Blood Culture - Preliminary Blood - Venous Anaerobic Blood Culture - Preliminary 12/23/20 17:15 Aerobic Blood Culture - Preliminary Blood - Venous - Lab Draw Anaerobic Blood Culture - Final Med Orders - Current: Current Medications Albuterol/Ipratropium (Albuterol/Ipratropium 3.0-0.5 Mg/3 Ml Neb Soln) 3 ml NEB Q4HRRT PRN PRN Reason: Shortness Of Breath/wheezing Heparin Sodium (Porcine) (Heparin Sodium 5,000 Units/Ml Vial) 5,000 units PURCELL BCUT Q8H [facility] Last Admin: 12/25/20 04:38 Dose: 5,000 units Documented by: Vancomycin HCl 1 gm/ Sodium (Chloride) 250 mls @ 166.667 mls/hr IV Q48H [facility] Dextrose/Water (Dextrose 5% In Water) 1,000 mls @ 125 mls/hr IV Q8H [facility] Last Admin: 12/25/20 05:34 Dose: 125 mls/hr Documented by: Meropenem/Sodium Chloride 1 gm (/ Premix) 50 mls @ 100 mls/hr IV Q12H [facility] Ondansetron HCl (Ondansetron 4 Mg/2 Ml Sdv) 4 mg IVPUSH Q4H PRN PRN Reason: Nausea/Vomiting Vancomycin HCl (Pharmacy To Dose - Vancomycin) 1 dose .XX ASDIRECTED [facility] Discontinued Medications Sodium Chloride (Normal Saline) 1,000 mls @ 800 mls/hr IV BOLUS ONE Stop: 12/23/20 18:14 Last Admin: 12/23/20 17:26 Dose: 800 mls/hr Documented by: Meropenem/Sodium Chloride 1 gm (/ Premix) 50 mls @ 100 mls/hr IV ONETIME ONE Stop: 12/23/20 17:36 Last Admin: 12/23/20 17:26 Dose: 100 mls/hr Documented by: Sodium Chloride (Normal Saline) 1,000 mls @ 90 mls/hr IV STAT ONE Stop: 12/24/20 05:55 Last Admin: 12/23/20 19:37 Dose: 90 mls/hr Documented by: Vancomycin HCl 1 gm/ Sodium (Chloride) 250 mls @ 166 mls/hr IV ONETIME ONE Stop: 12/23/20 20:57 Last Admin: 12/23/20 19:45 Dose: 166 mls/hr Documented by: Lactated Ringer's (Ringers, Lactated) 1,000 mls @ 125 mls/hr IV ASDIRECTED [facility] Last Infusion: 12/24/20 02:39 Dose: 0 mls/hr Documented by: Meropenem/Sodium Chloride (Meropenem In Ns 1 Gm/50 Ml) 50 mls @ 100 mls/hr IV Q8H [facility] Last Admin: 12/24/20 10:12 Dose: 100 mls/hr Documented by: Lactated Ringer's (Ringers, Lactated) 1,000 mls @ 999 mls/hr IV .BOLUS ONE Stop: 12/23/20 22:52 Last Admin: 12/23/20 22:50 Dose: 999 mls/hr Documented by: Dextrose/Water (Dextrose 5% In Water) 1,000 mls @ 125 mls/hr IV ASDIRECTED [facility] Dextrose/Water (Dextrose 5% In Water) 1,000 mls @ 125 mls/hr IV ONETIME ONE Stop: 12/24/20 08:42 Last Admin: 12/24/20 02:39 Dose: 125 mls/hr Documented by: Meropenem/Sodium Chloride (Meropenem In Ns 1 Gm/50 Ml) 50 mls @ 100 mls/hr IV Q24H [facility] - Exam Urinary Catheter Total Time: 0Days 0Hours General: Cooperative, No Acute Distress Neck: Supple Lungs: Clear to Auscultation, Other (Bronchial breath sounds due to secretions in throat. Suctioned heavily by nursing staff.) Cardiovascular: Regular Rate, Regular Rhythm GI/Abdominal Exam: Normal Bowel Sounds, Soft, Non-Tender Extremities: Normal Inspection, Normal Range of Motion, Non-Tender, No Pedal Edema Neurological: No New Focal Deficit Psy/Mental Status: Alert, Normal Affect, Normal Mood - Patient Data Lab Results Last 24 hrs: Laboratory Results - last 24 hr 12/24/20 12/24/20 12/25/20 Range/Units 06:17 16:15 06:00 WBC 14.59 H (4.0-11.0) K/uL RBC 4.74 (4.50-5.90) M/uL Hgb 12.9 L (13.0-17.0) g/dL Hct 38.6 (38.0-50.0) % MCV 81.4 (80.0-98.0) fL MCH 27.2 (27.0-32.0) pg MCHC 33.4 (31.0-37.0) g/dL RDW Std Deviation 48.9 (28.0-62.0) fl RDW Coeff of Mara 16 H (11.0-15.0) % Plt Count 113 L (150-400) K/uL MPV 12.00 (7.40-12.00) fL Neut % (Auto) 85.6 H (48.0-80.0) % Lymph % (Auto) 5.8 L (16.0-40.0) % [place] % (Auto) 8.0 (0.0-15.0) % Eos % (Auto) 0.5 (0.0-7.0) % Baso % (Auto) 0.1 (0.0-1.5) % Neut # (Auto) 12.5 H (1.4-5.7) K/uL Lymph # (Auto) 0.9 (0.6-2.4) K/uL [place] # (Auto) 1.2 H (0.0-0.8) K/uL Eos # (Auto) 0.1 (0.0-0.7) K/uL Baso # (Auto) 0.0 (0.0-0.1) K/uL Nucleated RBC % 0.0 /100WBC Nucleated RBCs # 0 K/uL Sodium 154 H (136-148) mmol/L Potassium 3.7 (3.5-5.1) mmol/L Chloride 117 H (98-107) mmol/L Carbon Dioxide 23.6 (21.0-32.0) mmol/L BUN 128 H (7.0-18.0) mg/dL Creatinine 4.0 H (0.8-1.3) mg/dL Est Cr Clr Drug Dosing 5.03 mL/min Estimated GFR (MDRD) 14.3 ml/min Glucose 126 H (74-106) mg/dL Calcium 8.5 (8.5-10.1) mg/dL Phosphorus (2.6-4.7) mg/dL Magnesium (1.8-2.4) mg/dL Total Bilirubin (0.2-1.0) mg/dL AST (15-37) IU/L ALT (14-63) IU/L Alkaline Phosphatase (46-116) U/L Troponin I < 0.050 (0.000-0.056) ng/mL Total Protein (6.4-8.2) g/dL Albumin (3.4-5.0) g/dL Globulin (2.6-4.0) g/dL Albumin/Globulin Ratio (0.9-1.6) 12/25/20 Range/Units 06:00 WBC (4.0-11.0) K/uL RBC (4.50-5.90) M/uL Hgb (13.0-17.0) g/dL Hct (38.0-50.0) % MCV (80.0-98.0) fL MCH (27.0-32.0) pg MCHC (31.0-37.0) g/dL RDW Std Deviation (28.0-62.0) fl RDW Coeff of Mara (11.0-15.0) % Plt Count (150-400) K/uL MPV (7.40-12.00) fL Neut % (Auto) (48.0-80.0) % Lymph % (Auto) (16.0-40.0) % [place] % (Auto) (0.0-15.0) % Eos % (Auto) (0.0-7.0) % Baso % (Auto) (0.0-1.5) % Neut # (Auto) (1.4-5.7) K/uL Lymph # (Auto) (0.6-2.4) K/uL [place] # (Auto) (0.0-0.8) K/uL Eos # (Auto) (0.0-0.7) K/uL Baso # (Auto) (0.0-0.1) K/uL Nucleated RBC % /100WBC Nucleated RBCs # K/uL Sodium 152 H (136-148) mmol/L Potassium 3.8 (3.5-5.1) mmol/L Chloride 117 H (98-107) mmol/L Carbon Dioxide 20.1 L (21.0-32.0) mmol/L BUN 122 H (7.0-18.0) mg/dL Creatinine 3.1 H (0.8-1.3) mg/dL Est Cr Clr Drug Dosing 6.49 mL/min Estimated GFR (MDRD) 19.2 ml/min Glucose 104 (74-106) mg/dL Calcium 7.9 L (8.5-10.1) mg/dL Phosphorus 3.2 (2.6-4.7) mg/dL Magnesium 2.4 (1.8-2.4) mg/dL Total Bilirubin 0.5 (0.2-1.0) mg/dL AST 48 H (15-37) IU/L ALT 21 (14-63) IU/L Alkaline Phosphatase 154 H (46-116) U/L Troponin I (0.000-0.056) ng/mL Total Protein 5.7 L (6.4-8.2) g/dL Albumin 2.0 L (3.4-5.0) g/dL Globulin 3.7 (2.6-4.0) g/dL Albumin/Globulin Ratio 0.5 L (0.9-1.6) Result Diagrams: 12/25/20 06:00 12/25/20 06:00 Kamari Results Last 24 hrs: Microbiology 12/24/20 06:17 Aerobic Blood Culture - Preliminary Blood - Venous - Lab Draw NO GROWTH AFTER 1 DAY Anaerobic Blood Culture - Preliminary NO GROWTH AFTER 1 DAY 12/24/20 06:07 Aerobic Blood Culture - Preliminary Blood - Venous NO GROWTH AFTER 1 DAY Anaerobic Blood Culture - Preliminary NO GROWTH AFTER 1 DAY 12/23/20 16:53 Aerobic Blood Culture - Preliminary Blood - Venous Anaerobic Blood Culture - Preliminary 12/23/20 17:15 Aerobic Blood Culture - Preliminary Blood - Venous - Lab Draw Anaerobic Blood Culture - Final Sepsis Event Note - Evaluation Sepsis Screening Result: No Definite Risk - Focused Exam Vital Signs: Vital Signs Temp Pulse Resp BP BP Pulse Ox 06/24/21 07:00 98.6 F 70 20 141/69 H 98 12/25/20 05:40 97.9 F 68 16 153/74 H 98 12/25/20 01:15 97.9 F 71 16 167/74 H 98 12/24/20 20:50 98.7 F 77 16 159/75 H 98 - Problem List & Annotations (1) Bacteremia due to Klebsiella pneumoniae SNOMED Code(s): 613218797551 Code(s): R78.81 - BACTEREMIA; B96.1 - KLEBSIELLA PNEUMONIAE THE CAUSE OF DISEASES CLASSD [id number] Status: Acute Current Visit: Yes (2) Sepsis SNOMED Code(s): 50174902 Code(s): A41.9 - SEPSIS, UNSPECIFIED ORGANISM Status: Resolved Current Visit: Yes Qualifiers: Sepsis type: sepsis due to unspecified organism Sepsis acute organ dysfunction status: unspecified Qualified Code(s): A41.9 - Sepsis, unspecified organism (3) Acute kidney injury SNOMED Code(s): 84874298, 77484623 Code(s): N17.9 - ACUTE KIDNEY FAILURE, UNSPECIFIED Status: Acute Current Visit: Yes (4) Dehydration SNOMED Code(s): 13567498 Code(s): E86.0 - DEHYDRATION Status: Acute Current Visit: Yes (5) Hypernatremia SNOMED Code(s): 436824533 Code(s): E87.0 - HYPEROSMOLALITY AND HYPERNATREMIA Status: Acute Current Visit: Yes (6) Palliative care patient SNOMED Code(s): 483601724, 494742401 Code(s): Z51.5 - ENCOUNTER FOR PALLIATIVE CARE Status: Acute Current Visit: Yes (7) UTI (urinary tract infection) SNOMED Code(s): 64455163 Code(s): N39.0 - URINARY TRACT INFECTION, SITE NOT SPECIFIED Status: Acute Current Visit: Yes Qualifiers: Urinary tract infection type: acute cystitis Hematuria presence: with hematuria Qualified Code(s): N30.01 - Acute cystitis with hematuria (8) Chronic kidney disease SNOMED Code(s): 344733310 Code(s): N18.9 - CHRONIC KIDNEY DISEASE, UNSPECIFIED Status: Chronic Current Visit: No Qualifiers: Chronic kidney disease stage: stage 4 (severe) Qualified Code(s): N18.4 - Chronic kidney disease, stage 4 (severe) (9) HTN (hypertension) SNOMED Code(s): 82030581 Code(s): I10 - ESSENTIAL (PRIMARY) HYPERTENSION Status: Chronic Current Visit: No Qualifiers: Hypertension type: essential hypertension Qualified Code(s): I10 - Essential (primary) hypertension (10) Parkinson disease SNOMED Code(s): 32668299 Code(s): G20 - PARKINSON'S DISEASE Status: Chronic Current Visit: No - Problem List Review Problem List Initiated/Reviewed/Updated: Yes - My Orders Last 24 Hours: My Active Orders 12/24/20 10:[address] Researcher Discontinue [Cardiac Monitoring Discontinue] [RC] Click to Edit 12/24/20 11:00 Dextrose 5% in Water 1,000 ml IV Q8H 12/25/20 09:00 Meropenem Premix [Meropenem in NS 1 GM/50 ML] 1 gm Premix Bag 1 bag IV Q12H - Plan Plan:: 85-year-old male admitted for acute renal failure likely secondary to chronic obstructive uropathy 1. Sepsis/UTI/Klebsiella pneumoniae bacteremia -Sepsis has resolved -First set of blood cultures 4 to 4 g negative rods noted. Returned with Klebsiella pneumoniae today, KAMARI pending. Repeat blood cultures so far negative -Discontinue vancomycin continue meropenem every 12 -Continue IV fluid resuscitation -Significant reduction in leukocytosis this morning down to 14,000 -Urine culture pending -Palliative care as POA does not want transfer to higher level of care or aggressive medical management. She is okay with IV fluids and antibiotics at this time. 2. VIMAL on CKD secondary to chronic obstructive uropathy -VIMAL steadily improving -ATN noted we will continue aggressive IV fluid resuscitation -Recheck BMP in a.m. -Urine much more clear and improved urine output noted. -Continue Miller cares 3. Hypernatremia/hyperchloremia -Improving steadily -Continue D5W 125 mL/h -Recheck BMP in a.m. -As hypernatremia is improving mental status is also improving VTE prophylaxis: Heparin CODE STATUS: DNR/DNI Dispo: Continues to steadily improve we will monitor daily. POA informed patient is slowly but steadily improving but continue to monitor for decomp ensation at any point. POA verbalized understanding, and continues to request if patient does decompensate she would want only comfort measures.
[2020-12-25] MEDS: Meropenem Premix 1 GM in Premix Bag 1 BAG IV SCH ×2 (08:40→21:05)
[2020-12-25] MEDS ORDERED: Meropenem Premix 50 ML IV SCH (10:00)
[2020-12-26] MEDS: Heparin Sodium 5,000 Units/ML Vial SUBCUT SCH ×4 (04:56→21:12)
[2020-12-26 07:01] LABS: CARBON DIOXIDE,CO2 19.2 mmol/L (21.0-32.0); POTASSIUM,K 3.3 mmol/L (3.5-5.1)
[2020-12-26] MEDS ORDERED: Potassium Phosphates 20 MMOLE in Sodium Chloride 0.9% 500 ML IV ONE (08:07)
--- NOTE | 2020-12-26 08:08 | PCM.PN ---
- General Info Date of Service: 12/26/20 Admission Dx/Problem (Free Text): Admission Diagnosis/Problem Admission Diagnosis/Problem Sepsis Subjective Update: Resting this morning. Otherwise has been nonverbal. Spoke with HARPREET she reports he is little bit more sleepy this morning but was awake quite a bit yesterday. - Patient Data Vitals - Most Recent: Last Vital Signs Temp 96.9 F 12/26/20 03:48 Pulse 54 L 12/26/20 03:48 Resp 18 12/26/20 03:48 BP 115/53 L 12/26/20 03:48 Pulse Ox 95 12/26/20 03:48 Weight - Most Recent: 26.807 kg I&O - Last 24 Hours: Intake & Output 12/25/20 12/26/20 12/26/20 22:59 06:59 14:59 Intake Total 1030 0 Output Total 750 800 Balance 280 -800 Lab Results Last 24 Hours: Laboratory Results - last 24 hr 12/26/20 12/26/20 Range/Units 05:25 05:25 WBC 10.88 (4.0-11.0) K/uL RBC 4.44 L (4.50-5.90) M/uL Hgb 12.0 L (13.0-17.0) g/dL Hct 35.9 L (38.0-50.0) % MCV 80.9 (80.0-98.0) fL MCH 27.0 (27.0-32.0) pg MCHC 33.4 (31.0-37.0) g/dL RDW Std Deviation 46.1 (28.0-62.0) fl RDW Coeff of Mara 16 H (11.0-15.0) % Plt Count 107 L (150-400) K/uL MPV 12.10 H (7.40-12.00) fL Add Manual Diff YES Neutrophils % (Manual) 76 (48.0-80.0) % Band Neutrophils % 4 % Lymphocytes % (Manual) 13 L (16.0-40.0) % Monocytes % (Manual) 7 (0.0-15.0) % Absolute Seg Neuts 8.3 H (1.4-5.7) Band Neutrophils # 0.4 Lymphocytes # (Manual) 1.4 (0.6-2.4) Monocytes # (Manual) 0.8 (0.0-0.8) Sodium 143 (136-148) mmol/L Potassium 3.3 L (3.5-5.1) mmol/L Chloride 111 H (98-107) mmol/L Carbon Dioxide 19.2 L (21.0-32.0) mmol/L BUN 94 H (7.0-18.0) mg/dL Creatinine 2.4 H (0.8-1.3) mg/dL Est Cr Clr Drug Dosing 8.38 mL/min Estimated GFR (MDRD) 25.8 ml/min Glucose 103 (74-106) mg/dL Calcium 7.9 L (8.5-10.1) mg/dL Phosphorus 2.3 L (2.6-4.7) mg/dL Magnesium 2.0 (1.8-2.4) mg/dL Total Bilirubin 0.5 (0.2-1.0) mg/dL AST 47 H (15-37) IU/L ALT 29 (14-63) IU/L Alkaline Phosphatase 136 H (46-116) U/L Total Protein 5.6 L (6.4-8.2) g/dL Albumin 1.7 L (3.4-5.0) g/dL Globulin 3.9 (2.6-4.0) g/dL Albumin/Globulin Ratio 0.4 L (0.9-1.6) Kamari Results Last 24 Hours: Microbiology 12/24/20 06:17 Aerobic Blood Culture - Preliminary Blood - Venous - Lab Draw NO GROWTH AFTER 2 DAYS Anaerobic Blood Culture - Preliminary NO GROWTH AFTER 2 DAYS 12/24/20 06:07 Aerobic Blood Culture - Preliminary Blood - Venous NO GROWTH AFTER 2 DAYS Anaerobic Blood Culture - Preliminary NO GROWTH AFTER 2 DAYS 12/23/20 17:15 Aerobic Blood Culture - Final Blood - Venous - Lab Draw Anaerobic Blood Culture - Final 12/23/20 16:53 Aerobic Blood Culture - Final Blood - Venous Klebsiella Pneumoniae Anaerobic Blood Culture - Final Med Orders - Current: Current Medications Albuterol/Ipratropium (Albuterol/Ipratropium 3.0-0.5 Mg/3 Ml Neb Soln) 3 ml NEB Q4HRRT PRN PRN Reason: Shortness Of Breath/wheezing Heparin Sodium (Porcine) (Heparin Sodium 5,000 Units/Ml Vial) 5,000 units SUBCUT Q8H [facility] Last Admin: 12/26/20 04:56 Dose: 5,000 units Documented by: Meropenem/Sodium Chloride 1 gm (/ Premix) 50 mls @ 100 mls/hr IV Q12H [facility] Last Admin: 12/25/20 21:05 Dose: 100 mls/hr Documented by: Lactated Ringer's (Ringers, Lactated) 1,000 mls @ 125 mls/hr IV Q8H [facility] Potassium Phosphate 20 mmole/ (Sodium Chloride) 506.6667 mls @ 67.5 mls/hr IV ONETIME ONE Stop: 12/26/20 15:37 Ondansetron HCl (Ondansetron 4 Mg/2 Ml Sdv) 4 mg IVPUSH Q4H PRN PRN Reason: Nausea/Vomiting Discontinued Medications Sodium Chloride (Normal Saline) 1,000 mls @ 800 mls/hr IV BOLUS ONE Stop: 12/23/20 18:14 Last Admin: 12/23/20 17:26 Dose: 800 mls/hr Documented by: Meropenem/Sodium Chloride 1 gm (/ Premix) 50 mls @ 100 mls/hr IV ONETIME ONE Stop: 12/23/20 17:36 Last Admin: 12/23/20 17:26 Dose: 100 mls/hr Documented by: Sodium Chloride (Normal Saline) 1,000 mls @ 90 mls/hr IV STAT ONE Stop: 12/24/20 05:55 Last Admin: 12/23/20 19:37 Dose: 90 mls/hr Documented by: Vancomycin HCl 1 gm/ Sodium (Chloride) 250 mls @ 166 mls/hr IV ONETIME ONE Stop: 12/23/20 20:57 Last Admin: 12/23/20 19:45 Dose: 166 mls/hr Documented by: Lactated Ringer's (Ringers, Lactated) 1,000 mls @ 125 mls/hr IV ASDIRECTED [facility] Last Infusion: 12/24/20 02:39 Dose: 0 mls/hr Documented by: Meropenem/Sodium Chloride (Meropenem In Ns 1 Gm/50 Ml) 50 mls @ 100 mls/hr IV Q8H [facility] Last Admin: 12/24/20 10:12 Dose: 100 mls/hr Documented by: Lactated Ringer's (Ringers, Lactated) 1,000 mls @ 999 mls/hr IV .BOLUS ONE Stop: 12/23/20 22:52 Last Admin: 12/23/20 22:50 Dose: 999 mls/hr Documented by: Dextrose/Water (Dextrose 5% In Water) 1,000 mls @ 125 mls/hr IV ASDIRECTED [facility] Dextrose/Water (Dextrose 5% In Water) 1,000 mls @ 125 mls/hr IV ONETIME ONE Stop: 12/24/20 08:42 Last Admin: 12/24/20 02:39 Dose: 125 mls/hr Documented by: Vancomycin HCl 1 gm/ Sodium (Chloride) 250 mls @ 166.667 mls/hr IV Q48H [facility] Dextrose/Water (Dextrose 5% In Water) 1,000 mls @ 125 mls/hr IV Q8H [facility] Last Admin: 12/25/20 23:49 Dose: 125 mls/hr Documented by: Meropenem/Sodium Chloride (Meropenem In Ns 1 Gm/50 Ml) 50 mls @ 100 mls/hr IV Q24H [facility] Vancomycin HCl (Pharmacy To Dose - Vancomycin) 1 dose .XX ASDIRECTED [facility] - Exam Urinary Catheter Total Time: 1Days 16Hours General: Alert, No Acute Distress Lungs: Clear to Auscultation, Normal Respiratory Effort, Other (Less bronchial noises today) Cardiovascular: Regular Rate, Regular Rhythm GI/Abdominal Exam: Normal Bowel Sounds, Soft, Non-Tender Back Exam: Normal Inspection, Full Range of Motion Extremities: Normal Inspection, Normal Range of Motion, Non-Tender, No Pedal Edema Neurological: No New Focal Deficit Psy/Mental Status: Alert, Normal Affect, Normal Mood - Patient Data Lab Results Last 24 hrs: Laboratory Results - last 24 hr 12/26/20 12/26/20 Range/Units 05:25 05:25 WBC 10.88 (4.0-11.0) K/uL RBC 4.44 L (4.50-5.90) M/uL Hgb 12.0 L (13.0-17.0) g/dL Hct 35.9 L (38.0-50.0) % MCV 80.9 (80.0-98.0) fL MCH 27.0 (27.0-32.0) pg MCHC 33.4 (31.0-37.0) g/dL RDW Std Deviation 46.1 (28.0-62.0) fl RDW Coeff of Mara 16 H (11.0-15.0) % Plt Count 107 L (150-400) K/uL MPV 12.10 H (7.40-12.00) fL Add Manual Diff YES Neutrophils % (Manual) 76 (48.0-80.0) % Band Neutrophils % 4 % Lymphocytes % (Manual) 13 L (16.0-40.0) % Monocytes % (Manual) 7 (0.0-15.0) % Absolute Seg Neuts 8.3 H (1.4-5.7) Band Neutrophils # 0.4 Lymphocytes # (Manual) 1.4 (0.6-2.4) Monocytes # (Manual) 0.8 (0.0-0.8) Sodium 143 (136-148) mmol/L Potassium 3.3 L (3.5-5.1) mmol/L Chloride 111 H (98-107) mmol/L Carbon Dioxide 19.2 L (21.0-32.0) mmol/L BUN 94 H (7.0-18.0) mg/dL Creatinine 2.4 H (0.8-1.3) mg/dL Est Cr Clr Drug Dosing 8.38 mL/min Estimated GFR (MDRD) 25.8 ml/min Glucose 103 (74-106) mg/dL Calcium 7.9 L (8.5-10.1) mg/dL Phosphorus 2.3 L (2.6-4.7) mg/dL Magnesium 2.0 (1.8-2.4) mg/dL Total Bilirubin 0.5 (0.2-1.0) mg/dL AST 47 H (15-37) IU/L ALT 29 (14-63) IU/L Alkaline Phosphatase 136 H (46-116) U/L Total Protein 5.6 L (6.4-8.2) g/dL Albumin 1.7 L (3.4-5.0) g/dL Globulin 3.9 (2.6-4.0) g/dL Albumin/Globulin Ratio 0.4 L (0.9-1.6) Result Diagrams: 12/26/20 05:25 12/26/20 05:25 Kamari Results Last 24 hrs: Microbiology 12/24/20 06:17 Aerobic Blood Culture - Preliminary Blood - Venous - Lab Draw NO GROWTH AFTER 2 DAYS Anaerobic Blood Culture - Preliminary NO GROWTH AFTER 2 DAYS 12/24/20 06:07 Aerobic Blood Culture - Preliminary Blood - Venous NO GROWTH AFTER 2 DAYS Anaerobic Blood Culture - Preliminary NO GROWTH AFTER 2 DAYS 12/23/20 17:15 Aerobic Blood Culture - Final Blood - Venous - Lab Draw Anaerobic Blood Culture - Final 12/23/20 16:53 Aerobic Blood Culture - Final Blood - Venous Klebsiella Pneumoniae Anaerobic Blood Culture - Final Sepsis Event Note - Evaluation Sepsis Screening Result: No Definite Risk - Focused Exam Vital Signs: Vital Signs Temp Pulse Resp BP Pulse Ox 12/26/20 03:48 96.9 F 54 L 18 115/53 L 95 12/25/20 23:47 97.1 F 63 18 123/57 L 97 - Problem List & Annotations (1) Bacteremia due to Klebsiella pneumoniae SNOMED Code(s): 331953600965 Code(s): R78.81 - BACTEREMIA; B96.1 - KLEBSIELLA PNEUMONIAE THE CAUSE OF DISEASES CLASSD [id number] Status: Acute Current Visit: Yes (2) Sepsis SNOMED Code(s): 06889714 Code(s): A41.9 - SEPSIS, UNSPECIFIED ORGANISM Status: Resolved Current Visit: Yes Qualifiers: Sepsis type: sepsis due to unspecified organism Sepsis acute organ dysfunction status: unspecified Qualified Code(s): A41.9 - Sepsis, unspecified organism (3) Acute kidney injury SNOMED Code(s): 40775950, 35532546 Code(s): N17.9 - ACUTE KIDNEY FAILURE, UNSPECIFIED Status: Acute Current Visit: Yes (4) Dehydration SNOMED Code(s): 52438082 Code(s): E86.0 - DEHYDRATION Status: Acute Current Visit: Yes (5) Hypernatremia SNOMED Code(s): 032687934 Code(s): E87.0 - HYPEROSMOLALITY AND HYPERNATREMIA Status: Acute Current Visit: Yes (6) Palliative care patient SNOMED Code(s): 746480014, 802750795 Code(s): Z51.5 - ENCOUNTER FOR PALLIATIVE CARE Status: Acute Current Visit: Yes (7) UTI (urinary tract infection) SNOMED Code(s): 73306042 Code(s): N39.0 - URINARY TRACT INFECTION, SITE NOT SPECIFIED Status: Acute Current Visit: Yes Qualifiers: Urinary tract infection type: acute cystitis Hematuria presence: with hematuria Qualified Code(s): N30.01 - Acute cystitis with hematuria (8) Chronic kidney disease SNOMED Code(s): 080992441 Code(s): N18.9 - CHRONIC KIDNEY DISEASE, UNSPECIFIED Status: Chronic Current Visit: No Qualifiers: Chronic kidney disease stage: stage 4 (severe) Qualified Code(s): N18.4 - Chronic kidney disease, stage 4 (severe) (9) HTN (hypertension) SNOMED Code(s): 18732205 Code(s): I10 - ESSENTIAL (PRIMARY) HYPERTENSION Status: Chronic Current Visit: No Qualifiers: Hypertension type: essential hypertension Qualified Code(s): I10 - Essential (primary) hypertension (10) Parkinson disease SNOMED Code(s): 97676629 Code(s): G20 - PARKINSON'S DISEASE Status: Chronic Current Visit: No - Problem List Review Problem List Initiated/Reviewed/Updated: Yes - My Orders Last 24 Hours: My Active Orders 12/25/20 09:00 Meropenem Premix [Meropenem in NS 1 GM/50 ML] 1 gm Premix Bag 1 bag IV Q12H 12/25/20 14:22 RT Suction Oropharyngeal [RESPCARE] Routine 12/25/20 14:47 Turn and Reposition [RC] .As Directed Oral Care [OM.PC] Routine 12/26/20 08:07 Potassium Phosphates 20 mmole Sodium Chloride 0.9% [Normal Saline] 500 ml IV ONETIME 12/26/20 08:15 Lactated Ringers [Ringers, Lactated] 1,000 ml IV Q8H 12/27/20 05:11 CBC WITH AUTO DIFF [HEME] AM COMPREHENSIVE METABOLIC PN,CMP [CHEM] AM MAGNESIUM [CHEM] AM PHOSPHORUS [CHEM] AM - Plan Plan:: 85-year-old male admitted for acute renal failure likely secondary to chronic obstructive uropathy 1. Sepsis/UTI/Klebsiella pneumoniae bacteremia -Sepsis has resolved -First set of blood cultures 4 to 4 g negative rods noted. Returned with Klebsiella pneumoniae today, KAMARI pending. Repeat blood cultures so far negative x2 days -Continue Meropenem every 12hrs IV, pharmacy helping with dosing due to renal function -Continue IV fluid resuscitation, stop D5W today, Continue LR -Leukocytosis continues to improve, today 10.88 -Urine culture pending -Palliative care as POA does not want transfer to higher level of care or aggressive medical management. She is okay with IV fluids and antibiotics at this time. 2. VIMAL on CKD secondary to chronic obstructive uropathy -VIMAL steadily improving, BUN 94 creatinine 2.4 today. -ATN noted we will continue aggressive IV fluid resuscitation -Recheck BMP in a.m. -Urine much more clear and improved urine output noted. -Continue Miller cares 3. Hypernatremia/hyperchloremia -Hypernatremia resolved, sodium 143 this morning -Discontinue D5W 125 mL/h -Recheck BMP in a.m. 4. Hypokalemia/hypophosphatemia -Replace with IV potassium phosphate 20 mmol today -Recheck in a.m. VTE prophylaxis: Heparin CODE STATUS: DNR/DNI Dispo: Continues to steadily improve we will monitor daily. POA informed p atient is slowly but steadily improving but continue to monitor for decompensation at any point. POA verbalized understanding, and continues to request if patient does decompensate she would want only comfort measures.
[2020-12-26] MEDS: Meropenem Premix 1 GM in Premix Bag 1 BAG IV SCH ×2 (10:22→20:54)
[2020-12-26] MEDS: Lactated Ringers 1,000 ML IV SCH ×2 (11:58→17:24)
[2020-12-26] MEDS: Dextrose 5% in Water 1,000 ML IV SCH (11:59)
[2020-12-27] MEDS: Heparin Sodium 5,000 Units/ML Vial SUBCUT SCH ×3 (05:11→21:13)
[2020-12-27] MEDS: Lactated Ringers 1,000 ML IV SCH ×3 (05:11→13:43)
[2020-12-27 07:45] LABS: CARBON DIOXIDE,CO2 22.8 mmol/L (21.0-32.0); POTASSIUM,K 3.7 mmol/L (3.5-5.1)
[2020-12-27] MEDS ORDERED: Dextrose 5% in Water 1,000 ML IV SCH (09:00)
[2020-12-27] MEDS: Meropenem Premix 1 GM in Premix Bag 1 BAG IV SCH ×2 (09:32→21:12)
--- NOTE | 2020-12-27 12:40 | PCM.PN ---
- General Info Date of Service: 12/27/20 Admission Dx/Problem (Free Text): Admission Diagnosis/Problem Admission Diagnosis/Problem Sepsis Subjective Update: Resting this morning. Otherwise has been nonverbal. Functional Status: Reports: Pain Controlled, Urinating. Denies: Tolerating Diet, Ambulating - Review of Systems Systems Review Comment:: Unable to obtain due to patient being nonverbal at baseline - Patient Data Vitals - Most Recent: Last Vital Signs Temp 37.0 C 12/27/20 08:00 Pulse 65 12/27/20 08:00 Resp 18 12/27/20 08:00 BP 151/92 H 12/27/20 08:00 Pulse Ox 99 12/27/20 08:00 Weight - Most Recent: 26.807 kg I&O - Last 24 Hours: Intake & Output 12/26/20 12/27/20 12/27/20 22:59 06:59 14:59 Intake Total 294 1040 Output Total 1000 750 Balance -706 290 Lab Results Last 24 Hours: Laboratory Results - last 24 hr 12/27/20 12/27/20 Range/Units 07:20 07:20 WBC 13.04 H (4.0-11.0) K/uL RBC 4.08 L (4.50-5.90) M/uL Hgb 11.1 L (13.0-17.0) g/dL Hct 33.6 L (38.0-50.0) % MCV 82.4 (80.0-98.0) fL MCH 27.2 (27.0-32.0) pg MCHC 33.0 (31.0-37.0) g/dL RDW Std Deviation 47.0 (28.0-62.0) fl RDW Coeff of Mara 16 H (11.0-15.0) % Plt Count 149 L (150-400) K/uL MPV 11.20 (7.40-12.00) fL Neut % (Auto) 83.2 H (48.0-80.0) % Lymph % (Auto) 7.1 L (16.0-40.0) % [place] % (Auto) 8.1 (0.0-15.0) % Eos % (Auto) 1.4 (0.0-7.0) % Baso % (Auto) 0.2 (0.0-1.5) % Neut # (Auto) 10.9 H (1.4-5.7) K/uL Lymph # (Auto) 0.9 (0.6-2.4) K/uL [place] # (Auto) 1.1 H (0.0-0.8) K/uL Eos # (Auto) 0.2 (0.0-0.7) K/uL Baso # (Auto) 0.0 (0.0-0.1) K/uL Sodium 149 H (136-148) mmol/L Potassium 3.7 (3.5-5.1) mmol/L Chloride 116 H (98-107) mmol/L Carbon Dioxide 22.8 (21.0-32.0) mmol/L BUN 73 H (7.0-18.0) mg/dL Creatinine 1.8 H (0.8-1.3) mg/dL Est Cr Clr Drug Dosing 11.17 mL/min Estimated GFR (MDRD) 36.0 ml/min Glucose 94 (74-106) mg/dL Calcium 7.9 L (8.5-10.1) mg/dL Phosphorus 3.1 (2.6-4.7) mg/dL Magnesium 2.0 (1.8-2.4) mg/dL Total Bilirubin 0.5 (0.2-1.0) mg/dL AST 50 H (15-37) IU/L ALT 40 (14-63) IU/L Alkaline Phosphatase 136 H (46-116) U/L Total Protein 5.7 L (6.4-8.2) g/dL Albumin 1.7 L (3.4-5.0) g/dL Globulin 4.0 (2.6-4.0) g/dL Albumin/Globulin Ratio 0.4 L (0.9-1.6) Kamari Results Last 24 Hours: Microbiology 12/23/20 19:00 Urine Culture - Preliminary Urine Klebsiella Pneumonia Ss Pneumo Gram Positive Cocci 12/24/20 06:17 Aerobic Blood Culture - Preliminary Blood - Venous - Lab Draw NO GROWTH AFTER 3 DAYS Anaerobic Blood Culture - Preliminary NO GROWTH AFTER 3 DAYS 12/24/20 06:07 Aerobic Blood Culture - Preliminary Blood - Venous NO GROWTH AFTER 3 DAYS Anaerobic Blood Culture - Preliminary NO GROWTH AFTER 3 DAYS Med Orders - Current: Current Medications Albuterol/Ipratropium (Albuterol/Ipratropium 3.0-0.5 Mg/3 Ml Neb Soln) 3 ml NEB Q4HRRT PRN PRN Reason: Shortness Of Breath/wheezing Heparin Sodium (Porcine) (Heparin Sodium 5,000 Units/Ml Vial) 5,000 units SUBCUT Q8H [facility] Last Admin: 12/27/20 05:11 Dose: Not Given Documented by: Meropenem/Sodium Chloride 1 gm (/ Premix) 50 mls @ 100 mls/hr IV Q12H [facility] Last Admin: 12/27/20 09:32 Dose: 100 mls/hr Documented by: Dextrose/Water (Dextrose 5% In Water) 1,000 mls @ 125 mls/hr IV ASDIRECTED [facility] Stop: 12/27/20 21:00 Lactated Ringer's (Ringers, Lactated) 1,000 mls @ 125 mls/hr IV Q8H [facility] Ondansetron HCl (Ondansetron 4 Mg/2 Ml Sdv) 4 mg IVPUSH Q4H PRN PRN Reason: Nausea/Vomiting Discontinued Medications Sodium Chloride (Normal Saline) 1,000 mls @ 800 mls/hr IV BOLUS ONE Stop: 12/23/20 18:14 Last Admin: 12/23/20 17:26 Dose: 800 mls/hr Documented by: Meropenem/Sodium Chloride 1 gm (/ Premix) 50 mls @ 100 mls/hr IV ONETIME ONE Stop: 12/23/20 17:36 Last Admin: 12/23/20 17:26 Dose: 100 mls/hr Documented by: Sodium Chloride (Normal Saline) 1,000 mls @ 90 mls/hr IV STAT ONE Stop: 12/24/20 05:55 Last Admin: 12/23/20 19:37 Dose: 90 mls/hr Documented by: Vancomycin HCl 1 gm/ Sodium (Chloride) 250 mls @ 166 mls/hr IV ONETIME ONE Stop: 12/23/20 20:57 Last Admin: 12/23/20 19:45 Dose: 166 mls/hr Documented by: Lactated Ringer's (Ringers, Lactated) 1,000 mls @ 125 mls/hr IV ASDIRECTED [facility] Last Infusion: 12/24/20 02:39 Dose: 0 mls/hr Documented by: Meropenem/Sodium Chloride (Meropenem In Ns 1 Gm/50 Ml) 50 mls @ 100 mls/hr IV Q8H [facility] Last Admin: 12/24/20 10:12 Dose: 100 mls/hr Documented by: Lactated Ringer's (Ringers, Lactated) 1,000 mls @ 999 mls/hr IV .BOLUS ONE Stop: 12/23/20 22:52 Last Admin: 12/23/20 22:50 Dose: 999 mls/hr Documented by: Dextrose/Water (Dextrose 5% In Water) 1,000 mls @ 125 mls/hr IV ASDIRECTED [facility] Dextrose/Water (Dextrose 5% In Water) 1,000 mls @ 125 mls/hr IV ONETIME ONE Stop: 12/24/20 08:42 Last Admin: 12/24/20 02:39 Dose: 125 mls/hr Documented by: Vancomycin HCl 1 gm/ Sodium (Chloride) 250 mls @ 166.667 mls/hr IV Q48H [facility] Dextrose/Water (Dextrose 5% In Water) 1,000 mls @ 125 mls/hr IV Q8H [facility] Last Admin: 12/26/20 11:59 Dose: Not Given Documented by: Meropenem/Sodium Chloride (Meropenem In Ns 1 Gm/50 Ml) 50 mls @ 100 mls/hr IV Q24H [facility] Lactated Ringer's (Ringers, Lactated) 1,000 mls @ 125 mls/hr IV Q8H [facility] Last Admin: 12/27/20 09:12 Dose: Not Given Documented by: Potassium Phosphate 20 mmole/ (Sodium Chloride) 506.6667 mls @ 67.5 mls/hr IV ONETIME ONE Stop: 12/26/20 15:37 Last Admin: 12/26/20 11:58 Dose: 67.5 mls/hr Documented by: Vancomycin HCl (Pharmacy To Dose - Vancomycin) 1 dose .XX ASDIRECTED [facility] - Exam Urinary Catheter Total Time: 1Days 16Hours General: No Acute Distress. No: Alert, Oriented Neck: Supple Lungs: Clear to Auscultation, Normal Respiratory Effort Cardiovascular: Regular Rate, Regular Rhythm GI/Abdominal Exam: Normal Bowel Sounds, Soft, Non-Tender Extremities: Normal Inspection, Other (Contracture noted in all 4 extremities) - Patient Data Lab Results Last 24 hrs: Laboratory Results - last 24 hr 12/27/20 12/27/20 Range/Units 07:20 07:20 WBC 13.04 H (4.0-11.0) K/uL RBC 4.08 L (4.50-5.90) M/uL Hgb 11.1 L (13.0-17.0) g/dL Hct 33.6 L (38.0-50.0) % MCV 82.4 (80.0-98.0) fL MCH 27.2 (27.0-32.0) pg MCHC 33.0 (31.0-37.0) g/dL RDW Std Deviation 47.0 (28.0-62.0) fl RDW Coeff of Mara 16 H (11.0-15.0) % Plt Count 149 L (150-400) K/uL MPV 11.20 (7.40-12.00) fL Neut % (Auto) 83.2 H (48.0-80.0) % Lymph % (Auto) 7.1 L (16.0-40.0) % [place] % (Auto) 8.1 (0.0-15.0) % Eos % (Auto) 1.4 (0.0-7.0) % Baso % (Auto) 0.2 (0.0-1.5) % Neut # (Auto) 10.9 H (1.4-5.7) K/uL Lymph # (Auto) 0.9 (0.6-2.4) K/uL [place] # (Auto) 1.1 H (0.0-0.8) K/uL Eos # (Auto) 0.2 (0.0-0.7) K/uL Baso # (Auto) 0.0 (0.0-0.1) K/uL Sodium 149 H (136-148) mmol/L Potassium 3.7 (3.5-5.1) mmol/L Chloride 116 H (98-107) mmol/L Carbon Dioxide 22.8 (21.0-32.0) mmol/L BUN 73 H (7.0-18.0) mg/dL Creatinine 1.8 H (0.8-1.3) mg/dL Est Cr Clr Drug Dosing 11.17 mL/min Estimated GFR (MDRD) 36.0 ml/min Glucose 94 (74-106) mg/dL Calcium 7.9 L (8.5-10.1) mg/dL Phosphorus 3.1 (2.6-4.7) mg/dL Magnesium 2.0 (1.8-2.4) mg/dL Total Bilirubin 0.5 (0.2-1.0) mg/dL AST 50 H (15-37) IU/L ALT 40 (14-63) IU/L Alkaline Phosphatase 136 H (46-116) U/L Total Protein 5.7 L (6.4-8.2) g/dL Albumin 1.7 L (3.4-5.0) g/dL Globulin 4.0 (2.6-4.0) g/dL Albumin/Globulin Ratio 0.4 L (0.9-1.6) Result Diagrams: 12/27/20 07:20 12/27/20 07:20 Kamari Results Last 24 hrs: Microbiology 12/23/20 19:00 Urine Culture - Preliminary Urine Klebsiella Pneumonia Ss Pneumo Gram Positive Cocci 12/24/20 06:17 Aerobic Blood Culture - Preliminary Blood - Venous - Lab Draw NO GROWTH AFTER 3 DAYS Anaerobic Blood Culture - Preliminary NO GROWTH AFTER 3 DAYS 12/24/20 06:07 Aerobic Blood Culture - Preliminary Blood - Venous NO GROWTH AFTER 3 DAYS Anaerobic Blood Culture - Preliminary NO GROWTH AFTER 3 DAYS Sepsis Event Note - Evaluation Sepsis Screening Result: No Definite Risk - Focused Exam Vital Signs: Vital Signs Temp Pulse Resp BP Pulse Ox 12/27/20 08:00 37.0 C 65 18 151/92 H 99 12/27/20 04:16 36.3 C 59 L 18 155/71 H 98 - Problem List & Annotations (1) Acute kidney injury SNOMED Code(s): 17119408, 33645524 Code(s): N17.9 - ACUTE KIDNEY FAILURE, UNSPECIFIED Status: Acute Current Visit: Yes (2) Dehydration SNOMED Code(s): 72700499 Code(s): E86.0 - DEHYDRATION Status: Acute Current Visit: Yes (3) Hypernatremia SNOMED Code(s): 409891493 Code(s): E87.0 - HYPEROSMOLALITY AND HYPERNATREMIA Status: Acute Current Visit: Yes (4) Sepsis SNOMED Code(s): 04011761 Code(s): A41.9 - SEPSIS, UNSPECIFIED ORGANISM Status: Resolved Current Visit: Yes Qualifiers: Sepsis type: sepsis due to unspecified organism Sepsis acute organ dysfunction status: unspecified Qualified Code(s): A41.9 - Sepsis, unspecified organism (5) UTI (urinary tract infection) SNOMED Code(s): 71297965 Code(s): N39.0 - URINARY TRACT INFECTION, SITE NOT SPECIFIED Status: Acute Current Visit: Yes Qualifiers: Urinary tract infection type: acute cystitis Hematuria presence: with hematuria Qualified Code(s): N30.01 - Acute cystitis with hematuria (6) ARF (acute renal failure) SNOMED Code(s): 66912411 Code(s): N17.9 - ACUTE KIDNEY FAILURE, UNSPECIFIED Status: Acute Current Visit: No Qualifiers: Acute renal failure type: unspecified Qualified Code(s): N17.9 - Acute kidney failure, unspecified (7) Bladder outlet obstruction SNOMED Code(s): 500115204 Code(s): N32.0 - BLADDER-NECK OBSTRUCTION Status: Acute Current Visit: No (8) Chronic kidney disease SNOMED Code(s): 209829082 Code(s): N18.9 - CHRONIC KIDNEY DISEASE, UNSPECIFIED Status: Chronic Current Visit: No Qualifiers: Chronic kidney disease stage: stage 4 (severe) Qualified Code(s): N18.4 - Chronic kidney disease, stage 4 (severe) (9) HTN (hypertension) SNOMED Code(s): 98959585 Code(s): I10 - ESSENTIAL (PRIMARY) HYPERTENSION Status: Chronic Current Visit: No Qualifiers: Hypertension type: essential hypertension Qualified Code(s): I10 - Essential (primary) hypertension (10) Parkinson disease SNOMED Code(s): 78084030 Code(s): G20 - PARKINSON'S DISEASE Status: Chronic Current Visit: No - Problem List Review Problem List Initiated/Reviewed/Updated: Yes - My Orders Last 24 Hours: My Active Orders 12/27/20 09:00 Dextrose 5% in Water 1,000 ml IV ASDIRECTED 12/27/20 21:00 Lactated Ringers [Ringers, Lactated] 1,000 ml IV Q8H - Plan Plan:: 85-year-old male admitted for acute renal failure likely secondary to chronic obstructive uropathy 1. Sepsis/UTI/Klebsiella pneumoniae bacteremia -Sepsis has resolved -First set of blood cultures 4 to 4 g negative rods noted. Returned with Klebsiella pneumoniae today, KAMARI pending. Repeat blood cultures so far negative x2 days -Continue Meropenem every 12hrs IV, pharmacy helping with dosing due to renal function -Continue IV fluid resuscitation, stop D5W today, Continue LR -Leukocytosis noted today, no fever no other signs of sepsis, second organism , gram-positive cocci noted in the urine is still pending culture and sensitivity -Urine culture pending -Palliative care as POA does not want transfer to higher level of care or aggressive medical management. She is okay with IV fluids and antibiotics at this time. 2. VIMAL on CKD secondary to chronic obstructive uropathy -VIMAL steadily improving, BUN 94 creatinine 2.4 today. -ATN noted we will continue aggressive IV fluid resuscitation -Recheck BMP in a.m. -Urine much more clear and improved urine output noted. -Continue Miller cares 3. Hypernatremia/hyperchloremia -Hypernatremia mild hyponatremia noted this morning, will resume D5 water up until this evening and resume LR at night recheck BMP in morning -Patient likely has low oral intake of free water, encourage free water intake VTE prophylaxis: Heparin CODE STATUS: DNR/DNI Dispo: Continues to steadily improve we will monitor daily. POA informed patient is slowly but steadily improving but continue to monitor for decompensation at any point. POA verbalized understanding, and continues to request if patient does decompensate she would want only comfort measures.
[2020-12-28] MEDS: Lactated Ringers 1,000 ML IV SCH ×4 (03:35→21:51)
[2020-12-28] MEDS: Heparin Sodium 5,000 Units/ML Vial SUBCUT SCH ×3 (07:03→21:51)
[2020-12-28 07:15] LABS: CARBON DIOXIDE,CO2 24.3 mmol/L (21.0-32.0); POTASSIUM,K 3.8 mmol/L (3.5-5.1)
[2020-12-28] MEDS: Meropenem Premix 1 GM in Premix Bag 1 BAG IV SCH (09:56)
--- NOTE | 2020-12-28 13:34 | PCM.PN ---
- General Info Date of Service: 12/28/20 Admission Dx/Problem (Free Text): Admission Diagnosis/Problem Admission Diagnosis/Problem Sepsis Subjective Update: Resting this morning. asking for water which was offered by me. no acute distress - Review of Systems Systems Review Comment:: unable to obtain, patient non verbal - Patient Data Vitals - Most Recent: Last Vital Signs Temp 37.2 C 12/28/20 13:00 Pulse 54 L 12/28/20 13:00 Resp 18 12/28/20 13:00 BP 146/65 H 12/28/20 13:00 Pulse Ox 97 12/28/20 13:00 Weight - Most Recent: 26.807 kg I&O - Last 24 Hours: Intake & Output 12/27/20 12/28/20 12/28/20 22:59 06:59 14:59 Intake Total 1050 1235 Output Total 975 850 Balance 75 385 Lab Results Last 24 Hours: Laboratory Results - last 24 hr 12/28/20 12/28/20 Range/Units 06:35 06:35 WBC 12.10 H (4.0-11.0) K/uL RBC 4.32 L (4.50-5.90) M/uL Hgb 11.7 L (13.0-17.0) g/dL Hct 35.8 L (38.0-50.0) % MCV 82.9 (80.0-98.0) fL MCH 27.1 (27.0-32.0) pg MCHC 32.7 (31.0-37.0) g/dL RDW Std Deviation 46.7 (28.0-62.0) fl RDW Coeff of Mara 16 H (11.0-15.0) % Plt Count 152 (150-400) K/uL MPV 12.10 H (7.40-12.00) fL Neut % (Auto) 78.9 (48.0-80.0) % Lymph % (Auto) 9.2 L (16.0-40.0) % [place] % (Auto) 9.3 (0.0-15.0) % Eos % (Auto) 2.4 (0.0-7.0) % Baso % (Auto) 0.2 (0.0-1.5) % Neut # (Auto) 9.6 H (1.4-5.7) K/uL Lymph # (Auto) 1.1 (0.6-2.4) K/uL [place] # (Auto) 1.1 H (0.0-0.8) K/uL Eos # (Auto) 0.3 (0.0-0.7) K/uL Baso # (Auto) 0.0 (0.0-0.1) K/uL Sodium 149 H (136-148) mmol/L Potassium 3.8 (3.5-5.1) mmol/L Chloride 116 H (98-107) mmol/L Carbon Dioxide 24.3 (21.0-32.0) mmol/L BUN 51 H (7.0-18.0) mg/dL Creatinine 1.5 H (0.8-1.3) mg/dL Est Cr Clr Drug Dosing 13.40 mL/min Estimated GFR (MDRD) 44.4 ml/min Glucose 85 (74-106) mg/dL Calcium 7.9 L (8.5-10.1) mg/dL Phosphorus 2.6 (2.6-4.7) mg/dL Magnesium 1.8 (1.8-2.4) mg/dL Kamari Results Last 24 Hours: Microbiology 12/23/20 19:00 Urine Culture - Final Urine Klebsiella Pneumonia Ss Pneumo Aerococcus Viridans 12/24/20 06:17 Aerobic Blood Culture - Preliminary Blood - Venous - Lab Draw NO GROWTH AFTER 4 DAYS Anaerobic Blood Culture - Preliminary NO GROWTH AFTER 4 DAYS 12/24/20 06:07 Aerobic Blood Culture - Preliminary Blood - Venous NO GROWTH AFTER 4 DAYS Anaerobic Blood Culture - Preliminary NO GROWTH AFTER 4 DAYS Med Orders - Current: Current Medications Albuterol/Ipratropium (Albuterol/Ipratropium 3.0-0.5 Mg/3 Ml Neb Soln) 3 ml NEB Q4HRRT PRN PRN Reason: Shortness Of Breath/wheezing Heparin Sodium (Porcine) (Heparin Sodium 5,000 Units/Ml Vial) 5,000 units SUBCUT Q8H [facility] Last Admin: 12/28/20 13:11 Dose: 5,000 units Documented by: Meropenem/Sodium Chloride 1 gm (/ Premix) 50 mls @ 100 mls/hr IV Q12H [facility] Last Admin: 12/28/20 09:56 Dose: 100 mls/hr Documented by: Lactated Ringer's (Ringers, Lactated) 1,000 mls @ 125 mls/hr IV Q8H [facility] Last Admin: 12/28/20 13:10 Dose: 125 mls/hr Documented by: Ondansetron HCl (Ondansetron 4 Mg/2 Ml Sdv) 4 mg IVPUSH Q4H PRN PRN Reason: Nausea/Vomiting Discontinued Medications Sodium Chloride (Normal Saline) 1,000 mls @ 800 mls/hr IV BOLUS ONE Stop: 12/23/20 18:14 Last Admin: 12/23/20 17:26 Dose: 800 mls/hr Documented by: Meropenem/Sodium Chloride 1 gm (/ Premix) 50 mls @ 100 mls/hr IV ONETIME ONE Stop: 12/23/20 17:36 Last Admin: 12/23/20 17:26 Dose: 100 mls/hr Documented by: Sodium Chloride (Normal Saline) 1,000 mls @ 90 mls/hr IV STAT ONE Stop: 12/24/20 05:55 Last Admin: 12/23/20 19:37 Dose: 90 mls/hr Documented by: Vancomycin HCl 1 gm/ Sodium (Chloride) 250 mls @ 166 mls/hr IV ONETIME ONE Stop: 12/23/20 20:57 Last Admin: 12/23/20 19:45 Dose: 166 mls/hr Documented by: Lactated Ringer's (Ringers, Lactated) 1,000 mls @ 125 mls/hr IV ASDIRECTED [facility] Last Infusion: 12/24/20 02:39 Dose: 0 mls/hr Documented by: Meropenem/Sodium Chloride (Meropenem In Ns 1 Gm/50 Ml) 50 mls @ 100 mls/hr IV Q8H [facility] Last Admin: 12/24/20 10:12 Dose: 100 mls/hr Documented by: Lactated Ringer's (Ringers, Lactated) 1,000 mls @ 999 mls/hr IV .BOLUS ONE Stop: 12/23/20 22:52 Last Admin: 12/23/20 22:50 Dose: 999 mls/hr Documented by: Dextrose/Water (Dextrose 5% In Water) 1,000 mls @ 125 mls/hr IV ASDIRECTED [facility] Dextrose/Water (Dextrose 5% In Water) 1,000 mls @ 125 mls/hr IV ONETIME ONE Stop: 12/24/20 08:42 Last Admin: 12/24/20 02:39 Dose: 125 mls/hr Documented by: Vancomycin HCl 1 gm/ Sodium (Chloride) 250 mls @ 166.667 mls/hr IV Q48H [facility] Dextrose/Water (Dextrose 5% In Water) 1,000 mls @ 125 mls/hr IV Q8H [facility] Last Admin: 12/26/20 11:59 Dose: Not Given Documented by: Meropenem/Sodium Chloride (Meropenem In Ns 1 Gm/50 Ml) 50 mls @ 100 mls/hr IV Q24H [facility] Lactated Ringer's (Ringers, Lactated) 1,000 mls @ 125 mls/hr IV Q8H [facility] Last Admin: 12/27/20 09:12 Dose: Not Given Documented by: Potassium Phosphate 20 mmole/ (Sodium Chloride) 506.6667 mls @ 67.5 mls/hr IV ONETIME ONE Stop: 12/26/20 15:37 Last Admin: 12/26/20 11:58 Dose: 67.5 mls/hr Documented by: Dextrose/Water (Dextrose 5% In Water) 1,000 mls @ 125 mls/hr IV ASDIRECTED [facility] Stop: 12/27/20 21:00 Last Admin: 12/27/20 14:05 Dose: 125 mls/hr Documented by: Vancomycin HCl (Pharmacy To Dose - Vancomycin) 1 dose .XX ASDIRECT[facility] - Exam Urinary Catheter Total Time: 1Days 16Hours General: No Acute Distress Lungs: Clear to Auscultation, Normal Respiratory Effort Cardiovascular: Regular Rate, Regular Rhythm GI/Abdominal Exam: Normal Bowel Sounds, Soft, Non-Tender (Male) Exam: Other (stoner in place) - Patient Data Lab Results Last 24 hrs: Laboratory Results - last 24 hr 12/28/20 12/28/20 Range/Units 06:35 06:35 WBC 12.10 H (4.0-11.0) K/uL RBC 4.32 L (4.50-5.90) M/uL Hgb 11.7 L (13.0-17.0) g/dL Hct 35.8 L (38.0-50.0) % MCV 82.9 (80.0-98.0) fL MCH 27.1 (27.0-32.0) pg MCHC 32.7 (31.0-37.0) g/dL RDW Std Deviation 46.7 (28.0-62.0) fl RDW Coeff of Mara 16 H (11.0-15.0) % Plt Count 152 (150-400) K/uL MPV 12.10 H (7.40-12.00) fL Neut % (Auto) 78.9 (48.0-80.0) % Lymph % (Auto) 9.2 L (16.0-40.0) % [place] % (Auto) 9.3 (0.0-15.0) % Eos % (Auto) 2.4 (0.0-7.0) % Baso % (Auto) 0.2 (0.0-1.5) % Neut # (Auto) 9.6 H (1.4-5.7) K/uL Lymph # (Auto) 1.1 (0.6-2.4) K/uL [place] # (Auto) 1.1 H (0.0-0.8) K/uL Eos # (Auto) 0.3 (0.0-0.7) K/uL Baso # (Auto) 0.0 (0.0-0.1) K/uL Sodium 149 H (136-148) mmol/L Potassium 3.8 (3.5-5.1) mmol/L Chloride 116 H (98-107) mmol/L Carbon Dioxide 24.3 (21.0-32.0) mmol/L BUN 51 H (7.0-18.0) mg/dL Creatinine 1.5 H (0.8-1.3) mg/dL Est Cr Clr Drug Dosing 13.40 mL/min Estimated GFR (MDRD) 44.4 ml/min Glucose 85 (74-106) mg/dL Calcium 7.9 L (8.5-10.1) mg/dL Phosphorus 2.6 (2.6-4.7) mg/dL Magnesium 1.8 (1.8-2.4) mg/dL Result Diagrams: 12/28/20 06:35 12/28/20 06:35 Kamari Results Last 24 hrs: Microbiology 12/23/20 19:00 Urine Culture - Final Urine Klebsiella Pneumonia Ss Pneumo Aerococcus Viridans 12/24/20 06:17 Aerobic Blood Culture - Preliminary Blood - Venous - Lab Draw NO GROWTH AFTER 4 DAYS Anaerobic Blood Culture - Preliminary NO GROWTH AFTER 4 DAYS 12/24/20 06:07 Aerobic Blood Culture - Preliminary Blood - Venous NO GROWTH AFTER 4 DAYS Anaerobic Blood Culture - Preliminary NO GROWTH AFTER 4 DAYS Sepsis Event Note - Evaluation Sepsis Screening Result: No Definite Risk - Focused Exam Vital Signs: Vital Signs Temp Pulse Resp BP BP Pulse Ox 12/28/20 13:00 37.2 C 54 L 18 146/65 H 97 12/28/20 09:00 37.6 C 61 20 143/64 H 98 12/28/20 03:41 36.8 C 61 20 146/72 H 98 - Problem List & Annotations (1) Acute kidney injury SNOMED Code(s): 79880845, 77213443 Code(s): N17.9 - ACUTE KIDNEY FAILURE, UNSPECIFIED Status: Acute Current Visit: Yes (2) Dehydration SNOMED Code(s): 19403963 Code(s): E86.0 - DEHYDRATION Status: Acute Current Visit: Yes (3) Hypernatremia SNOMED Code(s): 122850391 Code(s): E87.0 - HYPEROSMOLALITY AND HYPERNATREMIA Status: Acute Current Visit: Yes (4) Sepsis SNOMED Code(s): 35189041 Code(s): A41.9 - SEPSIS, UNSPECIFIED ORGANISM Status: Resolved Current Visit: Yes Qualifiers: Sepsis type: sepsis due to unspecified organism Sepsis acute organ dysfunction status: unspecified Qualified Code(s): A41.9 - Sepsis, unspecified organism (5) UTI (urinary tract infection) SNOMED Code(s): 68086574 Code(s): N39.0 - URINARY TRACT INFECTION, SITE NOT SPECIFIED Status: Acute Current Visit: Yes Qualifiers: Urinary tract infection type: acute cystitis Hematuria presence: with hematuria Qualified Code(s): N30.01 - Acute cystitis with hematuria (6) ARF (acute renal failure) SNOMED Code(s): 33027619 Code(s): N17.9 - ACUTE KIDNEY FAILURE, UNSPECIFIED Status: Acute Current Visit: No Qualifiers: Acute renal failure type: unspecified Qualified Code(s): N17.9 - Acute kidney failure, unspecified (7) Bladder outlet obstruction SNOMED Code(s): 698644690 Code(s): N32.0 - BLADDER-NECK OBSTRUCTION Status: Acute Current Visit: No (8) Chronic kidney disease SNOMED Code(s): 414474012 Code(s): N18.9 - CHRONIC KIDNEY DISEASE, UNSPECIFIED Status: Chronic Current Visit: No Qualifiers: Chronic kidney disease stage: stage 4 (severe) Qualified Code(s): N18.4 - Chronic kidney disease, stage 4 (severe) (9) HTN (hypertension) SNOMED Code(s): 65660150 Code(s): I10 - ESSENTIAL (PRIMARY) HYPERTENSION Status: Chronic Current Visit: No Qualifiers: Hypertension type: essential hypertension Qualified Code(s): I10 - Essential (primary) hypertension (10) Parkinson disease SNOMED Code(s): 95227388 Code(s): G20 - PARKINSON'S DISEASE Status: Chronic Current Visit: No - Problem List Review Problem List Initiated/Reviewed/Updated: Yes - My Orders Last 24 Hours: My Active Orders 12/27/20 21:00 Lactated Ringers [Ringers, Lactated] 1,000 ml IV Q8H - Plan Plan:: 85-year-old male admitted for acute renal failure likely secondary to chronic obstructive uropathy 1. Sepsis/UTI/Klebsiella pneumoniae bacteremia -Sepsis has resolved -blood cultures noted, Repeat blood cultures so far negative x2 days -will switch to Levaquin based on cultures -Continue IV fluid resuscitation, stop D5W today, Continue LR -Leukocytosis noted , imposing, no fever no other signs of sepsis, -Urine culture noted -Palliative care as POA does not want transfer to higher level of care or aggressive medical management. She is okay with IV fluids and antibiotics at this time. 2. VIMAL on CKD secondary to chronic obstructive uropathy -VIMAL steadily improving, B -ATN noted we will continue aggressive IV fluid resuscitation -Recheck BMP in a.m. -Urine much more clear and improved urine output noted. -Continue Stoner cares 3. Hypernatremia/hyperchloremia -Hypernatremia mild hypernatremia , cont LR -Patient likely has low oral intake of free water, encourage free water intake VTE prophylaxis: Heparin CODE STATUS: DNR/DNI Dispo: Continues to steadily improve we will monitor daily. POA informed patient is slowly but steadily improving but continue to monitor for decomp ensation at any point. POA verbalized understanding, and continues to request if patient does decompensate she would want only comfort measures.
[2020-12-28] MEDS ORDERED: Magnesium Hydroxide 400 MG/5 ML Susp 30 ML Cup PO PRN (14:38)
[2020-12-28] MEDS ORDERED: Bisacodyl 10 MG Supp RECTAL PRN (14:38)
[2020-12-28] MEDS ORDERED: Carbamide Peroxide 6.5% Otic Soln 15 ML Bottle EARBOTH PRN (14:38)
[2020-12-28] MEDS ORDERED: Levofloxacin/Dextrose 5%-Water 750 MG in Premix Bag 1 BAG IV ONE (14:45)
[2020-12-28] MEDS ORDERED: Menthol/Methyl Salicylate 29 GM Tube TOP PRN (15:43)
[2020-12-28] MEDS: Carbidopa/Levodopa 50-200 MG Tab.ER PO SCH ×2 (17:42→23:45)
[2020-12-28] MEDS: OXcarbazepine 300 MG Tab PO SCH (21:51)
[2020-12-29] MEDS: Carbidopa/Levodopa 50-200 MG Tab.ER PO SCH ×3 (05:15→18:49)
[2020-12-29] MEDS: Heparin Sodium 5,000 Units/ML Vial SUBCUT SCH ×3 (05:15→22:00)
[2020-12-29 06:09] LABS: CARBON DIOXIDE,CO2 22.8 mmol/L (21.0-32.0); POTASSIUM,K 3.6 mmol/L (3.5-5.1)
[2020-12-29] MEDS: Omeprazole 20 MG Cap.CR PO SCH (06:30)
[2020-12-29] MEDS: Levothyroxine 25 MCG Tab PO SCH (06:30)
[2020-12-29] MEDS: Lactated Ringers 1,000 ML IV SCH (07:36)
[2020-12-29] MEDS ORDERED: Magnesium Sulfate/Water 2 GM in Premix Bag 1 BAG IV ONE (08:30)
--- NOTE | 2020-12-29 11:27 | PCM.PN ---
- General Info Date of Service: 12/29/20 Admission Dx/Problem (Free Text): Admission Diagnosis/Problem Admission Diagnosis/Problem Sepsis Subjective Update: Patient more verbal this morning. Denies any pain denies any chest pain denies any abdominal pain. Reporting he is thirsty. No other complaints at this time Functional Status: Reports: Pain Controlled, Tolerating Diet - Review of Systems General: Reports: Weakness, Fatigue HEENT: Reports: Other (Thirsty). Denies: Headaches, Sore Throat, Visual Changes Pulmonary: Reports: No Symptoms. Denies: Shortness of Breath Cardiovascular: Reports: No Symptoms. Denies: Chest Pain Gastrointestinal: Reports: No Symptoms. Denies: Abdominal Pain, Nausea, Vomiting Genitourinary: Reports: No Symptoms. Denies: Dysuria, Frequency Musculoskeletal: Reports: No Symptoms Skin: Reports: No Symptoms Neurological: Reports: No Symptoms Psychiatric: Reports: No Symptoms - Patient Data Vitals - Most Recent: Last Vital Signs Temp 98.8 F 12/29/20 09:36 Pulse 71 12/29/20 09:36 Resp 18 12/29/20 09:36 BP 156/72 H 12/29/20 09:36 Pulse Ox 97 12/29/20 09:36 Weight - Most Recent: 26.807 kg I&O - Last 24 Hours: Intake & Output 12/28/20 12/29/20 12/29/20 22:59 06:59 14:59 Intake Total 1421 1283 Output Total 650 800 Balance 771 483 Lab Results Last 24 Hours: Laboratory Results - last 24 hr 12/29/20 12/29/20 Range/Units 05:10 05:10 WBC 10.71 (4.0-11.0) K/uL RBC 3.51 L (4.50-5.90) M/uL Hgb 9.6 L (13.0-17.0) g/dL Hct 29.4 L (38.0-50.0) % MCV 83.8 (80.0-98.0) fL MCH 27.4 (27.0-32.0) pg MCHC 32.7 (31.0-37.0) g/dL RDW Std Deviation 45.5 (28.0-62.0) fl RDW Coeff of Mara 15 (11.0-15.0) % Plt Count 266 (150-400) K/uL MPV 11.30 (7.40-12.00) fL Neut % (Auto) 77.3 (48.0-80.0) % Lymph % (Auto) 11.3 L (16.0-40.0) % [place] % (Auto) 8.1 (0.0-15.0) % Eos % (Auto) 2.9 (0.0-7.0) % Baso % (Auto) 0.4 (0.0-1.5) % Neut # (Auto) 8.3 H (1.4-5.7) K/uL Lymph # (Auto) 1.2 (0.6-2.4) K/uL [place] # (Auto) 0.9 H (0.0-0.8) K/uL Eos # (Auto) 0.3 (0.0-0.7) K/uL Baso # (Auto) 0.0 (0.0-0.1) K/uL Sodium 148 (136-148) mmol/L Potassium 3.6 (3.5-5.1) mmol/L Chloride 116 H (98-107) mmol/L Carbon Dioxide 22.8 (21.0-32.0) mmol/L BUN 36 H (7.0-18.0) mg/dL Creatinine 1.3 (0.8-1.3) mg/dL Est Cr Clr Drug Dosing 15.47 mL/min Estimated GFR (MDRD) 52.3 ml/min Glucose 82 (74-106) mg/dL Calcium 7.9 L (8.5-10.1) mg/dL Phosphorus 2.5 L (2.6-4.7) mg/dL Magnesium 1.7 L (1.8-2.4) mg/dL Kamari Results Last 24 Hours: Microbiology 12/24/20 06:17 Aerobic Blood Culture - Final Blood - Venous - Lab Draw NO GROWTH AFTER 5 DAYS Anaerobic Blood Culture - Final NO GROWTH AFTER 5 DAYS 12/24/20 06:07 Aerobic Blood Culture - Final Blood - Venous NO GROWTH AFTER 5 DAYS Anaerobic Blood Culture - Final NO GROWTH AFTER 5 DAYS 12/23/20 19:00 Urine Culture - Final Urine Klebsiella Pneumonia Ss Pneumo Aerococcus Viridans Med Orders - Current: Current Medications Albuterol/Ipratropium (Albuterol/Ipratropium 3.0-0.5 Mg/3 Ml Neb Soln) 3 ml NEB Q4HRRT PRN PRN Reason: Shortness Of Breath/wheezing Bisacodyl (Bisacodyl 10 Mg Supp) 10 mg RECTAL Q24H PRN PRN Reason: Constipation Carbamide Perox/Anhydrous Glycerin (Carbamide Peroxide 6.5% Otic Soln 15 Ml Bottle) 0 ml EARBOTH BID PRN PRN Reason: Other Carbidopa/Levodopa (Carbidopa/Levodopa 50-200 Mg Tab.Er) 1 tab PO QID [facility] Last Admin: 12/29/20 05:15 Dose: 1 tab Documented by: Heparin Sodium (Porcine) (Heparin Sodium 5,000 Units/Ml Vial) 5,000 units SUBC UT Q8H [facility] Last Admin: 12/29/20 05:15 Dose: 5,000 units Documented by: Levofloxacin/Dextrose (Levaquin In D5w 500 Mg/100 Ml) 100 mls @ 100 mls/hr IV Q48H [facility] Magnesium Sulfate 2 gm/ Premix 50 mls @ 12.5 mls/hr IV ONETIME ONE Stop: 12/29/20 12:29 Last Admin: 12/29/20 09:27 Dose: 12.5 mls/hr Documented by: Levothyroxine Sodium (Levothyroxine 25 Mcg Tab) 25 mcg PO ACBREAKFAST [facility] Last Admin: 12/29/20 06:30 Dose: 25 mcg Documented by: Magnesium Hydroxide (Magnesium Hydroxide 400 Mg/5 Ml Susp 30 Ml Cup) 30 ml PO DAILY PRN PRN Reason: Constipation Methyl Salicylate (Menthol/Methyl Salicylate 29 Gm Tube) 0 gm TOP Q8H PRN PRN Reason: Pain Omeprazole (Omeprazole 20 Mg Cap.Cr) 20 mg PO ACBREAKFAST [facility] Last Admin: 12/29/20 06:30 Dose: 20 mg Documented by: Ondansetron HCl (Ondansetron 4 Mg/2 Ml Sdv) 4 mg IVPUSH Q4H PRN PRN Reason: Nausea/Vomiting Oxcarbazepine (Oxcarbazepine 300 Mg Tab) 150 mg PO QAM [facility] Oxcarbazepine (Oxcarbazepine 300 Mg Tab) 300 mg PO BEDTIME [facility] Last Admin: 12/28/20 21:51 Dose: 300 mg Documented by: Discontinued Medications Sodium Chloride (Normal Saline) 1,000 mls @ 800 mls/hr IV BOLUS ONE Stop: 12/23/20 18:14 Last Admin: 12/23/20 17:26 Dose: 800 mls/hr Documented by: Meropenem/Sodium Chloride 1 gm (/ Premix) 50 mls @ 100 mls/hr IV ONETIME ONE Stop: 12/23/20 17:36 Last Admin: 12/23/20 17:26 Dose: 100 mls/hr Documented by: Sodium Chloride (Normal Saline) 1,000 mls @ 90 mls/hr IV STAT ONE Stop: 12/24/20 05:55 Last Admin: 12/23/20 19:37 Dose: 90 mls/hr Documented by: Vancomycin HCl 1 gm/ Sodium (Chloride) 250 mls @ 166 mls/hr IV ONETIME ONE Stop: 12/23/20 20:57 Last Admin: 12/23/20 19:45 Dose: 166 mls/hr Documented by: Lactated Ringer's (Ringers, Lactated) 1,000 mls @ 125 mls/hr IV ASDIRECTED [facility] Last Infusion: 12/24/20 02:39 Dose: 0 mls/hr Documented by: Meropenem/Sodium Chloride (Meropenem In Ns 1 Gm/50 Ml) 50 mls @ 100 mls/hr IV Q8H [facility] Last Admin: 12/24/20 10:12 Dose: 100 mls/hr Documented by: Lactated Ringer's (Ringers, Lactated) 1,000 mls @ 999 mls/hr IV .BOLUS ONE Stop: 12/23/20 22:52 Last Admin: 12/23/20 22:50 Dose: 999 mls/hr Documented by: Dextrose/Water (Dextrose 5% In Water) 1,000 mls @ 125 mls/hr IV ASDIRECTED [facility] Dextrose/Water (Dextrose 5% In Water) 1,000 mls @ 125 mls/hr IV ONETIME ONE Stop: 12/24/20 08:42 Last Admin: 12/24/20 02:39 Dose: 125 mls/hr Documented by: Vancomycin HCl 1 gm/ Sodium (Chloride) 250 mls @ 166.667 mls/hr IV Q48H [facility] Dextrose/Water (Dextrose 5% In Water) 1,000 mls @ 125 mls/hr IV Q8H [facility] Last Admin: 12/26/20 11:59 Dose: Not Given Documented by: Meropenem/Sodium Chloride (Meropenem In Ns 1 Gm/50 Ml) 50 mls @ 100 mls/hr IV Q24H [facility] Meropenem/Sodium Chloride 1 gm (/ Premix) 50 mls @ 100 mls/hr IV Q12H [facility] Last Admin: 12/28/20 09:56 Dose: 100 mls/hr Documented by: Lactated Ringer's (Ringers, Lactated) 1,000 mls @ 125 mls/hr IV Q8H [facility] Last Admin: 12/27/20 09:12 Dose: Not Given Documented by: Potassium Phosphate 20 mmole/ (Sodium Chloride) 506.6667 mls @ 67.5 mls/hr IV ONETIME ONE Stop: 12/26/20 15:37 Last Admin: 12/26/20 11:58 Dose: 67.5 mls/hr Documented by: Dextrose/Water (Dextrose 5% In Water) 1,000 mls @ 125 mls/hr IV ASDIRECTED [facility] Stop: 12/27/20 21:00 Last Admin: 12/27/20 14:05 Dose: 125 mls/hr Documented by: Lactated Ringer's (Ringers, Lactated) 1,000 mls @ 125 mls/hr IV Q8H [facility] Last Admin: 12/29/20 07:36 Dose: 125 mls/hr Documented by: Levofloxacin/Dextrose 750 mg/ (Premix) 150 mls @ 100 mls/hr IV ONETIME ONE Stop: 12/28/20 16:14 Last Admin: 12/28/20 16:01 Dose: 100 mls/hr Documented by: Vancomycin HCl (Pharmacy To Dose - Vancomycin) 1 dose .XX ASDIRECTED [facility] - Exam Quality Assessment: No: Supplemental Oxygen Urinary Catheter Total Time: 1Days 16Hours General: Alert, Oriented, Cooperative, No Acute Distress HEENT: Mucous Membr. Moist/[place] Lungs: Clear to Auscultation, Normal Respiratory Effort Cardiovascular: Regular Rate, Regular Rhythm GI/Abdominal Exam: Normal Bowel Sounds, Soft, Non-Tender Extremities: Normal Inspection, Normal Range of Motion, Non-Tender, No Pedal Edema Neurological: No New Focal Deficit Psy/Mental Status: Alert, Normal Affect, Normal Mood - Patient Data Lab Results Last 24 hrs: Laboratory Results - last 24 hr 12/29/20 12/29/20 Range/Units 05:10 05:10 WBC 10.71 (4.0-11.0) K/uL RBC 3.51 L (4.50-5.90) M/uL Hgb 9.6 L (13.0-17.0) g/dL Hct 29.4 L (38.0-50.0) % MCV 83.8 (80.0-98.0) fL MCH 27.4 (27.0-32.0) pg MCHC 32.7 (31.0-37.0) g/dL RDW Std Deviation 45.5 (28.0-62.0) fl RDW Coeff of Mara 15 (11.0-15.0) % Plt Count 266 (150-400) K/uL MPV 11.30 (7.40-12.00) fL Neut % (Auto) 77.3 (48.0-80.0) % Lymph % (Auto) 11.3 L (16.0-40.0) % [place] % (Auto) 8.1 (0.0-15.0) % Eos % (Auto) 2.9 (0.0-7.0) % Baso % (Auto) 0.4 (0.0-1.5) % Neut # (Auto) 8.3 H (1.4-5.7) K/uL Lymph # (Auto) 1.2 (0.6-2.4) K/uL [place] # (Auto) 0.9 H (0.0-0.8) K/uL Eos # (Auto) 0.3 (0.0-0.7) K/uL Baso # (Auto) 0.0 (0.0-0.1) K/uL Sodium 148 (136-148) mmol/L Potassium 3.6 (3.5-5.1) mmol/L Chloride 116 H (98-107) mmol/L Carbon Dioxide 22.8 (21.0-32.0) mmol/L BUN 36 H (7.0-18.0) mg/dL Creatinine 1.3 (0.8-1.3) mg/dL Est Cr Clr Drug Dosing 15.47 mL/min Estimated GFR (MDRD) 52.3 ml/min Glucose 82 (74-106) mg/dL Calcium 7.9 L (8.5-10.1) mg/dL Phosphorus 2.5 L (2.6-4.7) mg/dL Magnesium 1.7 L (1.8-2.4) mg/dL Result Diagrams: 12/29/20 05:10 12/29/20 05:10 Kamari Results Last 24 hrs: Microbiology 12/24/20 06:17 Aerobic Blood Culture - Final Blood - Venous - Lab Draw NO GROWTH AFTER 5 DAYS Anaerobic Blood Culture - Final NO GROWTH AFTER 5 DAYS 12/24/20 06:07 Aerobic Blood Culture - Final Blood - Venous NO GROWTH AFTER 5 DAYS Anaerobic Blood Culture - Final NO GROWTH AFTER 5 DAYS 12/23/20 19:00 Urine Culture - Final Urine Klebsiella Pneumonia Ss Pneumo Aerococcus Viridans Sepsis Event Note - Evaluation Sepsis Screening Result: No Definite Risk - Focused Exam Vital Signs: Vital Signs Temp Pulse Resp BP Pulse Ox 12/29/20 09:36 98.8 F 71 18 156/72 H 97 12/29/20 03:31 97.5 F 67 20 161/73 H 98 12/28/20 23:42 98.5 F 65 20 158/68 H 98 - Problem List & Annotations (1) Bacteremia due to Klebsiella pneumoniae SNOMED Code(s): 922860048313 Code(s): R78.81 - BACTEREMIA; B96.1 - KLEBSIELLA PNEUMONIAE THE CAUSE OF DISEASES CLASSD [id number] Status: Acute Current Visit: Yes (2) Sepsis SNOMED Code(s): 80907065 Code(s): A41.9 - SEPSIS, UNSPECIFIED ORGANISM Status: Resolved Current Visit: Yes Qualifiers: Sepsis type: sepsis due to unspecified organism Sepsis acute organ dysfunction status: unspecified Qualified Code(s): A41.9 - Sepsis, unspecified organism (3) Acute kidney injury SNOMED Code(s): 85831010, 67481707 Code(s): N17.9 - ACUTE KIDNEY FAILURE, UNSPECIFIED Status: Acute Current Visit: Yes (4) Dehydration SNOMED Code(s): 25726180 Code(s): E86.0 - DEHYDRATION Status: Acute Current Visit: Yes (5) Hypernatremia SNOMED Code(s): 406220492 Code(s): E87.0 - HYPEROSMOLALITY AND HYPERNATREMIA Status: Acute Current Visit: Yes (6) Palliative care patient SNOMED Code(s): 567046601, 413387441 Code(s): Z51.5 - ENCOUNTER FOR PALLIATIVE CARE Status: Acute Current Visit: Yes (7) UTI (urinary tract infection) SNOMED Code(s): 07358711 Code(s): N39.0 - URINARY TRACT INFECTION, SITE NOT SPECIFIED Status: Acute Current Visit: Yes Qualifiers: Urinary tract infection type: acute cystitis Hematuria presence: with hematuria Qualified Code(s): N30.01 - Acute cystitis with hematuria (8) Chronic kidney disease SNOMED Code(s): 701635144 Code(s): N18.9 - CHRONIC KIDNEY DISEASE, UNSPECIFIED Status: Chronic Current Visit: No Qualifiers: Chronic kidney disease stage: stage 4 (severe) Qualified Code(s): N18.4 - Chronic kidney disease, stage 4 (severe) (9) HTN (hypertension) SNOMED Code(s): 11922640 Code(s): I10 - ESSENTIAL (PRIMARY) HYPERTENSION Status: Chronic Current Visit: No Qualifiers: Hypertension type: essential hypertension Qualified Code(s): I10 - Essential (primary) hypertension (10) Parkinson disease SNOMED Code(s): 01348923 Code(s): G20 - PARKINSON'S DISEASE Status: Chronic Current Visit: No - Problem List Review Problem List Initiated/Reviewed/Updated: Yes - My Orders Last 24 Hours: My Active Orders 12/29/20 08:30 Magnesium Sulfate/Water [Magnesium Sulfate in Water 2 GM/50 ML] 2 gm Premix Bag 1 bag IV ONETIME 12/29/20 11:10 Consult to Speech Language Pathology [FRONT END MANAGER Evaluation and Treatment] [CONS] Routine - Plan Plan:: 85-year-old male admitted for acute renal failure likely secondary to chronic obstructive uropathy 1. Klebsiella pneumonia UTI/Klebsiella pneumoniae bacteremia -Sepsis has resolved -blood cultures noted, Repeat blood cultures so far negative x2 days -Continue Levaquin based on cultures -We will discontinue LR today encourage p.o. intake -Urine culture noted -Palliative care as POA does not want transfer to higher level of care or aggressive medical management. She is okay with IV fluids and antibiotics at this time. 2. VIMAL on CKD secondary to chronic obstructive uropathy -VIMAL steadily improving -Recheck BMP in a.m. -Continue [place] cares 3. Hypernatremia/hyperchloremia -Improved -Continue to pus oral water intake may need to consider intermittent IV fluids at [facility] to keep patient hydrated. -Patient likely has low oral intake of free water, encourage free water intake 4. Dysphagia -Unable to suck from straw -Consult speech therapy for evaluation of swallowing VTE prophylaxis: Heparin CODE STATUS: DNR/DNI Dispo: Possible discharge in a.m. we will continue to monitor and recheck labs in the morning
[2020-12-29] MEDS ORDERED: Levofloxacin/Dextrose 5%-Water 100 ML IV SCH (12:00)
[2020-12-29] MEDS: OXcarbazepine 300 MG Tab PO SCH ×2 (12:58→22:01)
[2020-12-30] MEDS: Carbidopa/Levodopa 50-200 MG Tab.ER PO SCH ×3 (00:29→11:41)
[2020-12-30 06:29] LABS: CARBON DIOXIDE,CO2 22.8 mmol/L (21.0-32.0); POTASSIUM,K 3.9 mmol/L (3.5-5.1)
[2020-12-30] MEDS: Omeprazole 20 MG Cap.CR PO SCH (06:42)
[2020-12-30] MEDS: Levothyroxine 25 MCG Tab PO SCH (06:42)
[2020-12-30] MEDS: Heparin Sodium 5,000 Units/ML Vial SUBCUT SCH (06:42)
[2020-12-30] MEDS: Lactated Ringers 1,000 ML IV SCH (07:52)
--- NOTE | 2020-12-30 09:31 | PCM.DCSUM1 ---
Discharge Summary - Hospital Course Brief History: Patient is a 85-year-old male with past medical history of advanced Parkinson's disease, failure to thrive, need/noncommunicative at baseline who presents to the emergency room from [facility] via EMS due to concern of leukocytosis and foul-smelling dark urine. Patient has chronic indwelling catheter due to enlarged prostate and has history of frequent urinary tract infections. Per nursing at bedside patient had not been eating and drinking as much the last 3 days. Today there is a reported loss of consciousness as well as patient seemed to be more tired and lethargic than usual. Patient is nonverbal nonambulatory at baseline due to which the history taken has been limited and most of the history has been taken from ER and previous notes. Patient's power of district attorney is at bedside while in the ER and ER provider was able to talk with him in detail about goals of care. Upon further work-up Patient's CBC notable for WBC of 39.09 and lactate WNL, Hgb 12.1, HCT 36.2, neutrophil percent 85, Patient CMP notable for sodium elevated 156, chloride 118, carbon dioxide 18.5, BUN elevated 148, creatinine elevated 5.8 with concern for VIMAL, AST mildly elevated 60, ALT 10, alkaline phosphatase elevated 233. Blood cultures pending. Trop negative. Lipase WNL. Urinalysis does show greater than 300 protein, positive leukocyte Estrace with 10-20 red blood cells, 30-40 white blood cells, 4+ bacteria. Impression acute cystitis. Head CT shows no evidence of acute infarction, intracranial hemorrhage, or mass- effect seen. Coarse irregular calcifications are present along the posterior left lobe and small focus of calcification is seen along the posterior right lobe. Correlate with ophthalmic exam may be helpful. Abdominal pelvic CT shows chronic bladder outlet obstruction appearance with prostatomegaly and bilateral mild hydronephrosis. Cystitis or a sending infection for source of sepsis. Urinalysis correlation recommended. Large hiatal hernia with entire stomach in the thoracic cavity, extending above the [id number]. Some organoaxial volvulus is present but no obstruction. Cholelithiasis. Patient received aggressive IV hydration in the ER. . ER provider spoke to patient's medical power of district attorney, Justine Urban, who states that patient is a DNR/DNI. She states that she would not want patient to be transferred under any circumstance and believes that patient would not want this for himself. She is in agreement with receiving IV fluids and IV antibiotics but does not want patient to receive any "above and beyond" treatment. Patient was admitted for further management - Discharge Data Discharge Date: 12/30/20 Discharge Disposition: DC/Tfer to SNF 03 Condition: Fair - Referral to Home Health Primary Care Physician: PCP None - Discharge Diagnosis/Problem(s) (1) Bacteremia due to Klebsiella pneumoniae SNOMED Code(s): 380964011345 ICD Code: R78.81 - BACTEREMIA; B96.1 - KLEBSIELLA PNEUMONIAE THE CAUSE OF DISEASES CLASSD ELSWHR Status: Acute Current Visit: Yes (2) Sepsis SNOMED Code(s): 49522109 ICD Code: A41.9 - SEPSIS, UNSPECIFIED ORGANISM Status: Resolved Current Visit: Yes Qualifiers: Sepsis type: sepsis due to unspecified organism Sepsis acute organ dysfunction status: unspecified Qualified Code(s): A41.9 - Sepsis, unspecified organism (3) Acute kidney injury SNOMED Code(s): 43063805, 45204598 ICD Code: N17.9 - ACUTE KIDNEY FAILURE, UNSPECIFIED Status: Acute Current Visit: Yes (4) Dehydration SNOMED Code(s): 70298966 ICD Code: E86.0 - DEHYDRATION Status: Acute Current Visit: Yes (5) Hypernatremia SNOMED Code(s): 731296469 ICD Code: E87.0 - HYPEROSMOLALITY AND HYPERNATREMIA Status: Acute Current Visit: Yes (6) Palliative care patient SNOMED Code(s): 636248087, 780271910 ICD Code: Z51.5 - ENCOUNTER FOR PALLIATIVE CARE Status: Acute Current Visit: Yes (7) UTI (urinary tract infection) SNOMED Code(s): 81418040 ICD Code: N39.0 - URINARY TRACT INFECTION, SITE NOT SPECIFIED Status: Acute Current Visit: Yes Qualifiers: Urinary tract infection type: acute cystitis Hematuria presence: with hematuria Qualified Code(s): N30.01 - Acute cystitis with hematuria (8) Chronic kidney disease SNOMED Code(s): 777219032 ICD Code: N18.9 - CHRONIC KIDNEY DISEASE, UNSPECIFIED Status: Chronic Current Visit: No Qualifiers: Chronic kidney disease stage: stage 4 (severe) Qualified Code(s): N18.4 - Chronic kidney disease, stage 4 (severe) (9) HTN (hypertension) SNOMED Code(s): 53475997 ICD Code: I10 - ESSENTIAL (PRIMARY) HYPERTENSION Status: Chronic Current Visit: No Qualifiers: Hypertension type: essential hypertension Qualified Code(s): I10 - Essential (primary) hypertension (10) Parkinson disease SNOMED Code(s): 65836165 ICD Code: G20 - PARKINSON'S DISEASE Status: Chronic Current Visit: No - Patient Summary/Data Consults: Consultations 12/24/20 06:42 Consult to Case Management/Schedule Supervisor [CONS] Routine 12/29/20 11:10 Consult to Speech Language Pathology [CASTING ASSOCIATE Evaluation and Treatment] [CONS] Routine Hospital Course: Admission diagnoses Sepsis Complicated UTI Hypernatremia Dehydration VIMAL Discharge diagnoses Sepsisresolved Klebsiella pneumonia bacteremia Klebsiella pneumoniae UTI Hypernatremia resolved Dehydration resolved VIMAL resolved Other PMH CKD HTN Parkinson's Lalo was admitted secondary to sepsis from complicated UTI. He was started on broad-spectrum antibiotics which included meropenem and vancomycin for possible multidrug-resistant UTI. Blood cultures returned positive within the first 24 hours. Repeat blood cultures were obtained. Patient treated with aggressive IV fluid resuscitation. Patient's power of district attorney, Justine, was upd ated on patient condition and at that time she had requested no transfer to higher level of care or aggressive management, such as central line and the pressors. She was okay with IV antibiotics and IV fluids for hydration. Over the next week patient slowly and steadily improved with hydration. Due to hypernatremia he was treated with D5 water which slowly and steadily improved hypernatremia. Patient was eventually switched to L,R sodium remained stable and patient started taking more oral hydration in as mental status improved. Patient BUN and creatinine steadily improved and today BUN is 28 and creatinine 1.4. Patient much more alert today and conversational. He is able to tell you when he is thirsty as well as refusing cares intermittently. Blood cultures and urine culture did return with Klebsiella pneumoniae which is sensitive to Levaquin. Repeat cultures on antibiotics remained negative. Patient was switched from meropenem and vancomycin to Levaquin and has remained stable. He will be discharged home with a total course of 14-day antibiotic treatment for bacteremia and UTI. Patient will have total 5-day course of Levaquin 500 mg every 48 hours to complete this. Patient Justine MULLINS, was updated today at bedside and she feels confident regarding patient going back to [place]. She was encouraged to keep a close eye on him and to continue to encourage oral free wa ter intake. Miller catheter was changed on admission due to significant UTI. This needs to be changed every 30 days or sooner if infection is noted. Patient will be continued on home medications along with half-normal saline 500 mL daily at 42 mils an hour. I did update Dr. Burroughs regarding his stay here and treatment course along with recommendations and lab work to be completed as outpatient. Plan to be discharged home today to [facility]. PT OT and speech therapy will evaluate and treat as necessary. He is to return to the ER clinic sooner if concerns should arise. - Patient Instructions Diet: Pureed (Regular, thin consistency, 2 handle cup with lid. regular texture donut and toast with peanut butter/jelly) Activity: As Tolerated Driving: Do Not Drive Showering/Bathing: May Shower Notify Provider of: Fever, Increased Pain, Swelling and Redness, Drainage, Nausea and/or Vomiting Other/Special Instructions: PT/OT/ST to evaluate and treat. Push free water intake often to decrease risk of dehydration. Miller catheter cares per instituation policy - Discharge Plan *PRESCRIPTION DRUG MONITORING PROGRAM REVIEWED*: Not Applicable *COPY OF PRESCRIPTION DRUG MONITORING REPORT IN PATIENT BEHZAD: Not Applicable Prescriptions/Med Rec: levoFLOXacin [Levaquin] 500 mg PO Q48H #3 tab traZODone 25 mg PO BEDTIME #7 tab Home Medications: Home Meds Carbidopa/Levodopa [Carbidopa-Levo ER 50-200] 1 tab PO QID 07/18/15 [History] OXcarbazepine [Trileptal] 150 mg PO QAM 07/18/15 [History] Levothyroxine 25 mcg PO ACBREAKFAST 07/23/15 [History] Multivitamin [Multivitamins] 1 tab PO DAILY 07/23/15 [History] OXcarbazepine [Trileptal] 300 mg PO BEDTIME 07/23/15 [History] Bisacodyl [Biscolax] 10 mg RECTAL Q24H PRN 10/29/17 [History] Acetaminophen [Tylenol Arthritis] 650 mg PO TID 01/17/18 [History] Carbamide Peroxide [Debrox 6.5% Otic Soln] 3 drop OT BID PRN 12/23/20 [History] Magnesium Hydroxide [Milk of Magnesia] 30 ml PO DAILY PRN 12/23/20 [History] Methyl Salicylate/Menthol [Icy Hot 10-30% Cream] 1 applic TOP Q8H PRN 12/23/20 [History] Omeprazole 20 mg PO ACBREAKFAST 12/23/20 [History] Sodium Chloride 0.9% [Normal Saline] 42 ml IV ASDIRECTED PRN 12/23/20 [History] calcium polycarbophiL [Fiber Tabs] 3 tab PO BEDTIME 12/23/20 [History] polyethylene glycoL 3350 [MiraLAX] 17 gm PO BID 12/23/20 [History] Aspirin 325 mg PO 12/24/20 [History] levoFLOXacin [Levaquin] 500 mg PO Q48H #3 tab 12/30/20 [Rx] traZODone 25 mg PO BEDTIME #7 tab 12/30/20 [Rx] Oxygen Therapy Mode: Room Air Patient Handouts: Trazodone tablets, Urinary Tract Infection, Adult, Levofloxacin tablets Referrals: Jhonny Burroughs MD [Ordering Only Provider] - - Discharge Summary/Plan Comment DC Time >30 min.: No - Patient Data Vitals - Most Recent: Last Vital Signs Temp 97.8 F 12/30/20 05:00 Pulse 67 12/30/20 05:00 Resp 16 12/30/20 05:00 BP 128/92 H 12/30/20 05:00 Pulse Ox 92 L 12/30/20 05:00 Weight - Most Recent: 26.807 kg I&O - Last 24 hours: Intake & Output 12/29/20 12/30/20 12/30/20 22:59 06:59 14:59 Intake Total 1147 10 Output Total 850 600 Balance 297 -590 Lab Results - Last 24 hrs: Laboratory Results - last 24 hr 12/30/20 12/30/20 Range/Units 05:30 05:30 WBC 11.40 H (4.0-11.0) K/uL RBC 3.59 L (4.50-5.90) M/uL Hgb 9.7 L (13.0-17.0) g/dL Hct 30.0 L (38.0-50.0) % MCV 83.6 (80.0-98.0) fL MCH 27.0 (27.0-32.0) pg MCHC 32.3 (31.0-37.0) g/dL RDW Std Deviation 47.7 (28.0-62.0) fl RDW Coeff of Mara 16 H (11.0-15.0) % Plt Count 308 (150-400) K/uL MPV 11.30 (7.40-12.00) fL Neut % (Auto) 76.8 (48.0-80.0) % Lymph % (Auto) 13.2 L (16.0-40.0) % [place] % (Auto) 7.3 (0.0-15.0) % Eos % (Auto) 2.5 (0.0-7.0) % Baso % (Auto) 0.2 (0.0-1.5) % Neut # (Auto) 8.8 H (1.4-5.7) K/uL Lymph # (Auto) 1.5 (0.6-2.4) K/uL [place] # (Auto) 0.8 (0.0-0.8) K/uL Eos # (Auto) 0.3 (0.0-0.7) K/uL Baso # (Auto) 0.0 (0.0-0.1) K/uL Nucleated RBC % 0.0 /100WBC Nucleated RBCs # 0 K/uL Sodium 148 (136-148) mmol/L Potassium 3.9 (3.5-5.1) mmol/L Chloride 116 H (98-107) mmol/L Carbon Dioxide 22.8 (21.0-32.0) mmol/L BUN 28 H (7.0-18.0) mg/dL Creatinine 1.4 H (0.8-1.3) mg/dL Est Cr Clr Drug Dosing 14.36 mL/min Estimated GFR (MDRD) 48.1 ml/min Glucose 79 (74-106) mg/dL Calcium 7.8 L (8.5-10.1) mg/dL Magnesium 2.0 (1.8-2.4) mg/dL KENISHA Results - Last 24 hrs: Microbiology 12/24/20 06:17 Aerobic Blood Culture - Final Blood - Venous - Lab Draw NO GROWTH AFTER 5 DAYS Anaerobic Blood Culture - Final NO GROWTH AFTER 5 DAYS 12/24/20 06:07 Aerobic Blood Culture - Final Blood - Venous NO GROWTH AFTER 5 DAYS Anaerobic Blood Culture - Final NO GROWTH AFTER 5 DAYS Med Orders - Current: Current Medications Albuterol/Ipratropium (Albuterol/Ipratropium 3.0-0.5 Mg/3 Ml Neb Soln) 3 ml NEB Q4HRRT PRN PRN Reason: Shortness Of Breath/wheezing Bisacodyl (Bisacodyl 10 Mg Supp) 10 mg RECTAL Q24H PRN PRN Reason: Constipation Carbamide Perox/Anhydrous Glycerin (Carbamide Peroxide 6.5% Otic Soln 15 Ml Bottle) 0 ml EARBOTH BID PRN PRN Reason: Other Carbidopa/Levodopa (Carbidopa/Levodopa 50-200 Mg Tab.Er) 1 tab PO QID [facility] Last Admin: 12/30/20 06:42 Dose: 1 tab Documented by: Heparin Sodium (Porcine) (Heparin Sodium 5,000 Units/Ml Vial) 5,000 units SUBCUT Q8H [facility] Last Admin: 12/30/20 06:42 Dose: 5,000 units Documented by: Levofloxacin/Dextrose (Levaquin In D5w 500 Mg/100 Ml) 100 mls @ 100 mls/hr IV Q48H [facility] Last Admin: 12/29/20 13:36 Dose: 100 mls/hr Documented by: Levothyroxine Sodium (Levothyroxine 25 Mcg Tab) 25 mcg PO ACBREAKFAST [facility] Last Admin: 12/30/20 06:42 Dose: 25 mcg Documented by: Magnesium Hydroxide (Magnesium Hydroxide 400 Mg/5 Ml Susp 30 Ml Cup) 30 ml PO DAILY PRN PRN Reason: Constipation Methyl Salicylate (Menthol/Methyl Salicylate 29 Gm Tube) 0 gm TOP Q8H PRN PRN Reason: Pain Omeprazole (Omeprazole 20 Mg Cap.Cr) 20 mg PO ACBREAKFAST [facility] Last Admin: 12/30/20 06:42 Dose: 20 mg Documented by: Ondansetron HCl (Ondansetron 4 Mg/2 Ml Sdv) 4 mg IVPUSH Q4H PRN PRN Reason: Nausea/Vomiting Oxcarbazepine (Oxcarbazepine 300 Mg Tab) 150 mg PO QAM [facility] Last Admin: 12/29/20 12:58 Dose: 150 mg Documented by: Oxcarbazepine (Oxcarbazepine 300 Mg Tab) 300 mg PO BEDTIME [place] Last Admin: 12/29/20 22:01 Dose: 300 mg Documented by: Discontinued Medications Sodium Chloride (Normal Saline) 1,000 mls @ 800 mls/hr IV BOLUS ONE Stop: 12/23/20 18:14 Last Admin: 12/23/20 17:26 Dose: 800 mls/hr Documented by: Meropenem/Sodium Chloride 1 gm (/ Premix) 50 mls @ 100 mls/hr IV ONETIME ONE Stop: 12/23/20 17:36 Last Admin: 12/23/20 17:26 Dose: 100 mls/hr Documented by: Sodium Chloride (Normal Saline) 1,000 mls @ 90 mls/hr IV STAT ONE Stop: 12/24/20 05:55 Last Admin: 12/23/20 19:37 Dose: 90 mls/hr Documented by: Vancomycin HCl 1 gm/ Sodium (Chloride) 250 mls @ 166 mls/hr IV ONETIME ONE Stop: 12/23/20 20:57 Last Admin: 12/23/20 19:45 Dose: 166 mls/hr Documented by: Lactated Ringer's (Ringers, Lactated) 1,000 mls @ 125 mls/hr IV ASDIRECTED [facility] Last Infusion: 12/24/20 02:39 Dose: 0 mls/hr Documented by: Meropenem/Sodium Chloride (Meropenem In Ns 1 Gm/50 Ml) 50 mls @ 100 mls/hr IV Q8H [facility] Last Admin: 12/24/20 10:12 Dose: 100 mls/hr Documented by: Lactated Ringer's (Ringers, Lactated) 1,000 mls @ 999 mls/hr IV .BOLUS ONE Stop: 12/23/20 22:52 Last Admin: 12/23/20 22:50 Dose: 999 mls/hr Documented by: Dextrose/Water (Dextrose 5% In Water) 1,000 mls @ 125 mls/hr IV ASDIRECTED [place] Dextrose/Water (Dextrose 5% In Water) 1,000 mls @ 125 mls/hr IV ONETIME ONE Stop: 12/24/20 08:42 Last Admin: 12/24/20 02:39 Dose: 125 mls/hr Documented by: Vancomycin HCl 1 gm/ Sodium (Chloride) 250 mls @ 166.667 mls/hr IV Q48H [facility] Dextrose/Water (Dextrose 5% In Water) 1,000 mls @ 125 mls/hr IV Q8H [facility] Last Admin: 12/26/20 11:59 Dose: Not Given Documented by: Meropenem/Sodium Chloride (Meropenem In Ns 1 Gm/50 Ml) 50 mls @ 100 mls/hr IV Q24H [facility] Meropenem/Sodium Chloride 1 gm (/ Premix) 50 mls @ 100 mls/hr IV Q12H [facility] Last Admin: 12/28/20 09:56 Dose: 100 mls/hr Documented by: Lactated Ringer's (Ringers, Lactated) 1,000 mls @ 125 mls/hr IV Q8H [facility] Last Admin: 12/27/20 09:12 Dose: Not Given Documented by: Potassium Phosphate 20 mmole/ (Sodium Chloride) 506.6667 mls @ 67.5 mls/hr IV ONETIME ONE Stop: 12/26/20 15:37 Last Admin: 12/26/20 11:58 Dose: 67.5 mls/hr Documented by: Dextrose/Water (Dextrose 5% In Water) 1,000 mls @ 125 mls/hr IV ASDIRECTED [facility] Stop: 12/27/20 21:00 Last Admin: 12/27/20 14:05 Dose: 125 mls/hr Documented by: Lactated Ringer's (Ringers, Lactated) 1,000 mls @ 125 mls/hr IV Q8H [facility] Last Admin: 12/30/20 07:52 Dose: Not Given Documented by: Levofloxacin/Dextrose 750 mg/ (Premix) 150 mls @ 100 mls/hr IV ONETIME ONE Stop: 12/28/20 16:14 Last Admin: 12/28/20 16:01 Dose: 100 mls/hr Documented by: Magnesium Sulfate 2 gm/ Premix 50 mls @ 12.5 mls/hr IV ONETIME ONE Stop: 12/29/20 12:29 Last Admin: 12/29/20 09:27 Dose: 12.5 mls/hr Documented by: Vancomycin HCl (Pharmacy To Dose - Vancomycin) 1 dose .XX ASDIRECTED [facility]
[2020-12-30] MEDS: OXcarbazepine 300 MG Tab PO SCH (09:55)
[2020-12-30 12:04] VITALS: BP 157/71; PULSE 62
== END 2020-12-30 12:55 | DRG 872 ==
LOC: MW.ED 16:42 → MW.MS 20:26
PROVIDERS: ADMIT Student in an Organized Health Care Education/Training Program; ATTEND Student in an Organized Health Care Education/Training Program
DX: A41.9 Sepsis, unspecified organism (principal); A41.59 Other Gram-negative sepsis; N30.01 Acute cystitis with hematuria; E87.1 Hypo-osmolality and hyponatremia; N17.9 Acute kidney failure, unspecified; E87.0 Hyperosmolality and hypernatremia; I10 Essential (primary) hypertension; N18.4 Chronic kidney disease, stage 4 (severe); Z66 Do not resuscitate; E86.0 Dehydration; Z51.5 Encounter for palliative care; R33.9 Retention of urine, unspecified; Z93.6 Other artificial openings of urinary tract status; E11.22 Type 2 diabetes mellitus with diabetic chronic kidney disease; I12.9 Hypertensive chronic kidney disease with stage 1 through stage 4 chronic kidney disease, or unspecified chronic kidney disease; G20 Parkinson's disease; H01.009 Unspecified blepharitis unspecified eye, unspecified eyelid; E78.00 Pure hypercholesterolemia, unspecified; K59.09 Other constipation; F71 Moderate intellectual disabilities; R62.7 Adult failure to thrive; K21.9 Gastro-esophageal reflux disease without esophagitis; K44.9 Diaphragmatic hernia without obstruction or gangrene; N40.1 Benign prostatic hyperplasia with lower urinary tract symptoms; Z86.19 Personal history of other infectious and parasitic diseases; R47.9 Unspecified speech disturbances; R33.8 Other retention of urine; N13.9 Obstructive and reflux uropathy, unspecified; M19.90 Unspecified osteoarthritis, unspecified site; M10.9 Gout, unspecified; F41.9 Anxiety disorder, unspecified; F32.9 Major depressive disorder, single episode, unspecified; F79 Unspecified intellectual disabilities; E11.9 Type 2 diabetes mellitus without complications; E03.9 Hypothyroidism, unspecified; N32.0 Bladder-neck obstruction; Z79.82 Long term (current) use of aspirin; Z79.890 Hormone replacement therapy; Z79.899 Other long term (current) drug therapy; Z88.1 Allergy status to other antibiotic agents
CPT/HCPCS: 36415; 70450; 71045; 74176; 80053; 81001; 82803; 83605; 83690; 84484; 85025; 87040 ×2; 87077; 87086; 87088; 87186 ×2; 93005; 96365; 96367; 99285; J2185; J3370; J7030 ×2; J7050; 80048; 82570; 83735; 84100; 84300; 93010; 99221; 99233; 99238; 99284; A9270-GY; J1644; J1956; J3475; J7040; J7060; J7120